=== PATIENT | male | born 1960 | race Caucasian/White ===

== ENCOUNTER 2016-10-29 09:22 | Inpatient (IN) | payer OTHER ==
[~2016-10-29] VITALS: Ht 170.2 cm; Wt 72.0 kg
[~2016-10-29 09:22] MED LIST: CIPR500T4 PO; FLUC150T17 PO; FOLI-49 PO; FURO20TA3 PO; LACT20SO12 PO; PANT40TA4 PO; RIFA550T4 PO; SPIR25TA76 PO
[2016-10-29] MEDS ORDERED: DIPHENHYDRAMINE 50 MG INJ IV ONE ×2 (10:30→12:30)
[2016-10-29 10:45] LABS: BASOPHILS % 0.3 % (0.0-2.0); EOSINOPHILS # 0.3 10^3/ul (0.0-0.5); EOSINOPHILS % 3.8 % (0.0-7.0); HEMATOCRIT 24.9 % (42.0-52.0); HEMOGLOBIN 8.6 g/dl (14.0-18.0); LYMPHOCYTES # 0.7 10^3/ul (0.8-2.9); LYMPHOCYTES % 9.9 % (15.0-51.0); MEAN CORPUSCULAR HEMOGLOBIN 31.2 pg (29.0-33.0); MEAN CORPUSCULAR HGB CONC 34.4 g/dl (32.0-37.0); MEAN CORPUSCULAR VOLUME 90.7 fl (82.0-101.0); MEAN PLATELET VOLUME 8.5 fl (7.4-10.4); MONOCYTE # 1.2 10^3/ul (0.3-0.9); MONOCYTES % 16.1 % (0.0-11.0); NEUTROPHIL # 5.1 10^3/ul (1.6-7.5); NEUTROPHILS % 69.9 % (39.0-77.0); PLATELET COUNT 110 10^3/UL (140-440); RED BLOOD COUNT 2.75 10^6/ul (4.70-6.10); RED CELL DISTRIBUTION WIDTH 16.1 % (11.5-14.5); UNCORRECTED WBC 7.3 10^3/ul (4.8-10.8); WHITE BLOOD COUNT 7.3 10^3/ul (4.8-10.8)
[2016-10-29 10:50] LABS: CONDITION 1; LH ANALYZER COMMENTS 1
[2016-10-29 10:57] LABS: ALBUMIN 2.9 g/dl (3.3-4.9)
[2016-10-29 10:59] LABS: INR 1.4; PARTIAL THROMBOPLASTIN TIME 37.7 Sec (25.0-35.0); PROTIME 17.2 Sec (12.2-14.2); PT RATIO 1.3
[2016-10-29 11:00] LABS: ALBUMIN/GLOBULIN RATIO 0.78; BILIRUBIN,INDIRECT 1.1 mg/dl (0-1.1); BILIRUBIN,TOTAL 1.1 mg/dl (0.2-1.3); CREATININE 1.35 mg/dl (0.61-1.24); TOTAL PROTEIN 6.6 g/dl (6.1-8.1)
[2016-10-29] MEDS ORDERED: CIPROFLOXACIN 0.3% 2.5 ML OPH LEFT EYE ONE (11:00)
[2016-10-29 11:01] LABS: CALCIUM 7.9 mg/dl (8.4-10.2)
--- NOTE | 2016-10-29 11:17 | ERD ---
ER Documentation Chief Complaint Date/Time DATE: 10/29/16 TIME: 11:12 Chief Complaint pt bib self with c/o "fluid in abd needs to be drained" HPI This is a 55-year-old male with known history of liver cirrhosis and ascites. The patient had multiple previous hospitalizations and evaluations in the emergency department for paracentesis disease. The patient's most recent paracentesis was on October 22, 2016, 7 days prior to arrival. The patient indicates he had been admitted to the hospital for roughly 9 days and discharged on the . He returns today for increased abdominal distention mild dyspnea but denies any abdominal pain. He has had no hemoptysis hematemesis or melanotic stools. His main reason for coming to the emergency department today is to receive a paracentesis. He denies any chest pain or pressure that radiates to the neck or back or jaw. He has no shortness of breath at rest or exertion. He states he does not feel confused, lethargic and denies a headache. ROS All systems reviewed and are negative except as per history of present illness. Medications Home Meds Active Scripts Spironolactone* (Aldactone*) 25 Mg Tablet, 25 MG PO DAILY@06 for 30 Days, TAB Prov:SUNDAR OBRIEN 10/22/16 Lactulose* (Cephulac*) 20 Gm/30 Ml Soln, 30 GM PO TID for 30 Days Prov:SUNDAR OBRIEN 10/22/16 Pantoprazole* (Pantoprazole*) 40 Mg Tablet.dr, 40 MG PO DAILY@06 for 30 Days Prov:SUNDAR OBRIEN 10/22/16 Furosemide* (Furosemide*) 20 Mg Tablet, 20 MG PO DAILY, #30 TAB Prov:RIDDHI BLOCK 08/18/16 Rifaximin* (Xifaxan*) 550 Mg Tablet, 550 MG PO BID for 30 Days, TAB Prov:RIDDHI BLOCK 08/18/16 Reported Medications Folic Acid* (Folic Acid*) 1 Mg Tablet, 1 MG PO DAILY, TAB 08/11/16 Discontinued Scripts Ciprofloxacin Hcl* (Ciprofloxacin Hcl*) 500 Mg Tablet, 500 MG PO BID for 3 Days , #6 TAB Prov:SUNDAR OBRIEN 10/22/16 Fluconazole* (Diflucan*) 150 Mg Tablet, 100 MG PO ONCE for 5 Days, #1 TAB Prov:SUNDAR OBRIEN 10/22/16 Lactulose* (Cephulac*) 20 Gm/30 Ml Soln, 20 GM PO TID for 30 Days Prov:RIDDHI BLOCK 08/18/16 Allergies Allergies: Coded Allergies: aspirin (Verified Allergy, Unknown, liver not tolerant, 10/14/16) latanoprost (Verified Allergy, Unknown, 10/14/16) timolol (Verified Allergy, Unknown, 10/14/16) PMhx/Soc History of Surgery: Yes (L eye cataract sx) Anesthesia Reaction: No Hx 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 Disorder: No Hx Respiratory Disorders: No Hx Cardiac Disorders: Yes Hx Psychiatric Problems: No Hx Miscellaneous Medical Probl: Yes (severe sepsis, cystitis, LEONARDO,ascites) Hx Alcohol Use: Yes Hx Substance Use: No Hx Tobacco Use: Yes Smoking Status: Current every day smoker Physical Exam Vitals Vital Signs Date Time Temp Pulse Resp B/P Pulse Ox O2 Delivery O2 Flow Rate FiO2 10/29/16 12:05 76 20 97 21 10/29/16 12:00 97.9 72 18 132/78 100 Room Air 10/29/16 09:38 96.9 90 22 128/75 100 Physical Exam Constitutional:Well-developed. Well-nourished. HEENT:Normocephalic. Atraumatic.Pupils were equal round reactive to light. Moist mucous membranes.No tonsillar exudates. Sclera icterus. Neck: No nuchal rigidity. No lymphadenopathy. No posterior cervical spine tenderness or step-offs. Respiratory: Not using accessory muscles of respiration.Lungs were clear to auscultation bilaterally. No rhonchi. No rales. No wheezing. Cardiovascular: Regular rate regular rhythm.No murmurs. No rubs were appreciated.S1, S2 normal. Distal pulses are palpable 2+ bilaterally. GI: Abdomen was soft. Nontender. Tense abdominal ascites with positive fluid thrill however no reproducible tenderness and umbilical hernia. No pulsatile abdominal masses or bruits. No rebound. No guarding. Bowel sounds were present and normal. Muscle skeletal: Full range of motion of both the upper and lower extremities bilaterally.Normal muscle tone.No assymetrical calf tenderness or swelling. Skin: No petechia, no purpura. No lesions on the palms or the soles of the feet. No maculopapular rash. NEURO: Patient was alert, awake, orientated x3.No facial droop. Gait observed and normal with no ataxia.Speech had regular rate and rhythm. No focal neurological deficits. Result Diagram: 10/29/16 1021 10/29/16 1025 Results 24 hrs Laboratory Tests Test 10/29/16 10:21 10/29/16 10:25 10/29/16 11:35 Basophils # 0.010^3/ul Basophils % 0.3% Blood Morphology Comment Eosinophils # 0.310^3/ul Eosinophils % 3.8% Hematocrit 24.9% Hemoglobin 8.6g/dl Lymphocytes # 0.710^3/ul Lymphocytes % 9.9% Mean Corpuscular Hemoglobin 31.2pg Mean Corpuscular Hemoglobin Concent 34.4g/dl Mean Corpuscular Volume 90.7fl Mean Platelet Volume 8.5fl Monocytes # 1.210^3/ul Monocytes % 16.1% Neutrophils # 5.110^3/ul Neutrophils % 69.9% Nucleated Red Blood Cells # 0.010^3/ul Nucleated Red Blood Cells % 0.0/100WBC Platelet Count 33317^3/UL Red Blood Count 2.7510^6/ul Red Cell Distribution Width 16.1% White Blood Count 7.310^3/ul Activated Partial Thromboplast Time 37.7Sec Alanine Aminotransferase (ALT/SGPT) 35IU/L Albumin 2.9g/dl Albumin/Globulin Ratio 0.78 Alkaline Phosphatase 245IU/L Amylase Level 163U/L Anion Gap 15 Aspartate Amino Transf (AST/SGOT) 49IU/L Blood Urea Nitrogen 53mg/dl Calcium Level 7.9mg/dl Carbon Dioxide Level 19mmol/L Chloride Level 97mmol/L Creatinine 1.35mg/dl Direct Bilirubin 0.00mg/dl Globulin 3.70g/dl Glucose Level 164mg/dl INR International Normalized Ratio 1.40 Indirect Bilirubin 1.1mg/dl Lipase 480U/L Potassium Level 6.0mmol/L Prothrombin Time 17.2Sec Prothrombin Time Ratio 1.3 Sodium Level 125mmol/L Total Bilirubin 1.1mg/dl Total Protein 6.6g/dl Ammonia 47umol/l Current Medications Medications (Trade) Dose Ordered Sig/Lorri Route PRN Reason Start Time Stop Time Status Last Admin Dose Admin Diphenhydramine HCl (Benadryl) 25 mg ONCE ONCE IV 10/29/16 10:30 10/29/16 10:31 DC 10/29/16 10:40 Ciprofloxacin HCl (Ciloxan 0.3% Oph) 1 drop ONCE ONCE LEFT EYE 10/29/16 11:00 10/29/16 11:01 Cancel Sodium Polystyrene Sulfonate (Kayexalate) 30 gm ONCE STAT PO 10/29/16 11:33 10/29/16 11:35 DC 10/29/16 12:14 Albuterol (Proventil 0.5% (Neb)) 15 mg ONCE STAT INH 10/29/16 11:33 10/29/16 11:35 DC 10/29/16 12:01 Calcium Gluconate (Ca Gluc) 1 gm ONCE STAT IV 10/29/16 11:33 10/29/16 11:35 DC 10/29/16 12:14 Lactulose (Enulose) 20 gm ONCE ONCE PO 10/29/16 12:30 10/29/16 12:32 DC Diphenhydramine HCl (Benadryl) 25 mg ONCE ONCE IV 10/29/16 12:30 10/29/16 12:31 DC Ondansetron HCl (Zofran Inj) 4 mg ER BRIDGE PRN IV NAUSEA AND/OR VOMITING 10/29/16 13:00 10/30/16 12:59 Acetaminophen (Tylenol Tab) 650 mg ER BRIDGE PRN PO MILD PAIN/FEVER 10/29/16 13:00 10/30/16 12:59 Procedures/MDM This patient presented to the emergency department with abdominal distension and was seen and evaluated by myself. My differential diagnosis included but was not limited to abdominal aortic aneurysm, appendicitis, pancreatitis, perforated peptic ulcer, perforated viscus, Boerhaaves syndrome or visceral pain such as diverticulitis, DKA, esophagitis, hepatitis or bowel obstruction. The patient was placed on a conveyor monitor, continuous pulse oximetry, and IV access was established by nursing staff. The patient received Benadryl as he was experiencing pruritus. The patient had new onset acute renal failure with an elevated BUN and creatinine compared to his discharge labs on October 22. In addition the patient was hyperkalemic today with a potassium of 6.0 and on discharge October 22, 2016 the patient's potassium was normal at 4.5. The patient was treated for hyperkalemia given continuous nebulizer treatment of albuterol, Kayexalate as well as IV calcium carbonate. Therefore the patient will require admission to the telemetry service due to the hyperkalemia as he will require cardiac monitoring. To treat the patient's elevated ammonia level the patient was given lactulose. The patient will be admitted in the care of Dr. Ch who was taking call for Dr. Lindsey bradley again to the telemetry service in serious condition with an anticipated stay of greater than 2 midnights. The patient had a paracentesis performed in the emergency department by the radiologist with no complications. 12 Lead EKG tracing ordered and reviewed by myself showed: Normal sinus rhythm of 91 bpm and no arrhythmia. [place] interval normal. QRS duration normal. No ST segment elevation No ST segment depression. No changes consistent with acute ischemia. Departure Diagnosis: Primary Impression: Ascites of liver Additional Impressions: Acute renal failure (ARF) Hyperkalemia Hepatic encephalopathy Condition: Serious ALLISON GUADALUPE Oct 29, 2016 11:17
[2016-10-29] MEDS ORDERED: CA GLUCONATE (GM) 10% 10ML INJ IV STA (11:33)
[2016-10-29] MEDS ORDERED: ALBUTEROL 0.5% (NEB) 2.5 MG/0.5 ML AMP INH STA (11:33)
[2016-10-29] MEDS ORDERED: NA POLYST SULFON 15 GM/60 ML BTL PO STA (11:33)
[2016-10-29] MEDS ORDERED: LACTULOSE 30ML CUP PO ONE (12:30)
[2016-10-29] MEDS ORDERED: ONDANSETRON 4 MG INJ IV PRN (13:00)
[2016-10-29] MEDS ORDERED: ACETAMINOPHEN 325 MG TAB PO PRN (13:00)
[2016-10-29] MEDS ORDERED: LIDOCAINE 1% (MPF) 5 ML VIAL ONE (13:50)
--- NOTE | 2016-10-29 14:09 | RADRPT ---
PROCEDURE: Ultrasound guided paracentesis. CLINICAL INDICATION: Ascites and shortness of breath. COMPARISON: 10/22/2016. TECHNIQUE: The risks, benefits, and alternatives were explained to the patient, including but not limited to bl eeding, infection, pain, visceral or vascular damage, shock, and . The patient understood the risks and the alternatives and wished to proceed with the procedure. Informed written consent was o btained. A procedural time out was performed. The patient's name, date of , and procedure to b e performed were verified. Utilizing ultrasound guidance, optimal location for entry to the peritoneal cavity was ascertained. The overlying skin was prepped and draped in the usual sterile fashion. Approximately 10 ml of 1% Xylocaine was injected locally for pain control. Using ultrasound guidance, an 8 Samoan catheter wa s introduced into the peritoneal cavity in the right lower quadrant without difficulty. FINDINGS: Initial images demonstrate ascites. Approximately 8.9 liters of serous fluid was aspirated and disc arded. The patient tolerated the procedure well without complication. IMPRESSION: 1. Successful ultrasound-guided paracentesis. RPTAT: QQ .Emilio Everett MD, MD Date Time Electronically viewed and signed by .Emilio Everett MD, on 10/29/2016 14:09 .R/
[2016-10-29 20:18] VITALS: TEMP 97.9
[2016-10-29 20:36] VITALS: PULSE 90
[2016-10-29 20:41] VITALS: BP 113/57; RESP 20
[2016-10-29 21:35] VITALS: Ht 170.2 cm; Wt 72.0 kg
[2016-10-30] VITALS (12 sets, daily range): BP systolic 93–112; BP diastolic 51–73; PULSE 79–89; RESP 18–20
[2016-10-30] MEDS: FUROSEMIDE 20 MG TAB PO SCH (06:24)
[2016-10-30] MEDS: PANTOPRAZOLE (EC) 40 MG TAB PO SCH (06:24)
[2016-10-30 07:16] LABS: BASOPHILS % 0.7 % (0.0-2.0); EOSINOPHILS # 0.3 10^3/ul (0.0-0.5); EOSINOPHILS % 5.1 % (0.0-7.0); HEMATOCRIT 25.1 % (42.0-52.0); HEMOGLOBIN 8.7 g/dl (14.0-18.0); LYMPHOCYTES # 1.1 10^3/ul (0.8-2.9); MEAN CORPUSCULAR HEMOGLOBIN 31.9 pg (29.0-33.0); MEAN CORPUSCULAR HGB CONC 34.6 g/dl (32.0-37.0); MEAN CORPUSCULAR VOLUME 92.2 fl (82.0-101.0); MEAN PLATELET VOLUME 8.5 fl (7.4-10.4); MONOCYTES % 16.4 % (0.0-11.0); NEUTROPHIL # 3.8 10^3/ul (1.6-7.5); NEUTROPHILS % 59.8 % (39.0-77.0); PLATELET COUNT 91 10^3/UL (140-440); RED BLOOD COUNT 2.72 10^6/ul (4.70-6.10); RED CELL DISTRIBUTION WIDTH 16.2 % (11.5-14.5); UNCORRECTED WBC 6.4 10^3/ul (4.8-10.8); WHITE BLOOD COUNT 6.4 10^3/ul (4.8-10.8)
[2016-10-30 07:17] LABS: CONDITION 1; LH ANALYZER COMMENTS 1
[2016-10-30 07:34] LABS: CREATININE 1.2 mg/dl (0.61-1.24)
[2016-10-30 07:35] LABS: CALCIUM 7.5 mg/dl (8.4-10.2)
--- NOTE | 2016-10-30 09:52 | HP ---
Date/Time of Note Date/Time of Note DATE: 10/30/16 TIME: 09:50 Assessment/Plan VTE Prophylaxis VTE Prophylaxis Intervention: LMWH Assessment/Plan Chief Complaint/Hosp Course 1) ascites - paracentesis 2) cirrhosis - monitor - continue lactuose 3) diabetes - monitor blood sugar Problems: HPI/ROS Admit Date/Time Admit Date/Time Oct 29, 2016 at 12:38 Hx of Present Illness Patient with diabetes, cirrhosis, and renal insufficiency comes in with increased abdominal ascites and shortness of breath. Patient needs to have paracentesis regularly and came in for that purpose. PMH/Family/Social Past Medical History cirrhosis Medical History: diabetes, renal disease Social History Smoking Status: Current every day smoker Drug Use: none Exam/Review of Systems Vital Signs Vitals Vital Signs Date Time Temp Pulse Resp B/P Pulse Ox O2 Delivery O2 Flow Rate FiO2 10/30/16 08:03 79 10/30/16 07:03 98.1 20 106/57 100 10/29/16 20:18 Room Air 10/29/16 12:05 21 Intake and Output 10/29/16 10/29/16 10/30/16 15:00 23:00 07:00 Intake Total 400 ml Output Total 800 ml Balance -400 ml Exam Constitutional: alert, well developed Head: atraumatic, normocephalic Neck: supple Respiratory: clear to auscultation Cardiovascular: regular rate and rhythm Gastrointestinal: ascites, distended, firm Extremities: normal pulses Labs Result Diagram: 10/30/16 0600 10/30/16 0600 Medications Medications Current Medications Lactulose (Enulose) 30 gm BID PO ; Start 10/30/16 at 09:00 Rifaximin (Xifaxan) 550 mg BID PO ; Start 10/30/16 at 09:00 Furosemide (Lasix) 20 mg DAILY@06 PO Last administered on 10/30/16at 06:24; Admin Dose 20 MG; Start 10/30/16 at 06:00 Pantoprazole (Protonix Tab) 40 mg DAILY@06 PO Last administered on 10/30/16at 06:24; Admin Dose 40 MG; Start 10/30/16 at 06:00 Spironolactone (Aldactone) 25 mg DAILY PO ; Start 10/30/16 at 09:00 Folic Acid (Folic Acid) 1 mg DAILY PO ; Start 10/30/16 at 09:00 DERIC BINGHAM Oct 30, 2016 09:52
[2016-10-30] MEDS ORDERED: GLUCOSE GEL 15 GRAM TUBE PO PRN ×2 (10:00)
[2016-10-30] MEDS ORDERED: Discontinue Glyburide, Glipizide, and/or Glimepiride prior to starting Insulin XX ONE (10:00)
[2016-10-30] MEDS ORDERED: DEXTROSE 50% 50 ML SYRINGE IV PRN ×2 (10:00)
[2016-10-30] MEDS ORDERED: GLUCAGON 1 MG INJ IM PRN (10:00)
[2016-10-30] MEDS ORDERED: [UNRECOGNIZED DRUG - OTHER] XX ONE (10:00)
[2016-10-30] MEDS ORDERED: GLUCOSE GEL 15 GRAM TUBE BUCCAL PRN (10:00)
[2016-10-30] MEDS: RIFAXIMIN 550 MG TAB PO SCH ×2 (10:30→20:17)
[2016-10-30] MEDS: SPIRONOLACTONE 25 MG TAB PO SCH (10:30)
[2016-10-30] MEDS: FOLIC ACID 1 MG TAB PO SCH (10:30)
[2016-10-30] MEDS: LACTULOSE 30ML CUP PO SCH ×2 (10:30→20:17)
[2016-10-30] MEDS: INSULIN ASPART [NOVOLOG] 3 ML PEN SC SCH ×3 (11:50→20:16)
--- NOTE | 2016-10-30 15:42 | RADRPT ---
PROCEDURE: Ultrasound four quadrants CLINICAL INDICATION: Abdominal distension. Evaluate for paracentesis. The patient has a history o f paracentesis on the prior day with 8.9 liters of fluid withdrawn. TECHNIQUE: Sonographic evaluation of the four quadrants of the abdomen was performed. Coyle-scale imaging was utilized. Images were reviewed on a high-resolution PACS workstation. COMPARISON: Ultrasound dated 10/29/2016 FINDINGS: Small ascites is seen. The volume of fluid is inadequate for paracentesis, given that the patient had paracentesis on the p rio day. IMPRESSION: 1. Small ascites. 2. Paracentesis was deferred, given that the patient had paracentesis on the prior day. The patien t may be reevaluated for paracentesis on a short term basis, if clinically indicated. RPTAT: II .Ricky Marte MD, Date Time Electronically viewed and signed by .Ricky Marte MD, on 10/30/2016 15:21 .M/
[2016-10-30] MEDS: DIPHENHYDRAMINE 25 MG CAP PO PRN (20:17)
[2016-10-31] VITALS (12 sets, daily range): BP systolic 105–115; BP diastolic 52–62; PULSE 79–96; RESP 15–20
[2016-10-31] MEDS: ACCUCHECK XX SCH (02:00)
[2016-10-31] MEDS: PANTOPRAZOLE (EC) 40 MG TAB PO SCH (05:48)
[2016-10-31] MEDS: FUROSEMIDE 20 MG TAB PO SCH (05:49)
[2016-10-31 06:48] LABS: BASOPHILS % 0.4 % (0.0-2.0); EOSINOPHILS # 0.2 10^3/ul (0.0-0.5); EOSINOPHILS % 3.9 % (0.0-7.0); HEMATOCRIT 25.7 % (42.0-52.0); HEMOGLOBIN 8.9 g/dl (14.0-18.0); LYMPHOCYTES % 17.4 % (15.0-51.0); MEAN CORPUSCULAR HEMOGLOBIN 31.3 pg (29.0-33.0); MEAN CORPUSCULAR HGB CONC 34.5 g/dl (32.0-37.0); MEAN CORPUSCULAR VOLUME 90.6 fl (82.0-101.0); MEAN PLATELET VOLUME 8.1 fl (7.4-10.4); MONOCYTES % 17.8 % (0.0-11.0); NEUTROPHIL # 3.4 10^3/ul (1.6-7.5); NEUTROPHILS % 60.5 % (39.0-77.0); PLATELET COUNT 88 10^3/UL (140-440); RED BLOOD COUNT 2.84 10^6/ul (4.70-6.10); RED CELL DISTRIBUTION WIDTH 16.2 % (11.5-14.5); UNCORRECTED WBC 5.7 10^3/ul (4.8-10.8); WHITE BLOOD COUNT 5.7 10^3/ul (4.8-10.8)
[2016-10-31 06:54] LABS: POTASSIUM 4.7 mmol/L (3.5-5.1)
[2016-10-31 06:57] LABS: CREATININE 1.42 mg/dl (0.61-1.24)
[2016-10-31 06:58] LABS: CALCIUM 7.6 mg/dl (8.4-10.2)
[2016-10-31 07:06] LABS: CONDITION 1; LH ANALYZER COMMENTS 1
[2016-10-31] MEDS: FOLIC ACID 1 MG TAB PO SCH ×2 (09:00→09:06)
[2016-10-31] MEDS: SPIRONOLACTONE 25 MG TAB PO SCH ×2 (09:00→09:06)
[2016-10-31] MEDS: LACTULOSE 30ML CUP PO SCH ×3 (09:00→20:05)
[2016-10-31] MEDS: RIFAXIMIN 550 MG TAB PO SCH ×3 (09:00→20:05)
[2016-10-31] MEDS: INSULIN ASPART [NOVOLOG] 3 ML PEN SC SCH ×4 (09:08→20:02)
--- NOTE | 2016-10-31 12:15 | PN ---
Date/Time of Note Date/Time of Note DATE: 10/31/16 TIME: 12:14 Assessment/Plan VTE Prophylaxis VTE Prophylaxis Intervention: LMWH Assessment/Plan Chief Complaint/Hosp Course 1) ascites - improved 2) cirrhosis - monitor - continue lactuose 3) diabetes - monitor blood sugar Problems: Subjective 24 Hr Interval Summary Free Text/Dictation Patient resting comfortably, difficult to arouse. Exam/Review of Systems Vital Signs Vitals Vital Signs Date Time Temp Pulse Resp B/P Pulse Ox O2 Delivery O2 Flow Rate FiO2 10/31/16 11:29 98.3 86 20 108/52 100 10/29/16 20:18 Room Air 10/29/16 12:05 21 Intake and Output 10/30/16 10/30/16 10/31/16 15:00 23:00 07:00 Intake Total 940 ml 120 ml Output Total 720 ml Balance 220 ml 120 ml Exam Constitutional: well developed Neck: supple Respiratory: clear to auscultation Cardiovascular: regular rate and rhythm Gastrointestinal: non-tender, soft Extremities: normal pulses Results Result Diagram: 10/31/16 0555 10/31/16 0555 Results 24 hrs Laboratory Tests Test 10/30/16 18:09 10/30/16 20:00 10/31/16 05:55 10/31/16 07:31 Bedside Glucose 302 H 109 144 Anion Gap 14 Basophils # 0.0 Basophils % 0.4 Blood Morphology Comment Blood Urea Nitrogen 51 H Calcium Level 7.6 L Carbon Dioxide Level 20 L Chloride Level 96 L Creatinine 1.42 H Eosinophils # 0.2 Eosinophils % 3.9 Glucose Level 146 Hematocrit 25.7 L Hemoglobin 8.9 L Lymphocytes # 1.0 Lymphocytes % 17.4 Mean Corpuscular Hemoglobin 31.3 Mean Corpuscular Hemoglobin Concent 34.5 Mean Corpuscular Volume 90.6 Mean Platelet Volume 8.1 Monocytes # 1.0 H Monocytes % 17.8 H Neutrophils # 3.4 Neutrophils % 60.5 Nucleated Red Blood Cells # 0.0 Nucleated Red Blood Cells % 0.0 Platelet Count 88 L Potassium Level 4.7 Red Blood Count 2.84 L Red Cell Distribution Width 16.2 H Sodium Level 125 L White Blood Count 5.7 Test 10/31/16 11:35 Bedside Glucose 132 Medications Medications Current Medications Lactulose (Enulose) 30 gm BID PO Last administered on 10/31/16t 09:06; Admin Dose 30 GM; Start 10/30/16 at 09:00 Rifaximin (Xifaxan) 550 mg BID PO Last administered on 10/31/16 09:06; Admin Dose 550 MG; Start 10/30/16 at 09:00 Furosemide (Lasix) 20 mg DAILY@06 PO Last administered on 10/31/16 05:49; Admin Dose 20 MG; Start 10/30/16 at 06:00 Pantoprazole (Protonix Tab) 40 mg DAILY@06 PO Last administered on 10/31/16 05: 48; Admin Dose 40 MG; Start 10/30/16 at 06:00 Spironolactone (Aldactone) 25 mg DAILY PO Last administered on 10/31/16 09:06; Admin Dose 25 MG; Start 10/30/16 at 09:00 Folic Acid (Folic Acid) 1 mg DAILY PO Last administered on 10/31/16 09:06; Admin Dose 1 MG; Start 10/30/16 at 09:00 Diagnostic Test (Pha) (Accucheck) 1 ea 02 XX ; Start 10/31/16 at 02:00 Miscellaneous Information 1 ea NOTE XX ; Start 10/30/16 at 10:00 Glucose (Glutose) 15 gm Q15M PRN PO DECREASED GLUCOSE; Start 10/30/16 at 10:00 Glucose (Glutose) 22.5 gm Q15M PRN PO DECREASED GLUCOSE; Start 10/30/16 at 10: 00 Dextrose (D50w Syringe) 25 ml Q15M PRN IV DECREASED GLUCOSE; Start 10/30/16 at 10:00 Dextrose (D50w Syringe) 50 ml Q15M PRN IV DECREASED GLUCOSE; Start 10/30/16 at 10:00 Glucagon (Glucagen) 1 mg Q15M PRN IM DECREASED GLUCOSE; Start 10/30/16 at 10: 00 Glucose (Glutose) 15 gm Q15M PRN BUCCAL DECREASED GLUCOSE; Start 10/30/16 at 10:00 Diphenhydramine HCl (Benadryl) 25 mg Q6H PRN PO ITCHING Last administered on at 20:17; Admin Dose 25 MG; Start 10/30/16 at 20:30 DERIC BINGHAM Oct 31, 2016 12:15
[2016-10-31] MEDS: DIPHENHYDRAMINE 25 MG CAP PO PRN (21:24)
[2016-10-31] MEDS ORDERED: hydrOXYzine HCL 25 MG TAB PO ONE (23:30)
[2016-11-01] VITALS (10 sets, daily range): BP systolic 104–119; BP diastolic 55–64; PULSE 81–90; RESP 15–18
[2016-11-01] MEDS: ACCUCHECK XX SCH (01:32)
[2016-11-01] MEDS: PANTOPRAZOLE (EC) 40 MG TAB PO SCH (05:28)
[2016-11-01] MEDS: FUROSEMIDE 20 MG TAB PO SCH (05:31)
[2016-11-01] MEDS: INSULIN ASPART [NOVOLOG] 3 ML PEN SC SCH ×4 (07:52→21:00)
[2016-11-01] MEDS: RIFAXIMIN 550 MG TAB PO SCH ×2 (08:48→21:09)
[2016-11-01] MEDS: SPIRONOLACTONE 25 MG TAB PO SCH (08:48)
[2016-11-01] MEDS: LACTULOSE 30ML CUP PO SCH ×2 (08:48→17:46)
[2016-11-01] MEDS: FOLIC ACID 1 MG TAB PO SCH (08:48)
[2016-11-01] MEDS: DIPHENHYDRAMINE 25 MG CAP PO PRN ×3 (11:00→21:56)
[2016-11-01 11:13] LABS: BASOPHILS % 0.3 % (0.0-2.0); EOSINOPHILS # 0.1 10^3/ul (0.0-0.5); EOSINOPHILS % 1.6 % (0.0-7.0); HEMATOCRIT 27.3 % (42.0-52.0); HEMOGLOBIN 9.2 g/dl (14.0-18.0); LYMPHOCYTES # 0.9 10^3/ul (0.8-2.9); LYMPHOCYTES % 11.5 % (15.0-51.0); MEAN CORPUSCULAR HEMOGLOBIN 31.3 pg (29.0-33.0); MEAN CORPUSCULAR HGB CONC 33.8 g/dl (32.0-37.0); MEAN CORPUSCULAR VOLUME 92.4 fl (82.0-101.0); MEAN PLATELET VOLUME 8.7 fl (7.4-10.4); MONOCYTES % 12.7 % (0.0-11.0); NEUTROPHIL # 5.9 10^3/ul (1.6-7.5); NEUTROPHILS % 73.9 % (39.0-77.0); PLATELET COUNT 94 10^3/UL (140-440); RED BLOOD COUNT 2.95 10^6/ul (4.70-6.10); RED CELL DISTRIBUTION WIDTH 16.7 % (11.5-14.5)
[2016-11-01 11:17] LABS: CONDITION 1; LH ANALYZER COMMENTS 1
[2016-11-01 11:31] LABS: POTASSIUM 4.8 mmol/L (3.5-5.1)
[2016-11-01 11:34] LABS: CREATININE 1.59 mg/dl (0.61-1.24)
[2016-11-01 11:35] LABS: CALCIUM 8.3 mg/dl (8.4-10.2)
[2016-11-01] MEDS ORDERED: HYDR-845 PO (11:52)
--- NOTE | 2016-11-01 13:19 | PN ---
Date/Time of Note Date/Time of Note DATE: 11/01/16 TIME: 13:18 Assessment/Plan VTE Prophylaxis VTE Prophylaxis Intervention: LMWH Lines/Catheters IV [facility]from [facility] Saline Lock Assessment/Plan Chief Complaint/Hosp Course 1) ascites - improved 2) cirrhosis - monitor - continue lactuose 3) diabetes - monitor blood sugar 4) ALOC - probably secondary to #2 Problems: Subjective 24 Hr Interval Summary Free Text/Dictation Patient is confused, teary, no verbally communicative Exam/Review of Systems Vital Signs Vitals Vital Signs Date Time Temp Pulse Resp B/P Pulse Ox O2 Delivery O2 Flow Rate FiO2 11/01/16 12:10 89 11/01/16 12:06 98.0 18 109/64 98 10/29/16 20:18 Room Air 10/29/16 12:05 21 Intake and Output 10/31/16 10/31/16 11/01/16 15:00 23:00 07:00 Intake Total 340 ml 120 ml Balance 340 ml 120 ml Exam Constitutional: well developed Neck: supple Respiratory: diminished breath sounds Cardiovascular: regular rate and rhythm Gastrointestinal: non-tender, soft Results Result Diagram: 11/01/16 1047 11/01/16 1047 Results 24 hrs Laboratory Tests Test 10/31/16 16:58 10/31/16 19:55 11/01/16 07:51 11/01/16 10:47 Bedside Glucose 139 167 125 Ammonia 43 H Anion Gap 19 H Basophils # 0.0 Basophils % 0.3 Blood Morphology Comment Blood Urea Nitrogen 57 H Calcium Level 8.3 L Carbon Dioxide Level 17 L Chloride Level 100 Creatinine 1.59 H Eosinophils # 0.1 Eosinophils % 1.6 Glucose Level 183 Hematocrit 27.3 L Hemoglobin 9.2 L Lymphocytes # 0.9 Lymphocytes % 11.5 L Mean Corpuscular Hemoglobin 31.3 Mean Corpuscular Hemoglobin Concent 33.8 Mean Corpuscular Volume 92.4 Mean Platelet Volume 8.7 Monocytes # 1.0 H Monocytes % 12.7 H Neutrophils # 5.9 Neutrophils % 73.9 Nucleated Red Blood Cells # 0.0 Nucleated Red Blood Cells % 0.0 Platelet Count 94 L Potassium Level 4.8 Red Blood Count 2.95 L Red Cell Distribution Width 16.7 H Sodium Level 131 L White Blood Count 8.0 # Test 11/01/16 11:47 Bedside Glucose 158 Medications Medications Current Medications Lactulose (Enulose) 30 gm BID PO Last administered on 11/01/16 08:48; Admin Dose 30 GM; Start 10/30/16 at 09:00 Rifaximin (Xifaxan) 550 mg BID PO Last administered on 11/01/16 08:48; Admin Dose 550 MG; Start 10/30/16 at 09:00 Furosemide (Lasix) 20 mg DAILY@06 PO Last administered on 11/01/16 05:31; Admin Dose 20 MG; Start 10/30/16 at 06:00 Pantoprazole (Protonix Tab) 40 mg DAILY@06 PO Last administered on 11/01/16 05: 28; Admin Dose 40 MG; Start 10/30/16 at 06:00 Spironolactone (Aldactone) 25 mg DAILY PO Last administered on 11/01/16 08:48; Admin Dose 25 MG; Start 10/30/16 at 09:00 Folic Acid (Folic Acid) 1 mg DAILY PO Last administered on 11/01/16 08:48; Admin Dose 1 MG; Start 10/30/16 at 09:00 Diagnostic Test (Pha) (Accucheck) 1 ea 02 XX ; Start 10/31/16 at 02:00 Miscellaneous Information 1 ea NOTE XX ; Start 10/30/16 at 10:00 Glucose (Glutose) 15 gm Q15M PRN PO DECREASED GLUCOSE; Start 10/30/16 at 10:00 Glucose (Glutose) 22.5 gm Q15M PRN PO DECREASED GLUCOSE; Start 10/30/16 at 10: 00 Dextrose (D50w Syringe) 25 ml Q15M PRN IV DECREASED GLUCOSE; Start 10/30/16 at 10:00 Dextrose (D50w Syringe) 50 ml Q15M PRN IV DECREASED GLUCOSE; Start 10/30/16 at 10:00 Glucagon (Glucagen) 1 mg Q15M PRN IM DECREASED GLUCOSE; Start 10/30/16 at 10: 00 Glucose (Glutose) 15 gm Q15M PRN BUCCAL DECREASED GLUCOSE; Start 10/30/16 at 10:00 Diphenhydramine HCl (Benadryl) 25 mg Q6H PRN PO ITCHING Last administered on 11:00; Admin Dose 25 MG; Start 10/30/16 at 20:30 DERIC BINGHAM Nov 01, 2016 13:19
[2016-11-01] MEDS: ACETAMINOPHEN 325 MG TAB PO PRN ×3 (13:55→21:53)
[2016-11-02] VITALS (12 sets, daily range): BP systolic 102–140; BP diastolic 55–71; PULSE 94–108; RESP 18–22
[2016-11-02] MEDS: LACTULOSE 30ML CUP PO SCH ×5 (00:14→23:58)
[2016-11-02] MEDS: ACCUCHECK XX SCH (02:00)
[2016-11-02] MEDS: FUROSEMIDE 20 MG TAB PO SCH (05:51)
[2016-11-02] MEDS: PANTOPRAZOLE (EC) 40 MG TAB PO SCH (05:51)
[2016-11-02 05:58] LABS: EOSINOPHILS # 0.1 10^3/ul (0.0-0.5); EOSINOPHILS % 1.4 % (0.0-7.0); HEMATOCRIT 28.2 % (42.0-52.0); HEMOGLOBIN 9.8 g/dl (14.0-18.0); LYMPHOCYTES # 0.8 10^3/ul (0.8-2.9); LYMPHOCYTES % 8.7 % (15.0-51.0); MEAN CORPUSCULAR HEMOGLOBIN 31.8 pg (29.0-33.0); MEAN CORPUSCULAR HGB CONC 34.7 g/dl (32.0-37.0); MEAN CORPUSCULAR VOLUME 91.6 fl (82.0-101.0); MEAN PLATELET VOLUME 8.4 fl (7.4-10.4); MONOCYTE # 1.2 10^3/ul (0.3-0.9); MONOCYTES % 12.6 % (0.0-11.0); NEUTROPHIL # 7.1 10^3/ul (1.6-7.5); NEUTROPHILS % 77.3 % (39.0-77.0); PLATELET COUNT 99 10^3/UL (140-440); RED BLOOD COUNT 3.08 10^6/ul (4.70-6.10); RED CELL DISTRIBUTION WIDTH 16.7 % (11.5-14.5); UNCORRECTED WBC 9.2 10^3/ul (4.8-10.8); WHITE BLOOD COUNT 9.2 10^3/ul (4.8-10.8)
[2016-11-02 06:00] LABS: CONDITION 1; LH ANALYZER COMMENTS 1
[2016-11-02 06:10] LABS: POTASSIUM 4.1 mmol/L (3.5-5.1)
[2016-11-02 06:13] LABS: CREATININE 1.52 mg/dl (0.61-1.24)
[2016-11-02 06:14] LABS: CALCIUM 8.1 mg/dl (8.4-10.2)
[2016-11-02] MEDS: SPIRONOLACTONE 25 MG TAB PO SCH (09:24)
[2016-11-02] MEDS: FOLIC ACID 1 MG TAB PO SCH (09:24)
[2016-11-02] MEDS: RIFAXIMIN 550 MG TAB PO SCH ×2 (09:24→20:43)
[2016-11-02] MEDS: INSULIN ASPART [NOVOLOG] 3 ML PEN SC SCH ×4 (09:30→20:54)
--- NOTE | 2016-11-02 12:24 | PN ---
Date/Time of Note Date/Time of Note DATE: 11/02/16 TIME: 12:23 Assessment/Plan VTE Prophylaxis VTE Prophylaxis Intervention: LMWH Lines/Catheters IV [facility] Type (from [facility]): Saline Lock Assessment/Plan Chief Complaint/Hosp Course 1) ascites - improved 2) cirrhosis - monitor - continue lactuose 3) diabetes - monitor blood sugar 4) ALOC - probably secondary to #2 Problems: Subjective 24 Hr Interval Summary Free Text/Dictation Patient remains confused. Exam/Review of Systems Vital Signs Vitals Vital Signs Date Time Temp Pulse Resp B/P Pulse Ox O2 Delivery O2 Flow Rate FiO2 11/02/16 12:16 103 11/02/16 12:13 98.0 22 107/58 100 10/29/16 20:18 Room Air 10/29/16 12:05 21 Intake and Output 11/01/16 11/01/16 11/02/16 15:00 23:00 07:00 Intake Total 600 ml 300 ml Balance 600 ml 300 ml Exam Constitutional: well developed Head: atraumatic, normocephalic Neck: supple Respiratory: diminished breath sounds Cardiovascular: regular rate and rhythm Gastrointestinal: non-tender, soft Results Result Diagram: 11/02/16 0524 11/02/16 0524 Results 24 hrs Laboratory Tests Test 11/01/16 17:06 11/01/16 21:15 11/02/16 05:24 11/02/16 07:29 Bedside Glucose 123 130 149 Ammonia 53 H Anion Gap 19 H Basophils # 0.0 Basophils % 0.0 Blood Morphology Comment Blood Urea Nitrogen 54 H Calcium Level 8.1 L Carbon Dioxide Level 18 L Chloride Level 100 Creatinine 1.52 H Eosinophils # 0.1 Eosinophils % 1.4 Glucose Level 129 # Hematocrit 28.2 L Hemoglobin 9.8 L Lymphocytes # 0.8 Lymphocytes % 8.7 L Mean Corpuscular Hemoglobin 31.8 Mean Corpuscular Hemoglobin Concent 34.7 Mean Corpuscular Volume 91.6 Mean Platelet Volume 8.4 Monocytes # 1.2 H Monocytes % 12.6 H Neutrophils # 7.1 Neutrophils % 77.3 H Nucleated Red Blood Cells # 0.0 Nucleated Red Blood Cells % 0.0 Platelet Count 99 L Potassium Level 4.1 Red Blood Count 3.08 L Red Cell Distribution Width 16.7 H Sodium Level 133 L White Blood Count 9.2 Test 11/02/16 11:22 Bedside Glucose 193 Medications Medications Current Medications Rifaximin (Xifaxan) 550 mg BID PO Last administered on 11/02/16 09:24; Admin Dose 550 MG; Start 10/30/16 at 09:00 Furosemide (Lasix) 20 mg DAILY@06 PO Last administered on 11/02/16 05:51; Admin Dose 20 MG; Start 10/30/16 at 06:00 Pantoprazole (Protonix Tab) 40 mg DAILY@06 PO Last administered on 11/02/16 05: 51; Admin Dose 40 MG; Start 10/30/16 at 06:00 Spironolactone (Aldactone) 25 mg DAILY PO Last administered on 11/02/16 09:24; Admin Dose 25 MG; Start 10/30/16 at 09:00 Folic Acid (Folic Acid) 1 mg DAILY PO Last administered on 11/02/16 09:24; Admin Dose 1 MG; Start 10/30/16 at 09:00 Diagnostic Test (Pha) (Accucheck) 1 ea 02 XX ; Start 10/31/16 at 02:00 Miscellaneous Information 1 ea NOTE XX ; Start 10/30/16 at 10:00 Glucose (Glutose) 15 gm Q15M PRN PO DECREASED GLUCOSE; Start 10/30/16 at 10:00 Glucose (Glutose) 22.5 gm Q15M PRN PO DECREASED GLUCOSE; Start 10/30/16 at 10: 00 Dextrose (D50w Syringe) 25 ml Q15M PRN IV DECREASED GLUCOSE; Start 10/30/16 at 10:00 Dextrose (D50w Syringe) 50 ml Q15M PRN IV DECREASED GLUCOSE; Start 10/30/16 at 10:00 Glucagon (Glucagen) 1 mg Q15M PRN IM DECREASED GLUCOSE; Start 10/30/16 at 10: 00 Glucose (Glutose) 15 gm Q15M PRN BUCCAL DECREASED GLUCOSE; Start 10/30/16 at 10:00 Diphenhydramine HCl (Benadryl) 25 mg Q6H PRN PO ITCHING Last administered on 21:56; Admin Dose 25 MG; Start 10/30/16 at 20:30 Lactulose (Enulose) 60 gm Q6 PO Last administered on 11/02/16 11:36; Admin Dose 60 GM; Start 11/01/16 at 18:00 Acetaminophen (Tylenol Tab) 325 mg Q6H PRN PO PAIN AND OR ELEVATED TEMP Last administered on 11/01/16 21:53; Admin Dose 325 MG; Start 11/01/16 at 13:30 DERIC BINGHAM Nov 02, 2016 12:24
[2016-11-02] MEDS ORDERED: NA PHOSPHATE/BIPHOS 133 ML ENEMA PR PRN (15:00)
[2016-11-03] VITALS (11 sets, daily range): BP systolic 104–122; BP diastolic 53–81; PULSE 98–107; RESP 16–21
[2016-11-03] MEDS: ACCUCHECK XX SCH (02:00)
[2016-11-03] MEDS: PANTOPRAZOLE (EC) 40 MG TAB PO SCH (05:48)
[2016-11-03] MEDS: FUROSEMIDE 20 MG TAB PO SCH (05:49)
[2016-11-03] MEDS: LACTULOSE 30ML CUP PO SCH ×3 (05:49→19:04)
[2016-11-03] MEDS: SPIRONOLACTONE 25 MG TAB PO SCH (09:02)
[2016-11-03] MEDS: RIFAXIMIN 550 MG TAB PO SCH ×2 (09:02→20:28)
[2016-11-03] MEDS: FOLIC ACID 1 MG TAB PO SCH (09:02)
[2016-11-03] MEDS: INSULIN ASPART [NOVOLOG] 3 ML PEN SC SCH ×4 (09:48→20:30)
--- NOTE | 2016-11-03 12:17 | PN ---
Date/Time of Note Date/Time of Note DATE: 11/03/16 TIME: 12:16 Assessment/Plan VTE Prophylaxis VTE Prophylaxis Intervention: LMWH Lines/Catheters IV [facility] ([facility] Saline Lock Assessment/Plan Chief Complaint/Hosp Course 1) ascites - improved 2) cirrhosis - monitor - continue lactuose 3) diabetes - monitor blood sugar 4) ALOC - probably secondary to #2 Problems: Subjective 24 Hr Interval Summary Free Text/Dictation Patient is more awake today, able to respond to questions Exam/Review of Systems Vital Signs Vitals Vital Signs Date Time Temp Pulse Resp B/P Pulse Ox O2 Delivery O2 Flow Rate FiO2 11/03/16 11:48 97.9 104 18 122/81 99 Intake and Output 11/02/16 11/02/16 11/03/16 15:00 23:00 07:00 Intake Total 400 ml 500 ml Balance 400 ml 500 ml Exam Constitutional: alert, well developed Head: atraumatic, normocephalic Neck: supple Respiratory: clear to auscultation Cardiovascular: regular rate and rhythm Gastrointestinal: non-tender, soft Extremities: normal pulses Results Result Diagram: 11/02/16 0524 11/02/1624 Results 24 hrs Laboratory Tests Test 11/02/16 17:07 11/02/16 20:47 11/03/16 02:59 11/03/16 08:10 Bedside Glucose 183 195 165 180 Medications Medications Current Medications Rifaximin (Xifaxan) 550 mg BID PO Last administered on 11/03/16 09:02; Admin Dose 550 MG; Start 10/30/16 at 09:00 Furosemide (Lasix) 20 mg DAILY@06 PO Last administered on 11/03/16 05:49; Admin Dose 20 MG; Start 10/30/16 at 06:00 Pantoprazole (Protonix Tab) 40 mg DAILY@06 PO Last administered on 11/03/16 05: 48; Admin Dose 40 MG; Start 10/30/16 at 06:00 Spironolactone (Aldactone) 25 mg DAILY PO Last administered on 11/03/16 09:02; Admin Dose 25 MG; Start 10/30/16 at 09:00 Folic Acid (Folic Acid) 1 mg DAILY PO Last administered on 11/03/16 09:02; Admin Dose 1 MG; Start 10/30/16 at 09:00 Diagnostic Test (Pha) (Accucheck) 1 ea 02 XX Last administered on 11/03/16 02: 00; Admin Dose 1 EA; Start 10/31/16 at 02:00 Miscellaneous Information 1 ea NOTE XX ; Start 10/30/16 at 10:00 Glucose (Glutose) 15 gm Q15M PRN PO DECREASED GLUCOSE; Start 10/30/16 at 10:00 Glucose (Glutose) 22.5 gm Q15M PRN PO DECREASED GLUCOSE; Start 10/30/16 at 10: 00 Dextrose (D50w Syringe) 25 ml Q15M PRN IV DECREASED GLUCOSE; Start 10/30/16 at 10:00 Dextrose (D50w Syringe) 50 ml Q15M PRN IV DECREASED GLUCOSE; Start 10/30/16 at 10:00 Glucagon (Glucagen) 1 mg Q15M PRN IM DECREASED GLUCOSE; Start 10/30/16 at 10: 00 Glucose (Glutose) 15 gm Q15M PRN BUCCAL DECREASED GLUCOSE; Start 10/30/16 at 10:00 Diphenhydramine HCl (Benadryl) 25 mg Q6H PRN PO ITCHING Last administered on 21:56; Admin Dose 25 MG; Start 10/30/16 at 20:30 Lactulose (Enulose) 60 gm Q6 PO Last administered on 11/03/16 05:49; Admin Dose 60 GM; Start 11/01/16 at 18:00 Acetaminophen (Tylenol Tab) 325 mg Q6H PRN PO PAIN AND OR ELEVATED TEMP Last administered on 11/01/16 21:53; Admin Dose 325 MG; Start 11/01/16 at 13:30 Sodium Biphosphate/ Sodium Phosphate (Fleet Enema) 133 ml BID PRN [place] CONSTIPATION Last administered on 11/02/16 15:11; Admin Dose 133 ML; Start at 15:00 DERIC BINGHAM Nov 03, 2016 12:17
--- NOTE | 2016-11-03 22:29 | CONS ---
DATE OF ADMISSION: 10/29/2016 DATE OF CONSULTATION: TYPE OF CONSULTATION: Gastroenterology. REFERRING PHYSICIAN: Dr. Bingham. REASON FOR CONSULTATION: Cirrhosis of liver and ascites. HISTORY OF PRESENT ILLNESS: The patient is a 55-year-old male admitted for shortness of breath. Th e patient had abdominal distention. He is known to have cirrhosis of liver and diabetes mellitus. The patient had a paracentesis done. Almost 8 liters of fluid was removed. He feels more comfortab le now. PAST MEDICAL HISTORY: Cirrhosis of liver, ascites undergoing abdominal paracentesis practically satya ry week, diabetes mellitus. Also hepatic encephalopathy. SOCIAL HISTORY: Does not smoke or drink now. PHYSICAL EXAMINATION: GENERAL: Awake. VITAL SIGNS: Stable. HEENT: Unremarkable. NECK: Supple. No thyromegaly, no lymphadenopathy. CARDIOVASCULAR: No murmur, gallop, or click. LUNGS: Clear. ABDOMEN: Minimal ascites. EXTREMITIES: 1+ edema. CENTRAL NERVOUS SYSTEM: Grossly within normal limits. IMPRESSION: 1. Portal hypertension. 2. Ascites, status post total abdominal paracentesis. 3. Encephalopathy. 4. Diabetes mellitus. PLAN: To continue lactulose, rifaximin. Will increase ____ to 200 mg a day. Continue lactulose. Dictated By: JOHANA MOTLEY MD PJ/NTS Conf#: [id number] DID#: [id number] CC: DERIC BINGHAM MD;*EndCC*
[2016-11-04] VITALS (12 sets, daily range): BP systolic 104–122; BP diastolic 55–66; PULSE 85–97; RESP 16–20
[2016-11-04] MEDS: LACTULOSE 30ML CUP PO SCH ×4 (00:19→17:53)
[2016-11-04] MEDS: ACCUCHECK XX SCH (02:00)
[2016-11-04] MEDS: FUROSEMIDE 20 MG TAB PO SCH (05:22)
[2016-11-04] MEDS: PANTOPRAZOLE (EC) 40 MG TAB PO SCH (05:23)
[2016-11-04] MEDS: INSULIN ASPART [NOVOLOG] 3 ML PEN SC SCH ×4 (07:55→20:41)
[2016-11-04] MEDS: FOLIC ACID 1 MG TAB PO SCH (08:12)
[2016-11-04] MEDS: SPIRONOLACTONE 25 MG TAB PO SCH (08:12)
[2016-11-04] MEDS: RIFAXIMIN 550 MG TAB PO SCH ×2 (08:12→20:28)
--- NOTE | 2016-11-04 10:08 | CONS ---
Date/Time of Note Date/Time of Note DATE: 11/04/16 TIME: 10:07 Assessment/Plan Assessment/Plan Additional Assessment/Plan IMPRESSION: 1. Portal hypertension. 2. Ascites, status post total abdominal paracentesis.REFRACTORY 3. Encephalopathy. 4. Diabetes mellitus. Plan PO fluid restriction diuretics monitor renal function Consultation Date/Type/Reason Admit Date/Time Oct 29, 2016 at 12:38 Initial Consult Date 24 HR Interval Summary Constitutional: improved Exam/Review of Systems Vital Signs Vitals Vital Signs Date Time Temp Pulse Resp B/P Pulse Ox O2 Delivery O2 Flow Rate FiO2 11/04/16 08:14 92 11/04/16 07:34 98.2 19 122/55 96 Intake and Output 11/03/16 11/03/16 11/04/16 15:00 23:00 07:00 Intake Total 740 ml 600 ml Balance 740 ml 600 ml Exam Constitutional: alert, oriented, well developed Psych: nl mood/affect, no complaints Head: atraumatic, normocephalic Eyes: EOMI, PERRL, nl conjunctiva, nl lids, nl sclera ENMT: nl external ears & nose, nl lips & teeth, nl nasal mucosa & septum Neck: non-tender, supple Respiratory: clear to auscultation, normal air movement Cardiovascular: nl pulses, regular rate and rhythm Gastrointestinal: nl liver, spleen, non-tender, soft Musculoskeletal: nl extremities to inspection, nl gait and stance Extremities: normal pulses 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, nl mental status, nl speech, nl strength Skin: nl turgor, No rash or lesions Lymph: nl lymph nodes Results Result Diagram: 11/02/1624 11/02/1624 Results 24 hrs Laboratory Tests Test 11/03/16 12:14 11/03/16 19:03 11/03/16 20:30 11/04/16 08:01 Bedside Glucose 167 177 133 133 Medications Medications Current Medications Rifaximin (Xifaxan) 550 mg BID PO Last administered on 11/04/16 08:12; Admin Dose 550 MG; Start 10/30/16 at 09:00 Furosemide (Lasix) 20 mg DAILY@06 PO Last administered on 11/04/16 05:22; Admin Dose 20 MG; Start 10/30/16 at 06:00 Pantoprazole (Protonix Tab) 40 mg DAILY@06 PO Last administered on 11/04/16 05: 23; Admin Dose 40 MG; Start 10/30/16 at 06:00 Folic Acid (Folic Acid) 1 mg DAILY PO Last administered on 11/04/16 08:12; Admin Dose 1 MG; Start 10/30/16 at 09:00 Diagnostic Test (Pha) (Accucheck) 1 ea 02 XX Last administered on 11/03/16 02: 00; Admin Dose 1 EA; Start 10/31/16 at 02:00 Miscellaneous Information 1 ea NOTE XX ; Start 10/30/16 at 10:00 Glucose (Glutose) 15 gm Q15M PRN PO DECREASED GLUCOSE; Start 10/30/16 at 10:00 Glucose (Glutose) 22.5 gm Q15M PRN PO DECREASED GLUCOSE; Start 10/30/16 at 10: 00 Dextrose (D50w Syringe) 25 ml Q15M PRN IV DECREASED GLUCOSE; Start 10/30/16 at 10:00 Dextrose (D50w Syringe) 50 ml Q15M PRN IV DECREASED GLUCOSE; Start 10/30/16 at 10:00 Glucagon (Glucagen) 1 mg Q15M PRN IM DECREASED GLUCOSE; Start 10/30/16 at 10: 00 Glucose (Glutose) 15 gm Q15M PRN BUCCAL DECREASED GLUCOSE; Start 10/30/16 at 10:00 Diphenhydramine HCl (Benadryl) 25 mg Q6H PRN PO ITCHING Last administered on 21:56; Admin Dose 25 MG; Start 10/30/16 at 20:30 Lactulose (Enulose) 60 gm Q6 PO Last administered on 11/04/16 05:23; Admin Dose 60 GM; Start 11/01/16 at 18:00 Acetaminophen (Tylenol Tab) 325 mg Q6H PRN PO PAIN AND OR ELEVATED TEMP Last administered on 11/01/16 21:53; Admin Dose 325 MG; Start 11/01/16 at 13:30 Sodium Biphosphate/ Sodium Phosphate (Fleet Enema) 133 ml BID PRN [place] CONSTIPATION Last administered on 11/02/16 15:11; Admin Dose 133 ML; Start at 15:00 Spironolactone (Aldactone) 100 mg BID PO ; Start 11/04/16 at 21:00; Status UNV JOHANA MOTLEY MD Nov 04, 2016 10:08
--- NOTE | 2016-11-04 12:29 | PN ---
Date/Time of Note Date/Time of Note DATE: 11/04/16 TIME: 12:28 Assessment/Plan VTE Prophylaxis VTE Prophylaxis Intervention: LMWH Lines/Catheters IV C[facility]ter Type (from [facility] Saline Lock Assessment/Plan Chief Complaint/Hosp Course 1) ascites - improved 2) cirrhosis - monitor - continue lactuose 3) diabetes - monitor blood sugar 4) ALOC - probably secondary to #2 anticipate discharge tomorrow Problems: Subjective 24 Hr Interval Summary Free Text/Dictation Patient is doing better, responsive verbally Exam/Review of Systems Vital Signs Vitals Vital Signs Date Time Temp Pulse Resp B/P Pulse Ox O2 Delivery O2 Flow Rate FiO2 11/04/16 12:25 85 11/04/16 07:34 98.2 19 122/55 96 Intake and Output 11/03/16 11/03/16 11/04/16 15:00 23:00 07:00 Intake Total 740 ml 600 ml Balance 740 ml 600 ml Exam Constitutional: well developed Head: atraumatic, normocephalic Neck: supple Respiratory: clear to auscultation Cardiovascular: regular rate and rhythm Gastrointestinal: ascites, non-tender, soft Extremities: normal pulses Results Result Diagram: 11/02/1624 11/02/1624 Results 24 hrs Laboratory Tests Test 11/03/16 19:03 11/03/16 20:30 11/04/16 08:01 Bedside Glucose 177 133 133 Medications Medications Current Medications Rifaximin (Xifaxan) 550 mg BID PO Last administered on 11/04/16 08:12; Admin Dose 550 MG; Start 10/30/16 at 09:00 Furosemide (Lasix) 20 mg DAILY@06 PO Last administered on 11/04/16 05:22; Admin Dose 20 MG; Start 10/30/16 at 06:00 Pantoprazole (Protonix Tab) 40 mg DAILY@06 PO Last administered on 11/04/16 05: 23; Admin Dose 40 MG; Start 10/30/16 at 06:00 Folic Acid (Folic Acid) 1 mg DAILY PO Last administered on 11/04/16 08:12; Admin Dose 1 MG; Start 10/30/16 at 09:00 Diagnostic Test (Pha) (Accucheck) 1 ea 02 XX Last administered on 11/03/16 02: 00; Admin Dose 1 EA; Start 10/31/16 at 02:00 Miscellaneous Information 1 ea NOTE XX ; Start 10/30/16 at 10:00 Glucose (Glutose) 15 gm Q15M PRN PO DECREASED GLUCOSE; Start 10/30/16 at 10:00 Glucose (Glutose) 22.5 gm Q15M PRN PO DECREASED GLUCOSE; Start 10/30/16 at 10: 00 Dextrose (D50w Syringe) 25 ml Q15M PRN IV DECREASED GLUCOSE; Start 10/30/16 at 10:00 Dextrose (D50w Syringe) 50 ml Q15M PRN IV DECREASED GLUCOSE; Start 10/30/16 at 10:00 Glucagon (Glucagen) 1 mg Q15M PRN IM DECREASED GLUCOSE; Start 10/30/16 at 10: 00 Glucose (Glutose) 15 gm Q15M PRN BUCCAL DECREASED GLUCOSE; Start 10/30/16 at 10:00 Diphenhydramine HCl (Benadryl) 25 mg Q6H PRN PO ITCHING Last administered on 21:56; Admin Dose 25 MG; Start 10/30/16 at 20:30 Lactulose (Enulose) 60 gm Q6 PO Last administered on 11/04/16 12:14; Admin Dose 60 GM; Start 11/01/16 at 18:00 Acetaminophen (Tylenol Tab) 325 mg Q6H PRN PO PAIN AND OR ELEVATED TEMP Last administered on 11/01/16 21:53; Admin Dose 325 MG; Start 11/01/16 at 13:30 Sodium Biphosphate/ Sodium Phosphate (Fleet Enema) 133 ml BID PRN [place] CONSTIPATION Last administered on 11/02/16 15:11; Admin Dose 133 ML; Start at 15:00 Spironolactone (Aldactone) 25 mg AM PO ; Start 11/05/16 at 09:00 DERIC BINGHAM Nov 04, 2016 12:29
[2016-11-04] MEDS ORDERED: SPIRONOLACTONE 25 MG TAB PO SCH (21:00)
[2016-11-04] MEDS: ACETAMINOPHEN 325 MG TAB PO PRN (21:49)
[2016-11-05 00:35] VITALS: BP 113/55; PULSE 84; RESP 18
[2016-11-05] MEDS: LACTULOSE 30ML CUP PO SCH ×4 (00:42→18:09)
[2016-11-05] MEDS: ACCUCHECK XX SCH (01:34)
[2016-11-05] MEDS: PANTOPRAZOLE (EC) 40 MG TAB PO SCH (05:34)
[2016-11-05] MEDS: FUROSEMIDE 20 MG TAB PO SCH (05:34)
[2016-11-05] MEDS: ACETAMINOPHEN 325 MG TAB PO PRN (05:37)
[2016-11-05 06:35] LABS: BASOPHILS % 0.5 % (0.0-2.0); EOSINOPHILS # 0.3 10^3/ul (0.0-0.5); EOSINOPHILS % 4.5 % (0.0-7.0); HEMATOCRIT 26.2 % (42.0-52.0); HEMOGLOBIN 9.2 g/dl (14.0-18.0); LYMPHOCYTES # 1.3 10^3/ul (0.8-2.9); LYMPHOCYTES % 19.7 % (15.0-51.0); MEAN CORPUSCULAR HEMOGLOBIN 32.7 pg (29.0-33.0); MEAN CORPUSCULAR HGB CONC 35.2 g/dl (32.0-37.0); MEAN CORPUSCULAR VOLUME 92.8 fl (82.0-101.0); MEAN PLATELET VOLUME 8.4 fl (7.4-10.4); MONOCYTE # 0.9 10^3/ul (0.3-0.9); MONOCYTES % 14.8 % (0.0-11.0); NEUTROPHIL # 3.9 10^3/ul (1.6-7.5); NEUTROPHILS % 60.5 % (39.0-77.0); PLATELET COUNT 100 10^3/UL (140-440); RED BLOOD COUNT 2.83 10^6/ul (4.70-6.10); UNCORRECTED WBC 6.4 10^3/ul (4.8-10.8); WHITE BLOOD COUNT 6.4 10^3/ul (4.8-10.8)
[2016-11-05 06:46] LABS: CONDITION 1; CREATININE 1.71 mg/dl (0.61-1.24); LH ANALYZER COMMENTS 1
[2016-11-05 06:48] LABS: CALCIUM 8.1 mg/dl (8.4-10.2)
[2016-11-05 06:55] LABS: POTASSIUM 2.9 mmol/L (3.5-5.1)
[2016-11-05 07:27] VITALS: BP 102/61; RESP 16
[2016-11-05] MEDS: POTASSIUM CHLORIDE (SR) 20 MEQ TAB PO SCH ×2 (07:59→11:48)
[2016-11-05] MEDS: FOLIC ACID 1 MG TAB PO SCH (08:01)
[2016-11-05] MEDS: INSULIN ASPART [NOVOLOG] 3 ML PEN SC SCH ×4 (08:35→20:51)
[2016-11-05] MEDS: RIFAXIMIN 550 MG TAB PO SCH ×2 (08:36→20:51)
[2016-11-05] MEDS: SPIRONOLACTONE 25 MG TAB PO SCH (08:39)
--- NOTE | 2016-11-05 11:38 | CONS ---
Date/Time of Note Date/Time of Note DATE: 11/05/16 TIME: 11:37 Assessment/Plan Assessment/Plan Additional Assessment/Plan Additional Assessment/Plan IMPRESSION: 1. Portal hypertension. 2. Ascites, status post total abdominal paracentesis.REFRACTORY 3. Encephalopathy. 4. Diabetes mellitus. Plan PO fluid restriction diuretics monitor renal function,if deteriorate than discontinue diuretics Consultation Date/Type/Reason Admit Date/Time Oct 29, 2016 at 12:38 24 HR Interval Summary Constitutional: no complaints Exam/Review of Systems Vital Signs Vitals Vital Signs Date Time Temp Pulse Resp B/P Pulse Ox O2 Delivery O2 Flow Rate FiO2 11/05/16 07:27 97.8 84 16 102/61 100 11/05/16 00:35 Room Air Intake and Output 11/04/16 11/04/16 11/05/16 15:00 23:00 07:00 Intake Total 300 ml 550 ml Balance 300 ml 550 ml Exam Constitutional: alert, oriented, well developed Psych: nl mood/affect, no complaints Head: atraumatic, normocephalic Eyes: EOMI, PERRL, nl conjunctiva, nl lids, nl sclera ENMT: nl external ears & nose, nl lips & teeth, nl nasal mucosa & septum Neck: non-tender, supple Respiratory: clear to auscultation, normal air movement Cardiovascular: nl pulses, regular rate and rhythm Gastrointestinal: nl liver, spleen, non-tender, soft Musculoskeletal: nl extremities to inspection, nl gait and stance Extremities: normal pulses 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, nl mental status, nl speech, nl strength Skin: nl turgor, No rash or lesions Lymph: nl lymph nodes Results Result Diagram: 11/05/16 0537 11/05/16 0537 Results 24 hrs Laboratory Tests Test 11/04/16 12:13 11/04/16 17:46 11/04/16 20:31 11/05/16 01:30 Bedside Glucose 156 141 230 H 124 Test 11/05/16 05:37 11/05/16 07:55 Anion Gap 17 H Basophils # 0.0 Basophils % 0.5 Blood Morphology Comment Blood Urea Nitrogen 51 H Calcium Level 8.1 L Carbon Dioxide Level 20 L Chloride Level 103 Creatinine 1.71 H Eosinophils # 0.3 Eosinophils % 4.5 Glucose Level 119 Hematocrit 26.2 L Hemoglobin 9.2 L Lymphocytes # 1.3 Lymphocytes % 19.7 Mean Corpuscular Hemoglobin 32.7 Mean Corpuscular Hemoglobin Concent 35.2 Mean Corpuscular Volume 92.8 Mean Platelet Volume 8.4 Monocytes # 0.9 Monocytes % 14.8 H Neutrophils # 3.9 Neutrophils % 60.5 Nucleated Red Blood Cells # 0.0 Nucleated Red Blood Cells % 0.0 Platelet Count 100 L Potassium Level 2.9 *L Red Blood Count 2.83 L Red Cell Distribution Width 16.0 H Sodium Level 137 White Blood Count 6.4 # Bedside Glucose 147 Medications Medications Current Medications Rifaximin (Xifaxan) 550 mg BID PO Last administered on 11/05/16 08:36; Admin Dose 550 MG; Start 10/30/16 at 09:00 Furosemide (Lasix) 20 mg DAILY@06 PO Last administered on 11/05/16 05:34; Admin Dose 20 MG; Start 10/30/16 at 06:00 Pantoprazole (Protonix Tab) 40 mg DAILY@06 PO Last administered on 11/05/16 05: 34; Admin Dose 40 MG; Start 10/30/16 at 06:00 Folic Acid (Folic Acid) 1 mg DAILY PO Last administered on 11/05/16 08:01; Admin Dose 1 MG; Start 10/30/16 at 09:00 Diagnostic Test (Pha) (Accucheck) 1 ea 02 XX Last administered on 11/05/16 01: 34; Admin Dose 1 EA; Start 10/31/16 at 02:00 Glucose (Glutose) 15 gm Q15M PRN PO DECREASED GLUCOSE; Start 10/30/16 at 10:00 Glucose (Glutose) 22.5 gm Q15M PRN PO DECREASED GLUCOSE; Start 10/30/16 at 10: 00 Dextrose (D50w Syringe) 25 ml Q15M PRN IV DECREASED GLUCOSE; Start 10/30/16 at 10:00 Dextrose (D50w Syringe) 50 ml Q15M PRN IV DECREASED GLUCOSE; Start 10/30/16 at 10:00 Glucagon (Glucagen) 1 mg Q15M PRN IM DECREASED GLUCOSE; Start 10/30/16 at 10: 00 Glucose (Glutose) 15 gm Q15M PRN BUCCAL DECREASED GLUCOSE; Start 10/30/16 at 10:00 Diphenhydramine HCl (Benadryl) 25 mg Q6H PRN PO ITCHING Last administered on 21:56; Admin Dose 25 MG; Start 10/30/16 at 20:30 Lactulose (Enulose) 60 gm Q6 PO Last administered on 11/05/16 05:34; Admin Dose 60 GM; Start 11/01/16 at 18:00 Acetaminophen (Tylenol Tab) 325 mg Q6H PRN PO PAIN AND OR ELEVATED TEMP Last administered on 11/05/16 05:37; Admin Dose 325 MG; Start 11/01/16 at 13:30 Sodium Biphosphate/ Sodium Phosphate (Fleet Enema) 133 ml BID PRN [place] CONSTIPATION Last administered on 11/02/16 15:11; Admin Dose 133 ML; Start at 15:00 Spironolactone (Aldactone) 25 mg AM PO Last administered on 11/05/16 08:39; Admin Dose 25 MG; Start 11/05/16 at 09:00 Potassium Chloride (Klor-Con 20) 40 meq Q4H PO Last administered on 11/05/16 07 :59; Admin Dose 40 MEQ; Start 11/05/16 at 07:00; Stop 11/05/16 at 12:00 JOHANA MOTLEY MD Nov 05, 2016 11:38
--- NOTE | 2016-11-05 15:49 | PN ---
Date/Time of Note Date/Time of Note DATE: 11/05/16 TIME: 15:48 Assessment/Plan VTE Prophylaxis VTE Prophylaxis Intervention: LMWH Lines/Catheters IV Catheter Type (from [facility]): Saline Lock Assessment/Plan Chief Complaint/Hosp Course 1) ascites - improved 2) cirrhosis - monitor - continue lactuose 3) diabetes - monitor blood sugar 4) ALOC - probably secondary to #2 5) hypokalemia - replace Problems: Subjective 24 Hr Interval Summary Free Text/Dictation Patient more awake but had severe hypokalemia Exam/Review of Systems Vital Signs Vitals Vital Signs Date Time Temp Pulse Resp B/P Pulse Ox O2 Delivery O2 Flow Rate FiO2 11/05/16 07:27 97.8 84 16 102/61 100 11/05/16 00:35 Room Air Intake and Output 11/04/16 11/04/16 11/05/16 15:00 23:00 07:00 Intake Total 300 ml 550 ml Balance 300 ml 550 ml Exam Constitutional: well developed Head: atraumatic, normocephalic Neck: supple Respiratory: clear to auscultation Cardiovascular: regular rate and rhythm Gastrointestinal: non-tender, soft Extremities: normal pulses Results Result Diagram: 11/05/16 0537 11/05/16 0537 Results 24 hrs Laboratory Tests Test 11/04/16 17:46 11/04/16 20:31 11/05/16 01:30 11/05/16 05:37 Bedside Glucose 141 230 H 124 Anion Gap 17 H Basophils # 0.0 Basophils % 0.5 Blood Morphology Comment Blood Urea Nitrogen 51 H Calcium Level 8.1 L Carbon Dioxide Level 20 L Chloride Level 103 Creatinine 1.71 H Eosinophils # 0.3 Eosinophils % 4.5 Glucose Level 119 Hematocrit 26.2 L Hemoglobin 9.2 L Lymphocytes # 1.3 Lymphocytes % 19.7 Mean Corpuscular Hemoglobin 32.7 Mean Corpuscular Hemoglobin Concent 35.2 Mean Corpuscular Volume 92.8 Mean Platelet Volume 8.4 Monocytes # 0.9 Monocytes % 14.8 H Neutrophils # 3.9 Neutrophils % 60.5 Nucleated Red Blood Cells # 0.0 Nucleated Red Blood Cells % 0.0 Platelet Count 100 L Potassium Level 2.9 *L Red Blood Count 2.83 L Red Cell Distribution Width 16.0 H Sodium Level 137 White Blood Count 6.4 # Test 11/05/16 07:55 11/05/16 11:43 Bedside Glucose 147 225 H Medications Medications Current Medications Rifaximin (Xifaxan) 550 mg BID PO Last administered on 11/05/16 08:36; Admin Dose 550 MG; Start 10/30/16 at 09:00 Furosemide (Lasix) 20 mg DAILY@06 PO Last administered on 11/05/16 05:34; Admin Dose 20 MG; Start 10/30/16 at 06:00 Pantoprazole (Protonix Tab) 40 mg DAILY@06 PO Last administered on 11/05/16 05: 34; Admin Dose 40 MG; Start 10/30/16 at 06:00 Folic Acid (Folic Acid) 1 mg DAILY PO Last administered on 11/05/16 08:01; Admin Dose 1 MG; Start 10/30/16 at 09:00 Diagnostic Test (Pha) (Accucheck) 1 ea 02 XX Last administered on 11/05/16 01: 34; Admin Dose 1 EA; Start 10/31/16 at 02:00 Glucose (Glutose) 15 gm Q15M PRN PO DECREASED GLUCOSE; Start 10/30/16 at 10:00 Glucose (Glutose) 22.5 gm Q15M PRN PO DECREASED GLUCOSE; Start 10/30/16 at 10: 00 Dextrose (D50w Syringe) 25 ml Q15M PRN IV DECREASED GLUCOSE; Start 10/30/16 at 10:00 Dextrose (D50w Syringe) 50 ml Q15M PRN IV DECREASED GLUCOSE; Start 10/30/16 at 10:00 Glucagon (Glucagen) 1 mg Q15M PRN IM DECREASED GLUCOSE; Start 10/30/16 at 10: 00 Glucose (Glutose) 15 gm Q15M PRN BUCCAL DECREASED GLUCOSE; Start 10/30/16 at 10:00 Diphenhydramine HCl (Benadryl) 25 mg Q6H PRN PO ITCHING Last administered on 21:56; Admin Dose 25 MG; Start 10/30/16 at 20:30 Lactulose (Enulose) 60 gm Q6 PO Last administered on 11/05/16 11:49; Admin Dose 60 GM; Start 11/01/16 at 18:00 Acetaminophen (Tylenol Tab) 325 mg Q6H PRN PO PAIN AND OR ELEVATED TEMP Last administered on 11/05/16 05:37; Admin Dose 325 MG; Start 11/01/16 at 13:30 Sodium Biphosphate/ Sodium Phosphate (Fleet Enema) 133 ml BID PRN [place] CONSTIPATION Last administered on 11/02/16 15:11; Admin Dose 133 ML; Start at 15:00 Spironolactone (Aldactone) 25 mg AM PO Last administered on 11/05/16 08:39; Admin Dose 25 MG; Start 11/05/16 at 09:00 DERIC BINGHAM Nov 05, 2016 15:49
[2016-11-05 19:23] VITALS: BP 105/63; RESP 19
[2016-11-06] MEDS: LACTULOSE 30ML CUP PO SCH ×3 (00:17→11:55)
[2016-11-06] MEDS: ACCUCHECK XX SCH (02:00)
[2016-11-06] MEDS: PANTOPRAZOLE (EC) 40 MG TAB PO SCH (05:33)
[2016-11-06 06:00] LABS: BASOPHILS % 0.6 % (0.0-2.0); EOSINOPHILS # 0.3 10^3/ul (0.0-0.5); EOSINOPHILS % 4.2 % (0.0-7.0); HEMATOCRIT 27.3 % (42.0-52.0); HEMOGLOBIN 9.6 g/dl (14.0-18.0); LYMPHOCYTES % 15.6 % (15.0-51.0); MEAN CORPUSCULAR HEMOGLOBIN 32.5 pg (29.0-33.0); MEAN CORPUSCULAR HGB CONC 35.1 g/dl (32.0-37.0); MEAN CORPUSCULAR VOLUME 92.7 fl (82.0-101.0); MEAN PLATELET VOLUME 8.5 fl (7.4-10.4); MONOCYTE # 0.8 10^3/ul (0.3-0.9); MONOCYTES % 12.9 % (0.0-11.0); NEUTROPHIL # 4.2 10^3/ul (1.6-7.5); NEUTROPHILS % 66.7 % (39.0-77.0); PLATELET COUNT 111 10^3/UL (140-440); RED BLOOD COUNT 2.95 10^6/ul (4.70-6.10); RED CELL DISTRIBUTION WIDTH 16.3 % (11.5-14.5); UNCORRECTED WBC 6.2 10^3/ul (4.8-10.8); WHITE BLOOD COUNT 6.2 10^3/ul (4.8-10.8)
[2016-11-06 06:01] LABS: CREATININE 1.76 mg/dl (0.61-1.24)
[2016-11-06 06:02] LABS: CALCIUM 8.3 mg/dl (8.4-10.2)
[2016-11-06 06:18] LABS: CONDITION 1; LH ANALYZER COMMENTS 1
[2016-11-06 07:17] VITALS: BP 120/66; RESP 18
[2016-11-06] MEDS: FUROSEMIDE 20 MG TAB PO SCH (07:36)
[2016-11-06] MEDS: INSULIN ASPART [NOVOLOG] 3 ML PEN SC SCH ×2 (08:00→11:53)
[2016-11-06] MEDS: SPIRONOLACTONE 25 MG TAB PO SCH (08:42)
[2016-11-06] MEDS: RIFAXIMIN 550 MG TAB PO SCH (08:42)
[2016-11-06] MEDS: FOLIC ACID 1 MG TAB PO SCH (08:42)
--- NOTE | 2016-11-06 12:51 | DS ---
Date/Time of Note Date/Time of Note DATE: 11/06/16 TIME: 12:46 Discharge Summary Admission/Discharge Info Admit Date/Time Oct 29, 2016 at 12:38 Discharge Date/Time 11/06/16 Final Diagnosis 1) cirrhosis 2) ascites Patient Condition: Fair Consults Gastroenterology Hx of Present Illness Patient with diabetes, cirrhosis, and renal insufficiency comes in with increased abdominal ascites and shortness of breath. Patient needs to have paracentesis regularly and came in for that purpose. Hospital Course Patient comes in with ascites related to cirrhosis. Patient underwent paracentesis. He was better after that but he became altered. Patient was treated with lactulose and then hydrochlorothiazide. Patient's condition improved and now he is at baseline. 1) ascites - improved 2) cirrhosis - monitor - continue lactuose 3) diabetes - monitor blood sugar 4) ALOC - probably secondary to #2 5) hypokalemia - replace Home Meds Active Scripts Spironolactone* (Aldactone*) 25 Mg Tablet, 25 MG PO DAILY@06 for 30 Days, TAB Prov:SUNDAR OBRIEN 10/22/16 Lactulose* (Cephulac*) 20 Gm/30 Ml Soln, 30 GM PO TID for 30 Days Prov:SUNDAR OBRIEN 10/22/16 Pantoprazole* (Pantoprazole*) 40 Mg Tablet.dr, 40 MG PO DAILY@06 for 30 Days Prov:SUNDAR OBRIEN 10/22/16 Furosemide* (Furosemide*) 20 Mg Tablet, 20 MG PO DAILY, #30 TAB Prov:RIDDHI BLOCK 08/18/16 Rifaximin* (Xifaxan*) 550 Mg Tablet, 550 MG PO BID for 30 Days, TAB Prov:RIDDHI BLOCK 08/18/16 Reported Medications Hydroxyzine Hcl* (Atarax*) 50 Mg Tab, 50 MG PO DAILY, TAB 11/01/16 Folic Acid* (Folic Acid*) 1 Mg Tablet, 1 MG PO DAILY, TAB 08/11/16 Pending Labs Laboratory Tests Test 11/05/16 16:33 11/05/16 20:44 11/06/16 04:00 11/06/16 04:25 Bedside Glucose 96mg/dL (70-220) 189mg/dL (70-220) 173mg/dL (70-220) Ammonia 110umol/l (9-30) Anion Gap 16 (8-16) Basophils # 0.010^3/ul (0.0-0.1) Basophils % 0.6% (0.0-2.0) Blood Morphology Comment Blood Urea Nitrogen 54mg/dl (7-20) Calcium Level 8.3mg/dl (8.4-10.2) Carbon Dioxide Level 20mmol/L (21-31) Chloride Level 107mmol/L (97-110) Creatinine 1.76mg/dl (0.61-1.24) Eosinophils # 0.310^3/ul (0.0-0.5) Eosinophils % 4.2% (0.0-7.0) Glucose Level 154mg/dl (70-220) Hematocrit 27.3% (42.0-52.0) Hemoglobin 9.6g/dl (14.0-18.0) Lymphocytes # 1.010^3/ul (0.8-2.9) Lymphocytes % 15.6% (15.0-51.0) Magnesium Level 3.1mg/dl (1.7-2.5) Mean Corpuscular Hemoglobin 32.5pg (29.0-33.0) Mean Corpuscular Hemoglobin Concent 35.1g/dl (32.0-37.0) Mean Corpuscular Volume 92.7fl (82.0-101.0) Mean Platelet Volume 8.5fl (7.4-10.4) Monocytes # 0.810^3/ul (0.3-0.9) Monocytes % 12.9% (0.0-11.0) Neutrophils # 4.210^3/ul (1.6-7.5) Neutrophils % 66.7% (39.0-77.0) Nucleated Red Blood Cells # 0.010^3/ul (0.0-0.0) Nucleated Red Blood Cells % 0.0/100WBC (0.0-0.0) Platelet Count 62582^3/UL (140-440) Potassium Level 4.0mmol/L (3.5-5.1) Red Blood Count 2.9510^6/ul (4.70-6.10) Red Cell Distribution Width 16.3% (11.5-14.5) Sodium Level 139mmol/L (135-144) White Blood Count 6.210^3/ul (4.8-10.8) Test 11/06/16 07:45 11/06/16 11:52 Bedside Glucose 118mg/dL (70-220) 125mg/dL (70-220) DERIC BINGHAM Nov 06, 2016 12:51
--- NOTE | 2016-11-06 14:53 | CONS ---
Date/Time of Note Date/Time of Note DATE: 11/06/16 TIME: 14:50 Assessment/Plan Assessment/Plan Chief Complaint/Hosp Course IMPRESSION: 1. Portal hypertension. 2. Ascites, status post total abdominal paracentesis. 3. Encephalopathy. 4. Diabetes mellitus. Plan PO fluid restriction continue diuretics OK to dc from GI perspective if ok with primary and other consultants. Problems: Consultation Date/Type/Reason Admit Date/Time Oct 29, 2016 at 12:38 Initial Consult Date Type of Consultation: GI 24 HR Interval Summary Free Text/Dictation ambulating, no n/v, mild abdominal pain. Constitutional: improved Exam/Review of Systems Vital Signs Vitals Vital Signs Date Time Temp Pulse Resp B/P Pulse Ox O2 Delivery O2 Flow Rate FiO2 11/06/16 07:17 98.3 93 18 120/66 100 11/05/16 00:35 Room Air Intake and Output 11/05/16 11/05/16 11/06/16 15:00 23:00 07:00 Intake Total 960 ml 960 ml Output Total 100 ml Balance 960 ml 860 ml Exam Constitutional: alert, oriented, well developed Psych: nl mood/affect, no complaints Head: atraumatic, normocephalic Eyes: EOMI, nl conjunctiva, nl lids, nl sclera ENMT: mucosa pink and moist, nl external ears & nose, nl lips & teeth, nl nasal mucosa & septum Neck: non-tender, supple Respiratory: clear to auscultation, normal air movement Cardiovascular: nl pulses, regular rate and rhythm Gastrointestinal: bowel sounds, distended, non-tender, soft Results Result Diagram: 11/06/16 0425 11/06/16 0425 Results 24 hrs Laboratory Tests Test 11/05/16 16:33 11/05/16 20:44 11/06/16 04:00 11/06/16 04:25 Bedside Glucose 96 189 173 Ammonia 110 #H Anion Gap 16 Basophils # 0.0 Basophils % 0.6 Blood Morphology Comment Blood Urea Nitrogen 54 H Calcium Level 8.3 L Carbon Dioxide Level 20 L Chloride Level 107 Creatinine 1.76 H Eosinophils # 0.3 Eosinophils % 4.2 Glucose Level 154 Hematocrit 27.3 L Hemoglobin 9.6 L Lymphocytes # 1.0 Lymphocytes % 15.6 Magnesium Level 3.1 H Mean Corpuscular Hemoglobin 32.5 Mean Corpuscular Hemoglobin Concent 35.1 Mean Corpuscular Volume 92.7 Mean Platelet Volume 8.5 Monocytes # 0.8 Monocytes % 12.9 H Neutrophils # 4.2 Neutrophils % 66.7 Nucleated Red Blood Cells # 0.0 Nucleated Red Blood Cells % 0.0 Platelet Count 111 L Potassium Level 4.0 Red Blood Count 2.95 L Red Cell Distribution Width 16.3 H Sodium Level 139 White Blood Count 6.2 Test 11/06/16 07:45 11/06/16 11:52 Bedside Glucose 118 125 Medications Medications Current Medications Rifaximin (Xifaxan) 550 mg BID PO Last administered on 11/06/16 08:42; Admin Dose 550 MG; Start 10/30/16 at 09:00 Furosemide (Lasix) 20 mg DAILY@06 PO Last administered on 11/06/16 07:36; Admin Dose 20 MG; Start 10/30/16 at 06:00 Pantoprazole (Protonix Tab) 40 mg DAILY@06 PO Last administered on 11/06/16 05: 33; Admin Dose 40 MG; Start 10/30/16 at 06:00 Folic Acid (Folic Acid) 1 mg DAILY PO Last administered on 11/06/16 08:42; Admin Dose 1 MG; Start 10/30/16 at 09:00 Diagnostic Test (Pha) (Accucheck) 1 ea 02 XX Last administered on 11/05/16 01: 34; Admin Dose 1 EA; Start 10/31/16 at 02:00 Glucose (Glutose) 15 gm Q15M PRN PO DECREASED GLUCOSE; Start 10/30/16 at 10:00 Glucose (Glutose) 22.5 gm Q15M PRN PO DECREASED GLUCOSE; Start 10/30/16 at 10: 00 Dextrose (D50w Syringe) 25 ml Q15M PRN IV DECREASED GLUCOSE; Start 10/30/16 at 10:00 Dextrose (D50w Syringe) 50 ml Q15M PRN IV DECREASED GLUCOSE; Start 10/30/16 at 10:00 Glucagon (Glucagen) 1 mg Q15M PRN IM DECREASED GLUCOSE; Start 10/30/16 at 10: 00 Glucose (Glutose) 15 gm Q15M PRN BUCCAL DECREASED GLUCOSE; Start 10/30/16 at 10:00 Diphenhydramine HCl (Benadryl) 25 mg Q6H PRN PO ITCHING Last administered on 21:56; Admin Dose 25 MG; Start 10/30/16 at 20:30 Lactulose (Enulose) 60 gm Q6 PO Last administered on 11/06/16 11:55; Admin Dose 60 GM; Start 11/01/16 at 18:00 Acetaminophen (Tylenol Tab) 325 mg Q6H PRN PO PAIN AND OR ELEVATED TEMP Last administered on 11/05/16 05:37; Admin Dose 325 MG; Start 11/01/16 at 13:30 Sodium Biphosphate/ Sodium Phosphate (Fleet Enema) 133 ml BID PRN GA CONSTIPATION Last administered on 11/02/16 15:11; Admin Dose 133 ML; Start at 15:00 Spironolactone (Aldactone) 25 mg AM PO Last administered on 11/05/16 08:39; Admin Dose 25 MG; Start 11/05/16 at 09:00 CARRIE JOSE MD Nov 06, 2016 14:53
== END 2016-11-06 16:22 | disposition home or self-care (01) | DRG 433 ==
LOC: E/R 09:22 → TEL 12:38 → PP2 11-05 00:21
PROVIDERS: ADMIT Internal Medicine; ATTEND Internal Medicine
PROC: 0W9G3ZZ Drainage of Peritoneal Cavity, Percutaneous Approach (ICD-10-PCS; principal; 2016-10-29)
DX: K74.60 Unspecified cirrhosis of liver (principal); R18.8 Other ascites; K76.6 Portal hypertension; K72.90 Hepatic failure, unspecified without coma; E11.9 Type 2 diabetes mellitus without complications; Z72.0 Tobacco use; E87.6 Hypokalemia
CPT/HCPCS: 76705; 80048; 80053; 82140; 82150; 82962; 83690; 83735; 85025; 85610; 85730; 93005; 94644; 94664; 96374; 96375; 96376; 97162; J0610; J1200; J1815

== ENCOUNTER 2016-11-15 16:43 | Inpatient (IN) | END 2016-11-23 19:10 | disposition home or self-care (01) | DRG 432 | DX: K70.31 Alcoholic cirrhosis of liver with ascites (principal); K76.7 Hepatorenal syndrome; K70.40 Alcoholic hepatic failure without coma; E87.1 Hypo-osmolality and hyponatremia; E11.22 Type 2 diabetes mellitus with diabetic chronic kidney disease; E83.51 Hypocalcemia; K76.6 Portal hypertension; D63.8 Anemia in other chronic diseases classified elsewhere; E87.6 Hypokalemia; F10.20 Alcohol dependence, uncomplicated; N18.9 Chronic kidney disease, unspecified; S50.312A Abrasion of left elbow, initial encounter; X58.XXXA Exposure to other specified factors, initial encounter; Y92.89 Other specified places as the place of occurrence of the external cause ==

== ENCOUNTER 2016-11-28 10:55 | Inpatient (IN) | payer OTHER ==
[~2016-11-28] VITALS: Ht 165.1 cm; Wt 66.0 kg
[~2016-11-28 10:55] MED LIST changes: -CIPR500T4 PO; -FLUC150T17 PO; -FOLI-49 PO; -PANT40TA4 PO; -SPIR25TA76 PO
[2016-11-28 12:08] LABS: ALBUMIN 2.8 g/dl (3.3-4.9); BASOPHILS % 0.4 % (0.0-2.0); CHLORIDE 104 mmol/L (97-110); EOSINOPHILS # 0.1 10^3/ul (0.0-0.5); HEMOGLOBIN 9.9 g/dl (14.0-18.0); LYMPHOCYTES # 1.3 10^3/ul (0.8-2.9); LYMPHOCYTES % 13.4 % (15.0-51.0); MEAN CORPUSCULAR HEMOGLOBIN 31.8 pg (29.0-33.0); MEAN CORPUSCULAR HGB CONC 35.4 g/dl (32.0-37.0); MEAN CORPUSCULAR VOLUME 89.9 fl (82.0-101.0); MEAN PLATELET VOLUME 9.1 fl (7.4-10.4); MONOCYTE # 1.1 10^3/ul (0.3-0.9); MONOCYTES % 11.6 % (0.0-11.0); NEUTROPHILS % 73.6 % (39.0-77.0); PLATELET COUNT 112 10^3/UL (140-440); POTASSIUM 4.6 mmol/L (3.5-5.1); RED BLOOD COUNT 3.12 10^6/ul (4.70-6.10); RED CELL DISTRIBUTION WIDTH 16.7 % (11.5-14.5); SODIUM 133 mmol/L (135-144); UNCORRECTED WBC 9.5 10^3/ul (4.8-10.8); WHITE BLOOD COUNT 9.5 10^3/ul (4.8-10.8)
[2016-11-28 12:10] LABS: BILIRUBIN,INDIRECT 0.7 mg/dl (0-1.1); BILIRUBIN,TOTAL 0.7 mg/dl (0.2-1.3); CREATININE 2.87 mg/dl (0.61-1.24)
[2016-11-28 12:11] LABS: ALANINE AMINOTRANSFERASE 37 IU/L (13-69); ALKALINE PHOSPHATASE 218 IU/L (42-121); ANION GAP 19 (8-16); ASPARTATE AMINO TRANSFERASE 49 IU/L (15-46); BLOOD UREA NITROGEN 61 mg/dl (7-20); CALCIUM 8.2 mg/dl (8.4-10.2); CARBON DIOXIDE 15 mmol/L (21-31); GLUCOSE 136 mg/dl (70-220); TOTAL PROTEIN 7.4 g/dl (6.1-8.1)
[2016-11-28 12:14] LABS: CONDITION 1; ETHANOL < 10.0 mg/dl; LH ANALYZER COMMENTS 1
--- NOTE | 2016-11-28 12:39 | ERA ---
ER Documentation Chief Complaint Date/Time DATE: 11/28/16 TIME: 11:20 Chief Complaint abdominal pain and mild distention,no vomiting. mildy confused per HPI 55-year-old male with a diabetes mellitus type 2, history of end-stage liver cirrhosis, recurrent ascites status post multiple paracenteses most recently on 11/20/2016 with removal of 6 Liters, chronic kidney disease and hepatic encephalopathy brought to the ED by family for evaluation of increasing confusion and altered mental status since last night. They have been giving his usual dose of lactulose and another dose is given just prior to arrival. Increasing abdominal distention but no abdominal pain, nausea, vomiting, diarrhea or constipation. No shortness of breath or cough. No URI symptoms or rhinorrhea. No headache, neck or back pain. No fevers or chills. ROS All systems reviewed and are negative except as per history of present illness. Medications Home Meds Active Scripts Furosemide* (Furosemide*) 20 Mg Tablet, 20 MG PO DAILY for 30 Days, #30 TAB Prov:RIDDHI BLOCK 11/23/16 Lactulose* (Cephulac*) 20 Gm/30 Ml Soln, 30 GM PO TID for 30 Days Prov:SUNDAR OBRIEN 10/22/16 Rifaximin* (Xifaxan*) 550 Mg Tablet, 550 MG PO BID for 30 Days, TAB Prov:RIDDHI BLOCK 08/18/16 Discontinued Reported Medications Thiamine* (Vitamin B-1*) 100 Mg Tablet, 100 MG PO DAILY, TAB 11/15/16 Hydroxyzine Hcl* (Atarax*) 50 Mg Tab, 50 MG PO DAILY, TAB 11/01/16 Folic Acid* (Folic Acid*) 1 Mg Tablet, 1 MG PO DAILY, TAB 08/11/16 Allergies Allergies: Coded Allergies: aspirin (Verified Allergy, Unknown, liver not tolerant, 11/15/16) latanoprost (Verified Allergy, Unknown, 11/15/16) timolol (Verified Allergy, Unknown, 11/15/16) PMhx/Soc Reviewed in chart. As per HPI. History of Surgery: Yes (PARACENTESIS) Anesthesia Reaction: No Hx 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 Disorder: Yes (ACUTE CONFUSION D/T ELEVATED AMMONIA) Hx Respiratory Disorders: No Hx Cardiac Disorders: Yes (HTN) Hx Psychiatric Problems: No Hx Miscellaneous Medical Probl: Yes (CKD) Hx Alcohol Use: Yes (ETOH ABUSE) Hx Substance Use: No Hx Tobacco Use: No Smoking Status: Unknown if ever smoked FmHx No stroke or cancer Physical Exam Vitals Vital Signs Date Time Temp Pulse Resp B/P Pulse Ox O2 Delivery O2 Flow Rate FiO2 11/28/16 10:59 98.6 91 16 95/55 100 Physical Exam Const: Alert confused Head: Atraumatic Eyes: LETICIA, EOMI, Normal Conjunctiva, anicteric ENT: Normal External Ears, Nose and Mouth. Neck: Full range of motion. No JVD. Nontender. No meningismus. Resp: BS equal and clear to auscultation bilaterally Cardio: Regular rate and rhythm, no murmurs Abd: Soft, non tender, distended. Fluid wave. Normal bowel sounds. No rebound or guarding. Skin: Multiple ecchymoses. No rashes Back: No midline or flank tenderness Ext: No cyanosis, or edema Neur: Awake and alert. Confused. Oriented to person. No facial droop. CN II- XII grossly intact. No focal deficit. Result Diagram: 11/28/16 1135 11/28/16 1135 Results 24 hrs Laboratory Tests Test 11/28/16 11:35 Alanine Aminotransferase (ALT/SGPT) 37IU/L Albumin 2.8g/dl Albumin/Globulin Ratio 0.60 Alkaline Phosphatase 218IU/L Ammonia 101umol/l Anion Gap 19 Aspartate Amino Transf (AST/SGOT) 49IU/L Basophils # 0.010^3/ul Basophils % 0.4% Blood Morphology Comment Blood Urea Nitrogen 61mg/dl Calcium Level 8.2mg/dl Carbon Dioxide Level 15mmol/L Chloride Level 104mmol/L Creatinine 2.87mg/dl Direct Bilirubin 0.00mg/dl Eosinophils # 0.110^3/ul Eosinophils % 1.0% Ethyl Alcohol Level < 10.0mg/dl Globulin 4.60g/dl Glucose Level 136mg/dl Hematocrit 28.0% Hemoglobin 9.9g/dl Indirect Bilirubin 0.7mg/dl Lymphocytes # 1.310^3/ul Lymphocytes % 13.4% Mean Corpuscular Hemoglobin 31.8pg Mean Corpuscular Hemoglobin Concent 35.4g/dl Mean Corpuscular Volume 89.9fl Mean Platelet Volume 9.1fl Monocytes # 1.110^3/ul Monocytes % 11.6% Neutrophils # 7.010^3/ul Neutrophils % 73.6% Nucleated Red Blood Cells # 0.010^3/ul Nucleated Red Blood Cells % 0.0/100WBC Platelet Count 69418^3/UL Potassium Level 4.6mmol/L Red Blood Count 3.1210^6/ul Red Cell Distribution Width 16.7% Sodium Level 133mmol/L Thyroid Stimulating Hormone (TSH) 0.823MIU/L Total Bilirubin 0.7mg/dl Total Protein 7.4g/dl White Blood Count 9.510^3/ul EKG: Time: 12:34. Interpretation is limited due to baseline artifact. Sinus rhythm. Ventricular rate 93. No acute ST-T wave changes. No axis deviation or ectopy. EP interpretation: Normal ECG. IMAGING: [ ] Procedures/MDM DOCUMENTS REVIEWED: ED nurse, prior ED, prior records. MEDICAL DECISION MAKIN-year-old male with a diabetes mellitus type 2, history of end-stage liver cirrhosis, recurrent ascites status post multiple paracenteses most recently on 11/20/2016 with removal of 6 Liters, chronic kidney disease and hepatic encephalopathy brought to the ED by family for evaluation of increasing confusion and altered mental status since last night. Significantly elevated ammonia level consistent with hepatic encephalopathy. No focal deficit or indication for neuroimaging. Acute on chronic renal failure with BUN of 61 creatinine 2.8. Multiple episodes of diarrhea post lactulose with transient hypotension, resolved with NS 500cc bolus. Admit to med/surg for further evaluation and management. Counseled patient and family regarding diagnosis, diagnostic results and plan for admission. CALLS/CONSULTS: Time 12:30. Dr. Qureshi, Recommends admission to [facility]. PATIENT CARE TRANSITIONED: Time: 12:45, Dr. Qureshi, Departure Diagnosis: Primary Impression: Acute hepatic encephalopathy Additional Impressions: Liver cirrhosis Qualified Code: K70.31 - Alcoholic cirrhosis of liver with ascites [id number] renal failure Type 2 diabetes mellitus Qualified Code: E11.8 - Type 2 diabetes mellitus with complication, without long-term current use of insulin Condition: Serious ELISA SORIANO MD Nov 28, 2016 12:39
[2016-11-28] MEDS ORDERED: SOD CHLORIDE 0.9% 500 ML IV STA (12:42)
[2016-11-28 13:00] VITALS: TEMP 99.1
[2016-11-28] MEDS ORDERED: ACETAMINOPHEN 325 MG TAB PO PRN (13:00)
[2016-11-28] MEDS ORDERED: ONDANSETRON 4 MG INJ IV PRN (13:00)
[2016-11-28 13:02] LABS: THYROID STIMULATING HORMONE 0.823 MIU/L (0.465-4.680)
--- NOTE | 2016-11-28 13:19 | RADRPT ---
PROCEDURE: XR Chest. CLINICAL INDICATION: Altered mental status/shortness of breath TECHNIQUE: Chest AP portable. COMPARISON: 11/15/2016 FINDINGS: The mediastinal structures are unremarkable. The heart is normal in size and configuration. The pu lmonary vascularity is normal. There are low lung volumes.. No consolidation is identified. The p leural spaces are unremarkable. The axial skeleton is unremarkable. IMPRESSION: No active intrathoracic disease. RPTAT: HGDB .Prasanna Boggs MD, MD Date Time Electronically viewed and signed by .Prasanna Boggs MD, MD on 11/28/2016 13:19 .B/
[2016-11-28 13:58] VITALS: BP 118/68; RESP 16
[2016-11-28 14:10] VITALS: BP 118/48; PULSE 89; RESP 18
[2016-11-28 14:30] VITALS: Ht 165.1 cm; Wt 66.0 kg
[2016-11-28] MEDS ORDERED: DEXTROSE 5%-0.9% NACL 1,000 ML IV SCH (16:00)
[2016-11-28] MEDS: LACTULOSE 30ML CUP PO SCH ×2 (18:02→23:57)
[2016-11-28 19:56] VITALS: BP 119/68; RESP 18
[2016-11-28] MEDS ORDERED: GLUCAGON 1 MG INJ IM PRN (20:00)
[2016-11-28] MEDS ORDERED: GLUCOSE GEL 15 GRAM TUBE PO PRN ×2 (20:00)
[2016-11-28] MEDS ORDERED: DEXTROSE 50% 50 ML SYRINGE IV PRN ×2 (20:00)
[2016-11-28] MEDS ORDERED: GLUCOSE GEL 15 GRAM TUBE BUCCAL PRN (20:00)
[2016-11-28] MEDS: RIFAXIMIN 550 MG TAB PO SCH (20:37)
[2016-11-28] MEDS: SOD CHLORIDE 0.9% 1,000 ML IV SCH (20:39)
[2016-11-28] MEDS: INSULIN ASPART [NOVOLOG] 3 ML PEN SC SCH (20:39)
[2016-11-29] MEDS: ACCUCHECK XX SCH ×2 (02:29)
[2016-11-29] MEDS: LACTULOSE 30ML CUP PO SCH ×4 (05:42→23:12)
[2016-11-29 06:14] LABS: POTASSIUM 3.9 mmol/L (3.5-5.1)
[2016-11-29 06:17] LABS: CALCIUM 7.6 mg/dl (8.4-10.2)
[2016-11-29] MEDS: INSULIN ASPART [NOVOLOG] 3 ML PEN SC SCH ×4 (08:01→20:46)
[2016-11-29 08:04] VITALS: BP 98/55; RESP 18
[2016-11-29] MEDS: RIFAXIMIN 550 MG TAB PO SCH ×2 (08:52→20:47)
[2016-11-29] MEDS: SOD CHLORIDE 0.9% 1,000 ML IV SCH ×2 (09:20→22:40)
--- NOTE | 2016-11-29 13:43 | HP ---
DATE OF ADMISSION: 11/28/2016 CHIEF COMPLAINT: Abdominal pain, distention and confusion per patient's . HISTORY OF PRESENT ILLNESS: The patient is a 55-year-old male known to me from previous ad mission. The patient with alcoholic liver cirrhosis and recurrent ascites. The patient with chroni c kidney disease and hepatic encephalopathy. The patient stated he was taking his lactulose and rif aximin at home. The patient was brought to the ER by patient's due to increased confusion and altered mental status. Last night patient's ammonia level was elevated to 101. Patient underwent p aracentesis on 11/20/2016, with removal of 6 liters. The patient was given lactulose in the emergen cy room, had diarrhea and patient developed transient hypertension and was given IV fluids and patie nt is admitted for further evaluation and management to medical/surgical floor. The patient's sodiu m was 133, potassium was 4.6 on admission. PAST MEDICAL HISTORY: Alcoholic liver cirrhosis, chronic kidney disease, history of diabetes mellit us type 2, recurrent ascites secondary to liver cirrhosis, coagulopathy. PAST SURGICAL HISTORY: Patient is status post cataract surgery on the left. FAMILY HISTORY: Noncontributory. SOCIAL HISTORY: Patient lives at home with his . The patient has a history of alcohol abuse; h owever, currently denies any alcohol use, denies any illicit drug use. The patient smokes cigarette s occasionally. ALLERGIES: THE PATIENT IS ALLERGIC TO: 1. ASPIRIN. 2. LATANOPROST. 3. TIMOLOL. MEDICATIONS: 1. Lasix 20 mg p.o. daily. 2. Lactulose 30 grams p.o. t.i.d. 3. Rifaximin 550 mg p.o. b.i.d. REVIEW OF SYSTEMS: Negative unless what mentioned in the HPI. PHYSICAL EXAMINATION: GENERAL: Well-developed, well-nourished male currently in no acute distress, awake, alert to name a nd CT shown otherwise confused. VITAL SIGNS: Temperature is 98.2, pulse is 84, blood pressure is 98/55, respiratory rate 18, oxygen saturation 100% on room air. HEENT: Head is atraumatic, normocephalic. Pupils equal, round, reactive to light and accommodation . The patient has slightly jaundiced sclerae. NECK: Supple. No cervical lymphadenopathy, no thyromegaly. CHEST: Lungs clear bilaterally. There is no rhonchi, wheezes, rales noted. CARDIOVASCULAR: Normal S1, S2. No murmurs, gallops, clicks, rubs noted. ABDOMEN: Protuberant, soft, slightly distended, nontender. EXTREMITIES: No edema, clubbing, cyanosis. Pulses equal bilaterally 2+. SKIN: The patient has multiple ecchymotic areas and healing scabs. NEUROLOGIC: Patient is awake, alert to name and situation, otherwise confused. No focal deficits n oted. Motor strength 5/5 in all extremities. LABORATORY DATA: On admission, CBC: White blood cells 9.5, hemoglobin 9.9, hematocrit 28.0, platel ets 112. Chemistry: Sodium is 133, potassium 4.6, chloride 104, carbon dioxide 15, anion gap 19, B UN 61, creatinine 2.87, glucose 136, calcium is 8.2. AST is 49, ALT is 37, ____ 218. IMAGING: Chest x-ray with impression of no active intrathoracic disease. ASSESSMENT AND PLAN: 1. Hepatic encephalopathy. Continue lactulose q.i.d. and rifaximin. We will ask Dr. Melendez to see patient in gastroenterology consultation. 2. Alcoholic liver cirrhosis with recurrent ascites. Will order paracentesis to be done by [facility]. 3. Chronic kidney disease. Will ask Dr. Wiseman to see patient in nephrology consultation. 4. Diabetes mellitus. We will continue to monitor blood sugar. Continue NovoLog per mild algorith m sliding scale coverage. 5. Mild thrombocytopenia, most likely secondary to liver cirrhosis. Continue to monitor platelet c ount. 6. We will continue Protonix for peptic ulcer disease prophylaxis and sequential compression device for deep venous thrombosis prophylaxis. Further recommendations based on clinical course. Plan of care discussed with Dr. Lowery. Dictated By: RIDDHI BLOCK SHAPE HAND for EDDIE LOWERY MD SR/NTS Conf#: [id number] DID#: [id number]
--- NOTE | 2016-11-29 16:47 | CONS ---
Date/Time of Note Date/Time of Note DATE: 11/29/16 TIME: 16:42 Assessment/Plan Assessment/Plan Additional Assessment/Plan 55 yo male with 1. LEONARDO on CKD, HRS vs Pre-Renal Azotemia, Unlikely ATN, Improving, Non oliguric 2. Metabolic Acidosis with respiratory compensation 3. Anemia of Chronic disease 4. Hx of DM, Likely with underlying CKD, DM Nephropathy 5. AMS, Hepatic Encephalopathy 6. Chronic Liver Disease, Cirrhosis, Recurrent Ascites 7. Mild Hyponatremia 8. Hypoalbuminemia Renal function has improved since yesterday with IVFs and holding diuretic Rx Will send Urine NA level, Will order ABG level now, due to Bicarb level 13 and start low dose bictra bid, Repeat chemistry in am. Cont to Hold Diuretic Rx and agree with gentle NS. Likely will benefit from albumin infusion. Free H20 Restricted Diet due to Hyponatremia. Further recommendations to follow Thank you for the opportunity to participate in the care of Mr Jean Baptiste. Consultation Date/Type/Reason Admit Date/Time Nov 28, 2016 at 12:41 Date of Consultation: Nov 29, 2016 Type of Consultation: Nephrology Reason for Consultation LEONARDO Referring Provider: EDDIE LOWERY MD Hx of Present Illness 55-year-old male with alcoholic liver cirrhosis and recurrent ascites. The patient has history of LEONARDO and chronic kidney disease which improved last admission , he also carries hx of hepatic encephalopathy. The patient was brought to the ER by patient's due to increased confusion and altered mental status, found to have elevated ammonia levels and admitted to hospital for continued treatment and evaluation. Nephrology consulted for LEONARDO, CKD. Constitutional: No requiring O2 Past Medical History Medical History: renal disease Past Surgical History Past Surgical Hx: other Family History Significant Family History: no pertinent family hx Social History Smoking Status: Never smoker Drug Use: none Exam/Review of Systems Vital Signs Vitals Vital Signs Date Time Temp Pulse Resp B/P Pulse Ox O2 Delivery O2 Flow Rate FiO2 11/29/16 08:04 98.2 84 18 98/55 100 11/28/16 14:10 Room Air Intake and Output 11/28/16 11/28/16 11/29/16 15:00 23:00 07:00 Intake Total 345 ml 1195 ml Balance 345 ml 1195 ml Exam Constitutional: No distress ENMT: mucosa pink and moist Neck: No jvd Respiratory: clear to auscultation Cardiovascular: regular rate and rhythm, No edema Gastrointestinal: ascites, distended, soft, No rebound or guarding Extremities: No pitting pedal edema 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, No confused, No lethargic Results Result Diagram: 11/28/16 1135 11/29/16 0525 Results 24 hrs Laboratory Tests Test 11/28/16 20:36 11/29/16 01:27 11/29/16 05:24 11/29/16 05:25 Bedside Glucose 142 165 Hemoglobin A1c 5.6 Anion Gap 16 Blood Urea Nitrogen 60 H Calcium Level 7.6 L Carbon Dioxide Level 13 L Chloride Level 106 Creatinine 2.00 H Glucose Level 111 Potassium Level 3.9 Sodium Level 131 L Test 11/29/16 07:34 11/29/16 11:56 Bedside Glucose 210 105 Medications Medications Current Medications Lactulose (Enulose) 20 gm Q6 PO Last administered on 11/29/16 12:15; Admin Dose 20 GM; Start 11/28/16 at 18:00 Rifaximin (Xifaxan) 550 mg BID PO Last administered on 11/29/16 08:52; Admin Dose 550 MG; Start 11/28/16 at 21:00 Diagnostic Test (Pha) (Accucheck) 1 ea 02 XX Last administered on 11/29/16 02: 29; Admin Dose 1 EA; Start 11/29/16 at 02:00 Diagnostic Test (Pha) 1 ea 1 ea 02 XX Last administered on 11/29/16 02:29; Admin Dose 1 EA; Start 11/29/16 at 02:00 Sodium Chloride (NS) 1,000 ml @ 75 mls/hr [id number] IV Last administered on 11/28 20:39; Admin Dose 75 MLS/HR; Start 11/28/16 at 20:00 Miscellaneous Information 1 ea NOTE XX ; Start 11/28/16 at 20:00 Glucose (Glutose) 15 gm Q15M PRN PO DECREASED GLUCOSE; Start 11/28/16 at 20:00 Glucose (Glutose) 22.5 gm Q15M PRN PO DECREASED GLUCOSE; Start 11/28/16 at 20: 00 Dextrose (D50w Syringe) 25 ml Q15M PRN IV DECREASED GLUCOSE; Start 11/28/16 at 20:00 Dextrose (D50w Syringe) 50 ml Q15M PRN IV DECREASED GLUCOSE; Start 11/28/16 at 20:00 Glucagon (Glucagen) 1 mg Q15M PRN IM DECREASED GLUCOSE; Start 11/28/16 at 20:00 Glucose (Glutose) 15 gm Q15M PRN BUCCAL DECREASED GLUCOSE; Start 11/28/16 at 20 :00 Procedures Procedures PROCEDURE: XR Chest. CLINICAL INDICATION: Altered mental status/shortness of breath TECHNIQUE: Chest AP portable. COMPARISON: 11/15/2016 FINDINGS: The mediastinal structures are unremarkable. The heart is normal in size and configuration. The pulmonary vascularity is normal. There are low lung volumes.. No consolidation is identified. The pleural spaces are unremarkable. The axial skeleton is unremarkable. IMPRESSION: No active intrathoracic disease. RPTAT: HGDB .Prasanna Boggs MD, MD Date Time Electronically viewed and signed by .Prasanna Boggs MD, MD on 11/28/2016 13:19 SONA CONROY MD Nov 29, 2016 16:47
--- NOTE | 2016-11-29 17:17 | CONS ---
DATE OF ADMISSION: 11/28/2016 DATE OF CONSULTATION: HISTORY OF PRESENT ILLNESS: A 55-year-old male with a history of cirrhosis of liver, refra ctory ascites, gets frequently admitted for a confusional state. The patient was brought in by the to the emergency room for a confusional state. 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 In the ER, his ammonia level was 101 and, as per the , the patient has been taking lactulose and rifaximin at home. PAST MEDICAL HISTORY: Hepatorenal syndrome, type 1; diabetes mellitus, cirrhosis of liver secondary to alcohol, hepatic encephalopathy, and refractory ascites. PAST SURGICAL HISTORY: Cataract surgery. FAMILY HISTORY: Nothing contributory. ALLERGIES: NOTED. REVIEW OF SYSTEMS: Negative. PHYSICAL EXAMINATION: GENERAL: The patient is confused. VITAL SIGNS: Stable. HEENT: Unremarkable. NECK: Supple. No thyromegaly, no lymphadenopathy. CARDIOVASCULAR: No murmur, gallop, or click. LUNGS: Clear. ABDOMEN: Benign except for ascites. EXTREMITIES: No edema. CENTRAL NERVOUS SYSTEM: The patient is confused. IMPRESSION: 1. Hepatic encephalopathy. 2. Cirrhosis of liver. 3. Refractory ascites. 4. Hepatorenal syndrome, type 1. 5. Diabetes mellitus. PLAN: To continue with lactulose and rifaximin. Hold off on diuretics because that will worsen the patient's renal function. Fluid restriction. Reduced protein diet. Dictated By: JOHANA RAVI/NTS Conf#: [id number] DID#: [id number] CC: JOHANA MOTLEY MD; EDDIE LOWERY MD;*EndCC*
[2016-11-29 18:13] LABS: Allen Test ACCEPTAB; Arterial Base Excess -8.6 mmol/L (-3.0-3); Arterial COHb 0.2 % (0.0-3.0); Arterial Fraction of Oxyhgb 97.3 % (93.0-99.0); Arterial HCO3 13.5 mmol/L (22.0-26.0); Arterial MetHb 0.2 % (0.0-1.5); Arterial Total Hemglobin 9.6 g/dl (12.0-18.0); MODE ROOM AIR
[2016-11-29 19:47] VITALS: BP 109/72; RESP 16
[2016-11-29] MEDS: CITRIC ACID/NA CITRATE 30 ML CUP PO SCH (20:47)
[2016-11-30 00:36] LABS: ADD UMIC YES; URINE BILIRUBIN (Dip) NEGATIVE (NEGATIVE); URINE BLOOD (Dip) 2+ (NEGATIVE); URINE COLOR LT. YELLOW (YELLOW); URINE GLUCOSE (Dip) NEGATIVE (NEGATIVE); URINE KETONES (Dip) NEGATIVE (NEGATIVE); URINE LEUKOCYTE ESTERASE (Dip) 1+ (NEGATIVE); URINE NITRITE (Dip) NEGATIVE (NEGATIVE); URINE TOTAL PROTEIN (Dip) NEGATIVE (NEGATIVE); URINE UROBILINOGEN (Dip) 0.2 E.U./dL (0.1-1.0)
[2016-11-30 01:11] LABS: BACTERIA,URINE MODERATE; BARBITURATES NEGATIVE (NEGATIVE); BENZODIAZEPINES NEGATIVE (NEGATIVE); COCAINE NEGATIVE (NEGATIVE); OPIATES NEGATIVE (NEGATIVE); SQUAMOUS EPITHELIAL CELL,UR FEW
[2016-11-30 01:41] LABS: CANNABINOIDS NEGATIVE (NEGATIVE)
[2016-11-30] MEDS: ACCUCHECK XX SCH ×2 (02:00)
[2016-11-30] MEDS: LACTULOSE 30ML CUP PO SCH ×4 (05:31→23:54)
[2016-11-30 05:50] LABS: INR 1.7; PROTIME 20.1 Sec (12.2-14.2); PT RATIO 1.6
[2016-11-30 05:55] LABS: ALBUMIN 2.1 g/dl (3.3-4.9)
[2016-11-30 05:56] LABS: POTASSIUM 4.3 mmol/L (3.5-5.1)
[2016-11-30 05:58] LABS: ALBUMIN/GLOBULIN RATIO 0.53; BILIRUBIN,INDIRECT 1.4 mg/dl (0-1.1); BILIRUBIN,TOTAL 1.4 mg/dl (0.2-1.3); CALCIUM 7.5 mg/dl (8.4-10.2); CREATININE 1.69 mg/dl (0.61-1.24)
[2016-11-30 06:26] LABS: BASOPHILS % 0.4 % (0.0-2.0); EOSINOPHILS # 0.1 10^3/ul (0.0-0.5); EOSINOPHILS % 1.5 % (0.0-7.0); HEMATOCRIT 24.1 % (42.0-52.0); HEMOGLOBIN 8.3 g/dl (14.0-18.0); LYMPHOCYTES # 1.5 10^3/ul (0.8-2.9); MEAN CORPUSCULAR HEMOGLOBIN 32.5 pg (29.0-33.0); MEAN CORPUSCULAR HGB CONC 34.6 g/dl (32.0-37.0); MEAN CORPUSCULAR VOLUME 93.9 fl (82.0-101.0); MONOCYTE # 1.1 10^3/ul (0.3-0.9); MONOCYTES % 13.9 % (0.0-11.0); NEUTROPHIL # 5.2 10^3/ul (1.6-7.5); NEUTROPHILS % 65.2 % (39.0-77.0); RED BLOOD COUNT 2.57 10^6/ul (4.70-6.10); RED CELL DISTRIBUTION WIDTH 16.5 % (11.5-14.5); UNCORRECTED WBC 7.9 10^3/ul (4.8-10.8); WHITE BLOOD COUNT 7.9 10^3/ul (4.8-10.8)
[2016-11-30 07:05] LABS: CONDITION 1; LH ANALYZER COMMENTS 1; PLATELET COUNT 85 10^3/UL (140-440)
[2016-11-30] MEDS: INSULIN ASPART [NOVOLOG] 3 ML PEN SC SCH ×4 (08:00→21:00)
[2016-11-30 08:10] VITALS: BP 95/52; RESP 18
[2016-11-30] MEDS: CITRIC ACID/NA CITRATE 30 ML CUP PO SCH ×2 (09:06→21:39)
[2016-11-30] MEDS: RIFAXIMIN 550 MG TAB PO SCH ×2 (09:06→21:39)
[2016-11-30 09:28] VITALS: BP 98/56; PULSE 83
--- NOTE | 2016-11-30 11:46 | CONS ---
Date/Time of Note Date/Time of Note DATE: 11/30/16 TIME: 11:46 Assessment/Plan Assessment/Plan Additional Assessment/Plan 55 yo male with 1. LEONARDO on CKD, HRS vs Pre-Renal Azotemia, Unlikely ATN, Improving, Non oliguric 2. Metabolic Acidosis with respiratory compensation 3. Anemia of Chronic disease 4. Hx of DM, Likely with underlying CKD, DM Nephropathy 5. AMS, Hepatic Encephalopathy 6. Chronic Liver Disease, Cirrhosis, Recurrent Ascites 7. Mild Hyponatremia 8. Hypoalbuminemia Na level improving Renal function improving, Non Oliguric Cont Gentle IVFs for another 24 hours and cont to hold diuretic Rx Bicitra BID x 24-48 hours, serum Bicarb improved, now 17 Will cont to monitor UO, Electrolytes and renal function daily. Consultation Date/Type/Reason Admit Date/Time Nov 28, 2016 at 12:41 Initial Consult Date 11/29/16 Type of Consultation: Nephrology Referring Provider: EDDIE LOWERY MD 24 HR Interval Summary Free Text/Dictation No new complaints, Good UO Exam/Review of Systems Vital Signs Vitals Vital Signs Date Time Temp Pulse Resp B/P Pulse Ox O2 Delivery O2 Flow Rate FiO2 11/30/16 09:28 83 98/56 11/30/16 08:10 98.1 18 100 11/28/16 14:10 Room Air Intake and Output 11/29/16 11/29/16 11/30/16 15:00 23:00 07:00 Intake Total 2300 ml 500 ml Output Total 250 ml Balance 2300 ml 250 ml Exam Constitutional: No distress ENMT: mucosa pink and moist Respiratory: clear to auscultation Cardiovascular: regular rate and rhythm, No edema Gastrointestinal: ascites, soft, No rebound or guarding Extremities: No edema 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: No lethargic Skin: No diaphoresis Results Result Diagram: 11/30/16 0435 11/30/16 0435 Results 24 hrs Laboratory Tests Test 11/29/16 11:56 11/29/16 17:13 11/29/16 17:55 11/29/16 20:12 Bedside Glucose 105 104 173 Arterial Blood HCO3 13.5 L Arterial Blood Base Excess -8.6 L Arterial Blood Oxygen Saturation 97.7 Guillermo Test ACCEPTAB Arterial Blood Gas Puncture Site Right Radial Arterial Blood Carboxyhemoglobin 0.2 Arterial Blood Date Drawn 11/29/2016 6:06:32 PM Arterial Blood Methemoglobin 0.2 Arterial Blood pCO2 (Temp correct) 19.3 L Arterial Blood pH (Temp corrected) 7.462 H Arterial Blood pO2 (Temp corrected) 113.6 H Blood Gas A-a O2 Differential 13.0 Blood Gas Modality ROOM AIR Blood Gas Notified Time 11/29/2016 6:12:52 PM Blood Gas Notified Whom [place] Blood Gas Specimen Source Blood arterial Blood Gas Temperature 37.0 FiO2 21.0 Oxyhemoglobin Percent 97.3 Total Hemoglobin 9.6 L Test 11/29/16 23:38 11/30/16 04:35 11/30/16 07:50 Urine Amphetamines Screen NEGATIVE Urine Bacteria MODERATE Urine Barbiturates NEGATIVE Urine Benzodiazepines Screen NEGATIVE Urine Bilirubin NEGATIVE Urine Cannabinoids NEGATIVE Urine Clarity HAZY Urine Cocaine Screen NEGATIVE Urine Color LT. YELLOW Urine Glucose NEGATIVE Urine Hemoglobin 2+ H Urine Ketones NEGATIVE Urine Leukocyte Esterase 1+ H Urine Microscopic RBC 10-25 Urine Microscopic WBC 25-50 Urine Nitrite NEGATIVE Urine Opiates Screen NEGATIVE Urine Random Sodium < 13 L Urine Specific [place] 1.015 Urine Squamous Epithelial Cells FEW Urine Total Protein NEGATIVE Urine Urobilinogen 0.2 E.U./dL Urine pH 6.0 Alanine Aminotransferase (ALT/SGPT) 37 Albumin 2.1 L Albumin/Globulin Ratio 0.53 Alkaline Phosphatase 106 # Ammonia 85 H Anion Gap 13 Aspartate Amino Transf (AST/SGOT) 37 Basophils # 0.0 Basophils % 0.4 Blood Morphology Comment Blood Urea Nitrogen 51 H Calcium Level 7.5 L Carbon Dioxide Level 17 L Chloride Level 108 Creatinine 1.69 H Direct Bilirubin 0.00 Eosinophils # 0.1 Eosinophils % 1.5 Globulin 3.90 H Glucose Level 113 Hematocrit 24.1 L Hemoglobin 8.3 L INR International Normalized Ratio 1.70 Indirect Bilirubin 1.4 H Lymphocytes # 1.5 Lymphocytes % 19.0 Mean Corpuscular Hemoglobin 32.5 Mean Corpuscular Hemoglobin Concent 34.6 Mean Corpuscular Volume 93.9 Mean Platelet Volume 9.0 Monocytes # 1.1 H Monocytes % 13.9 H Neutrophils # 5.2 Neutrophils % 65.2 Nucleated Red Blood Cells # 0.0 Nucleated Red Blood Cells % 0.0 Platelet Count 85 #L Potassium Level 4.3 Prothrombin Time 20.1 H Prothrombin Time Ratio 1.6 Red Blood Count 2.57 L Red Cell Distribution Width 16.5 H Sodium Level 134 L Total Bilirubin 1.4 H Total Protein 6.0 #L White Blood Count 7.9 Bedside Glucose 107 Medications Medications Current Medications Lactulose (Enulose) 20 gm Q6 PO Last administered on 11/30/16 05:31; Admin Dose 20 GM; Start 11/28/16 at 18:00 Rifaximin (Xifaxan) 550 mg BID PO Last administered on 11/30/16 09:06; Admin Dose 550 MG; Start 11/28/16 at 21:00 Diagnostic Test (Pha) (Accucheck) 1 ea 02 XX Last administered on 11/29/16 02: 29; Admin Dose 1 EA; Start 11/29/16 at 02:00 Diagnostic Test (Pha) 1 ea 1 ea 02 XX Last administered on 11/29/16 02:29; Admin Dose 1 EA; Start 11/29/16 at 02:00 Sodium Chloride (NS) 1,000 ml @ 75 mls/hr [id number] IV Last administered on 11/28 20:39; Admin Dose 75 MLS/HR; Start 11/28/16 at 20:00 Miscellaneous Information 1 ea NOTE XX ; Start 11/28/16 at 20:00 Glucose (Glutose) 15 gm Q15M PRN PO DECREASED GLUCOSE; Start 11/28/16 at 20:00 Glucose (Glutose) 22.5 gm Q15M PRN PO DECREASED GLUCOSE; Start 11/28/16 at 20: 00 Dextrose (D50w Syringe) 25 ml Q15M PRN IV DECREASED GLUCOSE; Start 11/28/16 at 20:00 Dextrose (D50w Syringe) 50 ml Q15M PRN IV DECREASED GLUCOSE; Start 11/28/16 at 20:00 Glucagon (Glucagen) 1 mg Q15M PRN IM DECREASED GLUCOSE; Start 11/28/16 at 20:00 Glucose (Glutose) 15 gm Q15M PRN BUCCAL DECREASED GLUCOSE; Start 11/28/16 at 20 :00 Citric Acid/ Sodium Citrate (Bicitra) 15 ml BID PO Last administered on 09:06; Admin Dose 15 ML; Start 11/29/16 at 21:00 SONA CONROY MD Nov 30, 2016 11:46
[2016-11-30] MEDS: SOD CHLORIDE 0.9% 1,000 ML IV SCH (11:47)
--- NOTE | 2016-11-30 14:09 | PN ---
Date/Time of Note Date/Time of Note DATE: 11/30/16 TIME: 13:57 Assessment/Plan VTE Prophylaxis VTE Prophylaxis Intervention: SCD's Lines/Catheters IV [facility] ([facility] Peripheral IV Urinary Cath still in place: No Assessment/Plan Chief Complaint/Hosp Course ASSESSMENT AND PLAN: 1. Hepatic encephalopathy. Continue lactulose q.i.d. and rifaximin. Dr. Melendez is following in gastroenterology consultation. 2. Alcoholic liver cirrhosis with recurrent ascites. 3. Chronic kidney disease. Dr. Morrison is following in nephrology consultation. 4. Diabetes mellitus. Continue NovoLog per mild algorithm sliding scale coverage. 5. Mild thrombocytopenia, most likely secondary to liver cirrhosis. Continue to monitor platelet count. Continue Protonix for peptic ulcer disease prophylaxis and sequential compression device for deep venous thrombosis prophylaxis. Further recommendations based on clinical course. Plan of care discussed with Dr. Qureshi. Problems: Subjective 24 Hr Interval Summary Free Text/Dictation Patient is awake alert with periods of confusion per RN, patient is currently resting, no fever nausea vomiting. Exam/Review of Systems Vital Signs Vitals Vital Signs Date Time Temp Pulse Resp B/P Pulse Ox O2 Delivery O2 Flow Rate FiO2 11/30/16 09:28 83 98/56 11/30/16 08:10 98.1 18 100 11/28/16 14:10 Room Air Intake and Output 11/29/16 11/29/16 11/30/16 14:59 22:59 06:59 Intake Total 2300 ml 500 ml Output Total 250 ml Balance 2300 ml 250 ml Exam GENERAL: Well-developed, well-nourished male currently in no acute distress HEENT: Head is atraumatic, normocephalic. Pupils equal, round, reactive to light and accommodation. The patient has slightly jaundiced sclerae. NECK: Supple. No cervical lymphadenopathy, no thyromegaly. CHEST: Lungs clear bilaterally. There is no rhonchi, wheezes, rales noted. CARDIOVASCULAR: Normal S1, S2. No murmurs, gallops, clicks, rubs noted. ABDOMEN: Protuberant, soft, slightly distended, nontender. EXTREMITIES: No edema, clubbing, cyanosis. Pulses equal bilaterally 2+. SKIN: The patient has multiple ecchymotic areas and healing scabs. NEUROLOGIC: Patient is awake, alert to name and situation, otherwise confused. Results Result Diagram: 11/30/16 0435 11/30/16 0435 Results 24 hrs Laboratory Tests Test 11/29/16 17:13 11/29/16 17:55 11/29/16 20:12 11/29/16 23:38 Bedside Glucose 104 173 Arterial Blood HCO3 13.5 L Arterial Blood Base Excess -8.6 L Arterial Blood Oxygen Saturation 97.7 Guillermo Test ACCEPTAB Arterial Blood Gas Puncture Site Right Radial Arterial Blood Carboxyhemoglobin 0.2 Arterial Blood Date Drawn 11/29/2016 6:06:32 PM Arterial Blood Methemoglobin 0.2 Arterial Blood pCO2 (Temp correct) 19.3 L Arterial Blood pH (Temp corrected) 7.462 H Arterial Blood pO2 (Temp corrected) 113.6 H Blood Gas A-a O2 Differential 13.0 Blood Gas Modality ROOM AIR Blood Gas Notified Time 11/29/2016 6:12:52 PM Blood Gas Notified Whom NH Blood Gas Specimen Source Blood arterial Blood Gas Temperature 37.0 FiO2 21.0 Oxyhemoglobin Percent 97.3 Total Hemoglobin 9.6 L Urine Amphetamines Screen NEGATIVE Urine Bacteria MODERATE Urine Barbiturates NEGATIVE Urine Benzodiazepines Screen NEGATIVE Urine Bilirubin NEGATIVE Urine Cannabinoids NEGATIVE Urine Clarity HAZY Urine Cocaine Screen NEGATIVE Urine Color LT. YELLOW Urine Glucose NEGATIVE Urine Hemoglobin 2+ H Urine Ketones NEGATIVE Urine Leukocyte Esterase 1+ H Urine Microscopic RBC 10-25 Urine Microscopic WBC 25-50 Urine Nitrite NEGATIVE Urine Opiates Screen NEGATIVE Urine Random Sodium < 13 L Urine Specific [place] 1.015 Urine Squamous Epithelial Cells FEW Urine Total Protein NEGATIVE Urine Urobilinogen 0.2 E.U./dL Urine pH 6.0 Test 11/30/16 04:35 11/30/16 07:50 11/30/16 11:41 Alanine Aminotransferase (ALT/SGPT) 37 Albumin 2.1 L Albumin/Globulin Ratio 0.53 Alkaline Phosphatase 106 # Ammonia 85 H Anion Gap 13 Aspartate Amino Transf (AST/SGOT) 37 Basophils # 0.0 Basophils % 0.4 Blood Morphology Comment Blood Urea Nitrogen 51 H Calcium Level 7.5 L Carbon Dioxide Level 17 L Chloride Level 108 Creatinine 1.69 H Direct Bilirubin 0.00 Eosinophils # 0.1 Eosinophils % 1.5 Globulin 3.90 H Glucose Level 113 Hematocrit 24.1 L Hemoglobin 8.3 L INR International Normalized Ratio 1.70 Indirect Bilirubin 1.4 H Lymphocytes # 1.5 Lymphocytes % 19.0 Mean Corpuscular Hemoglobin 32.5 Mean Corpuscular Hemoglobin Concent 34.6 Mean Corpuscular Volume 93.9 Mean Platelet Volume 9.0 Monocytes # 1.1 H Monocytes % 13.9 H Neutrophils # 5.2 Neutrophils % 65.2 Nucleated Red Blood Cells # 0.0 Nucleated Red Blood Cells % 0.0 Platelet Count 85 #L Potassium Level 4.3 Prothrombin Time 20.1 H Prothrombin Time Ratio 1.6 Red Blood Count 2.57 L Red Cell Distribution Width 16.5 H Sodium Level 134 L Total Bilirubin 1.4 H Total Protein 6.0 #L White Blood Count 7.9 Bedside Glucose 107 108 Medications Medications Current Medications Lactulose (Enulose) 20 gm Q6 PO Last administered on 11/30/16 11:46; Admin Dose 20 GM; Start 11/28/16 at 18:00 Rifaximin (Xifaxan) 550 mg BID PO Last administered on 11/30/16 09:06; Admin Dose 550 MG; Start 11/28/16 at 21:00 Diagnostic Test (Pha) (Accucheck) 1 ea 02 XX Last administered on 11/29/16 02: 29; Admin Dose 1 EA; Start 11/29/16 at 02:00 Diagnostic Test (Pha) 1 ea 1 ea 02 XX Last administered on 11/29/16 02:29; Admin Dose 1 EA; Start 11/29/16 at 02:00 Sodium Chloride (NS) 1,000 ml @ 75 mls/hr [id number] IV Last administered on 11/30 11:47; Admin Dose 75 MLS/HR; Start 11/28/16 at 20:00 Miscellaneous Information 1 ea NOTE XX ; Start 11/28/16 at 20:00 Glucose (Glutose) 15 gm Q15M PRN PO DECREASED GLUCOSE; Start 11/28/16 at 20:00 Glucose (Glutose) 22.5 gm Q15M PRN PO DECREASED GLUCOSE; Start 11/28/16 at 20: 00 Dextrose (D50w Syringe) 25 ml Q15M PRN IV DECREASED GLUCOSE; Start 11/28/16 at 20:00 Dextrose (D50w Syringe) 50 ml Q15M PRN IV DECREASED GLUCOSE; Start 11/28/16 at 20:00 Glucagon (Glucagen) 1 mg Q15M PRN IM DECREASED GLUCOSE; Start 11/28/16 at 20:00 Glucose (Glutose) 15 gm Q15M PRN BUCCAL DECREASED GLUCOSE; Start 11/28/16 at 20 :00 Citric Acid/ Sodium Citrate (Bicitra) 15 ml BID PO Last administered on t 09:06; Admin Dose 15 ML; Start 11/29/16 at 21:00 RIDDHI BLOCK Nov 30, 2016 14:07
[2016-11-30] MEDS: PANTOPRAZOLE 40 MG INJ IV SCH (18:07)
[2016-11-30 19:43] VITALS: BP 113/63; RESP 18
[2016-12-01] VITALS (24 sets, daily range): BP systolic 61–133; BP diastolic 31–120; PULSE 72–100; RESP 15–23
[2016-12-01] MEDS: SOD CHLORIDE 0.9% 1,000 ML IV SCH ×2 (01:52→14:40)
[2016-12-01] MEDS: ACCUCHECK XX SCH ×2 (02:00)
[2016-12-01] MEDS: LACTULOSE 30ML CUP PO SCH ×4 (06:00→23:25)
[2016-12-01] MEDS: PANTOPRAZOLE 40 MG INJ IV SCH (06:00)
[2016-12-01] MEDS: INSULIN ASPART [NOVOLOG] 3 ML PEN SC SCH ×4 (08:00→21:00)
[2016-12-01] MEDS ORDERED: SOD CHLORIDE 0.9% 500 ML IV ONE ×3 (08:30→13:00)
[2016-12-01] MEDS: CITRIC ACID/NA CITRATE 30 ML CUP PO SCH ×2 (09:00→12:39)
[2016-12-01] MEDS: RIFAXIMIN 550 MG TAB PO SCH ×2 (09:00→23:26)
[2016-12-01] MEDS ORDERED: ALBUMIN HUMAN 25% 50 ML IV ONE (10:00)
[2016-12-01 10:15] LABS: ALBUMIN 2.2 g/dl (3.3-4.9); POTASSIUM 3.2 mmol/L (3.5-5.1)
[2016-12-01 10:17] LABS: CREATININE 1.82 mg/dl (0.61-1.24)
[2016-12-01 10:18] LABS: ALBUMIN/GLOBULIN RATIO 0.56; BILIRUBIN,INDIRECT 1.3 mg/dl (0-1.1); BILIRUBIN,TOTAL 1.3 mg/dl (0.2-1.3); CALCIUM 7.1 mg/dl (8.4-10.2); TOTAL PROTEIN 6.1 g/dl (6.1-8.1)
[2016-12-01 10:19] LABS: INR 1.73; PROTIME 20.4 Sec (12.2-14.2); PT RATIO 1.6
[2016-12-01 11:05] LABS: BASOPHILS % 0.1 % (0.0-2.0); EOSINOPHILS % 1.1 % (0.0-7.0); HEMATOCRIT 26.9 % (42.0-52.0); HEMOGLOBIN 9.1 g/dl (14.0-18.0); LYMPHOCYTES # 0.7 10^3/ul (0.8-2.9); LYMPHOCYTES % 18.1 % (15.0-51.0); MEAN CORPUSCULAR HEMOGLOBIN 31.9 pg (29.0-33.0); MEAN CORPUSCULAR HGB CONC 33.8 g/dl (32.0-37.0); MEAN CORPUSCULAR VOLUME 94.3 fl (82.0-101.0); MEAN PLATELET VOLUME 8.7 fl (7.4-10.4); MONOCYTE # 0.2 10^3/ul (0.3-0.9); MONOCYTES % 4.2 % (0.0-11.0); NEUTROPHILS % 76.5 % (39.0-77.0); PLATELET COUNT 99 10^3/UL (140-440); RED BLOOD COUNT 2.86 10^6/ul (4.70-6.10); RED CELL DISTRIBUTION WIDTH 16.6 % (11.5-14.5); UNCORRECTED WBC 3.9 10^3/ul (4.8-10.8); WHITE BLOOD COUNT 3.9 10^3/ul (4.8-10.8)
[2016-12-01 11:09] LABS: CONDITION 1; LH ANALYZER COMMENTS 1
--- NOTE | 2016-12-01 14:03 | CONS ---
Date/Time of Note Date/Time of Note DATE: 12/01/16 TIME: 14:01 Assessment/Plan Assessment/Plan Additional Assessment/Plan IMPRESSION: 1. Hepatic encephalopathy. 2. Cirrhosis of liver. 3. Refractory ascites. 4. Hepatorenal syndrome, type 1. 5. Diabetes mellitus. PLAN: To continue with lactulose and rifaximin. Hold off on diuretics because that will worsen the patient's renal function. Fluid restriction. Reduced protein diet. stool for occult blood addendum this note is from yesterday Consultation Date/Type/Reason Admit Date/Time Nov 28, 2016 at 12:41 Initial Consult Date 11/29/16 Type of Consultation: Nephrology Referring Provider: EDDIE LOWERY MD 24 HR Interval Summary Free Text/Dictation pt.was seen yesterday,felt better. as per staff there wad ? blood in the stool as per . Exam/Review of Systems Vital Signs Vitals Vital Signs Date Time Temp Pulse Resp B/P Pulse Ox O2 Delivery O2 Flow Rate FiO2 12/01/16 08:58 84 84/51 12/01/16 08:16 97.9 22 100 11/28/16 14:10 Room Air Intake and Output 11/30/16 11/30/16 12/01/16 15:00 23:00 07:00 Intake Total 2250 ml 1300 ml Output Total 3 ml Balance 2247 ml 1300 ml Exam Constitutional: alert, oriented, well developed Psych: nl mood/affect, no complaints Head: atraumatic, normocephalic Eyes: EOMI, PERRL, nl conjunctiva, nl lids, nl sclera ENMT: nl external ears & nose, nl lips & teeth, nl nasal mucosa & septum Neck: non-tender, supple Respiratory: clear to auscultation, normal air movement Cardiovascular: nl pulses, regular rate and rhythm Gastrointestinal: nl liver, spleen, non-tender, soft Musculoskeletal: nl extremities to inspection, nl gait and stance Extremities: normal pulses 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: [employer] II-XII intact, nl mental status, nl speech, nl strength Skin: nl turgor, No rash or lesions Lymph: nl lymph nodes Results Result Diagram: 12/01/16 0940 12/01/16 0940 Results 24 hrs Laboratory Tests Test 11/30/16 16:59 11/30/16 18:30 11/30/16 21:42 12/01/16 07:46 Bedside Glucose 112 129 175 Stool Occult Blood NEGATIVE Test 12/01/16 09:40 12/01/16 11:55 Alanine Aminotransferase (ALT/SGPT) 42 Albumin 2.2 L Albumin/Globulin Ratio 0.56 Alkaline Phosphatase 110 Anion Gap 15 Aspartate Amino Transf (AST/SGOT) 36 Basophils # 0.0 Basophils % 0.1 Blood Morphology Comment Blood Urea Nitrogen 42 H Calcium Level 7.1 L Carbon Dioxide Level 15 L Chloride Level 111 H Creatinine 1.82 H Direct Bilirubin 0.00 Eosinophils # 0.0 Eosinophils % 1.1 Globulin 3.90 H Glucose Level 113 Hematocrit 26.9 L Hemoglobin 9.1 L INR International Normalized Ratio 1.73 Indirect Bilirubin 1.3 H Lymphocytes # 0.7 L Lymphocytes % 18.1 Mean Corpuscular Hemoglobin 31.9 Mean Corpuscular Hemoglobin Concent 33.8 Mean Corpuscular Volume 94.3 Mean Platelet Volume 8.7 Monocytes # 0.2 L Monocytes % 4.2 Neutrophils # 3.0 Neutrophils % 76.5 Nucleated Red Blood Cells # 0.0 Nucleated Red Blood Cells % 0.0 Platelet Count 99 L Potassium Level 3.2 L Prothrombin Time 20.4 H Prothrombin Time Ratio 1.6 Red Blood Count 2.86 L Red Cell Distribution Width 16.6 H Sodium Level 138 Total Bilirubin 1.3 Total Protein 6.1 White Blood Count 3.9 #L Bedside Glucose 149 Medications Medications Current Medications Lactulose (Enulose) 20 gm Q6 PO Last administered on 12/01/16 12:39; Admin Dose 20 GM; Start 11/28/16 at 18:00 Rifaximin (Xifaxan) 550 mg BID PO Last administered on 11/30/16 21:39; Admin Dose 550 MG; Start 11/28/16 at 21:00 Diagnostic Test (Pha) (Accucheck) ea XX Last administered on 11/29/16 02: 29; Admin Dose 1 EA; Start 11/29/16 at 02:00 Diagnostic Test (Pha) 1 ea ea XX Last administered on 11/29/16 02:29; Admin Dose 1 EA; Start 11/29/16 at 02:00 Sodium Chloride (NS) 1,000 ml @ 75 mls/hr [id number] IV Last administered on 01:52; Admin Dose 75 MLS/HR; Start 11/28/16 at 20:00 Miscellaneous Information 1 ea NOTE XX ; Start 11/28/16 at 20:00 Glucose (Glutose) 15 gm Q15M PRN PO DECREASED GLUCOSE; Start 11/28/16 at 20:00 Glucose (Glutose) 22.5 gm Q15M PRN PO DECREASED GLUCOSE; Start 11/28/16 at 20: 00 Dextrose (D50w Syringe) 25 ml Q15M PRN IV DECREASED GLUCOSE; Start 11/28/16 at 20:00 Dextrose (D50w Syringe) 50 ml Q15M PRN IV DECREASED GLUCOSE; Start 11/28/16 at 20:00 Glucagon (Glucagen) 1 mg Q15M PRN IM DECREASED GLUCOSE; Start 11/28/16 at 20:00 Glucose (Glutose) 15 gm Q15M PRN BUCCAL DECREASED GLUCOSE; Start 11/28/16 at 20 :00 Citric Acid/ Sodium Citrate (Bicitra) 15 ml BID PO Last administered on 12:39; Admin Dose 15 ML; Start 11/29/16 at 21:00 Pantoprazole (Protonix Iv) 40 mg DAILY@06 IV Last administered on 12/01/16 06: 00; Admin Dose 40 MG; Start 11/30/16 at 17:00 JOHANA MOTLEY MD Dec 01, 2016 14:03
--- NOTE | 2016-12-01 15:28 | PN ---
Date/Time of Note Date/Time of Note DATE: 12/01/16 TIME: 15:25 Assessment/Plan VTE Prophylaxis VTE Prophylaxis Intervention: contraindicated VTE Contraindication Reason: thrombocytopenia Lines/Catheters [facility] Peripheral IV Urinary Cath still in place: No Assessment/Plan Chief Complaint/Hosp Course ASSESSMENT AND PLAN: 1. Hepatic encephalopathy. Continue lactulose q.i.d. and rifaximin. Dr. Melendez is following in gastroenterology consultation. 2. Alcoholic liver cirrhosis with recurrent ascites. Paracentesis today. 3. Chronic kidney disease. Dr. Morrison is following in nephrology consultation. 4. Diabetes mellitus. Continue NovoLog per mild algorithm sliding scale coverage. 5. Mild thrombocytopenia, most likely secondary to liver cirrhosis. Continue to monitor platelet count. 6. Hypotension, post IV fluid bolus and albumin, transferred to telemetry. Patient's condition and treatment is discussed with patient and patient's at bedside. Continue Protonix for peptic ulcer disease prophylaxis and sequential compression device for deep venous thrombosis prophylaxis. Further recommendations based on clinical course. Plan of care discussed with Dr. Qureshi. Problems: Subjective 24 Hr Interval Summary Free Text/Dictation Patient with labile blood pressure, status post IV bolus and albumin infusion. Patient with distended abdomen due to ascites. Patient is awake alert to name and situation, otherwise confused, cooperative. Patient denies nausea vomiting. Exam/Review of Systems Vital Signs Vitals Vital Signs Date Time Temp Pulse Resp B/P Pulse Ox O2 Delivery O2 Flow Rate FiO2 12/01/16 14:25 89 76/51 12/01/16 08:16 97.9 22 100 11/28/16 14:10 Room Air Intake and Output 11/30/16 11/30/16 12/01/16 15:00 23:00 07:00 Intake Total 2250 ml 1300 ml Output Total 3 ml Balance 2247 ml 1300 ml Exam GENERAL: Well-developed, well-nourished male currently in no acute distress HEENT: Head is atraumatic, normocephalic. Pupils equal, round, reactive to light and accommodation. The patient has slightly jaundiced sclerae. NECK: Supple. No cervical lymphadenopathy, no thyromegaly. CHEST: Lungs clear bilaterally. There is no rhonchi, wheezes, rales noted. CARDIOVASCULAR: Normal S1, S2. No murmurs, gallops, clicks, rubs noted. ABDOMEN: Protuberant, soft, slightly distended, nontender. EXTREMITIES: No edema, clubbing, cyanosis. Pulses equal bilaterally 2+. SKIN: The patient has multiple ecchymotic areas and healing scabs. NEUROLOGIC: Patient is awake, alert to name and situation, otherwise confused. Results Result Diagram: 12/01/16 0940 12/01/16 0940 Results 24 hrs Laboratory Tests Test 11/30/16 16:59 11/30/16 18:30 11/30/16 21:42 12/01/16 07:46 Bedside Glucose 112 129 175 Stool Occult Blood NEGATIVE Test 12/01/16 09:40 12/01/16 11:55 Alanine Aminotransferase (ALT/SGPT) 42 Albumin 2.2 L Albumin/Globulin Ratio 0.56 Alkaline Phosphatase 110 Anion Gap 15 Aspartate Amino Transf (AST/SGOT) 36 Basophils # 0.0 Basophils % 0.1 Blood Morphology Comment Blood Urea Nitrogen 42 H Calcium Level 7.1 L Carbon Dioxide Level 15 L Chloride Level 111 H Creatinine 1.82 H Direct Bilirubin 0.00 Eosinophils # 0.0 Eosinophils % 1.1 Globulin 3.90 H Glucose Level 113 Hematocrit 26.9 L Hemoglobin 9.1 L INR International Normalized Ratio 1.73 Indirect Bilirubin 1.3 H Lymphocytes # 0.7 L Lymphocytes % 18.1 Mean Corpuscular Hemoglobin 31.9 Mean Corpuscular Hemoglobin Concent 33.8 Mean Corpuscular Volume 94.3 Mean Platelet Volume 8.7 Monocytes # 0.2 L Monocytes % 4.2 Neutrophils # 3.0 Neutrophils % 76.5 Nucleated Red Blood Cells # 0.0 Nucleated Red Blood Cells % 0.0 Platelet Count 99 L Potassium Level 3.2 L Prothrombin Time 20.4 H Prothrombin Time Ratio 1.6 Red Blood Count 2.86 L Red Cell Distribution Width 16.6 H Sodium Level 138 Total Bilirubin 1.3 Total Protein 6.1 White Blood Count 3.9 #L Bedside Glucose 149 Medications Medications Current Medications Lactulose (Enulose) 20 gm Q6 PO Last administered on 12/01/16 12:39; Admin Dose 20 GM; Start 11/28/16 at 18:00 Rifaximin (Xifaxan) 550 mg BID PO Last administered on 11/30/16 21:39; Admin Dose 550 MG; Start 11/28/16 at 21:00 Diagnostic Test (Pha) (Accucheck) 1 ea 02 XX Last administered on 11/29/16 02: 29; Admin Dose 1 EA; Start 11/29/16 at 02:00 Diagnostic Test (Pha) 1 ea 1 ea 02 XX Last administered on 11/29/16 02:29; Admin Dose 1 EA; Start 11/29/16 at 02:00 Sodium Chloride (NS) 1,000 ml @ 75 mls/hr [id number] IV Last administered on 01:52; Admin Dose 75 MLS/HR; Start 11/28/16 at 20:00 Miscellaneous Information 1 ea NOTE XX ; Start 11/28/16 at 20:00 Glucose (Glutose) 15 gm Q15M PRN PO DECREASED GLUCOSE; Start 11/28/16 at 20:00 Glucose (Glutose) 22.5 gm Q15M PRN PO DECREASED GLUCOSE; Start 11/28/16 at 20: 00 Dextrose (D50w Syringe) 25 ml Q15M PRN IV DECREASED GLUCOSE; Start 11/28/16 at 20:00 Dextrose (D50w Syringe) 50 ml Q15M PRN IV DECREASED GLUCOSE; Start 11/28/16 at 20:00 Glucagon (Glucagen) 1 mg Q15M PRN IM DECREASED GLUCOSE; Start 11/28/16 at 20:00 Glucose (Glutose) 15 gm Q15M PRN BUCCAL DECREASED GLUCOSE; Start 11/28/16 at 20 :00 Citric Acid/ Sodium Citrate (Bicitra) 15 ml BID PO Last administered on 12:39; Admin Dose 15 ML; Start 11/29/16 at 21:00 Pantoprazole (Protonix Iv) 40 mg DAILY@06 IV Last administered on 12/01/16 06: 00; Admin Dose 40 MG; Start 11/30/16 at 17:00 RIDDHI BLOCK Dec 01, 2016 15:28 RIDDHI BLOCK Dec 01, 2016 15:28
[2016-12-01] MEDS ORDERED: ALBUMIN HUMAN 25% 100 ML IV ONE (15:30)
--- NOTE | 2016-12-01 16:03 | CONS ---
Date/Time of Note Date/Time of Note DATE: 12/01/16 TIME: 16:02 Assessment/Plan Assessment/Plan Additional Assessment/Plan Additional Assessment/Plan IMPRESSION: 1. Hepatic encephalopathy. 2. Cirrhosis of liver. 3. Refractory ascites. 4. Hepatorenal syndrome, type 1. 5. Diabetes mellitus. 6.hypotension PLAN: To continue with lactulose and rifaximin. Hold off on diuretics because that will worsen the patient's renal function. Fluid restriction. Reduced protein diet. stool for occult blood,negative albumin to sustain BP Consultation Date/Type/Reason Admit Date/Time Nov 28, 2016 at 12:41 Initial Consult Date 11/29/16 Type of Consultation: Nephrology Referring Provider: EDDIE LOWERY MD 24 HR Interval Summary Constitutional: no complaints Exam/Review of Systems Vital Signs Vitals Vital Signs Date Time Temp Pulse Resp B/P Pulse Ox O2 Delivery O2 Flow Rate FiO2 12/01/16 14:25 89 76/51 12/01/16 08:16 97.9 22 100 11/28/16 14:10 Room Air Intake and Output 11/30/16 11/30/16 12/01/16 15:00 23:00 07:00 Intake Total 2250 ml 1300 ml Output Total 3 ml Balance 2247 ml 1300 ml Exam Constitutional: alert, oriented, well developed Psych: nl mood/affect, no complaints Head: atraumatic, normocephalic Eyes: EOMI, PERRL, nl conjunctiva, nl lids, nl sclera ENMT: nl external ears & nose, nl lips & teeth, nl nasal mucosa & septum Neck: non-tender, supple Respiratory: clear to auscultation, normal air movement Cardiovascular: nl pulses, regular rate and rhythm Gastrointestinal: nl liver, spleen, non-tender, soft Musculoskeletal: nl extremities to inspection, nl gait and stance Extremities: normal pulses 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: CLINICAL TECHNOLOGIST II-XII intact, nl mental status, nl speech, nl strength Skin: nl turgor, No rash or lesions Lymph: nl lymph nodes Results Result Diagram: 12/01/16 0940 12/01/16 0940 Results 24 hrs Laboratory Tests Test 11/30/16 16:59 11/30/16 18:30 11/30/16 21:42 12/01/16 07:46 Bedside Glucose 112 129 175 Stool Occult Blood NEGATIVE Test 12/01/16 09:40 12/01/16 11:55 Alanine Aminotransferase (ALT/SGPT) 42 Albumin 2.2 L Albumin/Globulin Ratio 0.56 Alkaline Phosphatase 110 Anion Gap 15 Aspartate Amino Transf (AST/SGOT) 36 Basophils # 0.0 Basophils % 0.1 Blood Morphology Comment Blood Urea Nitrogen 42 H Calcium Level 7.1 L Carbon Dioxide Level 15 L Chloride Level 111 H Creatinine 1.82 H Direct Bilirubin 0.00 Eosinophils # 0.0 Eosinophils % 1.1 Globulin 3.90 H Glucose Level 113 Hematocrit 26.9 L Hemoglobin 9.1 L INR International Normalized Ratio 1.73 Indirect Bilirubin 1.3 H Lymphocytes # 0.7 L Lymphocytes % 18.1 Mean Corpuscular Hemoglobin 31.9 Mean Corpuscular Hemoglobin Concent 33.8 Mean Corpuscular Volume 94.3 Mean Platelet Volume 8.7 Monocytes # 0.2 L Monocytes % 4.2 Neutrophils # 3.0 Neutrophils % 76.5 Nucleated Red Blood Cells # 0.0 Nucleated Red Blood Cells % 0.0 Platelet Count 99 L Potassium Level 3.2 L Prothrombin Time 20.4 H Prothrombin Time Ratio 1.6 Red Blood Count 2.86 L Red Cell Distribution Width 16.6 H Sodium Level 138 Total Bilirubin 1.3 Total Protein 6.1 White Blood Count 3.9 #L Bedside Glucose 149 Medications Medications Current Medications Lactulose (Enulose) 20 gm Q6 PO Last administered on 12/01/16 12:39; Admin Dose 20 GM; Start 11/28/16 at 18:00 Rifaximin (Xifaxan) 550 mg BID PO Last administered on 11/30/16 21:39; Admin Dose 550 MG; Start 11/28/16 at 21:00 Diagnostic Test (Pha) (Accucheck) 1 ea XX Last administered on 11/29/16 02: 29; Admin Dose 1 EA; Start 11/29/16 at 02:00 Diagnostic Test (Pha) 1 ea 1 ea XX Last administered on 11/29/16 02:29; Admin Dose 1 EA; Start 11/29/16 at 02:00 Sodium Chloride (NS) 1,000 ml @ 75 mls/hr [id number] IV Last administered on 01:52; Admin Dose 75 MLS/HR; Start 11/28/16 at 20:00 Miscellaneous Information 1 ea NOTE XX ; Start 11/28/16 at 20:00 Glucose (Glutose) 15 gm Q15M PRN PO DECREASED GLUCOSE; Start 11/28/16 at 20:00 Glucose (Glutose) 22.5 gm Q15M PRN PO DECREASED GLUCOSE; Start 11/28/16 at 20: 00 Dextrose (D50w Syringe) 25 ml Q15M PRN IV DECREASED GLUCOSE; Start 11/28/16 at 20:00 Dextrose (D50w Syringe) 50 ml Q15M PRN IV DECREASED GLUCOSE; Start 11/28/16 at 20:00 Glucagon (Glucagen) 1 mg Q15M PRN IM DECREASED GLUCOSE; Start 11/28/16 at 20:00 Glucose (Glutose) 15 gm Q15M PRN BUCCAL DECREASED GLUCOSE; Start 11/28/16 at 20 :00 Citric Acid/ Sodium Citrate (Bicitra) 15 ml BID PO Last administered on 12:39; Admin Dose 15 ML; Start 11/29/16 at 21:00 Pantoprazole 40 mg 40 mg DAILY@06 IV Last administered on 12/01/16 06:00; Admin Dose 40 MG; Start 11/30/16 at 17:00 Albumin Human (Albumin Human 25%) 100 ml @ 100 mls/hr ONCE ONCE IV ; Start 12/01/16 at 15:30; Stop 12/01/16 at 16:29 JOHANA MOTLEY MD Dec 01, 2016 16:03
--- NOTE | 2016-12-01 17:16 | RADRPT ---
Echocardiogram Report Patient Name: FOREIGN GARG Gender: Male Date: 1960 Study Date: 01-Dec-2016 Report Clerk: Britany Duran [facility] Location: 2244 Ref. Physician: RIDDHI BLOCK Quality: Good Procedures: Transthoracic echocardiogram with complete 2D, M-Mode, and doppler examination. Indications: low BP. 2D/M Mode Doppler Measurement Value Normal Ranges Measurement Value Normal Ranges LVIDd 2D 5.3 3.5 - 5.6 cm AV Peak Giovanni 1.6 m/sec LVIDs 2D 1.8 2.1 - 4.1 cm AV Peak PG 10.0 mmHg FS 2D 65.1 % LVOT Peak Giovanni 1.5 m/sec LVPWd 2D 1.0 0.6 - 1.1 cm LVOT Peak PG 9.0 mmHg IVSd 2D 0.9 0.6 - 1.1 cm MV E Peak Giovanni 0.7 m/sec IVS/LVPW 2D 0.9 MV A Peak Giovanni 0.8 m/sec AoR Diam 2D 2.7 2.0 - 3.7 cm MV E/A 0.8 LA/Ao 2D 1 0 - 1 MV Decel Time 225 msec EDV 2D 146.0 cm3 MV E/A 0.8 ESV 2D 6.2 cm3 TR Peak Giovanni 2.3 m/sec LA Dimen 2D 3.7 2.3 - 4.0 cm TR Peak PG 22.0 mmHg RVSP 25.0 mmHg Findings Left Ventricle: Normal left ventricular systolic function. Normal left ventricular cavity size. Normal left ventricular wall thickness. Ejection fraction is visually estimated at 65 %. Tissue Doppler/Mitral Doppler indices are consistent with impaired relaxation (Stage I diastolic dysfunction). Right Ventricle: Normal right ventricular size. Normal right ventricular systolic function. Left Atrium: The left atrium is normal in size. Right Atrium: The right atrium is normal in size. Mitral Valve: Mitral valve leaflets appear mildly thickened. Mild mitral annular calcification. Mild mitral valve regurgitation. Aortic Valve: Normal appearance of the aortic valve. No significant aortic stenosis or insufficiency. Tricuspid Valve: Normal appearance of the tricuspid valve. Estimated peak PA systolic pressure 25 mmHg. There is trace tricuspid regurgitation. Pericardium: Normal pericardium with no significant pericardial effusion. Aorta: Normal aortic root. IVC: Normal size and normal respiratory collapse consistent with normal right atrial pressure. Conclusions Normal left ventricular systolic function. Normal left ventricular cavity size. Normal left ventricular wall thickness. Ejection fraction is visually estimated at 65 %. Tissue Doppler/Mitral Doppler indices are consistent with impaired relaxation (Stage I diastolic dysfunction). Normal right ventricular size. Normal right ventricular systolic function. The left atrium is normal in size. The right atrium is normal in size. Mild mitral valve regurgitation. No significant aortic stenosis or insufficiency. Estimated peak PA systolic pressure 25 mmHg. There is trace tricuspid regurgitation. Normal pericardium with no significant pericardial effusion. Electronically Signed By: Vel Hendricks 01-Dec-2016 17:14:54 -0800 Patient Name: FOREIGN GARG Study Date: 01-Dec-[id number]
--- NOTE | 2016-12-01 17:23 | CONS ---
Date/Time of Note Date/Time of Note DATE: 12/01/16 TIME: 17:22 Assessment/Plan Assessment/Plan Additional Assessment/Plan 55 yo male with 1. LEONARDO on CKD, HRS vs Pre-Renal Azotemia, Unlikely ATN, Improving, Non oliguric 2. Metabolic Acidosis with respiratory compensation 3. Anemia of Chronic disease 4. Hx of DM, Likely with underlying CKD, DM Nephropathy 5. AMS, Hepatic Encephalopathy 6. Chronic Liver Disease, Cirrhosis, Recurrent Ascites 7. Hypokalemia 8. Hypoalbuminemia 9. Abdominal Pain 10. Hypotension 11. Leukopenia ? Sepsis, Possible Peritonitis, Pt with Ascites and hx of Paracentesis Agree with IVFs, Discussed case with Dr Qureshi, Will Start IV Abx, Zosyn ordered Renally dosed Cont to monitor UO, Electrolytes , renal functions and BP closely If no improvement may need to start IV pressors. Consultation Date/Type/Reason Admit Date/Time Nov 28, 2016 at 12:41 Initial Consult Date 11/29/16 Type of Consultation: Nephrology Referring Provider: EDDIE QURESHI MD 24 HR Interval Summary Free Text/Dictation Low BP, S/p IVFs and albumin, Pt with abdominal pain Exam/Review of Systems Vital Signs Vitals Vital Signs Date Time Temp Pulse Resp B/P Pulse Ox O2 Delivery O2 Flow Rate FiO2 12/01/16 14:25 89 76/51 12/01/16 08:16 97.9 22 100 11/28/16 14:10 Room Air Intake and Output 11/30/16 11/30/16 12/01/16 15:00 23:00 07:00 Intake Total 2250 ml 1300 ml Output Total 3 ml Balance 2247 ml 1300 ml Exam Constitutional: distress ENMT: mucosa pink and moist Respiratory: clear to auscultation Cardiovascular: regular rate and rhythm, No edema Gastrointestinal: ascites, soft, tender 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: lethargic Skin: No diaphoresis Results Result Diagram: 12/01/16 0940 12/01/16 0940 Results 24 hrs Laboratory Tests Test 11/30/16 18:30 11/30/16 21:42 12/01/16 07:46 12/01/16 09:40 Stool Occult Blood NEGATIVE Bedside Glucose 129 175 Alanine Aminotransferase (ALT/SGPT) 42 Albumin 2.2 L Albumin/Globulin Ratio 0.56 Alkaline Phosphatase 110 Anion Gap 15 Aspartate Amino Transf (AST/SGOT) 36 Basophils # 0.0 Basophils % 0.1 Blood Morphology Comment Blood Urea Nitrogen 42 H Calcium Level 7.1 L Carbon Dioxide Level 15 L Chloride Level 111 H Creatinine 1.82 H Direct Bilirubin 0.00 Eosinophils # 0.0 Eosinophils % 1.1 Globulin 3.90 H Glucose Level 113 Hematocrit 26.9 L Hemoglobin 9.1 L INR International Normalized Ratio 1.73 Indirect Bilirubin 1.3 H Lymphocytes # 0.7 L Lymphocytes % 18.1 Mean Corpuscular Hemoglobin 31.9 Mean Corpuscular Hemoglobin Concent 33.8 Mean Corpuscular Volume 94.3 Mean Platelet Volume 8.7 Monocytes # 0.2 L Monocytes % 4.2 Neutrophils # 3.0 Neutrophils % 76.5 Nucleated Red Blood Cells # 0.0 Nucleated Red Blood Cells % 0.0 Platelet Count 99 L Potassium Level 3.2 L Prothrombin Time 20.4 H Prothrombin Time Ratio 1.6 Red Blood Count 2.86 L Red Cell Distribution Width 16.6 H Sodium Level 138 Total Bilirubin 1.3 Total Protein 6.1 White Blood Count 3.9 #L Test 12/01/16 11:55 12/01/16 17:03 Bedside Glucose 149 111 Medications Medications Current Medications Lactulose (Enulose) 20 gm Q6 PO Last administered on 12/01/16 12:39; Admin Dose 20 GM; Start 11/28/16 at 18:00 Rifaximin (Xifaxan) 550 mg BID PO Last administered on 11/30/16 21:39; Admin Dose 550 MG; Start 11/28/16 at 21:00 Diagnostic Test (Pha) (Accucheck) 1 ea 02 XX Last administered on 11/29/16 02: 29; Admin Dose 1 EA; Start 11/29/16 at 02:00 Diagnostic Test (Pha) 1 ea 1 ea 02 XX Last administered on 11/29/16 02:29; Admin Dose 1 EA; Start 11/29/16 at 02:00 Sodium Chloride (NS) 1,000 ml @ 75 mls/hr [id number] IV Last administered on 01:52; Admin Dose 75 MLS/HR; Start 11/28/16 at 20:00 Miscellaneous Information 1 ea NOTE XX ; Start 11/28/16 at 20:00 Glucose (Glutose) 15 gm Q15M PRN PO DECREASED GLUCOSE; Start 11/28/16 at 20:00 Glucose (Glutose) 22.5 gm Q15M PRN PO DECREASED GLUCOSE; Start 11/28/16 at 20: 00 Dextrose (D50w Syringe) 25 ml Q15M PRN IV DECREASED GLUCOSE; Start 11/28/16 at 20:00 Dextrose (D50w Syringe) 50 ml Q15M PRN IV DECREASED GLUCOSE; Start 11/28/16 at 20:00 Glucagon (Glucagen) 1 mg Q15M PRN IM DECREASED GLUCOSE; Start 11/28/16 at 20:00 Glucose (Glutose) 15 gm Q15M PRN BUCCAL DECREASED GLUCOSE; Start 11/28/16 at 20 :00 Citric Acid/ Sodium Citrate (Bicitra) 15 ml BID PO Last administered on 12:39; Admin Dose 15 ML; Start 11/29/16 at 21:00 Pantoprazole (Protonix Iv) 40 mg DAILY@06 IV Last administered on 12/01/16 06: 00; Admin Dose 40 MG; Start 11/30/16 at 17:00 SONA CONROY MD Dec 01, 2016 17:23
[2016-12-01] MEDS ORDERED: NORepinephrine 8MG/250 ML (PMX 250 ML IV SCH (18:00)
[2016-12-01] MEDS: PIPER-TAZO 2.25 GM (PMX) 50 ML IVPB SCH ×2 (21:00→23:26)
[2016-12-02] VITALS (78 sets, daily range): BP systolic 82–113; BP diastolic 52–74; PULSE 81–102; RESP 11–23
[2016-12-02] MEDS: ACCUCHECK XX SCH ×2 (02:00)
[2016-12-02] MEDS: SOD CHLORIDE 0.9% 1,000 ML IV SCH ×2 (04:00→12:25)
[2016-12-02] MEDS: PIPER-TAZO 2.25 GM (PMX) 50 ML IVPB SCH ×3 (05:20→19:13)
[2016-12-02] MEDS: PANTOPRAZOLE 40 MG INJ IV SCH (05:20)
[2016-12-02] MEDS: LACTULOSE 30ML CUP PO SCH ×3 (05:20→18:30)
[2016-12-02 06:06] LABS: HEMATOCRIT 24.4 % (42.0-52.0); HEMOGLOBIN 8.2 g/dl (14.0-18.0); MEAN CORPUSCULAR HEMOGLOBIN 31.5 pg (29.0-33.0); MEAN CORPUSCULAR HGB CONC 33.7 g/dl (32.0-37.0); MEAN CORPUSCULAR VOLUME 93.5 fl (82.0-101.0); MEAN PLATELET VOLUME 9.2 fl (7.4-10.4); PLATELET COUNT 62 10^3/UL (140-440); RED BLOOD COUNT 2.61 10^6/ul (4.70-6.10); RED CELL DISTRIBUTION WIDTH 17.3 % (11.5-14.5); UNCORRECTED WBC 20.8 10^3/ul (4.8-10.8); WHITE BLOOD COUNT 20.8 10^3/ul (4.8-10.8)
[2016-12-02 06:09] LABS: INR 2.07; PROTIME 23.5 Sec (12.2-14.2); PT RATIO 1.8
[2016-12-02] MEDS: morphine 2 MG INJ IV PRN ×3 (06:25→20:48)
[2016-12-02] MEDS: PANTOPRAZOLE (EC) 40 MG TAB PO SCH (06:25)
[2016-12-02 06:36] LABS: ALBUMIN 2.4 g/dl (3.3-4.9); POTASSIUM 3.7 mmol/L (3.5-5.1)
[2016-12-02 06:38] LABS: BILIRUBIN,INDIRECT 1.3 mg/dl (0-1.1); BILIRUBIN,TOTAL 1.3 mg/dl (0.2-1.3); CREATININE 2.26 mg/dl (0.61-1.24)
[2016-12-02 06:39] LABS: ALBUMIN/GLOBULIN RATIO 0.75; TOTAL PROTEIN 5.6 g/dl (6.1-8.1)
[2016-12-02 06:40] LABS: CALCIUM 7.4 mg/dl (8.4-10.2)
[2016-12-02 07:03] LABS: CONDITION 1; LH ANALYZER COMMENTS 1; SUSPECT 1
[2016-12-02] MEDS ORDERED: LIDOCAINE 1% (MDV) 20 ML INJ SC ONE (08:00)
[2016-12-02] MEDS: CITRIC ACID/NA CITRATE 30 ML CUP PO SCH ×2 (08:24→21:16)
[2016-12-02] MEDS: RIFAXIMIN 550 MG TAB PO SCH ×2 (08:24→21:17)
[2016-12-02] MEDS: INSULIN ASPART [NOVOLOG] 3 ML PEN SC SCH ×4 (10:13→21:00)
[2016-12-02 10:43] LABS: LYMPHOCYTES # 0.4 10^3/ul (0.8-2.9); MONOCYTE # 0.4 10^3/ul (0.3-0.9); NEUTROPHIL # 15.8 10^3/ul (1.6-7.5); PLATELET ESTIMATE PLT APPEAR DECREASED
[2016-12-02 12:30] LABS: AADO2 Arterial 20.3 mmHg (7.0-24.0); Arterial Base Excess -12.2 mmol/L (-3.0-3); Arterial COHb 0.3 % (0.0-3.0); Arterial Fraction of Oxyhgb 96.1 % (93.0-99.0); Arterial MetHb 0.5 % (0.0-1.5); Arterial Total Hemglobin 8.7 g/dl (12.0-18.0); MODE ROOM AIR
[2016-12-02] MEDS ORDERED: NORepinephrine 8MG/250 ML (PMX 250 ML IV SCH (13:30)
[2016-12-02] MEDS ORDERED: PHYTONADIONE 10 MG/ML INJ SC ONE (13:30)
[2016-12-02] MEDS ORDERED: NORepinephrine 8MG/250 ML (PMX 250 ML IV ONE (13:30)
--- NOTE | 2016-12-02 14:06 | PN ---
Date/Time of Note Date/Time of Note DATE: 12/02/16 TIME: 14:04 Assessment/Plan VTE Prophylaxis VTE Prophylaxis Intervention: SCD's Lines/Catheters [facility] Peripheral IV Urinary Cath still in place: No Assessment/Plan Assessment/Plan 1. Hepatic encephalopathy. Continue lactulose q.i.d. and rifaximin. Dr. Melendez is following in gastroenterology consultation. 2. Alcoholic liver cirrhosis with recurrent ascites. Paracentesis today. 3. Chronic kidney disease. Dr. Morrison is following in nephrology consultation. 4. Diabetes mellitus. Continue NovoLog per mild algorithm sliding scale coverage. 5. Mild thrombocytopenia, most likely secondary to liver cirrhosis. Continue to monitor platelet count. 6. Hypotension, post IV fluid bolus and albumin, transferred to telemetry. Patient's condition and treatment is discussed with patient and patient's at bedside. Continue Protonix for peptic ulcer disease prophylaxis and sequential compression device for deep venous thrombosis prophylaxis. Further recommendations based on clinical course. Total critical care time spent 40 minutes .Plan of care discussed with Dr. Qureshi. Subjective 24 Hr Interval Summary Free Text/Dictation Patient is alert and awake complaints of abdominal discomfort. PT INR is high patient will be getting vitamin K per staff. Patient was scheduled for paracentesis but not until further orders. at the bedside SINCE answer. Discussed with the staff. Constitutional: requiring IVF, requiring O2 Eyes: no complaints ENT: no complaints Respiratory: no complaints Cardiovascular: no complaints Gastrointestinal: pain Genitourinary: no complaints Exam/Review of Systems Vital Signs Vitals Vital Signs Date Time Temp Pulse Resp B/P Pulse Ox O2 Delivery O2 Flow Rate FiO2 12/02/16 13:30 88 15 86/67 12/02/16 12:45 100 12/02/16 12:15 98.5 Room Air Intake and Output 12/01/16 12/01/16 12/02/16 15:00 23:00 07:00 Intake Total 3299.95 ml 872.0 ml Output Total 25 ml Balance 3274.95 ml 872.0 ml Exam Constitutional: alert, well developed Head: atraumatic Eyes: PERRL, nl sclera ENMT: nl external ears & nose Neck: non-tender Respiratory: clear to auscultation Cardiovascular: nl pulses Gastrointestinal: ascites, distended Musculoskeletal: nl extremities to inspection 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: confused, nl speech Skin: other Lymph: nontender Results Result Diagram: 12/02/16 0518 12/02/16 0518 Results 24 hrs Laboratory Tests Test 12/01/16 17:03 12/01/16 21:25 12/02/16 05:18 12/02/16 08:24 Bedside Glucose 111 135 160 Alanine Aminotransferase (ALT/SGPT) 30 Albumin 2.4 L Albumin/Globulin Ratio 0.75 Alkaline Phosphatase 69 Ammonia 36 #H Anion Gap 23 #H Aspartate Amino Transf (AST/SGOT) 40 Band Neutrophils % 20.0 H Basophils # Basophils % Blood Morphology Comment Blood Urea Nitrogen 48 H Calcium Level 7.4 L Carbon Dioxide Level 10 #L Chloride Level 111 H Creatinine 2.26 H Differential Comment MANUAL DIFF Direct Bilirubin 0.00 Eosinophils # Eosinophils % Globulin 3.20 Glucose Level 139 Hematocrit 24.4 L Hemoglobin 8.2 L INR International Normalized Ratio 2.07 Indirect Bilirubin 1.3 H Lymphocytes # 0.4 L Lymphocytes % 2.0 L Mean Corpuscular Hemoglobin 31.5 Mean Corpuscular Hemoglobin Concent 33.7 Mean Corpuscular Volume 93.5 Mean Platelet Volume 9.2 Monocytes # 0.4 Monocytes % 2.0 Neutrophils # 15.8 H Neutrophils % 76.0 Nucleated Red Blood Cells # Nucleated Red Blood Cells % Platelet Count 62 #L Platelet Estimate PLT APPEAR DECREASED Potassium Level 3.7 Prothrombin Time 23.5 H Prothrombin Time Ratio 1.8 Red Blood Count 2.61 L Red Cell Distribution Width 17.3 H Sodium Level 140 Total Bilirubin 1.3 Total Protein 5.6 L White Blood Count 20.8 #H Test 12/02/16 11:32 12/02/16 12:28 Arterial Blood HCO3 12.0 L Arterial Blood Base Excess -12.2 L Arterial Blood Oxygen Saturation 96.9 Guillermo Test N/A Arterial Blood Gas Puncture Site Right Brachial Arterial Blood Carboxyhemoglobin 0.3 Arterial Blood Date Drawn 12/02/2016 12:10:20 PM Arterial Blood Methemoglobin 0.5 Arterial Blood pCO2 (Temp correct) 22.5 L Arterial Blood pH (Temp corrected) 7.346 L Arterial Blood pO2 (Temp corrected) 102.5 H Blood Gas A-a O2 Differential 20.3 Blood Gas Modality ROOM AIR Blood Gas Notified Time 12/02/2016 12:30:12 PM Blood Gas Notified Whom JLD Blood Gas Specimen Source Blood arterial Blood Gas Temperature 37.0 FiO2 21.0 Oxyhemoglobin Percent 96.1 Total Hemoglobin 8.7 L Bedside Glucose 128 Medications Medications Current Medications Lactulose (Enulose) 20 gm Q6 PO Last administered on 12/02/16 12:22; Admin Dose 20 GM; Start 11/28/16 at 18:00 Rifaximin (Xifaxan) 550 mg BID PO Last administered on 12/02/16 08:24; Admin Dose 550 MG; Start 11/28/16 at 21:00 Diagnostic Test (Pha) (Accucheck) 1 ea 02 XX Last administered on 11/29/16 02: 29; Admin Dose 1 EA; Start 11/29/16 at 02:00 Diagnostic Test (Pha) 1 ea 1 ea 02 XX Last administered on 11/29/16 02:29; Admin Dose 1 EA; Start 11/29/16 at 02:00 Sodium Chloride (NS) 1,000 ml @ 75 mls/hr [id number] IV Last administered on 12:25; Admin Dose 75 MLS/HR; Start 11/28/16 at 20:00 Miscellaneous Information 1 ea NOTE XX ; Start 11/28/16 at 20:00 Glucose (Glutose) 15 gm Q15M PRN PO DECREASED GLUCOSE; Start 11/28/16 at 20:00 Glucose (Glutose) 22.5 gm Q15M PRN PO DECREASED GLUCOSE; Start 11/28/16 at 20: 00 Dextrose (D50w Syringe) 25 ml Q15M PRN IV DECREASED GLUCOSE; Start 11/28/16 at 20:00 Dextrose (D50w Syringe) 50 ml Q15M PRN IV DECREASED GLUCOSE; Start 11/28/16 at 20:00 Glucagon (Glucagen) 1 mg Q15M PRN IM DECREASED GLUCOSE; Start 11/28/16 at 20:00 Glucose (Glutose) 15 gm Q15M PRN BUCCAL DECREASED GLUCOSE; Start 11/28/16 at 20 :00 Citric Acid/ Sodium Citrate 15 ml 15 ml BID PO Last administered on 12/02/16 08 :24; Admin Dose 15 ML; Start 11/29/16 at 21:00 Piperacillin Sod/ Tazobactam Sod (Zosyn 2.25gm/ 50ml (Pmx)) 50 ml @ 100 mls/hr Q6 IVPB Last administered on 12/02/16 05:20; Admin Dose 100 MLS/HR; Start at 19:00 Pantoprazole (Protonix Tab) 40 mg DAILY@06 PO Last administered on 12/02/16 06: 25; Admin Dose 40 MG; Start 12/02/16 at 06:00 Morphine Sulfate 2 mg 2 mg Q4H PRN IV PAIN LEVEL 6-10 Last administered on 06:25; Admin Dose 2 MG; Start 12/02/16 at 06:00 Norepinephrine/ Dextrose (Levophed/D5W) 500 ml @ 0 mls/hr TITRATE IV ; Start 12/02/16 at 13:30 SUNDAR OBRIEN Dec 02, 2016 14:06
--- NOTE | 2016-12-02 14:43 | CONS ---
Date/Time of Note Date/Time of Note DATE: 12/02/16 TIME: 14:37 Assessment/Plan Assessment/Plan Additional Assessment/Plan assessment/impression - sepsis - recurrent hepatic encephalopathy - recurrent ascites r/o SBP - RLQ pain r/o appendicitis - h/o alcoholic liver cirrhosis with recurrent ascites s/p paracentesis in the past. - DM - CRI - thrombocytopenia recommendations - blood cultures x2, urinalysis and urine culture - ordered fluid tests (cell count, culture, cytology) - HIV screen ordered (hepatitis screen was negative in 2015) - ordered CT abd/pel to eval etiology of RLQ pain and leukocytosis other than ascites e.g. diverticulitis, appendicitis - continue empiric pip/tazo - continue rifaxamin management d/w Pt's RN and the critical care time I took to care for this Pt today was from 1400 to 1430 Consultation Date/Type/Reason Admit Date/Time Nov 28, 2016 at 12:41 Date of Consultation: Dec 02, 2016 Reason for Consultation hepatic encephalopathy Referring Provider: SUNDAR OBRIEN Hx of Present Illness This is a 55 yo male patient with alcoholic liver cirrhosis and recurrent ascites. EMR showed that he has had multiple paracentesis. The ascetic fluid counts in 03/2016 and 09/2016 did not meet diagnostic criteria for SBP. Pt reportedly takes lactulose and rifaxamin at home. Pt was readmitted 4 days ago due to fever, RLQ pain and mental status change. Pt has been in ICU due to borderline hypotension. Paracentesis is planned once his coagulopathy is corrected. INO Obrien requested ID consultation on this Pt. limited because Pt was encephalopathic Subjective hx not possible: pt non-verbal Respiratory: No cough, No shortness of breath, No sputum Gastrointestinal: pain (RLQ) Genitourinary: No dysuria Psychological: nl mood/affect, no complaints Past Medical History Medical History: hepatitis (alcoholic), renal disease, other (cirrhosis requiring multiple paracentesis) Social History Smoking Status: Never smoker Drug Use: none Exam/Review of Systems Vital Signs Vitals Vital Signs Date Time Temp Pulse Resp B/P Pulse Ox O2 Delivery O2 Flow Rate FiO2 12/02/16 13:30 88 15 86/67 12/02/16 12:45 100 12/02/16 12:15 98.5 Room Air Intake and Output 2/112/01/16 12/02/16 15:00 23:00 07:00 Intake Total 3299.95 ml 872.0 ml Output Total 25 ml Balance 3274.95 ml 872.0 ml Exam Constitutional: frail Psych: confusion Head: atraumatic, normocephalic Eyes: icteric, nl conjunctiva ENMT: nl external ears & nose, nl nasal mucosa & septum Neck: supple Respiratory: diminished breath sounds Cardiovascular: nl pulses, regular rate and rhythm Gastrointestinal: distended, tender (RLQ without radiation), No firm, No mass, No rebound or guarding Musculoskeletal: nl extremities to inspection Extremities: normal pulses Skin: nl turgor Results Result Diagram: 12/02/16 0518 12/02/16 0518 Results 24 hrs Laboratory Tests Test 12/01/16 17:03 12/01/16 21:25 12/02/16 05:18 12/02/16 08:24 Bedside Glucose 111 135 160 Alanine Aminotransferase (ALT/SGPT) 30 Albumin 2.4 L Albumin/Globulin Ratio 0.75 Alkaline Phosphatase 69 Ammonia 36 #H Anion Gap 23 #H Aspartate Amino Transf (AST/SGOT) 40 Band Neutrophils % 20.0 H Basophils # Basophils % Blood Morphology Comment Blood Urea Nitrogen 48 H Calcium Level 7.4 L Carbon Dioxide Level 10 #L Chloride Level 111 H Creatinine 2.26 H Differential Comment MANUAL DIFF Direct Bilirubin 0.00 Eosinophils # Eosinophils % Globulin 3.20 Glucose Level 139 Hematocrit 24.4 L Hemoglobin 8.2 L INR International Normalized Ratio 2.07 Indirect Bilirubin 1.3 H Lymphocytes # 0.4 L Lymphocytes % 2.0 L Mean Corpuscular Hemoglobin 31.5 Mean Corpuscular Hemoglobin Concent 33.7 Mean Corpuscular Volume 93.5 Mean Platelet Volume 9.2 Monocytes # 0.4 Monocytes % 2.0 Neutrophils # 15.8 H Neutrophils % 76.0 Nucleated Red Blood Cells # Nucleated Red Blood Cells % Platelet Count 62 #L Platelet Estimate PLT APPEAR DECREASED Potassium Level 3.7 Prothrombin Time 23.5 H Prothrombin Time Ratio 1.8 Red Blood Count 2.61 L Red Cell Distribution Width 17.3 H Sodium Level 140 Total Bilirubin 1.3 Total Protein 5.6 L White Blood Count 20.8 #H Test 12/02/16 11:32 12/02/16 12:28 Arterial Blood HCO3 12.0 L Arterial Blood Base Excess -12.2 L Arterial Blood Oxygen Saturation 96.9 Guillermo Test N/A Arterial Blood Gas Puncture Site Right Brachial Arterial Blood Carboxyhemoglobin 0.3 Arterial Blood Date Drawn 12/02/2016 12:10:20 PM Arterial Blood Methemoglobin 0.5 Arterial Blood pCO2 (Temp correct) 22.5 L Arterial Blood pH (Temp corrected) 7.346 L Arterial Blood pO2 (Temp corrected) 102.5 H Blood Gas A-a O2 Differential 20.3 Blood Gas Modality ROOM AIR Blood Gas Notified Time 12/02/2016 12:30:12 PM Blood Gas Notified Whom JLD Blood Gas Specimen Source Blood arterial Blood Gas Temperature 37.0 FiO2 21.0 Oxyhemoglobin Percent 96.1 Total Hemoglobin 8.7 L Bedside Glucose 128 Medications Medications Current Medications Lactulose (Enulose) 20 gm Q6 PO Last administered on 12/02/16 12:22; Admin Dose 20 GM; Start 11/28/16 at 18:00 Rifaximin (Xifaxan) 550 mg BID PO Last administered on 12/02/16 08:24; Admin Dose 550 MG; Start 11/28/16 at 21:00 Diagnostic Test (Pha) (Accucheck) 1 ea 02 XX Last administered on 11/29/16 02: 29; Admin Dose 1 EA; Start 11/29/16 at 02:00 Diagnostic Test (Pha) 1 ea 1 ea 02 XX Last administered on 11/29/16 02:29; Admin Dose 1 EA; Start 11/29/16 at 02:00 Sodium Chloride (NS) 1,000 ml @ 75 mls/hr [id number] IV Last administered on 12:25; Admin Dose 75 MLS/HR; Start 11/28/16 at 20:00 Miscellaneous Information 1 ea NOTE XX ; Start 11/28/16 at 20:00 Glucose (Glutose) 15 gm Q15M PRN PO DECREASED GLUCOSE; Start 11/28/16 at 20:00 Glucose (Glutose) 22.5 gm Q15M PRN PO DECREASED GLUCOSE; Start 11/28/16 at 20: 00 Dextrose (D50w Syringe) 25 ml Q15M PRN IV DECREASED GLUCOSE; Start 11/28/16 at 20:00 Dextrose (D50w Syringe) 50 ml Q15M PRN IV DECREASED GLUCOSE; Start 11/28/16 at 20:00 Glucagon (Glucagen) 1 mg Q15M PRN IM DECREASED GLUCOSE; Start 11/28/16 at 20:00 Glucose (Glutose) 15 gm Q15M PRN BUCCAL DECREASED GLUCOSE; Start 11/28/16 at 20 :00 Citric Acid/ Sodium Citrate 15 ml 15 ml BID PO Last administered on 12/02/16 08 :24; Admin Dose 15 ML; Start 11/29/16 at 21:00 Piperacillin Sod/ Tazobactam Sod (Zosyn 2.25gm/ 50ml (Pmx)) 50 ml @ 100 mls/hr Q6 IVPB Last administered on 12/02/16 14:09; Admin Dose 100 MLS/HR; Start at 19:00 Pantoprazole (Protonix Tab) 40 mg DAILY@06 PO Last administered on 12/02/16 06: 25; Admin Dose 40 MG; Start 12/02/16 at 06:00 Morphine Sulfate 2 mg 2 mg Q4H PRN IV PAIN LEVEL 6-10 Last administered on 14:07; Admin Dose 2 MG; Start 12/02/16 at 06:00 Norepinephrine/ Dextrose (Levophed/D5W) 500 ml @ 0 mls/hr TITRATE IV ; Start 12/02/16 at 13:30 MANFRED MARTINEZ M.D. Dec 02, 2016 14:43
--- NOTE | 2016-12-02 17:32 | RADRPT ---
PROCEDURE: XR Chest. CLINICAL INDICATION: Check PICC line position. TECHNIQUE: Single frontal view. COMPARISON: 11/28/2016. FINDINGS: There is a left arm PICC line with the tip in the azygos vein. This should be repositioned. There is mild pulmonary edema, new when compared with the prior study. There are low lung volumes. The heart size is normal. There is no pleural effusion. There is no pneumothorax. IMPRESSION: 1. The left arm PICC line should be repositioned as the tip is in the azygos vein. 2. Mild pulmonary edema. 3. Low lung volumes. RPTAT: QQ .Emilio Everett MD, MD Date Time Electronically viewed and signed by .Emilio Everett MD, MD on 12/02/2016 17:32 .R/
--- NOTE | 2016-12-02 17:33 | RADRPT ---
PROCEDURE: XR Chest. CLINICAL INDICATION: Check PICC line position. TECHNIQUE: Single frontal view. COMPARISON: Prior study done earlier the same day. FINDINGS: There is a left arm PICC line with the tip in the mid superior vena cava. Pulmonary edema and low l anselmo volumes are unchanged. The heart size is normal. There is no pleural effusion. There is no pneumothorax. IMPRESSION: 1. Satisfactory position of left arm PICC line. 2. Pulmonary edema and low lung volumes unchanged. RPTAT: QQ .Emilio Everett MD, MD Date Time Electronically viewed and signed by .Emilio Everett MD, MD on 12/02/2016 17:32 .R/
[2016-12-02 17:34] LABS: HEMATOCRIT 23.4 % (42.0-52.0); HEMOGLOBIN 7.9 g/dl (14.0-18.0); MEAN CORPUSCULAR HEMOGLOBIN 31.1 pg (29.0-33.0); MEAN CORPUSCULAR HGB CONC 33.6 g/dl (32.0-37.0); MEAN CORPUSCULAR VOLUME 92.5 fl (82.0-101.0); MEAN PLATELET VOLUME 9.5 fl (7.4-10.4); PLATELET COUNT 65 10^3/UL (140-440); RED BLOOD COUNT 2.53 10^6/ul (4.70-6.10); RED CELL DISTRIBUTION WIDTH 16.6 % (11.5-14.5); UNCORRECTED WBC 17.9 10^3/ul (4.8-10.8); WHITE BLOOD COUNT 17.9 10^3/ul (4.8-10.8)
--- NOTE | 2016-12-02 17:52 | RADRPT ---
PROCEDURE: Ultrasound guidance for placement of needle in left upper extremity vein. CLINICAL INDICATION: Venous access. TECHNIQUE: Limited sonography of the left upper extremity was performed. Ultrasound images were recorded and s tored in the patient's medical record. COMPARISON: None. FINDINGS: The ultrasound images demonstrate a patent left upper extremity vein. The PICC line was inserted by the PICC line nurse. IMPRESSION: 1. Ultrasound guidance for a needle placement in a left upper extremity vein. 2. The left upper extremity vein is patent. RPTAT: QQ .Emilio Everett MD, MD Date Time Electronically viewed and signed by .Emilio Everett MD, MD on 12/02/2016 17:52 .R/
[2016-12-02 17:55] LABS: ALBUMIN 2.6 g/dl (3.3-4.9)
[2016-12-02 17:56] LABS: POTASSIUM 3.9 mmol/L (3.5-5.1)
[2016-12-02 17:58] LABS: CREATININE 2.33 mg/dl (0.61-1.24)
[2016-12-02 17:59] LABS: ALBUMIN/GLOBULIN RATIO 0.76
[2016-12-02 18:00] LABS: CALCIUM 7.7 mg/dl (8.4-10.2)
[2016-12-02 18:06] LABS: SUSPECT 1
[2016-12-02 18:07] LABS: CONDITION 1; LH ANALYZER COMMENTS 1
[2016-12-02] MEDS ORDERED: LIDOCAINE 1% (MPF) 5 ML VIAL ONE (18:27)
[2016-12-02 18:45] LABS: ADD UMIC YES; URINE BILIRUBIN (Dip) NEGATIVE (NEGATIVE); URINE BLOOD (Dip) 2+ (NEGATIVE); URINE COLOR LT. YELLOW (YELLOW); URINE GLUCOSE (Dip) NEGATIVE (NEGATIVE); URINE KETONES (Dip) NEGATIVE (NEGATIVE); URINE LEUKOCYTE ESTERASE (Dip) 1+ (NEGATIVE); URINE NITRITE (Dip) NEGATIVE (NEGATIVE); URINE TOTAL PROTEIN (Dip) NEGATIVE (NEGATIVE); URINE UROBILINOGEN (Dip) 0.2 E.U./dL (0.1-1.0)
[2016-12-02 19:12] LABS: SQUAMOUS EPITHELIAL CELL,UR FEW
[2016-12-02 19:13] LABS: BACTERIA,URINE MODERATE
--- NOTE | 2016-12-02 20:26 | CONS ---
Date/Time of Note Date/Time of Note DATE: 12/02/16 TIME: 20:24 Assessment/Plan Assessment/Plan Additional Assessment/Plan IMPRESSION: 1. Hepatic encephalopathy. 2. Cirrhosis of liver. 3. Refractory ascites. 4. Hepatorenal syndrome, type 1. 5. Diabetes mellitus. 6.hypotension,transferred to ICU 7.leucocytosis,w/u in progress PLAN: To continue with lactulose and rifaximin. Hold off on diuretics because that will worsen the patient's renal function. Fluid restriction. Reduced protein diet. stool for occult blood,negative empiric Zosyn albumin to sustain BP Consultation Date/Type/Reason Admit Date/Time Nov 28, 2016 at 12:41 Initial Consult Date 11/29/16 Type of Consultation: Nephrology Referring Provider: SUNDAR OBRIEN 24 HR Interval Summary Subjective hx not possible: pt critical Exam/Review of Systems Vital Signs Vitals Vital Signs Date Time Temp Pulse Resp B/P Pulse Ox O2 Delivery O2 Flow Rate FiO2 12/02/16 19:30 87 15 99/61 100 12/02/16 18:00 Room Air 12/02/16 16:15 98.8 Intake and Output 12/01/16 12/01/16 12/02/16 15:00 23:00 07:00 Intake Total 3299.95 ml 872.0 ml Output Total 25 ml Balance 3274.95 ml 872.0 ml Exam Constitutional: alert, oriented, well developed Psych: nl mood/affect, no complaints Head: atraumatic, normocephalic Eyes: EOMI, PERRL, nl conjunctiva, nl lids, nl sclera ENMT: nl external ears & nose, nl lips & teeth, nl nasal mucosa & septum Neck: non-tender, supple Respiratory: clear to auscultation, normal air movement Cardiovascular: nl pulses, regular rate and rhythm Gastrointestinal: nl liver, spleen, non-tender, soft Musculoskeletal: nl extremities to inspection, nl gait and stance Extremities: normal pulses 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, nl mental status, nl speech, nl strength Skin: nl turgor, No rash or lesions Lymph: nl lymph nodes Results Result Diagram: 12/02/16 1725 12/02/16 1725 Results 24 hrs Laboratory Tests Test 12/01/16 21:25 12/02/16 05:18 12/02/16 08:24 12/02/16 11:32 Bedside Glucose 135 160 Alanine Aminotransferase (ALT/SGPT) 30 Albumin 2.4 L Albumin/Globulin Ratio 0.75 Alkaline Phosphatase 69 Ammonia 36 #H Anion Gap 23 #H Aspartate Amino Transf (AST/SGOT) 40 Band Neutrophils % 20.0 H Basophils # Basophils % Blood Morphology Comment Blood Urea Nitrogen 48 H Calcium Level 7.4 L Carbon Dioxide Level 10 #L Chloride Level 111 H Creatinine 2.26 H Differential Comment MANUAL DIFF Direct Bilirubin 0.00 Eosinophils # Eosinophils % Globulin 3.20 Glucose Level 139 Hematocrit 24.4 L Hemoglobin 8.2 L INR International Normalized Ratio 2.07 Indirect Bilirubin 1.3 H Lymphocytes # 0.4 L Lymphocytes % 2.0 L Mean Corpuscular Hemoglobin 31.5 Mean Corpuscular Hemoglobin Concent 33.7 Mean Corpuscular Volume 93.5 Mean Platelet Volume 9.2 Monocytes # 0.4 Monocytes % 2.0 Neutrophils # 15.8 H Neutrophils % 76.0 Nucleated Red Blood Cells # Nucleated Red Blood Cells % Platelet Count 62 #L Platelet Estimate PLT APPEAR DECREASED Potassium Level 3.7 Prothrombin Time 23.5 H Prothrombin Time Ratio 1.8 Red Blood Count 2.61 L Red Cell Distribution Width 17.3 H Sodium Level 140 Total Bilirubin 1.3 Total Protein 5.6 L White Blood Count 20.8 #H Arterial Blood HCO3 12.0 L Arterial Blood Base Excess -12.2 L Arterial Blood Oxygen Saturation 96.9 Guillermo Test N/A Arterial Blood Gas Puncture Site Right Brachial Arterial Blood Carboxyhemoglobin 0.3 Arterial Blood Date Drawn 12/02/2016 12:10:20 PM Arterial Blood Methemoglobin 0.5 Arterial Blood pCO2 (Temp correct) 22.5 L Arterial Blood pH (Temp corrected) 7.346 L Arterial Blood pO2 (Temp corrected) 102.5 H Blood Gas A-a O2 Differential 20.3 Blood Gas Modality ROOM AIR Blood Gas Notified Time 12/02/2016 12:30:12 PM Blood Gas Notified Whom JLD Blood Gas Specimen Source Blood arterial Blood Gas Temperature 37.0 FiO2 21.0 Oxyhemoglobin Percent 96.1 Total Hemoglobin 8.7 L Test 12/02/16 12:28 12/02/16 17:25 12/02/16 18:10 12/02/16 19:02 Bedside Glucose 128 119 Alanine Aminotransferase (ALT/SGPT) 32 Albumin 2.6 L Albumin/Globulin Ratio 0.76 Alkaline Phosphatase 64 Anion Gap 20 H Aspartate Amino Transf (AST/SGOT) 38 Blood Morphology Comment Blood Urea Nitrogen 54 H Calcium Level 7.7 L Carbon Dioxide Level 12 L Chloride Level 111 H Creatinine 2.33 H Direct Bilirubin 0.00 Globulin 3.40 H Glucose Level 125 Hematocrit 23.4 L Hemoglobin 7.9 L Indirect Bilirubin 1.0 Mean Corpuscular Hemoglobin 31.1 Mean Corpuscular Hemoglobin Concent 33.6 Mean Corpuscular Volume 92.5 Mean Platelet Volume 9.5 Platelet Count 65 L Potassium Level 3.9 Red Blood Count 2.53 L Red Cell Distribution Width 16.6 H Sodium Level 139 Total Bilirubin 1.0 Total Protein 6.0 L White Blood Count 17.9 H Urine Bacteria MODERATE Urine Bilirubin NEGATIVE Urine Clarity SLIGHTLY CLOUDY Urine Color LT. YELLOW Urine Glucose NEGATIVE Urine Hemoglobin 2+ H Urine Ketones NEGATIVE Urine Leukocyte Esterase 1+ H Urine Microscopic RBC 5-10 Urine Microscopic WBC >200 Urine Nitrite NEGATIVE Urine Specific [place] 1.025 Urine Squamous Epithelial Cells FEW Urine Total Protein NEGATIVE Urine Urobilinogen 0.2 E.U./dL Urine pH 5.0 Medications Medications Current Medications Lactulose (Enulose) 20 gm Q6 PO Last administered on 12/02/16 18:30; Admin Dose 20 GM; Start 11/28/16 at 18:00 Rifaximin (Xifaxan) 550 mg BID PO Last administered on 12/02/16 08:24; Admin Dose 550 MG; Start 11/28/16 at 21:00 Diagnostic Test (Pha) (Accucheck) 1 ea 02 XX Last administered on 11/29/16 02: 29; Admin Dose 1 EA; Start 11/29/16 at 02:00 Diagnostic Test (Pha) 1 ea 1 ea 02 XX Last administered on 11/29/16 02:29; Admin Dose 1 EA; Start 11/29/16 at 02:00 Sodium Chloride (NS) 1,000 ml @ 75 mls/hr [id number] IV Last administered on 12:25; Admin Dose 75 MLS/HR; Start 11/28/16 at 20:00 Miscellaneous Information 1 ea NOTE XX ; Start 11/28/16 at 20:00 Glucose (Glutose) 15 gm Q15M PRN PO DECREASED GLUCOSE; Start 11/28/16 at 20:00 Glucose (Glutose) 22.5 gm Q15M PRN PO DECREASED GLUCOSE; Start 11/28/16 at 20: 00 Dextrose (D50w Syringe) 25 ml Q15M PRN IV DECREASED GLUCOSE; Start 11/28/16 at 20:00 Dextrose (D50w Syringe) 50 ml Q15M PRN IV DECREASED GLUCOSE; Start 11/28/16 at 20:00 Glucagon (Glucagen) 1 mg Q15M PRN IM DECREASED GLUCOSE; Start 11/28/16 at 20:00 Glucose (Glutose) 15 gm Q15M PRN BUCCAL DECREASED GLUCOSE; Start 11/28/16 at 20 :00 Citric Acid/ Sodium Citrate 15 ml 15 ml BID PO Last administered on 12/02/16 08 :24; Admin Dose 15 ML; Start 11/29/16 at 21:00 Piperacillin Sod/ Tazobactam Sod (Zosyn 2.25gm/ 50ml (Pmx)) 50 ml @ 100 mls/hr Q6 IVPB Last administered on 12/02/16 19:13; Admin Dose 100 MLS/HR; Start at 19:00 Pantoprazole (Protonix Tab) 40 mg DAILY@06 PO Last administered on 12/02/16 06: 25; Admin Dose 40 MG; Start 12/02/16 at 06:00 Morphine Sulfate 2 mg 2 mg Q4H PRN IV PAIN LEVEL 6-10 Last administered on 14:07; Admin Dose 2 MG; Start 12/02/16 at 06:00 Norepinephrine/ Dextrose (Levophed/D5W) 500 ml @ 0 mls/hr TITRATE IV ; Start 12/02/16 at 13:30 IV Flush 10 ml 10 ml PRN PRN IV IV PROTOCOL; Start 12/02/16 at 18:30 Calcium Gluconate/ Sodium Chloride (Ca Gluc/NS) 110 ml @ 110 mls/hr ONCE ONCE IVPB ; Start 12/02/16 at 22:00; Stop 12/02/16 at 22:59 Sodium Bicarbonate (Na Bicarb 8.4% Syg) 50 ml ONCE ONCE IV ; Start 12/02/16 at 20:30; Stop 12/02/16 at 20:31 JOHANA MOTLEY MD Dec 02, 2016 20:26
[2016-12-02] MEDS ORDERED: NA BICARBONATE 8.4% 50 ML SYG IV ONE (20:30)
[2016-12-02 20:41] LABS: FLUID LD 870 U/L; FLUID TOTAL PROTEIN < 2.0 g/dl; FLUID TYPE PARACENTESIS FLUID
[2016-12-02 20:53] LABS: MONOCYTE # 0.5 10^3/ul (0.3-0.9); NEUTROPHIL # 8.2 10^3/ul (1.6-7.5)
[2016-12-02 20:54] LABS: PLATELET ESTIMATE PLT APPEAR ADEQUATE
--- NOTE | 2016-12-02 21:09 | RADRPT ---
PROCEDURE: CT abdomen and pelvis without IV contrast. CLINICAL INDICATION: Abdominal pain TECHNIQUE: CT scan of the abdomen and pelvis without contrast was performed on the [employer] volumetric [address] scanner. The patient was scanned without intravenous contrast. Coronal and sagittal refo rmatted images were obtained from the axial source images. The CTDI vol is 10.5 mGy and the DLP is 6 95.91 mGy-cm. COMPARISON: None. FINDINGS: CT abdomen: Small bilateral pleural effusions are seen with compressive atelectasis. The remaining lung bases a re clear. The heart size is mildly enlarged and is without pericardial thickening or effusion. Cirrhotic liver morphology is seen. A recanalized paraumbilical vein is seen. The liver is without f ocal mass or intrahepatic biliary dilatation. The spleen is normal in size and homogeneous in densi ty. The gastric lumen is distended and fluid-filled. The pancreas as visualized is normal. Multipl e gallstones are seen. No biliary dilatation is seen. The adrenal glands are symmetric and normal. The kidneys are symmetrically unremarkable as well. No renal calculus or obstructive uropathy or m ass lesion is seen. The aorta is of normal in caliber with atherosclerotic calcifications. There is no retroperitoneal lymphadenopathy. The jaret hepatis region is clear. The small bowel is diffusely distended and flu id-filled. Sigmoid diverticulosis is seen without evidence of diverticulitis. The remainder of the large bowel and mesentery, as visualized, are otherwise unremarkable. A mild volume of ascites is s een. Ascites fluid is seen in umbilical hernia. Mild diffuse anasarca is seen. CT pelvis: The pelvic organs are normal. The pelvic sidewalls and inguinal regions are clear. No pelvic mass, lymphadenopathy, or free fluid is seen. No acute inflammation is seen. The urinary bladder is wit hin normal limits. Diffuse osteopenia is seen with degenerative spondylosis of the lumbar spine. No osteolytic or oste oblastic lesion is detected. IMPRESSION: 1. Cirrhosis with evidence of portal hypertension as characterized by a mild volume of ascites and a recanalized paraumbilical vein. 2. Small bilateral pleural effusions. 3. Ascites fluid in an umbilical hernia. 4. Diffusely distended and fluid-filled small bowel which may represent an ileus. Continued follow -up is recommended. 5. Sigmoid diverticulosis without evidence of diverticulitis. 6. Cholelithiasis. RPTAT: HPNM Leonidas Mcfarlane, Physician Date Time Electronically viewed and signed by Leonidas Mcfarlane, Physician on 12/02/2016 21:09 /
[2016-12-02 21:46] LABS: FLUID APPEARANCE CLOUDY; FLUID RBC EST 1+; FLUID TYPE PERITONEAL; FLUID WBC'S 12551 /cmm
[2016-12-02 21:47] LABS: FLUID LYMPHOCYTES 1 %; FLUID MONOCYTES 24 %; FLUID NEUTROPHILS 75 %
[2016-12-02] MEDS ORDERED: CALCIUM GLUCONATE 10% 1 GM in SOD CHLORIDE 0.9% 100 ML IVPB ONE (22:00)
[2016-12-03] VITALS (57 sets, daily range): BP systolic 81–132; BP diastolic 45–87; PULSE 90–110; RESP 9–21
[2016-12-03] MEDS: PIPER-TAZO 2.25 GM (PMX) 50 ML IVPB SCH ×3 (00:55→20:35)
[2016-12-03] MEDS: LACTULOSE 30ML CUP PO SCH ×3 (00:55→18:28)
[2016-12-03] MEDS: ACCUCHECK XX SCH ×2 (02:00)
[2016-12-03] MEDS: ONDANSETRON 4 MG INJ IV PRN (02:23)
[2016-12-03] MEDS: morphine 2 MG INJ IV PRN ×3 (02:23→20:58)
[2016-12-03] MEDS: PANTOPRAZOLE (EC) 40 MG TAB PO SCH (05:28)
[2016-12-03] MEDS: SOD CHLORIDE 0.9% 1,000 ML IV SCH ×2 (05:28→20:40)
[2016-12-03 06:34] LABS: INR 2.28; PROTIME 25.4 Sec (12.2-14.2)
[2016-12-03 06:35] LABS: HEMATOCRIT 23.1 % (42.0-52.0); LYMPHOCYTES # 0.3 10^3/ul (0.8-2.9); LYMPHOCYTES % 1.5 % (15.0-51.0); MEAN CORPUSCULAR HEMOGLOBIN 32.3 pg (29.0-33.0); MEAN CORPUSCULAR HGB CONC 34.9 g/dl (32.0-37.0); MEAN CORPUSCULAR VOLUME 92.7 fl (82.0-101.0); MEAN PLATELET VOLUME 9.6 fl (7.4-10.4); MONOCYTE # 0.9 10^3/ul (0.3-0.9); NEUTROPHIL # 16.3 10^3/ul (1.6-7.5); NEUTROPHILS % 93.5 % (39.0-77.0); PLATELET COUNT 55 10^3/UL (140-440); RED BLOOD COUNT 2.49 10^6/ul (4.70-6.10); RED CELL DISTRIBUTION WIDTH 16.7 % (11.5-14.5); UNCORRECTED WBC 17.4 10^3/ul (4.8-10.8); WHITE BLOOD COUNT 17.4 10^3/ul (4.8-10.8)
[2016-12-03 06:39] LABS: ALBUMIN 2.3 g/dl (3.3-4.9)
[2016-12-03 06:40] LABS: POTASSIUM 3.4 mmol/L (3.5-5.1)
[2016-12-03 06:42] LABS: BILIRUBIN,INDIRECT 0.9 mg/dl (0-1.1); BILIRUBIN,TOTAL 0.9 mg/dl (0.2-1.3); CREATININE 2.46 mg/dl (0.61-1.24)
[2016-12-03 06:43] LABS: ALBUMIN/GLOBULIN RATIO 0.74; CALCIUM 7.8 mg/dl (8.4-10.2); TOTAL PROTEIN 5.4 g/dl (6.1-8.1)
[2016-12-03] MEDS: INSULIN ASPART [NOVOLOG] 3 ML PEN SC SCH ×4 (07:35→21:00)
[2016-12-03 07:43] LABS: CONDITION 1; LH ANALYZER COMMENTS 1
[2016-12-03] MEDS: CITRIC ACID/NA CITRATE 30 ML CUP PO SCH ×2 (08:39→20:35)
[2016-12-03] MEDS: RIFAXIMIN 550 MG TAB PO SCH ×2 (08:40→20:35)
--- NOTE | 2016-12-03 09:03 | CONS ---
Date/Time of Note Date/Time of Note DATE: 12/03/16 TIME: 08:58 Assessment/Plan Assessment/Plan Chief Complaint/Hosp Course assessment/impression - sepsis - SBP, s/p paracentesis 12/02/2016. Ascetic CKOt=0197 - probable UTI - thrush - LEONARDO - recurrent hepatic encephalopathy - cholelithiasis - RLQ pain: CT did not demonstrate other acute GI processes - h/o alcoholic liver cirrhosis and portal hypertension - h/o recurrent ascites s/p paracentesis in the past. - DM - CRI - thrombocytopenia recommendations - pending results: blood cultures x2, urine culture, ascetic fluid culture and cytology, HIV screen (hepatitis screen was negative in 2015) - continue empiric pip/tazo (12/01/2016-), dose reduced in light of declining GFR - continue rifaxamin - start caspofungin (12/03/2016-), to treat thrush but also empirically for SBP and invasive candidiasis in light of persistent hypotension management d/w Pt and his RN the critical care time I took to care for this Pt today was from 09 to 0935 Problems: Consultation Date/Type/Reason Admit Date/Time Nov 28, 2016 at 12:41 Initial Consult Date 12/02/16 Type of Consultation: ID Referring Provider: SUNDAR OBRIEN 24 HR Interval Summary Free Text/Dictation had CT abd/pel, PICC and paracentesis Subjective hx not possible: pt critical Detailed Summary Eyes: no complaints ENT: no complaints Respiratory: shortness of breath (due to distended abdomen) Cardiovascular: no complaints Gastrointestinal: diarrhea (on lactulose), pain (R sided) 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) Musculoskeletal: no complaints Skin: bruising Exam/Review of Systems Vital Signs Vitals Vital Signs Date Time Temp Pulse Resp B/P Pulse Ox O2 Delivery O2 Flow Rate FiO2 12/03/16 04:00 100 12/03/16 03:45 12 105/71 100 12/03/16 03:00 Room Air 12/03/16 00:00 98.0 Intake and Output 12/02/16 12/02/16 12/03/16 15:00 23:00 07:00 Intake Total 1340.8 ml 638.8 ml 1040.50 ml Output Total 210 ml 300 ml 650 ml Balance 1130.8 ml 338.8 ml 390.50 ml Exam Constitutional: distress, frail Psych: confusion Head: atraumatic, normocephalic Eyes: icteric, nl lids ENMT: nl external ears & nose, nl nasal mucosa & septum, other (thrush) Neck: supple Respiratory: diminished breath sounds Cardiovascular: nl pulses, regular rate and rhythm Gastrointestinal: distended, tender (RLQ), No hepatomegaly, No mass Musculoskeletal: nl extremities to inspection Extremities: No edema 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: lethargic Skin: ecchymosis Results Result Diagram: 12/03/16 0515 12/03/16 0515 Results 24 hrs Laboratory Tests Test 12/02/16 11:32 12/02/16 12:28 12/02/16 17:25 12/02/16 17:45 Arterial Blood HCO3 12.0 L Arterial Blood Base Excess -12.2 L Arterial Blood Oxygen Saturation 96.9 Guillermo Test N/A Arterial Blood Gas Puncture Site Right Brachial Arterial Blood Carboxyhemoglobin 0.3 Arterial Blood Date Drawn 12/02/2016 12:10:20 PM Arterial Blood Methemoglobin 0.5 Arterial Blood pCO2 (Temp correct) 22.5 L Arterial Blood pH (Temp corrected) 7.346 L Arterial Blood pO2 (Temp corrected) 102.5 H Blood Gas A-a O2 Differential 20.3 Blood Gas Modality ROOM AIR Blood Gas Notified Time 12/02/2016 12:30:12 PM Blood Gas Notified Whom JLD Blood Gas Specimen Source Blood arterial Blood Gas Temperature 37.0 FiO2 21.0 Oxyhemoglobin Percent 96.1 Total Hemoglobin 8.7 L Bedside Glucose 128 Alanine Aminotransferase (ALT/SGPT) 32 Albumin 2.6 L Albumin/Globulin Ratio 0.76 Alkaline Phosphatase 64 Anion Gap 20 H Aspartate Amino Transf (AST/SGOT) 38 Band Neutrophils % 51.0 H Blood Morphology Comment Blood Urea Nitrogen 54 H Calcium Level 7.7 L Carbon Dioxide Level 12 L Chloride Level 111 H Creatinine 2.33 H Direct Bilirubin 0.00 Globulin 3.40 H Glucose Level 125 Hematocrit 23.4 L Hemoglobin 7.9 L Indirect Bilirubin 1.0 Mean Corpuscular Hemoglobin 31.1 Mean Corpuscular Hemoglobin Concent 33.6 Mean Corpuscular Volume 92.5 Mean Platelet Volume 9.5 Monocytes # 0.5 Monocytes % 3.0 Neutrophils # 8.2 H Neutrophils % 46.0 Platelet Count 65 L Platelet Estimate PLT APPEAR ADEQUATE Potassium Level 3.9 Red Blood Count 2.53 L Red Cell Distribution Width 16.6 H Sodium Level 139 Total Bilirubin 1.0 Total Protein 6.0 L White Blood Count 17.9 H Body Fluid Appearance CLOUDY Body Fluid Color YELLOW Body Fluid Lactate Dehydrogenase 870 Body Fluid Lymphocytes (%) 1 Body Fluid Monocytes % 24 Body Fluid Neutrophils % 75 Body Fluid RBC 1+ Body Fluid Total Protein < 2.0 Body Fluid Type PARACENTESIS FLUID Body Fluid Volume 66.0 Body Fluid WBC 61370 Test 12/02/16 18:10 12/02/16 19:02 12/02/16 21:16 12/03/16 05:15 Urine Bacteria MODERATE Urine Bilirubin NEGATIVE Urine Clarity SLIGHTLY CLOUDY Urine Color LT. YELLOW Urine Glucose NEGATIVE Urine Hemoglobin 2+ H Urine Ketones NEGATIVE Urine Leukocyte Esterase 1+ H Urine Microscopic RBC 5-10 Urine Microscopic WBC >200 Urine Nitrite NEGATIVE Urine Specific [place] 1.025 Urine Squamous Epithelial Cells FEW Urine Total Protein NEGATIVE Urine Urobilinogen 0.2 E.U./dL Urine pH 5.0 Bedside Glucose 119 133 Alanine Aminotransferase (ALT/SGPT) 30 Albumin 2.3 L Albumin/Globulin Ratio 0.74 Alkaline Phosphatase 76 Ammonia 38 H Anion Gap 18 H Aspartate Amino Transf (AST/SGOT) 33 Basophils # 0.0 Basophils % 0.0 Blood Morphology Comment Blood Urea Nitrogen 58 H Calcium Level 7.8 L Carbon Dioxide Level 16 L Chloride Level 112 H Creatinine 2.46 H Direct Bilirubin 0.00 Eosinophils # 0.0 Eosinophils % 0.0 Globulin 3.10 Glucose Level 117 Hematocrit 23.1 L Hemoglobin 8.0 L INR International Normalized Ratio 2.28 Indirect Bilirubin 0.9 Lymphocytes # 0.3 L Lymphocytes % 1.5 L Mean Corpuscular Hemoglobin 32.3 Mean Corpuscular Hemoglobin Concent 34.9 Mean Corpuscular Volume 92.7 Mean Platelet Volume 9.6 Monocytes # 0.9 Monocytes % 5.0 Neutrophils # 16.3 H Neutrophils % 93.5 H Nucleated Red Blood Cells # 0.0 Nucleated Red Blood Cells % 0.0 Phosphorus Level 6.8 H Platelet Count 55 L Potassium Level 3.4 L Prothrombin Time 25.4 H Prothrombin Time Ratio 2.0 Red Blood Count 2.49 L Red Cell Distribution Width 16.7 H Sodium Level 143 Total Bilirubin 0.9 Total Protein 5.4 L White Blood Count 17.4 H Test 12/03/16 08:38 Bedside Glucose 134 Medications Medications Current Medications Lactulose (Enulose) 20 gm Q6 PO Last administered on 12/03/16 05:28; Admin Dose 20 GM; Start 11/28/16 at 18:00 Rifaximin (Xifaxan) 550 mg BID PO Last administered on 12/03/16 08:40; Admin Dose 550 MG; Start 11/28/16 at 21:00 Diagnostic Test (Pha) (Accucheck) 1 ea 02 XX Last administered on 11/29/16 02: 29; Admin Dose 1 EA; Start 11/29/16 at 02:00 Diagnostic Test (Pha) 1 ea 1 ea 02 XX Last administered on 11/29/16 02:29; Admin Dose 1 EA; Start 11/29/16 at 02:00 Sodium Chloride (NS) 1,000 ml @ 75 mls/hr [id number] IV Last administered on 05:28; Admin Dose 75 MLS/HR; Start 11/28/16 at 20:00 Miscellaneous Information 1 ea NOTE XX ; Start 11/28/16 at 20:00 Glucose (Glutose) 15 gm Q15M PRN PO DECREASED GLUCOSE; Start 11/28/16 at 20:00 Glucose (Glutose) 22.5 gm Q15M PRN PO DECREASED GLUCOSE; Start 11/28/16 at 20: 00 Dextrose (D50w Syringe) 25 ml Q15M PRN IV DECREASED GLUCOSE; Start 11/28/16 at 20:00 Dextrose (D50w Syringe) 50 ml Q15M PRN IV DECREASED GLUCOSE; Start 11/28/16 at 20:00 Glucagon (Glucagen) 1 mg Q15M PRN IM DECREASED GLUCOSE; Start 11/28/16 at 20:00 Glucose (Glutose) 15 gm Q15M PRN BUCCAL DECREASED GLUCOSE; Start 11/28/16 at 20 :00 Citric Acid/ Sodium Citrate 15 ml 15 ml BID PO Last administered on 12/03/16 08 :39; Admin Dose 15 ML; Start 11/29/16 at 21:00 Piperacillin Sod/ Tazobactam Sod (Zosyn 2.25gm/ 50ml (Pmx)) 50 ml @ 100 mls/hr Q6 IVPB Last administered on 12/03/16 05:28; Admin Dose 100 MLS/HR; Start at 19:00 Pantoprazole (Protonix Tab) 40 mg DAILY@06 PO Last administered on 12/03/16 05: 28; Admin Dose 40 MG; Start 12/02/16 at 06:00 Morphine Sulfate 2 mg 2 mg Q4H PRN IV PAIN LEVEL 6-10 Last administered on 06:23; Admin Dose 2 MG; Start 12/02/16 at 06:00 Norepinephrine/ Dextrose (Levophed/D5W) 500 ml @ 0 mls/hr TITRATE IV Last administered on 12/02/16 22:48; Admin Dose 15 MLS/HR; Start 12/02/16 at 13:30 IV Flush (NS 10 ml) 10 ml PRN PRN IV IV PROTOCOL; Start 12/02/16 at 18:30 Ondansetron HCl (Zofran Inj) 4 mg Q6H PRN IV NAUSEA AND/OR VOMITING Last administered on 12/03/16 02:23; Admin Dose 4 MG; Start 12/03/16 at 02:30 MANFRED MARTINEZ M.D. Dec 03, 2016 09:03
[2016-12-03] MEDS ORDERED: SOD CHLORIDE 0.9% 100 ML ONE (09:04)
--- NOTE | 2016-12-03 09:38 | RADRPT ---
PROCEDURE: Ultrasound guided paracentesis. CLINICAL INDICATION: Ascites and shortness of breath. COMPARISON: 12/22/2016 TECHNIQUE: The risks, benefits, and alternatives were explained to the patient and/or the patient's family, inc luding but not limited to bleeding, infection, pain, visceral or vascular damage, shock, and . The patient and/or the patient's family understood the risks and the alternatives and wished to pro ceed with the procedure. Informed written consent was obtained. A procedural time out was performed . The patient's name, date of , and procedure to be performed were verified. Utilizing ultrasound guidance, optimal location for entry to the peritoneal cavity was ascertained. The overlying skin was prepped and draped in the usual sterile fashion. Approximately 10 ml of 1% Xylocaine was injected locally for pain control. Using ultrasound guidance, an 8 Telugu catheter wa s introduced into the peritoneal cavity in the right lower quadrant without difficulty. FINDINGS: Initial images demonstrate ascites. Approximately 8.55 liters of serous fluid was aspirated and sen t for laboratory analysis. The patient tolerated the procedure well without complication. IMPRESSION: 1. Successful ultrasound-guided paracentesis. RPTAT: QQ .Emilio Everett MD, Date Time Electronically viewed and signed by .Emilio Everett MD, on 12/03/2016 09:38 .R/
[2016-12-03] MEDS ORDERED: CASPOFUNGIN 70 MG in SOD CHLORIDE 0.9% 250 ML IVPB ONE (12:00)
--- NOTE | 2016-12-03 12:40 | PN ---
Date/Time of Note Date/Time of Note DATE: 12/03/16 TIME: 12:36 Assessment/Plan VTE Prophylaxis VTE Prophylaxis Intervention: SCD's Lines/Catheters IV C[facility]ter Type (from [facility]): PICC Line Central line still needed: Yes Urinary Cath still in place: No Assessment/Plan Chief Complaint/Hosp Course ASSESSMENT AND PLAN: - Sepsis. Continue IV fluids, pressors ICU, care and antibiotics. Dr. Sandhu is following an infection disease consultation. - r/o SBP, follow-up on culture. - Hepatic encephalopathy. Continue lactulose q.i.d. and rifaximin. Dr. Melendez is following in gastroenterology consultation. - Alcoholic liver cirrhosis with recurrent ascites. s/p paracentesis on 12/02 - LEONARDO on Chronic kidney disease. Dr. Morrison is following in nephrology consultation. - Diabetes mellitus. Continue NovoLog per mild algorithm sliding scale coverage. - Thrombocytopenia, most likely secondary to liver cirrhosis. Continue to monitor platelet count. Continue Protonix for peptic ulcer disease prophylaxis and sequential compression device for deep venous thrombosis prophylaxis. Further recommendations based on clinical course. Plan of care discussed with Dr. Qureshi. Problems: Subjective 24 Hr Interval Summary Free Text/Dictation Patient on Levophed gtt for hemodynamic support, no fever. Exam/Review of Systems Vital Signs Vitals Vital Signs Date Time Temp Pulse Resp B/P Pulse Ox O2 Delivery O2 Flow Rate FiO2 12/03/16 08:00 99 12/03/16 03:45 12 105/71 100 12/03/16 03:00 Room Air 12/03/16 00:00 98.0 Intake and Output 12/02/16 12/02/16 12/03/16 15:00 23:00 07:00 Intake Total 1340.8 ml 638.8 ml 1040.50 ml Output Total 210 ml 300 ml 650 ml Balance 1130.8 ml 338.8 ml 390.50 ml Exam GENERAL: Well-developed, well-nourished male currently in no acute distress HEENT: Head is atraumatic, normocephalic. Pupils equal, round, reactive to light and accommodation. The patient has slightly jaundiced sclerae. NECK: Supple. No cervical lymphadenopathy, no thyromegaly. CHEST: Lungs clear bilaterally. There is no rhonchi, wheezes, rales noted. CARDIOVASCULAR: Normal S1, S2. No murmurs, gallops, clicks, rubs noted. ABDOMEN: Protuberant, soft, distended, nontender. EXTREMITIES: No edema, clubbing, cyanosis. Pulses equal bilaterally 2+. SKIN: The patient has multiple ecchymotic areas and healing scabs. NEUROLOGIC: Patient is awake, alert to name and situation, otherwise confused. Results Result Diagram: 12/03/16 0515 12/03/16 0515 Results 24 hrs Laboratory Tests Test 12/02/16 17:25 12/02/16 17:45 12/02/16 18:10 12/02/16 19:02 Alanine Aminotransferase (ALT/SGPT) 32 Albumin 2.6 L Albumin/Globulin Ratio 0.76 Alkaline Phosphatase 64 Anion Gap 20 H Aspartate Amino Transf (AST/SGOT) 38 Band Neutrophils % 51.0 H Blood Morphology Comment Blood Urea Nitrogen 54 H Calcium Level 7.7 L Carbon Dioxide Level 12 L Chloride Level 111 H Creatinine 2.33 H Direct Bilirubin 0.00 Globulin 3.40 H Glucose Level 125 Hematocrit 23.4 L Hemoglobin 7.9 L Indirect Bilirubin 1.0 Mean Corpuscular Hemoglobin 31.1 Mean Corpuscular Hemoglobin Concent 33.6 Mean Corpuscular Volume 92.5 Mean Platelet Volume 9.5 Monocytes # 0.5 Monocytes % 3.0 Neutrophils # 8.2 H Neutrophils % 46.0 Platelet Count 65 L Platelet Estimate PLT APPEAR ADEQUATE Potassium Level 3.9 Red Blood Count 2.53 L Red Cell Distribution Width 16.6 H Sodium Level 139 Total Bilirubin 1.0 Total Protein 6.0 L White Blood Count 17.9 H Body Fluid Appearance CLOUDY Body Fluid Color YELLOW Body Fluid Lactate Dehydrogenase 870 Body Fluid Lymphocytes (%) 1 Body Fluid Monocytes % 24 Body Fluid Neutrophils % 75 Body Fluid RBC 1+ Body Fluid Total Protein < 2.0 Body Fluid Type PARACENTESIS FLUID Body Fluid Volume 66.0 Body Fluid WBC 57449 Urine Bacteria MODERATE Urine Bilirubin NEGATIVE Urine Clarity SLIGHTLY CLOUDY Urine Color LT. YELLOW Urine Glucose NEGATIVE Urine Hemoglobin 2+ H Urine Ketones NEGATIVE Urine Leukocyte Esterase 1+ H Urine Microscopic RBC 5-10 Urine Microscopic WBC >200 Urine Nitrite NEGATIVE Urine Specific [place] 1.025 Urine Squamous Epithelial Cells FEW Urine Total Protein NEGATIVE Urine Urobilinogen 0.2 E.U./dL Urine pH 5.0 Bedside Glucose 119 Test 12/02/16 21:16 12/03/16 05:15 12/03/16 08:38 Bedside Glucose 133 134 Alanine Aminotransferase (ALT/SGPT) 30 Albumin 2.3 L Albumin/Globulin Ratio 0.74 Alkaline Phosphatase 76 Ammonia 38 H Anion Gap 18 H Aspartate Amino Transf (AST/SGOT) 33 Basophils # 0.0 Basophils % 0.0 Blood Morphology Comment Blood Urea Nitrogen 58 H Calcium Level 7.8 L Carbon Dioxide Level 16 L Chloride Level 112 H Creatinine 2.46 H Direct Bilirubin 0.00 Eosinophils # 0.0 Eosinophils % 0.0 Globulin 3.10 Glucose Level 117 Hematocrit 23.1 L Hemoglobin 8.0 L INR International Normalized Ratio 2.28 Indirect Bilirubin 0.9 Lymphocytes # 0.3 L Lymphocytes % 1.5 L Mean Corpuscular Hemoglobin 32.3 Mean Corpuscular Hemoglobin Concent 34.9 Mean Corpuscular Volume 92.7 Mean Platelet Volume 9.6 Monocytes # 0.9 Monocytes % 5.0 Neutrophils # 16.3 H Neutrophils % 93.5 H Nucleated Red Blood Cells # 0.0 Nucleated Red Blood Cells % 0.0 Phosphorus Level 6.8 H Platelet Count 55 L Potassium Level 3.4 L Prothrombin Time 25.4 H Prothrombin Time Ratio 2.0 Red Blood Count 2.49 L Red Cell Distribution Width 16.7 H Sodium Level 143 Total Bilirubin 0.9 Total Protein 5.4 L White Blood Count 17.4 H Medications Medications Current Medications Lactulose (Enulose) 20 gm Q6 PO Last administered on 12/03/16 05:28; Admin Dose 20 GM; Start 11/28/16 at 18:00 Rifaximin (Xifaxan) 550 mg BID PO Last administered on 12/03/16 08:40; Admin Dose 550 MG; Start 11/28/16 at 21:00 Diagnostic Test (Pha) (Accucheck) ea XX Last administered on 11/29/16 02: 29; Admin Dose 1 EA; Start 11/29/16 at 02:00 Diagnostic Test (Pha) 1 ea ea XX Last administered on 11/29/16 02:29; Admin Dose 1 EA; Start 11/29/16 at 02:00 Sodium Chloride (NS) 1,000 ml @ 75 mls/hr [id number] IV Last administered on 05:28; Admin Dose 75 MLS/HR; Start 11/28/16 at 20:00 Miscellaneous Information 1 ea NOTE XX ; Start 11/28/16 at 20:00 Glucose (Glutose) 15 gm Q15M PRN PO DECREASED GLUCOSE; Start 11/28/16 at 20:00 Glucose (Glutose) 22.5 gm Q15M PRN PO DECREASED GLUCOSE; Start 11/28/16 at 20: 00 Dextrose (D50w Syringe) 25 ml Q15M PRN IV DECREASED GLUCOSE; Start 11/28/16 at 20:00 Dextrose (D50w Syringe) 50 ml Q15M PRN IV DECREASED GLUCOSE; Start 11/28/16 at 20:00 Glucagon (Glucagen) 1 mg Q15M PRN IM DECREASED GLUCOSE; Start 11/28/16 at 20:00 Glucose (Glutose) 15 gm Q15M PRN BUCCAL DECREASED GLUCOSE; Start 11/28/16 at 20 :00 Citric Acid/ Sodium Citrate (Bicitra) 15 ml BID PO Last administered on 08:39; Admin Dose 15 ML; Start 11/29/16 at 21:00 Pantoprazole (Protonix Tab) 40 mg DAILY@06 PO Last administered on 12/03/16 05: 28; Admin Dose 40 MG; Start 12/02/16 at 06:00 Morphine Sulfate 2 mg 2 mg Q4H PRN IV PAIN LEVEL 6-10 Last administered on 06:23; Admin Dose 2 MG; Start 12/02/16 at 06:00 Norepinephrine/ Dextrose (Levophed/D5W) 500 ml @ 0 mls/hr TITRATE IV Last administered on 12/02/16 22:48; Admin Dose 15 MLS/HR; Start 12/02/16 at 13:30 IV Flush (NS 10 ml) 10 ml PRN PRN IV IV PROTOCOL; Start 12/02/16 at 18:30 Ondansetron HCl 4 mg 4 mg Q6H PRN IV NAUSEA AND/OR VOMITING Last administered on 12/03/16 02:23; Admin Dose 4 MG; Start 12/03/16 at 02:30 Piperacillin Sod/ Tazobactam Sod 50 ml @ 100 mls/hr Q12 IVPB ; Start 12/03/16 at 21:00; Stop 12/10/16 at 20:59 Caspofungin 50 mg/ Sodium Chloride 250 ml @ 250 mls/hr Q24H IVPB ; Start at 12:00 Caspofungin/ Sodium Chloride (Cancidas/NS) 250 ml @ 250 mls/hr ONCE ONCE IVPB ; Start 12/03/16 at 12:00; Stop 12/03/16 at 12:59 RIDDHI BLOCK Dec 03, 2016 12:40
[2016-12-03 14:45] LABS: INR 2.68; PROTIME 28.9 Sec (12.2-14.2); PT RATIO 2.3
--- NOTE | 2016-12-03 20:24 | CONS ---
Date/Time of Note Date/Time of Note DATE: 12/03/16 TIME: 20:23 Assessment/Plan Assessment/Plan Additional Assessment/Plan Assessment/Plan Additional Assessment/Plan IMPRESSION: 1. Hepatic encephalopathy. 2. Cirrhosis of liver. 3. Refractory ascites. 4. Hepatorenal syndrome, type 1. 5. Diabetes mellitus. 6.hypotension,transferred to ICU 7.leucocytosis,w/u in progress 8.spontaneous bacterial peritonitis ,wbc.12,000 PLAN: To continue with lactulose and rifaximin. Hold off on diuretics because that will worsen the patient's renal function. Fluid restriction. Reduced protein diet. stool for occult blood,negative empiric Zosyn albumin to sustain BP Consultation Date/Type/Reason Admit Date/Time Nov 28, 2016 at 12:41 Initial Consult Date 11/29/16 Type of Consultation: ID Referring Provider: SUNDAR OBRIEN 24 HR Interval Summary Subjective hx not possible: pt critical Constitutional: improved Exam/Review of Systems Vital Signs Vitals Vital Signs Date Time Temp Pulse Resp B/P Pulse Ox O2 Delivery O2 Flow Rate FiO2 12/03/16 20:15 106 13 98/68 100 Room Air 12/03/16 19:00 98.9 Intake and Output 12/02/16 12/02/16 12/03/16 15:00 23:00 07:00 Intake Total 1340.8 ml 1313.8 ml 1050.50 ml Output Total 210 ml 300 ml 650 ml Balance 1130.8 ml 1013.8 ml 400.50 ml Exam Constitutional: alert, oriented, well developed Psych: nl mood/affect, no complaints Head: atraumatic, normocephalic Eyes: EOMI, PERRL, nl conjunctiva, nl lids, nl sclera ENMT: nl external ears & nose, nl lips & teeth, nl nasal mucosa & septum Neck: non-tender, supple Respiratory: clear to auscultation, normal air movement Cardiovascular: nl pulses, regular rate and rhythm Gastrointestinal: nl liver, spleen, non-tender, soft Musculoskeletal: nl extremities to inspection, nl gait and stance Extremities: normal pulses 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, nl mental status, nl speech, nl strength Skin: nl turgor, No rash or lesions Lymph: nl lymph nodes Results Result Diagram: 12/03/16 0515 12/03/1615 Results 24 hrs Laboratory Tests Test 12/02/16 21:16 12/03/16 05:15 12/03/16 08:38 12/03/16 13:36 Bedside Glucose 133 134 131 Alanine Aminotransferase (ALT/SGPT) 30 Albumin 2.3 L Albumin/Globulin Ratio 0.74 Alkaline Phosphatase 76 Ammonia 38 H Anion Gap 18 H Aspartate Amino Transf (AST/SGOT) 33 Basophils # 0.0 Basophils % 0.0 Blood Morphology Comment Blood Urea Nitrogen 58 H Calcium Level 7.8 L Carbon Dioxide Level 16 L Chloride Level 112 H Creatinine 2.46 H Direct Bilirubin 0.00 Eosinophils # 0.0 Eosinophils % 0.0 Globulin 3.10 Glucose Level 117 Hematocrit 23.1 L Hemoglobin 8.0 L INR International Normalized Ratio 2.28 Indirect Bilirubin 0.9 Lymphocytes # 0.3 L Lymphocytes % 1.5 L Mean Corpuscular Hemoglobin 32.3 Mean Corpuscular Hemoglobin Concent 34.9 Mean Corpuscular Volume 92.7 Mean Platelet Volume 9.6 Monocytes # 0.9 Monocytes % 5.0 Neutrophils # 16.3 H Neutrophils % 93.5 H Nucleated Red Blood Cells # 0.0 Nucleated Red Blood Cells % 0.0 Phosphorus Level 6.8 H Platelet Count 55 L Potassium Level 3.4 L Prothrombin Time 25.4 H Prothrombin Time Ratio 2.0 Red Blood Count 2.49 L Red Cell Distribution Width 16.7 H Sodium Level 143 Total Bilirubin 0.9 Total Protein 5.4 L White Blood Count 17.4 H Test 12/03/16 14:10 12/03/16 18:30 INR International Normalized Ratio 2.68 Prothrombin Time 28.9 H Prothrombin Time Ratio 2.3 Bedside Glucose 145 Medications Medications Current Medications Rifaximin (Xifaxan) 550 mg BID PO Last administered on 12/03/16 08:40; Admin Dose 550 MG; Start 11/28/16 at 21:00 Diagnostic Test (Pha) (Accucheck) XX Last administered on 11/29/16 02: 29; Admin Dose 1 EA; Start 11/29/16 at 02:00 Diagnostic Test (Pha) 1 ea ea XX Last administered on 11/29/16 02:29; Admin Dose 1 EA; Start 11/29/16 at 02:00 Sodium Chloride (NS) 1,000 ml @ 75 mls/hr [id number] IV Last administered on 05:28; Admin Dose 75 MLS/HR; Start 11/28/16 at 20:00 Miscellaneous Information 1 ea NOTE XX ; Start 11/28/16 at 20:00 Glucose (Glutose) 15 gm Q15M PRN PO DECREASED GLUCOSE; Start 11/28/16 at 20:00 Glucose (Glutose) 22.5 gm Q15M PRN PO DECREASED GLUCOSE; Start 11/28/16 at 20: 00 Dextrose (D50w Syringe) 25 ml Q15M PRN IV DECREASED GLUCOSE; Start 11/28/16 at 20:00 Dextrose (D50w Syringe) 50 ml Q15M PRN IV DECREASED GLUCOSE; Start 11/28/16 at 20:00 Glucagon (Glucagen) 1 mg Q15M PRN IM DECREASED GLUCOSE; Start 11/28/16 at 20:00 Glucose (Glutose) 15 gm Q15M PRN BUCCAL DECREASED GLUCOSE; Start 11/28/16 at 20 :00 Citric Acid/ Sodium Citrate (Bicitra) 15 ml BID PO Last administered on 08:39; Admin Dose 15 ML; Start 11/29/16 at 21:00 Pantoprazole (Protonix Tab) 40 mg DAILY@06 PO Last administered on 12/03/16 05: 28; Admin Dose 40 MG; Start 12/02/16 at 06:00 Morphine Sulfate 2 mg 2 mg Q4H PRN IV PAIN LEVEL 6-10 Last administered on 06:23; Admin Dose 2 MG; Start 12/02/16 at 06:00 Norepinephrine/ Dextrose (Levophed/D5W) 500 ml @ 0 mls/hr TITRATE IV Last administered on 12/02/16 22:48; Admin Dose 15 MLS/HR; Start 12/02/16 at 13:30 IV Flush (NS 10 ml) 10 ml PRN PRN IV IV PROTOCOL; Start 12/02/16 at 18:30 Ondansetron HCl 4 mg 4 mg Q6H PRN IV NAUSEA AND/OR VOMITING Last administered on 12/03/16 02:23; Admin Dose 4 MG; Start 12/03/16 at 02:30 Piperacillin Sod/ Tazobactam Sod 50 ml @ 100 mls/hr Q12 IVPB ; Start 12/03/16 at 21:00; Stop 12/10/16 at 20:59 Caspofungin/ Sodium Chloride (Cancidas/NS) 250 ml @ 250 mls/hr Q24H IVPB ; Start 12/04/16 at 12:00 Lactulose (Enulose) 40 gm Q6 PO Last administered on 12/03/16t 18:28; Admin Dose 40 GM; Start 12/03/16 at 18:00 Epoetin Brandan (Epogen (Non Esrd/Non Oncology)) 10,000 units MoWeFr@17 SC ; Start 12/06/16 at 17:00; Status UNV JOHANA MOTLEY MD Dec 03, 2016 20:24
--- NOTE | 2016-12-03 20:27 | CONS ---
Date/Time of Note Date/Time of Note DATE: 12/03/16 TIME: 20:11 Assessment/Plan Assessment/Plan Chief Complaint/Hosp Course Must increase Lactulose Add Epo for Anemia continue to monitor renal fn closely Add phosphate binder Problems: Additional Assessment/Plan Will monitor i/o, chemistry closely & rpt cxr Consultation Date/Type/Reason Admit Date/Time Nov 28, 2016 at 12:41 Initial Consult Date 12/02/16 Type of Consultation: renal Referring Provider: SUNDAR OBRIEN 24 HR Interval Summary Free Text/Dictation Pt is moribund Constitutional: disoriented Exam/Review of Systems Vital Signs Vitals Vital Signs Date Time Temp Pulse Resp B/P Pulse Ox O2 Delivery O2 Flow Rate FiO2 12/03/16 16:00 105 12/03/16 15:00 13 93/68 98 Room Air 12/03/16 12:15 98.6 Intake and Output 12/02/16 12/02/16 12/03/16 15:00 23:00 07:00 Intake Total 1340.8 ml 1313.8 ml 1050.50 ml Output Total 210 ml 300 ml 650 ml Balance 1130.8 ml 1013.8 ml 400.50 ml Exam Constitutional: non-verbal Psych: confusion Head: atraumatic, normocephalic Eyes: EOMI, PERRL, nl conjunctiva, nl lids, nl sclera ENMT: nl external ears & nose, nl lips & teeth, nl nasal mucosa & septum, other (NG in place) Neck: non-tender, supple Respiratory: clear to auscultation, normal air movement Cardiovascular: nl pulses, regular rate and rhythm Gastrointestinal: ascites, distended, hepatomegaly, soft Genitourinary - Male: other (Urine vol remains low, pt accumulating increasing body fluid) Musculoskeletal: nl extremities to inspection, nl gait and stance Extremities: normal pulses 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: other (Mental status is worse=hepatic encephalopathy) Additional Comments Increased wbc & Low hbg noted Results BUN/Creat rising further PO4 is over 6 Result Diagram: 12/03/16 0515 12/03/16 0515 Results 24 hrs Laboratory Tests Test 12/02/16 21:16 12/03/16 05:15 12/03/16 08:38 12/03/16 13:36 Bedside Glucose 133 134 131 Alanine Aminotransferase (ALT/SGPT) 30 Albumin 2.3 L Albumin/Globulin Ratio 0.74 Alkaline Phosphatase 76 Ammonia 38 H Anion Gap 18 H Aspartate Amino Transf (AST/SGOT) 33 Basophils # 0.0 Basophils % 0.0 Blood Morphology Comment Blood Urea Nitrogen 58 H Calcium Level 7.8 L Carbon Dioxide Level 16 L Chloride Level 112 H Creatinine 2.46 H Direct Bilirubin 0.00 Eosinophils # 0.0 Eosinophils % 0.0 Globulin 3.10 Glucose Level 117 Hematocrit 23.1 L Hemoglobin 8.0 L INR International Normalized Ratio 2.28 Indirect Bilirubin 0.9 Lymphocytes # 0.3 L Lymphocytes % 1.5 L Mean Corpuscular Hemoglobin 32.3 Mean Corpuscular Hemoglobin Concent 34.9 Mean Corpuscular Volume 92.7 Mean Platelet Volume 9.6 Monocytes # 0.9 Monocytes % 5.0 Neutrophils # 16.3 H Neutrophils % 93.5 H Nucleated Red Blood Cells # 0.0 Nucleated Red Blood Cells % 0.0 Phosphorus Level 6.8 H Platelet Count 55 L Potassium Level 3.4 L Prothrombin Time 25.4 H Prothrombin Time Ratio 2.0 Red Blood Count 2.49 L Red Cell Distribution Width 16.7 H Sodium Level 143 Total Bilirubin 0.9 Total Protein 5.4 L White Blood Count 17.4 H Test 12/03/16 14:10 12/03/16 18:30 INR International Normalized Ratio 2.68 Prothrombin Time 28.9 H Prothrombin Time Ratio 2.3 Bedside Glucose 145 Medications Medications Current Medications Rifaximin (Xifaxan) 550 mg BID PO Last administered on 12/03/16 08:40; Admin Dose 550 MG; Start 11/28/16 at 21:00 Diagnostic Test (Pha) (Accucheck) 1 ea 02 XX Last administered on 11/29/16 02: 29; Admin Dose 1 EA; Start 11/29/16 at 02:00 Diagnostic Test (Pha) 1 ea 1 ea 02 XX Last administered on 11/29/16 02:29; Admin Dose 1 EA; Start 11/29/16 at 02:00 Sodium Chloride (NS) 1,000 ml @ 75 mls/hr [id number] IV Last administered on 05:28; Admin Dose 75 MLS/HR; Start 11/28/16 at 20:00 Miscellaneous Information 1 ea NOTE XX ; Start 11/28/16 at 20:00 Glucose (Glutose) 15 gm Q15M PRN PO DECREASED GLUCOSE; Start 11/28/16 at 20:00 Glucose (Glutose) 22.5 gm Q15M PRN PO DECREASED GLUCOSE; Start 11/28/16 at 20: 00 Dextrose (D50w Syringe) 25 ml Q15M PRN IV DECREASED GLUCOSE; Start 11/28/16 at 20:00 Dextrose (D50w Syringe) 50 ml Q15M PRN IV DECREASED GLUCOSE; Start 11/28/16 at 20:00 Glucagon (Glucagen) 1 mg Q15M PRN IM DECREASED GLUCOSE; Start 11/28/16 at 20:00 Glucose (Glutose) 15 gm Q15M PRN BUCCAL DECREASED GLUCOSE; Start 11/28/16 at 20 :00 Citric Acid/ Sodium Citrate (Bicitra) 15 ml BID PO Last administered on 08:39; Admin Dose 15 ML; Start 11/29/16 at 21:00 Pantoprazole (Protonix Tab) 40 mg DAILY@06 PO Last administered on 12/03/16 05: 28; Admin Dose 40 MG; Start 12/02/16 at 06:00 Morphine Sulfate 2 mg 2 mg Q4H PRN IV PAIN LEVEL 6-10 Last administered on 06:23; Admin Dose 2 MG; Start 12/02/16 at 06:00 Norepinephrine/ Dextrose (Levophed/D5W) 500 ml @ 0 mls/hr TITRATE IV Last administered on 12/02/16 22:48; Admin Dose 15 MLS/HR; Start 12/02/16 at 13:30 IV Flush (NS 10 ml) 10 ml PRN PRN IV IV PROTOCOL; Start 12/02/16 at 18:30 Ondansetron HCl 4 mg 4 mg Q6H PRN IV NAUSEA AND/OR VOMITING Last administered on 12/03/16 02:23; Admin Dose 4 MG; Start 12/03/16 at 02:30 Piperacillin Sod/ Tazobactam Sod 50 ml @ 100 mls/hr Q12 IVPB ; Start 12/03/16 at 21:00; Stop 12/10/16 at 20:59 Caspofungin/ Sodium Chloride (Cancidas/NS) 250 ml @ 250 mls/hr Q24H IVPB ; Start 12/04/16 at 12:00 Lactulose (Enulose) 40 gm Q6 PO Last administered on 12/03/16t 18:28; Admin Dose 40 GM; Start 12/03/16 at 18:00 NELSON BRIGGS MD Dec 03, 2016 20:22
[2016-12-03] MEDS: EPOETIN 10000 UNITS/ML (NON ESRD/NON ONCOLOGY) SC SCH (21:22)
--- NOTE | 2016-12-03 21:34 | RADRPT ---
PROCEDURE: XR Chest. CLINICAL INDICATION: Shortness of breath TECHNIQUE: A single portable view of the chest was obtained. COMPARISON: 12/02/2016 FINDINGS: The left PICC line has been repositioned with the tip in the atriocaval junction. A nasogastric tube is seen in the gastric lumen. The tip is not visualized. The cardiomediastinal silhouette is with in normal limits. The lung volumes are low with bibasilar compressive atelectasis with improved aera tion. No dense consolidation or discrete pleural effusion is seen. The soft tissues and osseous str uctures are unremarkable. IMPRESSION: 1. Interval repositioning of the left PICC line with the tip in the atriocaval junction. 2. Bibasilar atelectasis with improved aeration in the lung bases. RPTAT: HPNM Physician Stephanie Date Time Electronically viewed and signed by Physician Stephanie on 12/03/2016 21:34 /
[2016-12-04] VITALS (87 sets, daily range): BP systolic 56–134; BP diastolic 41–94; PULSE 79–119; RESP 3–23
[2016-12-04] MEDS: LACTULOSE 30ML CUP PO SCH ×5 (00:22→23:42)
[2016-12-04] MEDS: CA CARBONATE (250 MG/ML) 5ML CUP NGT SCH ×3 (00:23→21:01)
[2016-12-04] MEDS: ACCUCHECK XX SCH ×2 (02:00)
[2016-12-04 04:45] LABS: INR 2.26; PROTIME 25.2 Sec (12.2-14.2)
[2016-12-04 05:09] LABS: ALBUMIN 2.2 g/dl (3.3-4.9); POTASSIUM 3.7 mmol/L (3.5-5.1)
[2016-12-04] MEDS: PANTOPRAZOLE (EC) 40 MG TAB PO SCH (05:11)
[2016-12-04 05:12] LABS: ALBUMIN/GLOBULIN RATIO 0.68; BILIRUBIN,INDIRECT 0.8 mg/dl (0-1.1); BILIRUBIN,TOTAL 0.8 mg/dl (0.2-1.3); TOTAL PROTEIN 5.4 g/dl (6.1-8.1)
[2016-12-04 05:13] LABS: CALCIUM 7.8 mg/dl (8.4-10.2)
[2016-12-04 05:20] LABS: HEMATOCRIT 21.6 % (42.0-52.0); HEMOGLOBIN 7.4 g/dl (14.0-18.0); RED BLOOD COUNT 2.37 10^6/ul (4.70-6.10); WHITE BLOOD COUNT 16.4 10^3/ul (4.8-10.8)
[2016-12-04 05:21] LABS: MEAN CORPUSCULAR HEMOGLOBIN 31.2 pg (29.0-33.0); MEAN CORPUSCULAR HGB CONC 34.3 g/dl (32.0-37.0); MEAN CORPUSCULAR VOLUME 91.1 fl (82.0-101.0); MEAN PLATELET VOLUME 12.3 fl (7.4-10.4); PLATELET COUNT 44 10^3/UL (140-440); RED CELL DISTRIBUTION WIDTH 16.7 % (11.5-14.5)
[2016-12-04 05:47] LABS: CREATININE 2.99 mg/dl (0.61-1.24)
[2016-12-04] MEDS: INSULIN ASPART [NOVOLOG] 3 ML PEN SC SCH ×4 (07:35→21:00)
--- NOTE | 2016-12-04 07:41 | CONS ---
Date/Time of Note Date/Time of Note DATE: 12/04/16 TIME: 07:38 Assessment/Plan Assessment/Plan Additional Assessment/Plan 55 yo male with 1. LEONARDO on CKD, ATN in the setting of Sepsis 2. Metabolic Acidosis with respiratory compensation 3. Anemia of Chronic disease 4. Hx of DM, Likely with underlying CKD, DM Nephropathy 5. AMS, Hepatic Encephalopathy 6. Chronic Liver Disease, Cirrhosis, Recurrent Ascites 7. Hypokalemia- Resolved 8. Hypoalbuminemia 9. Abdominal Pain- Peritonitis 10. Hypotension in the setting of sepsis Cont supportive care Strict Is and Os Pt is Non oliguric Cont to monitor UO, Electrolyts, Renal function No acute indication for HD at this time. Consultation Date/Type/Reason Admit Date/Time Nov 28, 2016 at 12:41 Initial Consult Date 11/29/16 Type of Consultation: renal Referring Provider: SUNDAR OBRIEN 24 HR Interval Summary Subjective hx not possible: pt critical status Exam/Review of Systems Vital Signs Vitals Vital Signs Date Time Temp Pulse Resp B/P Pulse Ox O2 Delivery O2 Flow Rate FiO2 12/04/16 06:45 104 23 116/71 100 12/04/16 06:30 Room Air 12/04/16 04:00 98.0 Intake and Output 12/03/16 12/03/16 12/04/16 15:00 23:00 07:00 Intake Total 885.00 ml 628.75 ml 603.75 ml Output Total 200 ml 350 ml 450 ml Balance 685.00 ml 278.75 ml 153.75 ml Exam Constitutional: No distress ENMT: mucosa pink and moist Respiratory: crackles/rales, No labored breathing Cardiovascular: regular rate and rhythm, No edema Gastrointestinal: ascites, soft, No rebound or guarding 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: lethargic Skin: No diaphoresis Results Result Diagram: 12/04/16 0400 12/04/16 0400 Results 24 hrs Laboratory Tests Test 12/03/16 08:38 12/03/16 13:36 12/03/16 14:10 12/03/16 18:30 Bedside Glucose 134 131 145 INR International Normalized Ratio 2.68 Prothrombin Time 28.9 H Prothrombin Time Ratio 2.3 Test 12/03/16 20:52 12/04/16 04:00 Bedside Glucose 144 Alanine Aminotransferase (ALT/SGPT) 30 Albumin 2.2 L Albumin/Globulin Ratio 0.68 Alkaline Phosphatase 56 Ammonia 19 Anion Gap 20 H Aspartate Amino Transf (AST/SGOT) 32 Blood Urea Nitrogen 73 H Calcium Level 7.8 L Carbon Dioxide Level 15 L Chloride Level 113 H Creatinine 2.99 H Direct Bilirubin 0.00 Globulin 3.20 Glucose Level 127 HIV (1&2) Antibody NEGATIVE Hematocrit 21.6 L Hemoglobin 7.4 L INR International Normalized Ratio 2.26 Indirect Bilirubin 0.8 Mean Corpuscular Hemoglobin 31.2 Mean Corpuscular Hemoglobin Concent 34.3 Mean Corpuscular Volume 91.1 Mean Platelet Volume 12.3 #H Platelet Count 44 L Potassium Level 3.7 Prothrombin Time 25.2 H Prothrombin Time Ratio 2.0 Red Blood Count 2.37 L Red Cell Distribution Width 16.7 H Sodium Level 144 Total Bilirubin 0.8 Total Protein 5.4 L White Blood Count 16.4 H Medications Medications Current Medications Rifaximin (Xifaxan) 550 mg BID PO Last administered on 12/03/16 20:35; Admin Dose 550 MG; Start 11/28/16 at 21:00 Diagnostic Test (Pha) (Accucheck) 1 ea 02 XX Last administered on 11/29/16 02: 29; Admin Dose 1 EA; Start 11/29/16 at 02:00 Diagnostic Test (Pha) 1 ea 1 ea 02 XX Last administered on 11/29/16 02:29; Admin Dose 1 EA; Start 11/29/16 at 02:00 Sodium Chloride (NS) 1,000 ml @ 75 mls/hr [id number] IV Last administered on 20:40; Admin Dose 75 MLS/HR; Start 11/28/16 at 20:00 Miscellaneous Information 1 ea NOTE XX ; Start 11/28/16 at 20:00 Glucose (Glutose) 15 gm Q15M PRN PO DECREASED GLUCOSE; Start 11/28/16 at 20:00 Glucose (Glutose) 22.5 gm Q15M PRN PO DECREASED GLUCOSE; Start 11/28/16 at 20: 00 Dextrose (D50w Syringe) 25 ml Q15M PRN IV DECREASED GLUCOSE; Start 11/28/16 at 20:00 Dextrose (D50w Syringe) 50 ml Q15M PRN IV DECREASED GLUCOSE; Start 11/28/16 at 20:00 Glucagon (Glucagen) 1 mg Q15M PRN IM DECREASED GLUCOSE; Start 11/28/16 at 20:00 Glucose (Glutose) 15 gm Q15M PRN BUCCAL DECREASED GLUCOSE; Start 11/28/16 at 20 :00 Citric Acid/ Sodium Citrate (Bicitra) 15 ml BID PO Last administered on 20:35; Admin Dose 15 ML; Start 11/29/16 at 21:00 Pantoprazole (Protonix Tab) 40 mg DAILY@06 PO Last administered on 12/04/16 05: 11; Admin Dose 40 MG; Start 12/02/16 at 06:00 Morphine Sulfate 2 mg 2 mg Q4H PRN IV PAIN LEVEL 6-10 Last administered on 20:58; Admin Dose 2 MG; Start 12/02/16 at 06:00 Norepinephrine/ Dextrose (Levophed/D5W) 500 ml @ 0 mls/hr TITRATE IV Last administered on 12/02/16 22:48; Admin Dose 15 MLS/HR; Start 12/02/16 at 13:30 IV Flush (NS 10 ml) 10 ml PRN PRN IV IV PROTOCOL; Start 12/02/16 at 18:30 Ondansetron HCl 4 mg 4 mg Q6H PRN IV NAUSEA AND/OR VOMITING Last administered on 12/03/16 02:23; Admin Dose 4 MG; Start 12/03/16 at 02:30 Piperacillin Sod/ Tazobactam Sod 50 ml @ 100 mls/hr Q12 IVPB Last administered on 12/03/16 20:35; Admin Dose 100 MLS/HR; Start 12/03/16 at 21:00; Stop 12/10/16 at 20:59 Caspofungin/ Sodium Chloride (Cancidas/NS) 250 ml @ 250 mls/hr Q24H IVPB ; Start 12/04/16 at 12:00 Lactulose (Enulose) 40 gm Q6 PO Last administered on 12/04/16 05:11; Admin Dose 40 GM; Start 12/03/16 at 18:00 Epoetin Brandan (Epogen (Non Esrd/Non Oncology)) 10,000 units MoWeFr@17 SC Last administered on 12/03/16 21:22; Admin Dose 10,000 UNITS; Start 12/03/16 at 21:30 Calcium Carbonate (Ca Carbonate) 1,250 mg BID NGT Last administered on t 00:23; Admin Dose 1,250 MG; Start 12/03/16 at 21:00 Procedures Procedures PROCEDURE: XR Chest. CLINICAL INDICATION: Shortness of breath TECHNIQUE: A single portable view of the chest was obtained. COMPARISON: 12/02/2016 FINDINGS: The left PICC line has been repositioned with the tip in the atriocaval junction. A nasogastric tube is seen in the gastric lumen. The tip is not visualized. The cardiomediastinal silhouette is within normal limits. The lung volumes are low with bibasilar compressive atelectasis with improved aeration. No dense consolidation or discrete pleural effusion is seen. The soft tissues and osseous structures are unremarkable. IMPRESSION: 1. Interval repositioning of the left PICC line with the tip in the atriocaval junction. 2. Bibasilar atelectasis with improved aeration in the lung bases. RPTAT: HPNM Physician Stephanie Date Time Electronically viewed and signed by Physician Stephanie on 12/03/2016 21 :34 SONA CONROY MD Dec 04, 2016 07:41
[2016-12-04] MEDS: CITRIC ACID/NA CITRATE 30 ML CUP PO SCH ×2 (08:23→21:01)
[2016-12-04] MEDS: RIFAXIMIN 550 MG TAB PO SCH ×2 (08:24→21:01)
[2016-12-04] MEDS: PIPER-TAZO 2.25 GM (PMX) 50 ML IVPB SCH ×2 (08:27→21:01)
--- NOTE | 2016-12-04 09:45 | CONS ---
Date/Time of Note Date/Time of Note DATE: 12/04/16 TIME: 09:42 Assessment/Plan Assessment/Plan Chief Complaint/Hosp Course assessment/impression - h/o sepsis - SBP, s/p paracentesis 12/02/2016. Ascetic NHVb=1585 - probable UTI (pyuria, increased urinary frequency) - thrush - LEONARDO - ileus - recurrent hepatic encephalopathy - cholelithiasis - RLQ pain: CT did not demonstrate other acute GI processes - h/o alcoholic liver cirrhosis and portal hypertension - h/o recurrent ascites s/p paracentesis in the past. - DM - CRI - thrombocytopenia recommendations - pending final results: blood cultures x2, urine culture, ascetic fluid culture and cytology (HIV screen negative in 2016, hepatitis screen was negative in 2015) - continue renally dosed pip/tazo (12/01/2016-) - continue caspofungin (12/03/2016-), to treat thrush but also empirically for krystal peritonitis in light of persistent hypotension and thrush - continue rifaxamin management d/w Pt, his and RN the critical care time I took to care for this Pt today was from 0940 to 1010 Problems: Consultation Date/Type/Reason Admit Date/Time Nov 28, 2016 at 12:41 Initial Consult Date 12/02/16 Type of Consultation: ID Referring Provider: SUNDAR OBRIEN 24 HR Interval Summary Free Text/Dictation NGT was inserted due to N&V Subjective hx not possible: pt non-verbal Detailed Summary Gastrointestinal: nausea Exam/Review of Systems Vital Signs Vitals Vital Signs Date Time Temp Pulse Resp B/P Pulse Ox O2 Delivery O2 Flow Rate FiO2 12/04/16 06:45 104 23 116/71 100 12/04/16 06:30 Room Air 12/04/16 04:00 98.0 Intake and Output 12/03/16 12/03/16 12/04/16 15:00 23:00 07:00 Intake Total 885.00 ml 628.75 ml 603.75 ml Output Total 200 ml 350 ml 450 ml Balance 685.00 ml 278.75 ml 153.75 ml Exam Constitutional: frail Psych: nl mood/affect, no complaints Head: atraumatic, normocephalic Eyes: icteric, nl lids ENMT: nl external ears & nose, nl nasal mucosa & septum, other (NGT) Respiratory: clear to auscultation, normal air movement Cardiovascular: nl pulses, regular rate and rhythm Gastrointestinal: distended, soft, No tender 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: lethargic Skin: ecchymosis Results Result Diagram: 12/04/16 0400 12/04/16 0400 Results 24 hrs Laboratory Tests Test 12/03/16 13:36 12/03/16 14:10 12/03/16 18:30 12/03/16 20:52 Bedside Glucose 131 145 144 INR International Normalized Ratio 2.68 Prothrombin Time 28.9 H Prothrombin Time Ratio 2.3 Test 12/04/16 04:00 12/04/16 08:19 Alanine Aminotransferase (ALT/SGPT) 30 Albumin 2.2 L Albumin/Globulin Ratio 0.68 Alkaline Phosphatase 56 Ammonia 19 Anion Gap 20 H Aspartate Amino Transf (AST/SGOT) 32 Blood Urea Nitrogen 73 H Calcium Level 7.8 L Carbon Dioxide Level 15 L Chloride Level 113 H Creatinine 2.99 H Direct Bilirubin 0.00 Globulin 3.20 Glucose Level 127 HIV (1&2) Antibody NEGATIVE Hematocrit 21.6 L Hemoglobin 7.4 L INR International Normalized Ratio 2.26 Indirect Bilirubin 0.8 Mean Corpuscular Hemoglobin 31.2 Mean Corpuscular Hemoglobin Concent 34.3 Mean Corpuscular Volume 91.1 Mean Platelet Volume 12.3 #H Platelet Count 44 L Potassium Level 3.7 Prothrombin Time 25.2 H Prothrombin Time Ratio 2.0 Red Blood Count 2.37 L Red Cell Distribution Width 16.7 H Sodium Level 144 Total Bilirubin 0.8 Total Protein 5.4 L White Blood Count 16.4 H Bedside Glucose 134 Medications Medications Current Medications Rifaximin (Xifaxan) 550 mg BID PO Last administered on 12/04/16 08:24; Admin Dose 550 MG; Start 11/28/16 at 21:00 Diagnostic Test (Pha) (Accucheck) ea XX Last administered on 11/29/16 02: 29; Admin Dose 1 EA; Start 11/29/16 at 02:00 Diagnostic Test (Pha) 1 ea ea XX Last administered on 11/29/16 02:29; Admin Dose 1 EA; Start 11/29/16 at 02:00 Sodium Chloride (NS) 1,000 ml @ 75 mls/hr [id number] IV Last administered on 20:40; Admin Dose 75 MLS/HR; Start 11/28/16 at 20:00 Miscellaneous Information 1 ea NOTE XX ; Start 11/28/16 at 20:00 Glucose (Glutose) 15 gm Q15M PRN PO DECREASED GLUCOSE; Start 11/28/16 at 20:00 Glucose (Glutose) 22.5 gm Q15M PRN PO DECREASED GLUCOSE; Start 11/28/16 at 20: 00 Dextrose (D50w Syringe) 25 ml Q15M PRN IV DECREASED GLUCOSE; Start 11/28/16 at 20:00 Dextrose (D50w Syringe) 50 ml Q15M PRN IV DECREASED GLUCOSE; Start 11/28/16 at 20:00 Glucagon (Glucagen) 1 mg Q15M PRN IM DECREASED GLUCOSE; Start 11/28/16 at 20:00 Glucose (Glutose) 15 gm Q15M PRN BUCCAL DECREASED GLUCOSE; Start 11/28/16 at 20 :00 Citric Acid/ Sodium Citrate (Bicitra) 15 ml BID PO Last administered on 08:23; Admin Dose 15 ML; Start 11/29/16 at 21:00 Pantoprazole (Protonix Tab) 40 mg DAILY@06 PO Last administered on 12/04/16 05: 11; Admin Dose 40 MG; Start 12/02/16 at 06:00 Morphine Sulfate 2 mg 2 mg Q4H PRN IV PAIN LEVEL 6-10 Last administered on 20:58; Admin Dose 2 MG; Start 12/02/16 at 06:00 Norepinephrine/ Dextrose (Levophed/D5W) 500 ml @ 0 mls/hr TITRATE IV Last administered on 12/02/16 22:48; Admin Dose 15 MLS/HR; Start 12/02/16 at 13:30 IV Flush (NS 10 ml) 10 ml PRN PRN IV IV PROTOCOL; Start 12/02/16 at 18:30 Ondansetron HCl 4 mg 4 mg Q6H PRN IV NAUSEA AND/OR VOMITING Last administered on 12/03/16 02:23; Admin Dose 4 MG; Start 12/03/16 at 02:30 Piperacillin Sod/ Tazobactam Sod 50 ml @ 100 mls/hr Q12 IVPB Last administered on 12/04/16 08:27; Admin Dose 100 MLS/HR; Start 12/03/16 at 21:00; Stop 12/10/16 at 20:59 Caspofungin/ Sodium Chloride (Cancidas/NS) 250 ml @ 250 mls/hr Q24H IVPB ; Start 12/04/16 at 12:00 Lactulose (Enulose) 40 gm Q6 PO Last administered on 12/04/16 05:11; Admin Dose 40 GM; Start 12/03/16 at 18:00 Epoetin Brandan (Epogen (Non Esrd/Non Oncology)) 10,000 units MoWeFr@17 SC Last administered on 12/03/16 21:22; Admin Dose 10,000 UNITS; Start 12/03/16 at 21:30 Calcium Carbonate (Ca Carbonate) 1,250 mg BID NGT Last administered on 08:23; Admin Dose 1,250 MG; Start 12/03/16 at 21:00 MANFRED MARTINEZ M.D. Dec 04, 2016 09:45
[2016-12-04 10:35] LABS: LYMPHOCYTES % 2.7 % (15.0-51.0); MONOCYTES % 7.3 % (0.0-11.0)
[2016-12-04 10:36] LABS: BASOPHILS % 0.1 % (0.0-2.0); LYMPHOCYTES # 0.5 10^3/ul (0.8-2.9); MONOCYTE # 1.2 10^3/ul (0.3-0.9); NEUTROPHIL # 14.6 10^3/ul (1.6-7.5)
--- NOTE | 2016-12-04 11:29 | PN ---
Date/Time of Note Date/Time of Note DATE: 12/04/16 TIME: 11:28 Assessment/Plan VTE Prophylaxis VTE Prophylaxis Intervention: other Lines/Catheters IV [facility] P[facility] Line Central line still needed: Yes Urinary Cath still in place: No Reason Cath still needed: skin wounds contaminated by urine Assessment/Plan Chief Complaint/Hosp Course 1) Sepsis. Continue IV fluids, pressors ICU, care and antibiotics. Dr. Sandhu is following an infection disease consultation. - r/o SBP, follow-up on culture. 2) Hepatic encephalopathy. Continue lactulose q.i.d. and rifaximin. Dr. Melendez is following in gastroenterology consultation. 3) Alcoholic liver cirrhosis with recurrent ascites. s/p paracentesis on 12/02 4) LEONARDO on Chronic kidney disease. Dr. Morrison is following in nephrology consultation. 5) Diabetes mellitus. Continue NovoLog per mild algorithm sliding scale coverage. 6) Thrombocytopenia, most likely secondary to liver cirrhosis. Continue to monitor platelet count. Problems: Subjective 24 Hr Interval Summary Free Text/Dictation Patient has no complaints, is mildly confused Exam/Review of Systems Vital Signs Vitals Vital Signs Date Time Temp Pulse Resp B/P Pulse Ox O2 Delivery O2 Flow Rate FiO2 12/04/16 08:00 97 12/04/16 06:45 23 116/71 100 12/04/16 06:30 Room Air 12/04/16 04:00 98.0 Intake and Output 12/03/16 12/03/16 12/04/16 15:00 23:00 07:00 Intake Total 885.00 ml 628.75 ml 603.75 ml Output Total 200 ml 350 ml 450 ml Balance 685.00 ml 278.75 ml 153.75 ml Exam Constitutional: well developed Head: atraumatic, normocephalic Neck: supple Respiratory: diminished breath sounds Cardiovascular: regular rate and rhythm Gastrointestinal: distended, soft Extremities: normal pulses Results Result Diagram: 12/04/16 0400 12/04/16 0400 Results 24 hrs Laboratory Tests Test 12/03/16 13:36 12/03/16 14:10 12/03/16 18:30 12/03/16 20:52 Bedside Glucose 131 145 144 INR International Normalized Ratio 2.68 Prothrombin Time 28.9 H Prothrombin Time Ratio 2.3 Test 12/04/16 04:00 12/04/16 08:19 Alanine Aminotransferase (ALT/SGPT) 30 Albumin 2.2 L Albumin/Globulin Ratio 0.68 Alkaline Phosphatase 56 Ammonia 19 Anion Gap 20 H Aspartate Amino Transf (AST/SGOT) 32 Basophils # Pending Basophils % Pending Blood Urea Nitrogen 73 H Calcium Level 7.8 L Carbon Dioxide Level 15 L Chloride Level 113 H Creatinine 2.99 H Direct Bilirubin 0.00 Eosinophils # Pending Eosinophils % Pending Globulin 3.20 Glucose Level 127 HIV (1&2) Antibody NEGATIVE Hematocrit 21.6 L Hemoglobin 7.4 L INR International Normalized Ratio 2.26 Indirect Bilirubin 0.8 Lymphocytes # Pending Lymphocytes % Pending Mean Corpuscular Hemoglobin 31.2 Mean Corpuscular Hemoglobin Concent 34.3 Mean Corpuscular Volume 91.1 Mean Platelet Volume 12.3 #H Monocytes # Pending Monocytes % Pending Neutrophils # Pending Neutrophils % Pending Nucleated Red Blood Cells # Pending Nucleated Red Blood Cells % Pending Platelet Count 44 L Potassium Level 3.7 Prothrombin Time 25.2 H Prothrombin Time Ratio 2.0 Red Blood Count 2.37 L Red Cell Distribution Width 16.7 H Sodium Level 144 Total Bilirubin 0.8 Total Protein 5.4 L White Blood Count 16.4 H Bedside Glucose 134 Medications Medications Current Medications Rifaximin (Xifaxan) 550 mg BID PO Last administered on 12/04/16 08:24; Admin Dose 550 MG; Start 11/28/16 at 21:00 Diagnostic Test (Pha) (Accucheck) 1 ea 02 XX Last administered on 11/29/16 02: 29; Admin Dose 1 EA; Start 11/29/16 at 02:00 Diagnostic Test (Pha) 1 ea 1 ea 02 XX Last administered on 11/29/16 02:29; Admin Dose 1 EA; Start 11/29/16 at 02:00 Sodium Chloride (NS) 1,000 ml @ 75 mls/hr [id number] IV Last administered on 20:40; Admin Dose 75 MLS/HR; Start 11/28/16 at 20:00 Miscellaneous Information 1 ea NOTE XX ; Start 11/28/16 at 20:00 Glucose (Glutose) 15 gm Q15M PRN PO DECREASED GLUCOSE; Start 11/28/16 at 20:00 Glucose (Glutose) 22.5 gm Q15M PRN PO DECREASED GLUCOSE; Start 11/28/16 at 20: 00 Dextrose (D50w Syringe) 25 ml Q15M PRN IV DECREASED GLUCOSE; Start 11/28/16 at 20:00 Dextrose (D50w Syringe) 50 ml Q15M PRN IV DECREASED GLUCOSE; Start 11/28/16 at 20:00 Glucagon (Glucagen) 1 mg Q15M PRN IM DECREASED GLUCOSE; Start 11/28/16 at 20:00 Glucose (Glutose) 15 gm Q15M PRN BUCCAL DECREASED GLUCOSE; Start 11/28/16 at 20 :00 Citric Acid/ Sodium Citrate (Bicitra) 15 ml BID PO Last administered on 08:23; Admin Dose 15 ML; Start 11/29/16 at 21:00 Pantoprazole (Protonix Tab) 40 mg DAILY@06 PO Last administered on 12/04/16 05: 11; Admin Dose 40 MG; Start 12/02/16 at 06:00 Morphine Sulfate 2 mg 2 mg Q4H PRN IV PAIN LEVEL 6-10 Last administered on 20:58; Admin Dose 2 MG; Start 12/02/16 at 06:00 Norepinephrine/ Dextrose (Levophed/D5W) 500 ml @ 0 mls/hr TITRATE IV Last administered on 12/02/16 22:48; Admin Dose 15 MLS/HR; Start 12/02/16 at 13:30 IV Flush (NS 10 ml) 10 ml PRN PRN IV IV PROTOCOL; Start 12/02/16 at 18:30 Ondansetron HCl 4 mg 4 mg Q6H PRN IV NAUSEA AND/OR VOMITING Last administered on 12/03/16 02:23; Admin Dose 4 MG; Start 12/03/16 at 02:30 Piperacillin Sod/ Tazobactam Sod 50 ml @ 100 mls/hr Q12 IVPB Last administered on 12/04/16 08:27; Admin Dose 100 MLS/HR; Start 12/03/16 at 21:00; Stop 12/10/16 at 20:59 Caspofungin/ Sodium Chloride (Cancidas/NS) 250 ml @ 250 mls/hr Q24H IVPB ; Start 12/04/16 at 12:00 Lactulose (Enulose) 40 gm Q6 PO Last administered on 12/04/16 05:11; Admin Dose 40 GM; Start 12/03/16 at 18:00 Epoetin Brandan (Epogen (Non Esrd/Non Oncology)) 10,000 units MoWeFr@17 SC Last administered on 12/03/16 21:22; Admin Dose 10,000 UNITS; Start 12/03/16 at 21:30 Calcium Carbonate (Ca Carbonate) 1,250 mg BID NGT Last administered on 08:23; Admin Dose 1,250 MG; Start 12/03/16 at 21:00 DERIC BINGHAM Dec 04, 2016 11:29
[2016-12-04] MEDS: SOD CHLORIDE 0.9% 1,000 ML IV SCH ×2 (11:37→21:01)
[2016-12-04] MEDS: CASPOFUNGIN 50 MG in SOD CHLORIDE 0.9% 250 ML IVPB SCH (11:38)
[2016-12-04 11:55] LABS: UNCORRECTED WBC 16.4 10^3/ul (4.8-10.8)
--- NOTE | 2016-12-04 11:57 | CONS ---
Date/Time of Note Date/Time of Note DATE: 12/04/16 TIME: 11:56 Assessment/Plan Assessment/Plan Additional Assessment/Plan IMPRESSION: 1. Hepatic encephalopathy. 2. Cirrhosis of liver. 3. Refractory ascites. 4. Hepatorenal syndrome, type 1. 5. Diabetes mellitus. 6.hypotension,transferred to ICU 7.leucocytosis,w/u in progress 8.spontaneous bacterial peritonitis ,wbc.12,000 PLAN: To continue with lactulose and rifaximin. Hold off on diuretics because that will worsen the patient's renal function. Fluid restriction. Reduced protein diet. stool for occult blood,negative empiric Zosyn albumin to sustain BP Consultation Date/Type/Reason Admit Date/Time Nov 28, 2016 at 12:41 Initial Consult Date 11/29/16 Type of Consultation: ID Referring Provider: SUNDAR OBRIEN 24 HR Interval Summary Free Text/Dictation emesis,aspirated large quantity of stomach content Exam/Review of Systems Vital Signs Vitals Vital Signs Date Time Temp Pulse Resp B/P Pulse Ox O2 Delivery O2 Flow Rate FiO2 12/04/16 08:00 97 12/04/16 06:45 23 116/71 100 12/04/16 06:30 Room Air 12/04/16 04:00 98.0 Intake and Output 12/03/16 12/03/16 12/04/16 15:00 23:00 07:00 Intake Total 885.00 ml 628.75 ml 603.75 ml Output Total 200 ml 350 ml 450 ml Balance 685.00 ml 278.75 ml 153.75 ml Exam Constitutional: alert, oriented, well developed Psych: nl mood/affect, no complaints Head: atraumatic, normocephalic Eyes: EOMI, PERRL, nl conjunctiva, nl lids, nl sclera ENMT: nl external ears & nose, nl lips & teeth, nl nasal mucosa & septum Neck: non-tender, supple Respiratory: clear to auscultation, normal air movement Cardiovascular: nl pulses, regular rate and rhythm Gastrointestinal: nl liver, spleen, non-tender, soft Musculoskeletal: nl extremities to inspection, nl gait and stance Extremities: normal pulses 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: [employer] II-XII intact, nl mental status, nl speech, nl strength Skin: nl turgor, No rash or lesions Lymph: nl lymph nodes Results Result Diagram: 12/04/16 0400 12/04/16 0400 Results 24 hrs Laboratory Tests Test 12/03/16 13:36 12/03/16 14:10 12/03/16 18:30 12/03/16 20:52 Bedside Glucose 131 145 144 INR International Normalized Ratio 2.68 Prothrombin Time 28.9 H Prothrombin Time Ratio 2.3 Test 12/04/16 04:00 12/04/16 08:19 Alanine Aminotransferase (ALT/SGPT) 30 Albumin 2.2 L Albumin/Globulin Ratio 0.68 Alkaline Phosphatase 56 Ammonia 19 Anion Gap 20 H Aspartate Amino Transf (AST/SGOT) 32 Basophils # 0.0 Basophils % 0.1 Blood Urea Nitrogen 73 H Calcium Level 7.8 L Carbon Dioxide Level 15 L Chloride Level 113 H Creatinine 2.99 H Direct Bilirubin 0.00 Eosinophils # 0.0 Eosinophils % 0.0 Globulin 3.20 Glucose Level 127 HIV (1&2) Antibody NEGATIVE Hematocrit 21.6 L Hemoglobin 7.4 L INR International Normalized Ratio 2.26 Indirect Bilirubin 0.8 Lymphocytes # 0.5 L Lymphocytes % 2.7 L Mean Corpuscular Hemoglobin 31.2 Mean Corpuscular Hemoglobin Concent 34.3 Mean Corpuscular Volume 91.1 Mean Platelet Volume 12.3 #H Monocytes # 1.2 H Monocytes % 7.3 Neutrophils # 14.6 H Neutrophils % 89.0 H Nucleated Red Blood Cells # 0.0 Nucleated Red Blood Cells % 0.0 Platelet Count 44 L Potassium Level 3.7 Prothrombin Time 25.2 H Prothrombin Time Ratio 2.0 Red Blood Count 2.37 L Red Cell Distribution Width 16.7 H Sodium Level 144 Total Bilirubin 0.8 Total Protein 5.4 L White Blood Count 16.4 H Bedside Glucose 134 Medications Medications Current Medications Rifaximin (Xifaxan) 550 mg BID PO Last administered on 12/04/16 08:24; Admin Dose 550 MG; Start 11/28/16 at 21:00 Diagnostic Test (Pha) (Accucheck) ea XX Last administered on 11/29/16 02: 29; Admin Dose 1 EA; Start 11/29/16 at 02:00 Diagnostic Test (Pha) 1 ea ea XX Last administered on 11/29/16 02:29; Admin Dose 1 EA; Start 11/29/16 at 02:00 Sodium Chloride (NS) 1,000 ml @ 75 mls/hr [id number] IV Last administered on 20:40; Admin Dose 75 MLS/HR; Start 11/28/16 at 20:00 Miscellaneous Information 1 ea NOTE XX ; Start 11/28/16 at 20:00 Glucose (Glutose) 15 gm Q15M PRN PO DECREASED GLUCOSE; Start 11/28/16 at 20:00 Glucose (Glutose) 22.5 gm Q15M PRN PO DECREASED GLUCOSE; Start 11/28/16 at 20: 00 Dextrose (D50w Syringe) 25 ml Q15M PRN IV DECREASED GLUCOSE; Start 11/28/16 at 20:00 Dextrose (D50w Syringe) 50 ml Q15M PRN IV DECREASED GLUCOSE; Start 11/28/16 at 20:00 Glucagon (Glucagen) 1 mg Q15M PRN IM DECREASED GLUCOSE; Start 11/28/16 at 20:00 Glucose (Glutose) 15 gm Q15M PRN BUCCAL DECREASED GLUCOSE; Start 11/28/16 at 20 :00 Citric Acid/ Sodium Citrate (Bicitra) 15 ml BID PO Last administered on 08:23; Admin Dose 15 ML; Start 11/29/16 at 21:00 Pantoprazole (Protonix Tab) 40 mg DAILY@06 PO Last administered on 12/04/16 05: 11; Admin Dose 40 MG; Start 12/02/16 at 06:00 Morphine Sulfate 2 mg 2 mg Q4H PRN IV PAIN LEVEL 6-10 Last administered on 20:58; Admin Dose 2 MG; Start 12/02/16 at 06:00 Norepinephrine/ Dextrose (Levophed/D5W) 500 ml @ 0 mls/hr TITRATE IV Last administered on 12/02/16 22:48; Admin Dose 15 MLS/HR; Start 12/02/16 at 13:30 IV Flush (NS 10 ml) 10 ml PRN PRN IV IV PROTOCOL; Start 12/02/16 at 18:30 Ondansetron HCl 4 mg 4 mg Q6H PRN IV NAUSEA AND/OR VOMITING Last administered on 12/03/16 02:23; Admin Dose 4 MG; Start 12/03/16 at 02:30 Piperacillin Sod/ Tazobactam Sod 50 ml @ 100 mls/hr Q12 IVPB Last administered on 12/04/16 08:27; Admin Dose 100 MLS/HR; Start 12/03/16 at 21:00; Stop 12/10/16 at 20:59 Caspofungin/ Sodium Chloride (Cancidas/NS) 250 ml @ 250 mls/hr Q24H IVPB ; Start 12/04/16 at 12:00 Lactulose (Enulose) 40 gm Q6 PO Last administered on 12/04/16 05:11; Admin Dose 40 GM; Start 12/03/16 at 18:00 Epoetin Brandan (Epogen (Non Esrd/Non Oncology)) 10,000 units MoWeFr@17 SC Last administered on 12/03/16 21:22; Admin Dose 10,000 UNITS; Start 12/03/16 at 21:30 Calcium Carbonate (Ca Carbonate) 1,250 mg BID NGT Last administered on 08:23; Admin Dose 1,250 MG; Start 12/03/16 at 21:00 JOHANA MOTLEY MD Dec 04, 2016 11:57
[2016-12-04] MEDS: morphine 2 MG INJ IV PRN (21:02)
[2016-12-05] VITALS (42 sets, daily range): BP systolic 85–144; BP diastolic 50–113; PULSE 72–107; RESP 7–26
[2016-12-05] MEDS: ACCUCHECK XX SCH ×2 (02:00)
[2016-12-05] MEDS: LACTULOSE 30ML CUP PO SCH ×3 (05:37→18:00)
[2016-12-05] MEDS: PANTOPRAZOLE (EC) 40 MG TAB PO SCH (06:00)
[2016-12-05] MEDS: INSULIN ASPART [NOVOLOG] 3 ML PEN SC SCH ×3 (07:35→17:35)
[2016-12-05] MEDS: CITRIC ACID/NA CITRATE 30 ML CUP PO SCH ×2 (09:00→20:30)
[2016-12-05] MEDS: CA CARBONATE (250 MG/ML) 5ML CUP NGT SCH ×2 (09:16→20:29)
[2016-12-05] MEDS: PIPER-TAZO 2.25 GM (PMX) 50 ML IVPB SCH (09:16)
[2016-12-05] MEDS: RIFAXIMIN 550 MG TAB PO SCH ×2 (09:16→20:30)
--- NOTE | 2016-12-05 09:20 | CONS ---
Date/Time of Note Date/Time of Note DATE: 12/05/16 TIME: 09:19 Assessment/Plan Assessment/Plan Additional Assessment/Plan 55 yo male with 1. LEONARDO on CKD, ATN in the setting of Sepsis 2. Metabolic Acidosis with respiratory compensation 3. Anemia of Chronic disease 4. Hx of DM, Likely with underlying CKD, DM Nephropathy 5. AMS, Hepatic Encephalopathy 6. Chronic Liver Disease, Cirrhosis, Recurrent Ascites 7. Hypokalemia- Resolved 8. Hypoalbuminemia 9. Abdominal Pain- Peritonitis 10. Hypotension in the setting of sepsis Cont supportive care Strict Is and Os Pt is Non oliguric Cont to monitor UO, Electrolyts, Renal function No acute indication for HD at this time. Consultation Date/Type/Reason Admit Date/Time Nov 28, 2016 at 12:41 Initial Consult Date 11/29/16 Type of Consultation: Nephrology Referring Provider: SUNDAR OBRIEN 24 HR Interval Summary Free Text/Dictation No new complaints Exam/Review of Systems Vital Signs Vitals Vital Signs Date Time Temp Pulse Resp B/P Pulse Ox O2 Delivery O2 Flow Rate FiO2 12/05/16 06:15 89 18 106/63 100 12/05/16 06:00 Room Air 12/05/16 04:00 97.8 Intake and Output 12/04/16 12/04/16 12/05/16 15:00 23:00 07:00 Intake Total 1300 ml 1605.478 ml 555.00 ml Output Total 265 ml 800 ml 300 ml Balance 1035 ml 805.478 ml 255.00 ml Exam Constitutional: No distress ENMT: mucosa pink and moist Respiratory: clear to auscultation Cardiovascular: regular rate and rhythm, No edema Gastrointestinal: ascites, soft Extremities: No edema 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: No lethargic Skin: No diaphoresis Results Result Diagram: 12/04/16 0400 12/04/16 0400 Results 24 hrs Laboratory Tests Test 12/04/16 12:40 12/04/16 18:03 12/04/16 21:07 12/05/16 08:20 Bedside Glucose 133 123 120 95 Medications Medications Current Medications Rifaximin (Xifaxan) 550 mg BID PO Last administered on 12/05/16t 09:16; Admin Dose 550 MG; Start 11/28/16 at 21:00 Diagnostic Test (Pha) (Accucheck) 1 ea 02 XX Last administered on 11/29/16 02: 29; Admin Dose 1 EA; Start 11/29/16 at 02:00 Diagnostic Test (Pha) 1 ea 1 ea 02 XX Last administered on 11/29/16 02:29; Admin Dose 1 EA; Start 11/29/16 at 02:00 Sodium Chloride (NS) 1,000 ml @ 75 mls/hr [id number] IV Last administered on 21:01; Admin Dose 75 MLS/HR; Start 11/28/16 at 20:00 Miscellaneous Information 1 ea NOTE XX ; Start 11/28/16 at 20:00 Glucose (Glutose) 15 gm Q15M PRN PO DECREASED GLUCOSE; Start 11/28/16 at 20:00 Glucose (Glutose) 22.5 gm Q15M PRN PO DECREASED GLUCOSE; Start 11/28/16 at 20: 00 Dextrose (D50w Syringe) 25 ml Q15M PRN IV DECREASED GLUCOSE; Start 11/28/16 at 20:00 Dextrose (D50w Syringe) 50 ml Q15M PRN IV DECREASED GLUCOSE; Start 11/28/16 at 20:00 Glucagon (Glucagen) 1 mg Q15M PRN IM DECREASED GLUCOSE; Start 11/28/16 at 20:00 Glucose (Glutose) 15 gm Q15M PRN BUCCAL DECREASED GLUCOSE; Start 11/28/16 at 20 :00 Citric Acid/ Sodium Citrate (Bicitra) 15 ml BID PO Last administered on 21:01; Admin Dose 15 ML; Start 11/29/16 at 21:00 Pantoprazole (Protonix Tab) 40 mg DAILY@06 PO Last administered on 12/04/16 05: 11; Admin Dose 40 MG; Start 12/02/16 at 06:00 Morphine Sulfate 2 mg 2 mg Q4H PRN IV PAIN LEVEL 6-10 Last administered on 21:02; Admin Dose 2 MG; Start 12/02/16 at 06:00 Norepinephrine/ Dextrose (Levophed/D5W) 500 ml @ 0 mls/hr TITRATE IV Last administered on 12/04/16 16:26; Admin Dose 5.62 MLS/HR; Start 12/02/16 at 13:30 IV Flush (NS 10 ml) 10 ml PRN PRN IV IV PROTOCOL; Start 12/02/16 at 18:30 Ondansetron HCl 4 mg 4 mg Q6H PRN IV NAUSEA AND/OR VOMITING Last administered on 12/03/16 02:23; Admin Dose 4 MG; Start 12/03/16 at 02:30 Piperacillin Sod/ Tazobactam Sod 50 ml @ 100 mls/hr Q12 IVPB Last administered on 12/05/16 09:16; Admin Dose 100 MLS/HR; Start 12/03/16 at 21:00; Stop 12/10/16 at 20:59 Caspofungin/ Sodium Chloride (Cancidas/NS) 250 ml @ 250 mls/hr Q24H IVPB Last administered on 12/04/16 11:38; Admin Dose 250 MLS/HR; Start 12/04/16 at 12:00 Lactulose (Enulose) 40 gm Q6 PO Last administered on 12/04/16 12:36; Admin Dose 40 GM; Start 12/03/16 at 18:00 Epoetin Brandan (Epogen (Non Esrd/Non Oncology)) 10,000 units MoWeFr@17 SC Last administered on 12/03/16 21:22; Admin Dose 10,000 UNITS; Start 12/03/16 at 21:30 Calcium Carbonate (Ca Carbonate) 1,250 mg BID NGT Last administered on 09:16; Admin Dose 1,250 MG; Start 12/03/16 at 21:00 SONA CONROY MD Dec 05, 2016 09:20
--- NOTE | 2016-12-05 09:36 | CONS ---
Date/Time of Note Date/Time of Note DATE: 12/05/16 TIME: 09:35 Assessment/Plan Assessment/Plan Chief Complaint/Hosp Course assessment/impression - h/o sepsis - SBP, s/p paracentesis 12/02/2016. Ascetic LNWp=1840 - probable UTI (pyuria, increased urinary frequency) - thrush - LEONARDO - ileus - recurrent hepatic encephalopathy - cholelithiasis - RLQ pain: CT did not demonstrate other acute GI processes - h/o alcoholic liver cirrhosis and portal hypertension - h/o recurrent ascites s/p paracentesis in the past. - DM - CRI - thrombocytopenia (HIV screen negative in 2016, hepatitis screen was negative in 2015) recommendations - due to progressive thrombocytopenia, will change renally dosed pip/tazo (2016-) to renally dosed meropenem - continue caspofungin (12/03/2016-), to treat thrush but also empirically for krystal peritonitis in light of persistent hypotension and thrush - continue rifaxamin management d/w Pt's the critical care time I took to care for this Pt today was from 0900 to 0930 Problems: Consultation Date/Type/Reason Admit Date/Time Nov 28, 2016 at 12:41 Initial Consult Date 12/02/16 Type of Consultation: ID Referring Provider: SUNDAR OBRIEN 24 HR Interval Summary Subjective hx not possible: pt critical, pt critical status Constitutional: disoriented Exam/Review of Systems Vital Signs Vitals Vital Signs Date Time Temp Pulse Resp B/P Pulse Ox O2 Delivery O2 Flow Rate FiO2 12/05/16 06:15 89 18 106/63 100 12/05/16 06:00 Room Air 12/05/16 04:00 97.8 Intake and Output 12/04/16 12/04/16 12/05/16 15:00 23:00 07:00 Intake Total 1300 ml 1605.478 ml 555.00 ml Output Total 265 ml 800 ml 300 ml Balance 1035 ml 805.478 ml 255.00 ml Exam Constitutional: frail Psych: confusion Head: normocephalic Eyes: icteric, nl lids ENMT: nl external ears & nose, nl nasal mucosa & septum, other (NGT) Respiratory: clear to auscultation, normal air movement Cardiovascular: nl pulses, regular rate and rhythm Gastrointestinal: ascites, distended, soft, No tender Musculoskeletal: nl extremities to inspection Extremities: No edema 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: confused Skin: ecchymosis Results Result Diagram: 12/04/16 0400 12/04/16 0400 Results 24 hrs Laboratory Tests Test 12/04/16 12:40 12/04/16 18:03 12/04/16 21:07 12/05/16 08:20 Bedside Glucose 133 123 120 95 Medications Medications Current Medications Rifaximin (Xifaxan) 550 mg BID PO Last administered on 12/05/16 09:16; Admin Dose 550 MG; Start 11/28/16 at 21:00 Diagnostic Test (Pha) (Accucheck) 1 ea 02 XX Last administered on 11/29/16 02: 29; Admin Dose 1 EA; Start 11/29/16 at 02:00 Diagnostic Test (Pha) 1 ea 1 ea 02 XX Last administered on 11/29/16 02:29; Admin Dose 1 EA; Start 11/29/16 at 02:00 Sodium Chloride (NS) 1,000 ml @ 75 mls/hr [id number] IV Last administered on 21:01; Admin Dose 75 MLS/HR; Start 11/28/16 at 20:00 Miscellaneous Information 1 ea NOTE XX ; Start 11/28/16 at 20:00 Glucose (Glutose) 15 gm Q15M PRN PO DECREASED GLUCOSE; Start 11/28/16 at 20:00 Glucose (Glutose) 22.5 gm Q15M PRN PO DECREASED GLUCOSE; Start 11/28/16 at 20: 00 Dextrose (D50w Syringe) 25 ml Q15M PRN IV DECREASED GLUCOSE; Start 11/28/16 at 20:00 Dextrose (D50w Syringe) 50 ml Q15M PRN IV DECREASED GLUCOSE; Start 11/28/16 at 20:00 Glucagon (Glucagen) 1 mg Q15M PRN IM DECREASED GLUCOSE; Start 11/28/16 at 20:00 Glucose (Glutose) 15 gm Q15M PRN BUCCAL DECREASED GLUCOSE; Start 11/28/16 at 20 :00 Citric Acid/ Sodium Citrate (Bicitra) 15 ml BID PO Last administered on 21:01; Admin Dose 15 ML; Start 11/29/16 at 21:00 Pantoprazole (Protonix Tab) 40 mg DAILY@06 PO Last administered on 12/04/16 05: 11; Admin Dose 40 MG; Start 12/02/16 at 06:00 Morphine Sulfate 2 mg 2 mg Q4H PRN IV PAIN LEVEL 6-10 Last administered on 21:02; Admin Dose 2 MG; Start 12/02/16 at 06:00 Norepinephrine/ Dextrose (Levophed/D5W) 500 ml @ 0 mls/hr TITRATE IV Last administered on 12/04/16 16:26; Admin Dose 5.62 MLS/HR; Start 12/02/16 at 13:30 IV Flush (NS 10 ml) 10 ml PRN PRN IV IV PROTOCOL; Start 12/02/16 at 18:30 Ondansetron HCl 4 mg 4 mg Q6H PRN IV NAUSEA AND/OR VOMITING Last administered on 12/03/16 02:23; Admin Dose 4 MG; Start 12/03/16 at 02:30 Piperacillin Sod/ Tazobactam Sod 50 ml @ 100 mls/hr Q12 IVPB Last administered on 12/05/16 09:16; Admin Dose 100 MLS/HR; Start 12/03/16 at 21:00; Stop 12/10/16 at 20:59 Caspofungin/ Sodium Chloride (Cancidas/NS) 250 ml @ 250 mls/hr Q24H IVPB Last administered on 12/04/16 11:38; Admin Dose 250 MLS/HR; Start 12/04/16 at 12:00 Lactulose (Enulose) 40 gm Q6 PO Last administered on 12/04/16 12:36; Admin Dose 40 GM; Start 12/03/16 at 18:00 Epoetin Brandan (Epogen (Non Esrd/Non Oncology)) 10,000 units MoWeFr@17 SC Last administered on 12/03/16 21:22; Admin Dose 10,000 UNITS; Start 12/03/16 at 21:30 Calcium Carbonate (Ca Carbonate) 1,250 mg BID NGT Last administered on 09:16; Admin Dose 1,250 MG; Start 12/03/16 at 21:00 MANFRED MARTINEZ M.D. Dec 05, 2016 09:36
--- NOTE | 2016-12-05 10:52 | PN ---
Date/Time of Note Date/Time of Note DATE: 12/05/16 TIME: 10:51 Assessment/Plan VTE Prophylaxis VTE Prophylaxis Intervention: other Lines/Catheters IV Catheter Type (from [facility]): PICC Line Central line still needed: Yes Urinary Cath still in place: No Assessment/Plan Chief Complaint/Hosp Course 1) Sepsis. Continue IV fluids, pressors ICU, care and antibiotics. Dr. Sandhu is following an infection disease consultation. - r/o SBP, follow-up on culture. 2) Hepatic encephalopathy. Continue lactulose q.i.d. and rifaximin. Dr. Melendez is following in gastroenterology consultation. 3) Alcoholic liver cirrhosis with recurrent ascites. s/p paracentesis on 12/02 4) LEONARDO on Chronic kidney disease. Dr. Morrison is following in nephrology consultation. 5) Diabetes mellitus. Continue NovoLog per mild algorithm sliding scale coverage. 6) Thrombocytopenia, most likely secondary to liver cirrhosis. Continue to monitor platelet count. Problems: Subjective 24 Hr Interval Summary Free Text/Dictation Patient has no complaints, is on vasopressors Exam/Review of Systems Vital Signs Vitals Vital Signs Date Time Temp Pulse Resp B/P Pulse Ox O2 Delivery O2 Flow Rate FiO2 12/05/16 06:15 89 18 106/63 100 12/05/16 06:00 Room Air 12/05/16 04:00 97.8 Intake and Output 12/04/16 12/04/16 12/05/16 15:00 23:00 07:00 Intake Total 1300 ml 1605.478 ml 555.00 ml Output Total 265 ml 800 ml 300 ml Balance 1035 ml 805.478 ml 255.00 ml Exam Constitutional: well developed Head: atraumatic, normocephalic Neck: supple Respiratory: diminished breath sounds Cardiovascular: regular rate and rhythm Gastrointestinal: non-tender, soft Results Result Diagram: 12/04/16 0400 12/04/16 0400 Results 24 hrs Laboratory Tests Test 12/04/16 12:40 12/04/16 18:03 12/04/16 21:07 12/05/16 08:20 Bedside Glucose 133 123 120 95 Medications Medications Current Medications Rifaximin (Xifaxan) 550 mg BID PO Last administered on 12/05/16t 09:16; Admin Dose 550 MG; Start 11/28/16 at 21:00 Diagnostic Test (Pha) (Accucheck) 1 ea 02 XX Last administered on 11/29/16 02: 29; Admin Dose 1 EA; Start 11/29/16 at 02:00 Diagnostic Test (Pha) 1 ea 1 ea 02 XX Last administered on 11/29/16 02:29; Admin Dose 1 EA; Start 11/29/16 at 02:00 Sodium Chloride (NS) 1,000 ml @ 75 mls/hr [id number] IV Last administered on 21:01; Admin Dose 75 MLS/HR; Start 11/28/16 at 20:00 Miscellaneous Information 1 ea NOTE XX ; Start 11/28/16 at 20:00 Glucose (Glutose) 15 gm Q15M PRN PO DECREASED GLUCOSE; Start 11/28/16 at 20:00 Glucose (Glutose) 22.5 gm Q15M PRN PO DECREASED GLUCOSE; Start 11/28/16 at 20: 00 Dextrose (D50w Syringe) 25 ml Q15M PRN IV DECREASED GLUCOSE; Start 11/28/16 at 20:00 Dextrose (D50w Syringe) 50 ml Q15M PRN IV DECREASED GLUCOSE; Start 11/28/16 at 20:00 Glucagon (Glucagen) 1 mg Q15M PRN IM DECREASED GLUCOSE; Start 11/28/16 at 20:00 Glucose (Glutose) 15 gm Q15M PRN BUCCAL DECREASED GLUCOSE; Start 11/28/16 at 20 :00 Citric Acid/ Sodium Citrate (Bicitra) 15 ml BID PO Last administered on 21:01; Admin Dose 15 ML; Start 11/29/16 at 21:00 Pantoprazole (Protonix Tab) 40 mg DAILY@06 PO Last administered on 12/04/16 05: 11; Admin Dose 40 MG; Start 12/02/16 at 06:00 Morphine Sulfate 2 mg 2 mg Q4H PRN IV PAIN LEVEL 6-10 Last administered on 21:02; Admin Dose 2 MG; Start 12/02/16 at 06:00 Norepinephrine/ Dextrose (Levophed/D5W) 500 ml @ 0 mls/hr TITRATE IV Last administered on 12/04/16 16:26; Admin Dose 5.62 MLS/HR; Start 12/02/16 at 13:30 IV Flush (NS 10 ml) 10 ml PRN PRN IV IV PROTOCOL; Start 12/02/16 at 18:30 Ondansetron HCl 4 mg 4 mg Q6H PRN IV NAUSEA AND/OR VOMITING Last administered on 12/03/16 02:23; Admin Dose 4 MG; Start 12/03/16 at 02:30 Caspofungin/ Sodium Chloride (Cancidas/NS) 250 ml @ 250 mls/hr Q24H IVPB Last administered on 12/04/16 11:38; Admin Dose 250 MLS/HR; Start 12/04/16 at 12:00 Lactulose (Enulose) 40 gm Q6 PO Last administered on 12/04/16 12:36; Admin Dose 40 GM; Start 12/03/16 at 18:00 Epoetin Brandan (Epogen (Non Esrd/Non Oncology)) 10,000 units MoWeFr@17 SC Last administered on 12/03/16 21:22; Admin Dose 10,000 UNITS; Start 12/03/16 at 21:30 Calcium Carbonate 1250 mg 1,250 mg BID NGT Last administered on 12/05/16 09:16 ; Admin Dose 1,250 MG; Start 12/03/16 at 21:00 Meropenem (Merrem 500 Mg/ 100 ml (Pmx)) 100 ml @ 200 mls/hr Q12 IVPB ; Start at 11:00; Stop 12/12/16 at 10:59 DERIC BINGHAM Dec 05, 2016 10:51
[2016-12-05] MEDS: SOD CHLORIDE 0.9% 1,000 ML IV SCH (14:17)
[2016-12-05] MEDS: MEROPENEM 500 MG/100 ML (PMX) 100 ML IVPB SCH ×2 (14:18→20:29)
[2016-12-05] MEDS: CASPOFUNGIN 50 MG in SOD CHLORIDE 0.9% 250 ML IVPB SCH (15:31)
--- NOTE | 2016-12-05 17:08 | CONS ---
Date/Time of Note Date/Time of Note DATE: 12/05/16 TIME: 17:07 Assessment/Plan Assessment/Plan Additional Assessment/Plan IMPRESSION: 1. Hepatic encephalopathy. 2. Cirrhosis of liver. 3. Refractory ascites. 4. Hepatorenal syndrome, type 1. 5. Diabetes mellitus. 6.hypotension,transferred to ICU 7.leucocytosis,w/u in progress 8.spontaneous bacterial peritonitis ,wbc.12,000 PLAN: To continue with lactulose and rifaximin. Hold off on diuretics because that will worsen the patient's renal function. Fluid restriction. Reduced protein diet. stool for occult blood,negative empiric Zosyn albumin to sustain BP resume feeding through g tube Consultation Date/Type/Reason Admit Date/Time Nov 28, 2016 at 12:41 Initial Consult Date 11/29/16 Type of Consultation: ID Referring Provider: SUNDAR OBRIEN 24 HR Interval Summary Subjective hx not possible: pt critical Constitutional: improved Exam/Review of Systems Vital Signs Vitals Vital Signs Date Time Temp Pulse Resp B/P Pulse Ox O2 Delivery O2 Flow Rate FiO2 12/05/16 12:00 99 12/05/16 06:15 18 106/63 100 12/05/16 06:00 Room Air 12/05/16 04:00 97.8 Intake and Output 12/04/16 12/04/16 12/05/16 15:00 23:00 07:00 Intake Total 1300 ml 1605.478 ml 555.00 ml Output Total 265 ml 800 ml 300 ml Balance 1035 ml 805.478 ml 255.00 ml Exam Constitutional: alert, oriented, well developed Psych: nl mood/affect, no complaints Head: atraumatic, normocephalic Eyes: EOMI, PERRL, nl conjunctiva, nl lids, nl sclera ENMT: nl external ears & nose, nl lips & teeth, nl nasal mucosa & septum Neck: non-tender, supple Respiratory: clear to auscultation, normal air movement Cardiovascular: nl pulses, regular rate and rhythm Gastrointestinal: nl liver, spleen, non-tender, soft Musculoskeletal: nl extremities to inspection, nl gait and stance Extremities: normal pulses 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: BILLING MANAGER II-XII intact, nl mental status, nl speech, nl strength Skin: nl turgor, No rash or lesions Lymph: nl lymph nodes Results Result Diagram: 12/04/16 0400 12/04/16 0400 Results 24 hrs Laboratory Tests Test 12/04/16 18:03 12/04/16 21:07 12/05/16 08:20 Bedside Glucose 123 120 95 Medications Medications Current Medications Rifaximin (Xifaxan) 550 mg BID PO Last administered on 12/05/16 09:16; Admin Dose 550 MG; Start 11/28/16 at 21:00 Diagnostic Test (Pha) (Accucheck) 1 ea 02 XX Last administered on 11/29/16 02: 29; Admin Dose 1 EA; Start 11/29/16 at 02:00 Diagnostic Test (Pha) 1 ea 1 ea 02 XX Last administered on 11/29/16 02:29; Admin Dose 1 EA; Start 11/29/16 at 02:00 Sodium Chloride (NS) 1,000 ml @ 75 mls/hr [id number] IV Last administered on 14:17; Admin Dose 75 MLS/HR; Start 11/28/16 at 20:00 Miscellaneous Information 1 ea NOTE XX ; Start 11/28/16 at 20:00 Glucose (Glutose) 15 gm Q15M PRN PO DECREASED GLUCOSE; Start 11/28/16 at 20:00 Glucose (Glutose) 22.5 gm Q15M PRN PO DECREASED GLUCOSE; Start 11/28/16 at 20: 00 Dextrose (D50w Syringe) 25 ml Q15M PRN IV DECREASED GLUCOSE; Start 11/28/16 at 20:00 Dextrose (D50w Syringe) 50 ml Q15M PRN IV DECREASED GLUCOSE; Start 11/28/16 at 20:00 Glucagon (Glucagen) 1 mg Q15M PRN IM DECREASED GLUCOSE; Start 11/28/16 at 20:00 Glucose (Glutose) 15 gm Q15M PRN BUCCAL DECREASED GLUCOSE; Start 11/28/16 at 20 :00 Citric Acid/ Sodium Citrate (Bicitra) 15 ml BID PO Last administered on 21:01; Admin Dose 15 ML; Start 11/29/16 at 21:00 Pantoprazole (Protonix Tab) 40 mg DAILY@06 PO Last administered on 12/04/16 05: 11; Admin Dose 40 MG; Start 12/02/16 at 06:00 Morphine Sulfate 2 mg 2 mg Q4H PRN IV PAIN LEVEL 6-10 Last administered on 21:02; Admin Dose 2 MG; Start 12/02/16 at 06:00 Norepinephrine/ Dextrose (Levophed/D5W) 500 ml @ 0 mls/hr TITRATE IV Last administered on 12/04/16 16:26; Admin Dose 5.62 MLS/HR; Start 12/02/16 at 13:30 IV Flush (NS 10 ml) 10 ml PRN PRN IV IV PROTOCOL; Start 12/02/16 at 18:30 Ondansetron HCl 4 mg 4 mg Q6H PRN IV NAUSEA AND/OR VOMITING Last administered on 12/03/16 02:23; Admin Dose 4 MG; Start 12/03/16 at 02:30 Caspofungin/ Sodium Chloride (Cancidas/NS) 250 ml @ 250 mls/hr Q24H IVPB Last administered on 12/05/16 15:31; Admin Dose 250 MLS/HR; Start 12/04/16 at 12:00 Lactulose (Enulose) 40 gm Q6 PO Last administered on 12/04/16 12:36; Admin Dose 40 GM; Start 12/03/16 at 18:00 Epoetin Brandan (Epogen (Non Esrd/Non Oncology)) 10,000 units MoWeFr@17 SC Last administered on 12/03/16 21:22; Admin Dose 10,000 UNITS; Start 12/03/16 at 21:30 Calcium Carbonate 1250 mg 1,250 mg BID NGT Last administered on 12/05/16 09:16 ; Admin Dose 1,250 MG; Start 12/03/16 at 21:00 Meropenem (Merrem 500 Mg/ 100 ml (Pmx)) 100 ml @ 200 mls/hr Q12 IVPB Last administered on 12/05/16 14:18; Admin Dose 200 MLS/HR; Start 12/05/16 at 11:00; Stop 12/12/16 at 10:59 JOHANA MOTLEY MD Dec 05, 2016 17:08
[2016-12-06] VITALS (25 sets, daily range): BP systolic 93–114; BP diastolic 44–86; PULSE 88–112; RESP 12–27
[2016-12-06] MEDS ORDERED: INSULIN ASPART [NOVOLOG] 3 ML PEN SC SCH
[2016-12-06 05:38] LABS: BASOPHILS % 0.3 % (0.0-2.0); EOSINOPHILS % 0.2 % (0.0-7.0); LYMPHOCYTES # 0.6 10^3/ul (0.8-2.9); LYMPHOCYTES % 7.6 % (15.0-51.0); MEAN CORPUSCULAR HEMOGLOBIN 32.4 pg (29.0-33.0); MEAN CORPUSCULAR HGB CONC 34.7 g/dl (32.0-37.0); MEAN CORPUSCULAR VOLUME 93.3 fl (82.0-101.0); MEAN PLATELET VOLUME 9.1 fl (7.4-10.4); MONOCYTE # 0.7 10^3/ul (0.3-0.9); MONOCYTES % 9.6 % (0.0-11.0); NEUTROPHIL # 6.4 10^3/ul (1.6-7.5); NEUTROPHILS % 82.3 % (39.0-77.0); PLATELET COUNT 32 10^3/UL (140-440); RED BLOOD COUNT 2.46 10^6/ul (4.70-6.10); UNCORRECTED WBC 7.8 10^3/ul (4.8-10.8); WHITE BLOOD COUNT 7.8 10^3/ul (4.8-10.8)
[2016-12-06 05:42] LABS: ALBUMIN 2.2 g/dl (3.3-4.9)
[2016-12-06 05:44] LABS: CREATININE 2.27 mg/dl (0.61-1.24)
[2016-12-06] MEDS: PANTOPRAZOLE (EC) 40 MG TAB PO SCH (05:44)
[2016-12-06] MEDS: SOD CHLORIDE 0.9% 1,000 ML IV SCH ×3 (05:44→18:57)
[2016-12-06 05:45] LABS: ALBUMIN/GLOBULIN RATIO 0.7; BILIRUBIN,INDIRECT 1.1 mg/dl (0-1.1); BILIRUBIN,TOTAL 1.1 mg/dl (0.2-1.3); TOTAL PROTEIN 5.3 g/dl (6.1-8.1)
[2016-12-06] MEDS: LACTULOSE 30ML CUP PO SCH ×4 (06:00→18:21)
[2016-12-06 06:18] LABS: CONDITION 1; LH ANALYZER COMMENTS 1
[2016-12-06] MEDS: INSULIN ASPART [NOVOLOG] 3 ML PEN SC SCH ×4 (07:35→21:00)
[2016-12-06] MEDS: CA CARBONATE (250 MG/ML) 5ML CUP NGT SCH ×2 (09:00→21:18)
[2016-12-06] MEDS: MEROPENEM 500 MG/100 ML (PMX) 100 ML IVPB SCH ×2 (09:44→21:19)
--- NOTE | 2016-12-06 10:46 | CONS ---
Date/Time of Note Date/Time of Note DATE: 12/06/16 TIME: 10:42 Assessment/Plan Assessment/Plan Chief Complaint/Hosp Course assessment/impression - h/o sepsis - SBP, s/p paracentesis 12/02/2016. Ascetic NXRn=[id number] - probable UTI (pyuria, increased urinary frequency) - thrush - LEONARDO - ileus - recurrent hepatic encephalopathy - cholelithiasis - RLQ pain: CT did not demonstrate other acute GI processes - h/o alcoholic liver cirrhosis and portal hypertension - h/o recurrent ascites s/p paracentesis in the past. - DM - CRI - thrombocytopenia (HIV screen negative in 2016, hepatitis screen was negative in 2015) recommendations - ordered C diff (Pt refused lactulose but had loose stool) - continue renally dosed meropenem (12/05/2016-). Note: Pt took pip/tazo (12/01/2016 -12/04/2016), planned through 12/08/2016 - Pt will benefit from long-term antibiotic for SBP prophylaxis after completing IV antibiotic - continue caspofungin (12/03/2016-), to treat thrush but also empirically for krystal peritonitis in light of persistent hypotension and thrush - continue rifaxamin management d/w Pt and her RN the critical care time I took to care for this Pt today was from 1030 to 1100 Problems: Consultation Date/Type/Reason Admit Date/Time Nov 28, 2016 at 12:41 Initial Consult Date 12/02/16 Type of Consultation: ID Referring Provider: SUNDAR OBRIEN 24 HR Interval Summary Subjective hx not possible: pt non-verbal Constitutional: disoriented Detailed Summary Eyes: no complaints ENT: no complaints Respiratory: no complaints Cardiovascular: no complaints Gastrointestinal: pain (did not localize), passing stool Genitourinary: dysuria Musculoskeletal: no complaints Skin: no complaints Neurologic: other (weak) Exam/Review of Systems Vital Signs Vitals Vital Signs Date Time Temp Pulse Resp B/P Pulse Ox O2 Delivery O2 Flow Rate FiO2 12/06/16 10:00 99 14 110/64 100 Room Air 12/06/16 08:00 98.3 Intake and Output 12/05/16 12/05/16 12/06/16 15:00 23:00 07:00 Intake Total 0 ml 825 ml 715 ml Output Total 1 ml 151 ml 180 ml Balance -1 ml 674 ml 535 ml Exam Constitutional: frail, non-verbal Psych: confusion Head: atraumatic, normocephalic Eyes: icteric, nl conjunctiva, nl lids ENMT: mucosa pink and moist, nl external ears & nose, nl nasal mucosa & septum Respiratory: diminished breath sounds Cardiovascular: nl pulses, regular rate and rhythm Gastrointestinal: ascites, distended, soft, No mass, No non-tender, No tender 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: confused, lethargic Results Result Diagram: 12/06/16 0425 12/06/16 0425 Results 24 hrs Laboratory Tests Test 12/05/16 18:30 12/06/16 00:21 12/06/16 04:25 12/06/16 08:06 Bedside Glucose 84 82 115 Alanine Aminotransferase (ALT/SGPT) 36 Albumin 2.2 L Albumin/Globulin Ratio 0.70 Alkaline Phosphatase 64 Anion Gap 18 H Aspartate Amino Transf (AST/SGOT) 35 Basophils # 0.0 Basophils % 0.3 Blood Morphology Comment Blood Urea Nitrogen 71 H Calcium Level 8.0 L Carbon Dioxide Level 18 L Chloride Level 123 H Creatinine 2.27 H Direct Bilirubin 0.00 Eosinophils # 0.0 Eosinophils % 0.2 Globulin 3.10 Glucose Level 77 Hematocrit 23.0 L Hemoglobin 8.0 L Indirect Bilirubin 1.1 Lymphocytes # 0.6 L Lymphocytes % 7.6 L Mean Corpuscular Hemoglobin 32.4 Mean Corpuscular Hemoglobin Concent 34.7 Mean Corpuscular Volume 93.3 Mean Platelet Volume 9.1 # Monocytes # 0.7 Monocytes % 9.6 Neutrophils # 6.4 Neutrophils % 82.3 H Nucleated Red Blood Cells # 0.0 Nucleated Red Blood Cells % 0.0 Platelet Count 32 #L Potassium Level 3.0 L Red Blood Count 2.46 L Red Cell Distribution Width 17.0 H Sodium Level 156 H Total Bilirubin 1.1 Total Protein 5.3 L White Blood Count 7.8 # Medications Medications Current Medications Rifaximin 550 mg 550 mg BID PO Last administered on 12/05/16 20:30; Admin Dose 550 MG; Start 11/28/16 at 21:00 Sodium Chloride (NS) 1,000 ml @ 75 mls/hr [id number] IV Last administered on 05:44; Admin Dose 75 MLS/HR; Start 11/28/16 at 20:00 Miscellaneous Information 1 ea NOTE XX ; Start 11/28/16 at 20:00 Glucose (Glutose) 15 gm Q15M PRN PO DECREASED GLUCOSE; Start 11/28/16 at 20:00 Glucose (Glutose) 22.5 gm Q15M PRN PO DECREASED GLUCOSE; Start 11/28/16 at 20: 00 Dextrose (D50w Syringe) 25 ml Q15M PRN IV DECREASED GLUCOSE; Start 11/28/16 at 20:00 Dextrose (D50w Syringe) 50 ml Q15M PRN IV DECREASED GLUCOSE; Start 11/28/16 at 20:00 Glucagon (Glucagen) 1 mg Q15M PRN IM DECREASED GLUCOSE; Start 11/28/16 at 20:00 Glucose (Glutose) 15 gm Q15M PRN BUCCAL DECREASED GLUCOSE; Start 11/28/16 at 20 :00 Citric Acid/ Sodium Citrate (Bicitra) 15 ml BID PO Last administered on 20:30; Admin Dose 15 ML; Start 11/29/16 at 21:00 Pantoprazole (Protonix Tab) 40 mg DAILY@06 PO Last administered on 12/06/16 05: 44; Admin Dose 40 MG; Start 12/02/16 at 06:00 Morphine Sulfate 2 mg 2 mg Q4H PRN IV PAIN LEVEL 6-10 Last administered on 21:02; Admin Dose 2 MG; Start 12/02/16 at 06:00 Norepinephrine/ Dextrose (Levophed/D5W) 500 ml @ 0 mls/hr TITRATE IV Last administered on 12/04/16 16:26; Admin Dose 5.62 MLS/HR; Start 12/02/16 at 13:30 IV Flush (NS 10 ml) 10 ml PRN PRN IV IV PROTOCOL; Start 12/02/16 at 18:30 Ondansetron HCl 4 mg 4 mg Q6H PRN IV NAUSEA AND/OR VOMITING Last administered on 12/03/16 02:23; Admin Dose 4 MG; Start 12/03/16 at 02:30 Caspofungin/ Sodium Chloride (Cancidas/NS) 250 ml @ 250 mls/hr Q24H IVPB Last administered on 12/05/16 15:31; Admin Dose 250 MLS/HR; Start 12/04/16 at 12:00 Lactulose (Enulose) 40 gm Q6 PO Last administered on 12/04/16 12:36; Admin Dose 40 GM; Start 12/03/16 at 18:00 Epoetin Brandan (Epogen (Non Esrd/Non Oncology)) 10,000 units MoWeFr@17 SC Last administered on 12/03/16 21:22; Admin Dose 10,000 UNITS; Start 12/03/16 at 21:30 Calcium Carbonate 1250 mg 1,250 mg BID NGT Last administered on 12/05/16 20:29 ; Admin Dose 1,250 MG; Start 12/03/16 at 21:00 Meropenem (Merrem 500 Mg/ 100 ml (Pmx)) 100 ml @ 200 mls/hr Q12 IVPB Last administered on 12/06/16 09:44; Admin Dose 200 MLS/HR; Start 12/05/16 at 11:00; Stop 12/12/16 at 10:59 Diagnostic Test (Pha) (Accucheck) 1 02 XX ; Start 12/07/16 at 02:00 MANFRED MARTINEZ M.D. Dec 06, 2016 10:46
[2016-12-06] MEDS: RIFAXIMIN 550 MG TAB PO SCH ×2 (10:53→21:18)
[2016-12-06] MEDS: CITRIC ACID/NA CITRATE 30 ML CUP PO SCH ×2 (10:53→21:18)
[2016-12-06] MEDS: CASPOFUNGIN 50 MG in SOD CHLORIDE 0.9% 250 ML IVPB SCH (12:32)
--- NOTE | 2016-12-06 14:08 | PN ---
Date/Time of Note Date/Time of Note DATE: 12/06/16 TIME: 14:04 Assessment/Plan VTE Prophylaxis VTE Prophylaxis Intervention: SCD's Lines/Catheters IV Catheter Type ([facility] PICC Line Central line still needed: Yes Urinary Cath still in place: No Assessment/Plan Chief Complaint/Hosp Course ASSESSMENT AND PLAN: - Sepsis, resolve. Continue abx per ID. Dr. Sandhu is following in infection disease consultation. - Possible SBP, follow-up on final ascetic culture. - Hepatic encephalopathy. Continue lactulose q.i.d. and rifaximin. Dr. Melendez is following in gastroenterology consultation. - Alcoholic liver cirrhosis with recurrent ascites. s/p paracentesis on 12/02 - LEONARDO on Chronic kidney disease. Dr. Morrison is following in nephrology consultation. - Diabetes mellitus. Continue NovoLog per mild algorithm sliding scale coverage. - Thrombocytopenia, most likely secondary to liver cirrhosis. Continue to monitor platelet count. Continue Protonix for peptic ulcer disease prophylaxis and sequential compression device for deep venous thrombosis prophylaxis. Further recommendations based on clinical course. Plan of care discussed with Dr. Qureshi. Problems: Subjective 24 Hr Interval Summary Free Text/Dictation Patient's a weaned off of Levophed drip, patient is awake alert to name and situation, refused lactulose per RN, no fever. Exam/Review of Systems Vital Signs Vitals Vital Signs Date Time Temp Pulse Resp B/P Pulse Ox O2 Delivery O2 Flow Rate FiO2 12/06/16 13:00 102 21 107/86 100 Room Air 12/06/16 12:08 97.6 Intake and Output 12/05/16 12/05/16 12/06/16 15:00 23:00 07:00 Intake Total 0 ml 825 ml 715 ml Output Total 1 ml 151 ml 180 ml Balance -1 ml 674 ml 535 ml Exam GENERAL: Well-developed, well-nourished male currently in no acute distress HEENT: Head is atraumatic, normocephalic. Pupils equal, round, reactive to light and accommodation. The patient has slightly jaundiced sclerae. NECK: Supple. No cervical lymphadenopathy, no thyromegaly. CHEST: Lungs clear bilaterally. There is no rhonchi, wheezes, rales noted. CARDIOVASCULAR: Normal S1, S2. No murmurs, gallops, clicks, rubs noted. ABDOMEN: Protuberant, soft, distended, nontender. EXTREMITIES: No edema, clubbing, cyanosis. Pulses equal bilaterally 2+. SKIN: The patient has multiple ecchymotic areas and healing scabs. NEUROLOGIC: Patient is awake, alert to name and situation, otherwise confused. Results Result Diagram: 12/06/16 0425 12/06/16 0425 Results 24 hrs Laboratory Tests Test 12/05/16 18:30 12/06/16 00:21 12/06/16 04:25 12/06/16 08:06 Bedside Glucose 84 82 115 Alanine Aminotransferase (ALT/SGPT) 36 Albumin 2.2 L Albumin/Globulin Ratio 0.70 Alkaline Phosphatase 64 Anion Gap 18 H Aspartate Amino Transf (AST/SGOT) 35 Basophils # 0.0 Basophils % 0.3 Blood Morphology Comment Blood Urea Nitrogen 71 H Calcium Level 8.0 L Carbon Dioxide Level 18 L Chloride Level 123 H Creatinine 2.27 H Direct Bilirubin 0.00 Eosinophils # 0.0 Eosinophils % 0.2 Globulin 3.10 Glucose Level 77 Hematocrit 23.0 L Hemoglobin 8.0 L Indirect Bilirubin 1.1 Lymphocytes # 0.6 L Lymphocytes % 7.6 L Mean Corpuscular Hemoglobin 32.4 Mean Corpuscular Hemoglobin Concent 34.7 Mean Corpuscular Volume 93.3 Mean Platelet Volume 9.1 # Monocytes # 0.7 Monocytes % 9.6 Neutrophils # 6.4 Neutrophils % 82.3 H Nucleated Red Blood Cells # 0.0 Nucleated Red Blood Cells % 0.0 Platelet Count 32 #L Potassium Level 3.0 L Red Blood Count 2.46 L Red Cell Distribution Width 17.0 H Sodium Level 156 H Total Bilirubin 1.1 Total Protein 5.3 L White Blood Count 7.8 # Test 12/06/16 11:31 Bedside Glucose 82 Medications Medications Current Medications Rifaximin 550 mg 550 mg BID PO Last administered on 12/06/16 10:53; Admin Dose 550 MG; Start 11/28/16 at 21:00 Sodium Chloride (NS) 1,000 ml @ 75 mls/hr [id number] IV Last administered on 05:44; Admin Dose 75 MLS/HR; Start 11/28/16 at 20:00 Miscellaneous Information 1 ea NOTE XX ; Start 11/28/16 at 20:00 Glucose (Glutose) 15 gm Q15M PRN PO DECREASED GLUCOSE; Start 11/28/16 at 20:00 Glucose (Glutose) 22.5 gm Q15M PRN PO DECREASED GLUCOSE; Start 11/28/16 at 20: 00 Dextrose (D50w Syringe) 25 ml Q15M PRN IV DECREASED GLUCOSE; Start 11/28/16 at 20:00 Dextrose (D50w Syringe) 50 ml Q15M PRN IV DECREASED GLUCOSE; Start 11/28/16 at 20:00 Glucagon (Glucagen) 1 mg Q15M PRN IM DECREASED GLUCOSE; Start 11/28/16 at 20:00 Glucose (Glutose) 15 gm Q15M PRN BUCCAL DECREASED GLUCOSE; Start 11/28/16 at 20 :00 Citric Acid/ Sodium Citrate (Bicitra) 15 ml BID PO Last administered on 10:53; Admin Dose 15 ML; Start 11/29/16 at 21:00 Pantoprazole (Protonix Tab) 40 mg DAILY@06 PO Last administered on 12/06/16 05: 44; Admin Dose 40 MG; Start 12/02/16 at 06:00 Morphine Sulfate (morphine) 2 mg Q4H PRN IV PAIN LEVEL 6-10 Last administered on 12/04/16 21:02; Admin Dose 2 MG; Start 12/02/16 at 06:00 IV Flush (NS 10 ml) 10 ml PRN PRN IV IV PROTOCOL; Start 12/02/16 at 18:30 Ondansetron HCl 4 mg 4 mg Q6H PRN IV NAUSEA AND/OR VOMITING Last administered on 12/03/16 02:23; Admin Dose 4 MG; Start 12/03/16 at 02:30 Caspofungin/ Sodium Chloride (Cancidas/NS) 250 ml @ 250 mls/hr Q24H IVPB Last administered on 12/06/16 12:32; Admin Dose 250 MLS/HR; Start 12/04/16 at 12:00 Lactulose (Enulose) 40 gm Q6 PO Last administered on 12/04/16 12:36; Admin Dose 40 GM; Start 12/03/16 at 18:00 Epoetin Brandan (Epogen (Non Esrd/Non Oncology)) 10,000 units MoWeFr@17 SC Last administered on 12/03/16 21:22; Admin Dose 10,000 UNITS; Start 12/03/16 at 21:30 Calcium Carbonate 1250 mg 1,250 mg BID NGT Last administered on 12/05/16 20:29 ; Admin Dose 1,250 MG; Start 12/03/16 at 21:00 Meropenem (Merrem 500 Mg/ 100 ml (Pmx)) 100 ml @ 200 mls/hr Q12 IVPB Last administered on 12/06/16 09:44; Admin Dose 200 MLS/HR; Start 12/05/16 at 11:00; Stop 12/12/16 at 10:59 Diagnostic Test (Pha) (Accucheck) 1 02 XX ; Start 12/07/16 at 02:00 RIDDHI BLOCK Dec 06, 2016 14:08
--- NOTE | 2016-12-06 18:33 | CONS ---
Date/Time of Note Date/Time of Note DATE: 12/06/16 TIME: 18:32 Assessment/Plan Assessment/Plan Additional Assessment/Plan IMPRESSION: 1. Hepatic encephalopathy. 2. Cirrhosis of liver. 3. Refractory ascites. 4. Hepatorenal syndrome, type 1. 5. Diabetes mellitus. 6.hypotension,transferred to ICU 7.leucocytosis,w/u in progress 8.spontaneous bacterial peritonitis ,wbc.12,000 PLAN: To continue with lactulose and rifaximin. Hold off on diuretics because that will worsen the patient's renal function. Fluid restriction. Reduced protein diet. stool for occult blood,negative empiric Zosyn albumin to sustain BP resume feeding po Midodrine 5 mg bid Consultation Date/Type/Reason Admit Date/Time Nov 28, 2016 at 12:41 Initial Consult Date 11/29/16 Type of Consultation: ID Referring Provider: SUNDAR OBRIEN 24 HR Interval Summary Constitutional: improved Exam/Review of Systems Vital Signs Vitals Vital Signs Date Time Temp Pulse Resp B/P Pulse Ox O2 Delivery O2 Flow Rate FiO2 12/06/16 18:00 95 14 111/69 100 Room Air 12/06/16 16:00 97.9 Intake and Output 12/05/16 12/05/16 12/06/16 15:00 23:00 07:00 Intake Total 0 ml 825 ml 715 ml Output Total 1 ml 151 ml 180 ml Balance -1 ml 674 ml 535 ml Exam Constitutional: alert, oriented, well developed Psych: nl mood/affect, no complaints Head: atraumatic, normocephalic Eyes: EOMI, PERRL, nl conjunctiva, nl lids, nl sclera ENMT: nl external ears & nose, nl lips & teeth, nl nasal mucosa & septum Neck: non-tender, supple Respiratory: clear to auscultation, normal air movement Cardiovascular: nl pulses, regular rate and rhythm Gastrointestinal: nl liver, spleen, non-tender, soft Musculoskeletal: nl extremities to inspection, nl gait and stance Extremities: normal pulses 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: PRINTING MANAGER II-XII intact, nl mental status, nl speech, nl strength Skin: nl turgor, No rash or lesions Lymph: nl lymph nodes Results Result Diagram: 12/06/165 12/06/165 Results 24 hrs Laboratory Tests Test 12/06/16 00:21 12/06/16 04:25 2/6/17 08:06 12/06/16 11:31 Bedside Glucose 82 115 82 Alanine Aminotransferase (ALT/SGPT) 36 Albumin 2.2 L Albumin/Globulin Ratio 0.70 Alkaline Phosphatase 64 Anion Gap 18 H Aspartate Amino Transf (AST/SGOT) 35 Basophils # 0.0 Basophils % 0.3 Blood Morphology Comment Blood Urea Nitrogen 71 H Calcium Level 8.0 L Carbon Dioxide Level 18 L Chloride Level 123 H Creatinine 2.27 H Direct Bilirubin 0.00 Eosinophils # 0.0 Eosinophils % 0.2 Globulin 3.10 Glucose Level 77 Hematocrit 23.0 L Hemoglobin 8.0 L Indirect Bilirubin 1.1 Lymphocytes # 0.6 L Lymphocytes % 7.6 L Mean Corpuscular Hemoglobin 32.4 Mean Corpuscular Hemoglobin Concent 34.7 Mean Corpuscular Volume 93.3 Mean Platelet Volume 9.1 # Monocytes # 0.7 Monocytes % 9.6 Neutrophils # 6.4 Neutrophils % 82.3 H Nucleated Red Blood Cells # 0.0 Nucleated Red Blood Cells % 0.0 Platelet Count 32 #L Potassium Level 3.0 L Red Blood Count 2.46 L Red Cell Distribution Width 17.0 H Sodium Level 156 H Total Bilirubin 1.1 Total Protein 5.3 L White Blood Count 7.8 # Test 12/06/16 16:57 Bedside Glucose 126 Medications Medications Current Medications Rifaximin 550 mg 550 mg BID PO Last administered on 12/06/16 10:53; Admin Dose 550 MG; Start 11/28/16 at 21:00 Sodium Chloride (NS) 1,000 ml @ 75 mls/hr [id number] IV Last administered on 05:44; Admin Dose 75 MLS/HR; Start 11/28/16 at 20:00 Miscellaneous Information 1 ea NOTE XX ; Start 11/28/16 at 20:00 Glucose (Glutose) 15 gm Q15M PRN PO DECREASED GLUCOSE; Start 11/28/16 at 20:00 Glucose (Glutose) 22.5 gm Q15M PRN PO DECREASED GLUCOSE; Start 11/28/16 at 20: 00 Dextrose (D50w Syringe) 25 ml Q15M PRN IV DECREASED GLUCOSE; Start 11/28/16 at 20:00 Dextrose (D50w Syringe) 50 ml Q15M PRN IV DECREASED GLUCOSE; Start 11/28/16 at 20:00 Glucagon (Glucagen) 1 mg Q15M PRN IM DECREASED GLUCOSE; Start 11/28/16 at 20:00 Glucose (Glutose) 15 gm Q15M PRN BUCCAL DECREASED GLUCOSE; Start 11/28/16 at 20 :00 Citric Acid/ Sodium Citrate (Bicitra) 15 ml BID PO Last administered on 10:53; Admin Dose 15 ML; Start 11/29/16 at 21:00 Pantoprazole (Protonix Tab) 40 mg DAILY@06 PO Last administered on 12/06/16 05: 44; Admin Dose 40 MG; Start 12/02/16 at 06:00 Morphine Sulfate (morphine) 2 mg Q4H PRN IV PAIN LEVEL 6-10 Last administered on 12/04/16 21:02; Admin Dose 2 MG; Start 12/02/16 at 06:00 IV Flush (NS 10 ml) 10 ml PRN PRN IV IV PROTOCOL; Start 12/02/16 at 18:30 Ondansetron HCl 4 mg 4 mg Q6H PRN IV NAUSEA AND/OR VOMITING Last administered on 12/03/16 02:23; Admin Dose 4 MG; Start 12/03/16 at 02:30 Caspofungin/ Sodium Chloride (Cancidas/NS) 250 ml @ 250 mls/hr Q24H IVPB Last administered on 12/06/16 12:32; Admin Dose 250 MLS/HR; Start 12/04/16 at 12:00 Lactulose (Enulose) 40 gm Q6 PO Last administered on 12/06/16 18:21; Admin Dose 40 GM; Start 12/03/16 at 18:00 Epoetin Brandan (Epogen (Non Esrd/Non Oncology)) 10,000 units MoWeFr@17 SC Last administered on 12/03/16 21:22; Admin Dose 10,000 UNITS; Start 12/03/16 at 21:30 Calcium Carbonate 1250 mg 1,250 mg BID NGT Last administered on 12/05/16 20:29 ; Admin Dose 1,250 MG; Start 12/03/16 at 21:00 Meropenem (Merrem 500 Mg/ 100 ml (Pmx)) 100 ml @ 200 mls/hr Q12 IVPB Last administered on 2/6/17at 09:44; Admin Dose 200 MLS/HR; Start 12/05/16 at 11:00; Stop 12/12/16 at 10:59 Diagnostic Test (Pha) (Accucheck) 1 XX ; Start 12/07/16 at 02:00 JOHANA MOTLEY MD Dec 06, 2016 18:33
[2016-12-06] MEDS: EPOETIN 10000 UNITS/ML (NON ESRD/NON ONCOLOGY) SC SCH (18:36)
--- NOTE | 2016-12-06 23:02 | CONS ---
Date/Time of Note Date/Time of Note DATE: 12/06/16 TIME: 23:01 Assessment/Plan Assessment/Plan Chief Complaint/Hosp Course Must increase Lactulose Add Epo for Anemia continue to monitor renal fn closely Add phosphate binder Problems: Consultation Date/Type/Reason Admit Date/Time Nov 28, 2016 at 12:41 Initial Consult Date 12/02/16 Type of Consultation: ID Referring Provider: SUNDAR OBRIEN Exam/Review of Systems Vital Signs Vitals Vital Signs Date Time Temp Pulse Resp B/P Pulse Ox O2 Delivery O2 Flow Rate FiO2 12/06/16 21:00 92 19 108/68 95 Room Air 12/06/16 20:00 98.7 Intake and Output 12/05/16 12/05/16 12/06/16 15:00 23:00 07:00 Intake Total 0 ml 825 ml 715 ml Output Total 1 ml 151 ml 180 ml Balance -1 ml 674 ml 535 ml Results Result Diagram: 12/06/16 0425 12/06/16 0425 Results 24 hrs Laboratory Tests Test 12/06/16 00:21 12/06/16 04:25 12/06/16 08:06 12/06/16 11:31 Bedside Glucose 82 115 82 Alanine Aminotransferase (ALT/SGPT) 36 Albumin 2.2 L Albumin/Globulin Ratio 0.70 Alkaline Phosphatase 64 Anion Gap 18 H Aspartate Amino Transf (AST/SGOT) 35 Basophils # 0.0 Basophils % 0.3 Blood Morphology Comment Blood Urea Nitrogen 71 H Calcium Level 8.0 L Carbon Dioxide Level 18 L Chloride Level 123 H Creatinine 2.27 H Direct Bilirubin 0.00 Eosinophils # 0.0 Eosinophils % 0.2 Globulin 3.10 Glucose Level 77 Hematocrit 23.0 L Hemoglobin 8.0 L Indirect Bilirubin 1.1 Lymphocytes # 0.6 L Lymphocytes % 7.6 L Mean Corpuscular Hemoglobin 32.4 Mean Corpuscular Hemoglobin Concent 34.7 Mean Corpuscular Volume 93.3 Mean Platelet Volume 9.1 # Monocytes # 0.7 Monocytes % 9.6 Neutrophils # 6.4 Neutrophils % 82.3 H Nucleated Red Blood Cells # 0.0 Nucleated Red Blood Cells % 0.0 Platelet Count 32 #L Potassium Level 3.0 L Red Blood Count 2.46 L Red Cell Distribution Width 17.0 H Sodium Level 156 H Total Bilirubin 1.1 Total Protein 5.3 L White Blood Count 7.8 # Test 12/06/16 16:57 12/06/16 21:30 Bedside Glucose 126 146 Medications Medications Current Medications Rifaximin 550 mg 550 mg BID PO Last administered on 12/06/16 21:18; Admin Dose 550 MG; Start 11/28/16 at 21:00 Sodium Chloride (NS) 1,000 ml @ 75 mls/hr [id number] IV Last administered on 18:57; Admin Dose 75 MLS/HR; Start 11/28/16 at 20:00 Miscellaneous Information 1 ea NOTE XX ; Start 11/28/16 at 20:00 Glucose (Glutose) 15 gm Q15M PRN PO DECREASED GLUCOSE; Start 11/28/16 at 20:00 Glucose (Glutose) 22.5 gm Q15M PRN PO DECREASED GLUCOSE; Start 11/28/16 at 20: 00 Dextrose (D50w Syringe) 25 ml Q15M PRN IV DECREASED GLUCOSE; Start 11/28/16 at 20:00 Dextrose (D50w Syringe) 50 ml Q15M PRN IV DECREASED GLUCOSE; Start 11/28/16 at 20:00 Glucagon (Glucagen) 1 mg Q15M PRN IM DECREASED GLUCOSE; Start 11/28/16 at 20:00 Glucose (Glutose) 15 gm Q15M PRN BUCCAL DECREASED GLUCOSE; Start 11/28/16 at 20 :00 Citric Acid/ Sodium Citrate (Bicitra) 15 ml BID PO Last administered on 21:18; Admin Dose 15 ML; Start 11/29/16 at 21:00 Pantoprazole (Protonix Tab) 40 mg DAILY@06 PO Last administered on 12/06/16 05: 44; Admin Dose 40 MG; Start 12/02/16 at 06:00 Morphine Sulfate (morphine) 2 mg Q4H PRN IV PAIN LEVEL 6-10 Last administered on 12/04/16 21:02; Admin Dose 2 MG; Start 12/02/16 at 06:00 IV Flush (NS 10 ml) 10 ml PRN PRN IV IV PROTOCOL; Start 12/02/16 at 18:30 Ondansetron HCl 4 mg 4 mg Q6H PRN IV NAUSEA AND/OR VOMITING Last administered on 12/03/16 02:23; Admin Dose 4 MG; Start 12/03/16 at 02:30 Caspofungin/ Sodium Chloride (Cancidas/NS) 250 ml @ 250 mls/hr Q24H IVPB Last administered on 12/06/16 12:32; Admin Dose 250 MLS/HR; Start 12/04/16 at 12:00 Lactulose (Enulose) 40 gm Q6 PO Last administered on 12/06/16 18:21; Admin Dose 40 GM; Start 12/03/16 at 18:00 Epoetin Brandan (Epogen (Non Esrd/Non Oncology)) 10,000 units MoWeFr@17 SC Last administered on 12/06/16 18:36; Admin Dose 10,000 UNITS; Start 12/03/16 at 21:30 Calcium Carbonate 1250 mg 1,250 mg BID NGT Last administered on 12/06/16 21:18 ; Admin Dose 1,250 MG; Start 12/03/16 at 21:00 Meropenem (Merrem 500 Mg/ 100 ml (Pmx)) 100 ml @ 200 mls/hr Q12 IVPB Last administered on 12/06/16 21:19; Admin Dose 200 MLS/HR; Start 12/05/16 at 11:00; Stop 12/12/16 at 10:59 Diagnostic Test (Pha) (Accucheck) 1 XX ; Start 12/07/16 at 02:00 NELSON BRIGGS MD Dec 06, 2016 23:02
[2016-12-07] VITALS (17 sets, daily range): BP systolic 83–131; BP diastolic 38–79; PULSE 89–101; RESP 13–20
[2016-12-07] MEDS: LACTULOSE 30ML CUP PO SCH ×5 (00:43→23:22)
[2016-12-07] MEDS: ACCUCHECK XX SCH (02:00)
[2016-12-07] MEDS: SOD CHLORIDE 0.9% 1,000 ML IV SCH ×2 (04:00→16:21)
[2016-12-07 04:57] LABS: EOSINOPHILS # 0.1 10^3/ul (0.0-0.5); HEMATOCRIT 23.4 % (42.0-52.0); HEMOGLOBIN 7.9 g/dl (14.0-18.0); LYMPHOCYTES # 0.6 10^3/ul (0.8-2.9); LYMPHOCYTES % 9.1 % (15.0-51.0); MEAN CORPUSCULAR HEMOGLOBIN 32.1 pg (29.0-33.0); MEAN CORPUSCULAR VOLUME 94.4 fl (82.0-101.0); MEAN PLATELET VOLUME 8.8 fl (7.4-10.4); MONOCYTE # 0.7 10^3/ul (0.3-0.9); MONOCYTES % 10.4 % (0.0-11.0); NEUTROPHILS % 79.5 % (39.0-77.0); PLATELET COUNT 38 10^3/UL (140-440); RED BLOOD COUNT 2.47 10^6/ul (4.70-6.10); UNCORRECTED WBC 6.4 10^3/ul (4.8-10.8); WHITE BLOOD COUNT 6.4 10^3/ul (4.8-10.8)
[2016-12-07 05:18] LABS: CALCIUM 7.7 mg/dl (8.4-10.2); CREATININE 2.28 mg/dl (0.61-1.24)
[2016-12-07 05:28] LABS: POTASSIUM 2.9 mmol/L (3.5-5.1)
[2016-12-07 05:30] LABS: CONDITION 1; LH ANALYZER COMMENTS 1
[2016-12-07] MEDS ORDERED: POTASSIUM CHLORIDE 250 ML IVPB ONE (06:00)
[2016-12-07] MEDS: PANTOPRAZOLE (EC) 40 MG TAB PO SCH (06:02)
[2016-12-07] MEDS: MEROPENEM 500 MG/100 ML (PMX) 100 ML IVPB SCH ×2 (09:04→20:23)
[2016-12-07] MEDS: INSULIN ASPART [NOVOLOG] 3 ML PEN SC SCH ×4 (09:07→20:37)
--- NOTE | 2016-12-07 10:34 | CONS ---
Date/Time of Note Date/Time of Note DATE: 12/07/16 TIME: 10:33 Assessment/Plan Assessment/Plan Chief Complaint/Hosp Course assessment/impression - h/o sepsis - SBP, s/p paracentesis 12/02/2016. Ascetic [id number] - probable UTI (pyuria, increased urinary frequency) - thrush - LEONARDO - ileus - recurrent hepatic encephalopathy - cholelithiasis - RLQ pain: CT did not demonstrate other acute GI processes - h/o alcoholic liver cirrhosis and portal hypertension - h/o recurrent ascites s/p paracentesis in the past. - DM - CRI - thrombocytopenia (HIV screen negative in 2016, hepatitis screen was negative in 2015) recommendations - continue renally dosed meropenem (12/05/2016-). Note: Pt took pip/tazo (12/01/2016 -12/04/2016), planned through 12/08/2016 - Pt will benefit from long-term antibiotic for SBP prophylaxis after completing IV antibiotic - continue caspofungin (12/03/2016-), to treat thrush but also empirically for krystal peritonitis in light of persistent hypotension and thrush - continue rifaxamin management d/w his family member Problems: Consultation Date/Type/Reason Admit Date/Time Nov 28, 2016 at 12:41 Initial Consult Date 12/02/16 Type of Consultation: ID Referring Provider: SUNDAR OBRIEN 24 HR Interval Summary Subjective hx not possible: pt non-verbal Exam/Review of Systems Vital Signs Vitals Vital Signs Date Time Temp Pulse Resp B/P Pulse Ox O2 Delivery O2 Flow Rate FiO2 12/07/16 08:30 92 12/07/16 08:01 97.8 18 131/62 95 12/07/16 06:40 Room Air Intake and Output 12/06/16 12/06/16 12/07/16 14:59 22:59 06:59 Intake Total 1380 ml 575 ml 895 ml Output Total 140 ml 290 ml 130 ml Balance 1240 ml 285 ml 765 ml Exam Constitutional: frail Psych: no complaints Head: atraumatic, normocephalic Eyes: icteric, nl lids ENMT: nl external ears & nose, nl nasal mucosa & septum Results Result Diagram: 12/07/16 0340 12/07/16 0340 Results 24 hrs Laboratory Tests Test 12/06/16 11:31 12/06/16 16:57 12/06/16 21:30 12/07/16 03:40 Bedside Glucose 82 126 146 Ammonia < 9 L Anion Gap 18 H Basophils # 0.0 Basophils % 0.0 Blood Morphology Comment Blood Urea Nitrogen 71 H Calcium Level 7.7 L Carbon Dioxide Level 16 L Chloride Level 123 H Creatinine 2.28 H Eosinophils # 0.1 Eosinophils % 1.0 Glucose Level 144 # Hematocrit 23.4 L Hemoglobin 7.9 L Lymphocytes # 0.6 L Lymphocytes % 9.1 L Mean Corpuscular Hemoglobin 32.1 Mean Corpuscular Hemoglobin Concent 34.0 Mean Corpuscular Volume 94.4 Mean Platelet Volume 8.8 Monocytes # 0.7 Monocytes % 10.4 Neutrophils # 5.0 Neutrophils % 79.5 H Nucleated Red Blood Cells # 0.0 Nucleated Red Blood Cells % 0.0 Platelet Count 38 L Potassium Level 2.9 *L Red Blood Count 2.47 L Red Cell Distribution Width 17.0 H Sodium Level 154 H White Blood Count 6.4 Test 12/07/16 08:57 Bedside Glucose 134 Medications Medications Current Medications Rifaximin 550 mg 550 mg BID PO Last administered on 12/06/16 21:18; Admin Dose 550 MG; Start 11/28/16 at 21:00 Sodium Chloride (NS) 1,000 ml @ 75 mls/hr [id number] IV Last administered on 18:57; Admin Dose 75 MLS/HR; Start 11/28/16 at 20:00 Miscellaneous Information 1 ea NOTE XX ; Start 11/28/16 at 20:00 Glucose (Glutose) 15 gm Q15M PRN PO DECREASED GLUCOSE; Start 11/28/16 at 20:00 Glucose (Glutose) 22.5 gm Q15M PRN PO DECREASED GLUCOSE; Start 11/28/16 at 20: 00 Dextrose (D50w Syringe) 25 ml Q15M PRN IV DECREASED GLUCOSE; Start 11/28/16 at 20:00 Dextrose (D50w Syringe) 50 ml Q15M PRN IV DECREASED GLUCOSE; Start 11/28/16 at 20:00 Glucagon (Glucagen) 1 mg Q15M PRN IM DECREASED GLUCOSE; Start 11/28/16 at 20:00 Glucose (Glutose) 15 gm Q15M PRN BUCCAL DECREASED GLUCOSE; Start 11/28/16 at 20 :00 Citric Acid/ Sodium Citrate (Bicitra) 15 ml BID PO Last administered on 21:18; Admin Dose 15 ML; Start 11/29/16 at 21:00 Pantoprazole (Protonix Tab) 40 mg DAILY@06 PO Last administered on 12/07/16 06: 02; Admin Dose 40 MG; Start 12/02/16 at 06:00 Morphine Sulfate (morphine) 2 mg Q4H PRN IV PAIN LEVEL 6-10 Last administered on 12/04/16 21:02; Admin Dose 2 MG; Start 12/02/16 at 06:00 IV Flush (NS 10 ml) 10 ml PRN PRN IV IV PROTOCOL; Start 12/02/16 at 18:30 Ondansetron HCl 4 mg 4 mg Q6H PRN IV NAUSEA AND/OR VOMITING Last administered on 12/03/16 02:23; Admin Dose 4 MG; Start 12/03/16 at 02:30 Caspofungin/ Sodium Chloride (Cancidas/NS) 250 ml @ 250 mls/hr Q24H IVPB Last administered on 12/06/16 12:32; Admin Dose 250 MLS/HR; Start 12/04/16 at 12:00 Lactulose (Enulose) 40 gm Q6 PO Last administered on 12/07/16 00:43; Admin Dose 40 GM; Start 12/03/16 at 18:00 Epoetin Brandan (Epogen (Non Esrd/Non Oncology)) 10,000 units MoWeFr@17 SC Last administered on 12/06/16 18:36; Admin Dose 10,000 UNITS; Start 12/03/16 at 21:30 Calcium Carbonate 1250 mg 1,250 mg BID NGT Last administered on 12/06/16 21:18 ; Admin Dose 1,250 MG; Start 12/03/16 at 21:00 Meropenem (Merrem 500 Mg/ 100 ml (Pmx)) 100 ml @ 200 mls/hr Q12 IVPB Last administered on 12/07/16 09:04; Admin Dose 200 MLS/HR; Start 12/05/16 at 11:00; Stop 12/12/16 at 10:59 Diagnostic Test (Pha) (Accucheck) XX ; Start 12/07/16 at 02:00 MANFRED MARTINEZ M.D. Dec 07, 2016 10:34
--- NOTE | 2016-12-07 11:26 | CONS ---
Date/Time of Note Date/Time of Note DATE: 12/07/16 TIME: 11:24 Assessment/Plan Assessment/Plan Additional Assessment/Plan 55 yo male with 1. LEONARDO on CKD, ATN in the setting of Sepsis 2. Metabolic Acidosis with respiratory compensation 3. Anemia of Chronic disease 4. Hx of DM, Likely with underlying CKD, DM Nephropathy 5. AMS, Hepatic Encephalopathy 6. Chronic Liver Disease, Cirrhosis, Recurrent Ascites 7. Hypokalemia 8. Hypoalbuminemia 9. Abdominal Pain- Peritonitis 10. Hypotension in the setting of sepsis- Resolved 11. Hypernatremia Pt is Non oliguric S/P K supplement,Will order Oral supplement. Repeat K level tonight Increase Free H20. Cont to monitor UO, Electrolyts, Renal function No acute indication for HD at this time. Consultation Date/Type/Reason Admit Date/Time Nov 28, 2016 at 12:41 Initial Consult Date 11/29/16 Type of Consultation: Nephrology Reason for Consultation LEONARDO Referring Provider: SUNDAR OBRIEN Exam/Review of Systems Vital Signs Vitals Vital Signs Date Time Temp Pulse Resp B/P Pulse Ox O2 Delivery O2 Flow Rate FiO2 12/07/16 08:30 92 12/07/16 08:01 97.8 18 131/62 95 12/07/16 06:40 Room Air Intake and Output 12/06/16 12/06/16 12/07/16 15:00 23:00 07:00 Intake Total 1305 ml 650 ml 820 ml Output Total 140 ml 290 ml 130 ml Balance 1165 ml 360 ml 690 ml Results Result Diagram: 12/07/16 0340 12/07/16 0340 Results 24 hrs Laboratory Tests Test 12/06/16 11:31 12/06/16 16:57 12/06/16 21:30 12/07/16 03:40 Bedside Glucose 82 126 146 Ammonia < 9 L Anion Gap 18 H Basophils # 0.0 Basophils % 0.0 Blood Morphology Comment Blood Urea Nitrogen 71 H Calcium Level 7.7 L Carbon Dioxide Level 16 L Chloride Level 123 H Creatinine 2.28 H Eosinophils # 0.1 Eosinophils % 1.0 Glucose Level 144 # Hematocrit 23.4 L Hemoglobin 7.9 L Lymphocytes # 0.6 L Lymphocytes % 9.1 L Mean Corpuscular Hemoglobin 32.1 Mean Corpuscular Hemoglobin Concent 34.0 Mean Corpuscular Volume 94.4 Mean Platelet Volume 8.8 Monocytes # 0.7 Monocytes % 10.4 Neutrophils # 5.0 Neutrophils % 79.5 H Nucleated Red Blood Cells # 0.0 Nucleated Red Blood Cells % 0.0 Platelet Count 38 L Potassium Level 2.9 *L Red Blood Count 2.47 L Red Cell Distribution Width 17.0 H Sodium Level 154 H White Blood Count 6.4 Test 12/07/16 08:57 Bedside Glucose 134 Medications Medications Current Medications Rifaximin 550 mg 550 mg BID PO Last administered on 12/06/16 21:18; Admin Dose 550 MG; Start 11/28/16 at 21:00 Sodium Chloride (NS) 1,000 ml @ 75 mls/hr [id number] IV Last administered on 18:57; Admin Dose 75 MLS/HR; Start 11/28/16 at 20:00 Miscellaneous Information 1 ea NOTE XX ; Start 11/28/16 at 20:00 Glucose (Glutose) 15 gm Q15M PRN PO DECREASED GLUCOSE; Start 11/28/16 at 20:00 Glucose (Glutose) 22.5 gm Q15M PRN PO DECREASED GLUCOSE; Start 11/28/16 at 20: 00 Dextrose (D50w Syringe) 25 ml Q15M PRN IV DECREASED GLUCOSE; Start 11/28/16 at 20:00 Dextrose (D50w Syringe) 50 ml Q15M PRN IV DECREASED GLUCOSE; Start 11/28/16 at 20:00 Glucagon (Glucagen) 1 mg Q15M PRN IM DECREASED GLUCOSE; Start 11/28/16 at 20:00 Glucose (Glutose) 15 gm Q15M PRN BUCCAL DECREASED GLUCOSE; Start 11/28/16 at 20 :00 Citric Acid/ Sodium Citrate (Bicitra) 15 ml BID PO Last administered on 21:18; Admin Dose 15 ML; Start 11/29/16 at 21:00 Pantoprazole (Protonix Tab) 40 mg DAILY@06 PO Last administered on 12/07/16 06: 02; Admin Dose 40 MG; Start 12/02/16 at 06:00 Morphine Sulfate (morphine) 2 mg Q4H PRN IV PAIN LEVEL 6-10 Last administered on 12/04/16 21:02; Admin Dose 2 MG; Start 12/02/16 at 06:00 IV Flush (NS 10 ml) 10 ml PRN PRN IV IV PROTOCOL; Start 12/02/16 at 18:30 Ondansetron HCl 4 mg 4 mg Q6H PRN IV NAUSEA AND/OR VOMITING Last administered on 12/03/16 02:23; Admin Dose 4 MG; Start 12/03/16 at 02:30 Caspofungin/ Sodium Chloride (Cancidas/NS) 250 ml @ 250 mls/hr Q24H IVPB Last administered on 12/06/16 12:32; Admin Dose 250 MLS/HR; Start 12/04/16 at 12:00 Lactulose (Enulose) 40 gm Q6 PO Last administered on 12/07/16 00:43; Admin Dose 40 GM; Start 12/03/16 at 18:00 Epoetin Brandan (Epogen (Non Esrd/Non Oncology)) 10,000 units MoWeFr@17 SC Last administered on 12/06/16 18:36; Admin Dose 10,000 UNITS; Start 12/03/16 at 21:30 Calcium Carbonate 1250 mg 1,250 mg BID NGT Last administered on 12/06/16 21:18 ; Admin Dose 1,250 MG; Start 12/03/16 at 21:00 Meropenem (Merrem 500 Mg/ 100 ml (Pmx)) 100 ml @ 200 mls/hr Q12 IVPB Last administered on 12/07/16 09:04; Admin Dose 200 MLS/HR; Start 12/05/16 at 11:00; Stop 12/12/16 at 10:59 Diagnostic Test (Pha) (Accucheck) XX ; Start 12/07/16 at 02:00 SONA CONROY MD Dec 07, 2016 11:26
[2016-12-07] MEDS ORDERED: POTASSIUM CHLORIDE 20 MEQ POWDER FOR ORAL SOLN PO ONE (11:30)
[2016-12-07] MEDS: CA CARBONATE (250 MG/ML) 5ML CUP NGT SCH ×2 (11:52→20:25)
[2016-12-07] MEDS: CITRIC ACID/NA CITRATE 30 ML CUP PO SCH ×2 (11:52→20:24)
[2016-12-07] MEDS: RIFAXIMIN 550 MG TAB PO SCH ×2 (11:52→20:25)
--- NOTE | 2016-12-07 13:07 | CONS ---
Date/Time of Note Date/Time of Note DATE: 12/07/16 TIME: 13:05 Assessment/Plan Assessment/Plan Chief Complaint/Hosp Course assessment/impression - h/o sepsis - SBP, s/p paracentesis 12/02/2016. Ascetic [id number] - probable UTI (pyuria, increased urinary frequency) - thrush - LEONARDO - ileus - recurrent hepatic encephalopathy - cholelithiasis - RLQ pain: CT did not demonstrate other acute GI processes - h/o alcoholic liver cirrhosis and portal hypertension - h/o recurrent ascites s/p paracentesis in the past. - DM - CRI - thrombocytopenia (HIV screen negative in 2016, hepatitis screen was negative in 2015) recommendations - consider another paracentesis - continue renally dosed meropenem (12/05/2016-). Note: Pt took pip/tazo (12/01/2016 -12/04/2016), planned through 12/08/2016 - Pt will benefit from long-term antibiotic for SBP prophylaxis after completing IV antibiotic - continue caspofungin (12/03/2016-) too - continue rifaxamin management d/w Pt's family member Problems: Consultation Date/Type/Reason Admit Date/Time Nov 28, 2016 at 12:41 Initial Consult Date 12/02/16 Type of Consultation: ID Referring Provider: SUNDAR OBRIEN 24 HR Interval Summary Subjective hx not possible: pt non-verbal Exam/Review of Systems Vital Signs Vitals Vital Signs Date Time Temp Pulse Resp B/P Pulse Ox O2 Delivery O2 Flow Rate FiO2 12/07/16 12:29 97 12/07/16 11:38 98.0 20 125/67 93 12/07/16 06:40 Room Air Intake and Output 12/06/16 12/06/16 12/07/16 15:00 23:00 07:00 Intake Total 1305 ml 650 ml 820 ml Output Total 140 ml 290 ml 130 ml Balance 1165 ml 360 ml 690 ml Exam Constitutional: non-verbal Psych: confusion Head: normocephalic Eyes: icteric, nl lids ENMT: nl external ears & nose, nl nasal mucosa & septum Respiratory: clear to auscultation, normal air movement Cardiovascular: nl pulses, regular rate and rhythm Gastrointestinal: distended, tender (RLQ) Musculoskeletal: nl extremities to inspection Extremities: No edema 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: confused Results Result Diagram: 12/07/16 0340 12/07/16 0340 Results 24 hrs Laboratory Tests Test 12/06/16 16:57 12/06/16 21:30 12/07/16 03:40 12/07/16 08:57 Bedside Glucose 126 146 134 Ammonia < 9 L Anion Gap 18 H Basophils # 0.0 Basophils % 0.0 Blood Morphology Comment Blood Urea Nitrogen 71 H Calcium Level 7.7 L Carbon Dioxide Level 16 L Chloride Level 123 H Creatinine 2.28 H Eosinophils # 0.1 Eosinophils % 1.0 Glucose Level 144 # Hematocrit 23.4 L Hemoglobin 7.9 L Lymphocytes # 0.6 L Lymphocytes % 9.1 L Mean Corpuscular Hemoglobin 32.1 Mean Corpuscular Hemoglobin Concent 34.0 Mean Corpuscular Volume 94.4 Mean Platelet Volume 8.8 Monocytes # 0.7 Monocytes % 10.4 Neutrophils # 5.0 Neutrophils % 79.5 H Nucleated Red Blood Cells # 0.0 Nucleated Red Blood Cells % 0.0 Platelet Count 38 L Potassium Level 2.9 *L Red Blood Count 2.47 L Red Cell Distribution Width 17.0 H Sodium Level 154 H White Blood Count 6.4 Test 12/07/16 11:59 Bedside Glucose 150 Medications Medications Current Medications Rifaximin 550 mg 550 mg BID PO Last administered on 12/07/16 11:52; Admin Dose 550 MG; Start 11/28/16 at 21:00 Sodium Chloride (NS) 1,000 ml @ 75 mls/hr [id number] IV Last administered on 18:57; Admin Dose 75 MLS/HR; Start 11/28/16 at 20:00 Miscellaneous Information 1 ea NOTE XX ; Start 11/28/16 at 20:00 Glucose (Glutose) 15 gm Q15M PRN PO DECREASED GLUCOSE; Start 11/28/16 at 20:00 Glucose (Glutose) 22.5 gm Q15M PRN PO DECREASED GLUCOSE; Start 11/28/16 at 20: 00 Dextrose (D50w Syringe) 25 ml Q15M PRN IV DECREASED GLUCOSE; Start 11/28/16 at 20:00 Dextrose (D50w Syringe) 50 ml Q15M PRN IV DECREASED GLUCOSE; Start 11/28/16 at 20:00 Glucagon (Glucagen) 1 mg Q15M PRN IM DECREASED GLUCOSE; Start 11/28/16 at 20:00 Glucose (Glutose) 15 gm Q15M PRN BUCCAL DECREASED GLUCOSE; Start 11/28/16 at 20 :00 Citric Acid/ Sodium Citrate (Bicitra) 15 ml BID PO Last administered on 11:52; Admin Dose 15 ML; Start 11/29/16 at 21:00 Pantoprazole (Protonix Tab) 40 mg DAILY@06 PO Last administered on 12/07/16 06: 02; Admin Dose 40 MG; Start 12/02/16 at 06:00 Morphine Sulfate (morphine) 2 mg Q4H PRN IV PAIN LEVEL 6-10 Last administered on 12/04/16 21:02; Admin Dose 2 MG; Start 12/02/16 at 06:00 IV Flush (NS 10 ml) 10 ml PRN PRN IV IV PROTOCOL; Start 12/02/16 at 18:30 Ondansetron HCl 4 mg 4 mg Q6H PRN IV NAUSEA AND/OR VOMITING Last administered on 12/03/16 02:23; Admin Dose 4 MG; Start 12/03/16 at 02:30 Caspofungin/ Sodium Chloride (Cancidas/NS) 250 ml @ 250 mls/hr Q24H IVPB Last administered on 12/06/16 12:32; Admin Dose 250 MLS/HR; Start 12/04/16 at 12:00 Lactulose (Enulose) 40 gm Q6 PO Last administered on 12/07/16 11:52; Admin Dose 40 GM; Start 12/03/16 at 18:00 Epoetin Brandan (Epogen (Non Esrd/Non Oncology)) 10,000 units MoWeFr@17 SC Last administered on 12/06/16 18:36; Admin Dose 10,000 UNITS; Start 12/03/16 at 21:30 Calcium Carbonate 1250 mg 1,250 mg BID NGT Last administered on 12/07/16 11:52 ; Admin Dose 1,250 MG; Start 12/03/16 at 21:00 Meropenem (Merrem 500 Mg/ 100 ml (Pmx)) 100 ml @ 200 mls/hr Q12 IVPB Last administered on 12/07/16 09:04; Admin Dose 200 MLS/HR; Start 12/05/16 at 11:00; Stop 12/12/16 at 10:59 Diagnostic Test (Pha) (Accucheck) 1 ea 02 XX ; Start 12/07/16 at 02:00 MANFRED MARTINEZ M.D. Dec 07, 2016 13:07
[2016-12-07] MEDS: CASPOFUNGIN 50 MG in SOD CHLORIDE 0.9% 250 ML IVPB SCH (13:16)
--- NOTE | 2016-12-07 17:38 | PN ---
Date/Time of Note Date/Time of Note DATE: 12/07/16 TIME: 17:36 Assessment/Plan VTE Prophylaxis VTE Prophylaxis Intervention: SCD's Lines/Catheters IV [facility] Type [facility]from [facility] Urinary Cath still in place: No Assessment/Plan Chief Complaint/Hosp Course ASSESSMENT AND PLAN: - Sepsis, resolve. Continue abx per ID. Dr. Sandhu is following in infection disease consultation. - Possible SBP, follow-up on final ascetic culture. - Hepatic encephalopathy. Continue lactulose q.i.d. and rifaximin. Dr. Melendez is following in gastroenterology consultation. - Alcoholic liver cirrhosis with recurrent ascites. s/p paracentesis on 12/02 - LEONARDO on Chronic kidney disease. Dr. Morrison is following in nephrology consultation. - Diabetes mellitus. Continue NovoLog per mild algorithm sliding scale coverage. - Thrombocytopenia, most likely secondary to liver cirrhosis. Continue to monitor platelet count. - Hypokalemia, potassium replaced, continue to monitor electrolytes. Continue Protonix for peptic ulcer disease prophylaxis and sequential compression device for deep venous thrombosis prophylaxis. Further recommendations based on clinical course. Plan of care discussed with Dr. Qureshi. Problems: Subjective 24 Hr Interval Summary Free Text/Dictation Patient is lethargic but easily arousable, confused, no fever nausea vomiting reported. Exam/Review of Systems Vital Signs Vitals Vital Signs Date Time Temp Pulse Resp B/P Pulse Ox O2 Delivery O2 Flow Rate FiO2 12/07/16 17:06 97 12/07/16 15:42 97.8 18 98/52 94 12/07/16 06:40 Room Air Intake and Output 12/06/16 12/06/16 12/07/16 15:00 23:00 07:00 Intake Total 1305 ml 650 ml 820 ml Output Total 140 ml 290 ml 130 ml Balance 1165 ml 360 ml 690 ml Exam GENERAL: Well-developed, well-nourished male currently in no acute distress HEENT: Head is atraumatic, normocephalic. Pupils equal, round, reactive to light and accommodation. The patient has slightly jaundiced sclerae. NECK: Supple. No cervical lymphadenopathy, no thyromegaly. CHEST: Lungs clear bilaterally. There is no rhonchi, wheezes, rales noted. CARDIOVASCULAR: Normal S1, S2. No murmurs, gallops, clicks, rubs noted. ABDOMEN: Protuberant, soft, distended, nontender. EXTREMITIES: No edema, clubbing, cyanosis. Pulses equal bilaterally 2+. SKIN: The patient has multiple ecchymotic areas and healing scabs. NEUROLOGIC: Patient is awake, alert to name and situation, otherwise confused. Results Result Diagram: 12/07/16 0340 12/07/16 0340 Results 24 hrs Laboratory Tests Test 12/06/16 21:30 12/07/16 03:40 12/07/16 08:57 12/07/16 11:59 Bedside Glucose 146 134 150 Ammonia < 9 L Anion Gap 18 H Basophils # 0.0 Basophils % 0.0 Blood Morphology Comment Blood Urea Nitrogen 71 H Calcium Level 7.7 L Carbon Dioxide Level 16 L Chloride Level 123 H Creatinine 2.28 H Eosinophils # 0.1 Eosinophils % 1.0 Glucose Level 144 # Hematocrit 23.4 L Hemoglobin 7.9 L Lymphocytes # 0.6 L Lymphocytes % 9.1 L Mean Corpuscular Hemoglobin 32.1 Mean Corpuscular Hemoglobin Concent 34.0 Mean Corpuscular Volume 94.4 Mean Platelet Volume 8.8 Monocytes # 0.7 Monocytes % 10.4 Neutrophils # 5.0 Neutrophils % 79.5 H Nucleated Red Blood Cells # 0.0 Nucleated Red Blood Cells % 0.0 Platelet Count 38 L Potassium Level 2.9 *L Red Blood Count 2.47 L Red Cell Distribution Width 17.0 H Sodium Level 154 H White Blood Count 6.4 Test 12/07/16 16:13 Bedside Glucose 154 Medications Medications Current Medications Rifaximin 550 mg 550 mg BID PO Last administered on 12/07/16 11:52; Admin Dose 550 MG; Start 11/28/16 at 21:00 Sodium Chloride (NS) 1,000 ml @ 75 mls/hr [id number] IV Last administered on 18:57; Admin Dose 75 MLS/HR; Start 11/28/16 at 20:00 Miscellaneous Information 1 ea NOTE XX ; Start 11/28/16 at 20:00 Glucose (Glutose) 15 gm Q15M PRN PO DECREASED GLUCOSE; Start 11/28/16 at 20:00 Glucose (Glutose) 22.5 gm Q15M PRN PO DECREASED GLUCOSE; Start 11/28/16 at 20: 00 Dextrose (D50w Syringe) 25 ml Q15M PRN IV DECREASED GLUCOSE; Start 11/28/16 at 20:00 Dextrose (D50w Syringe) 50 ml Q15M PRN IV DECREASED GLUCOSE; Start 11/28/16 at 20:00 Glucagon (Glucagen) 1 mg Q15M PRN IM DECREASED GLUCOSE; Start 11/28/16 at 20:00 Glucose (Glutose) 15 gm Q15M PRN BUCCAL DECREASED GLUCOSE; Start 11/28/16 at 20 :00 Citric Acid/ Sodium Citrate (Bicitra) 15 ml BID PO Last administered on 11:52; Admin Dose 15 ML; Start 11/29/16 at 21:00 Pantoprazole (Protonix Tab) 40 mg DAILY@06 PO Last administered on 12/07/16 06: 02; Admin Dose 40 MG; Start 12/02/16 at 06:00 Morphine Sulfate (morphine) 2 mg Q4H PRN IV PAIN LEVEL 6-10 Last administered on 12/04/16 21:02; Admin Dose 2 MG; Start 12/02/16 at 06:00 IV Flush (NS 10 ml) 10 ml PRN PRN IV IV PROTOCOL; Start 12/02/16 at 18:30 Ondansetron HCl 4 mg 4 mg Q6H PRN IV NAUSEA AND/OR VOMITING Last administered on 12/03/16 02:23; Admin Dose 4 MG; Start 12/03/16 at 02:30 Caspofungin/ Sodium Chloride (Cancidas/NS) 250 ml @ 250 mls/hr Q24H IVPB Last administered on 12/07/16 13:16; Admin Dose 250 MLS/HR; Start 12/04/16 at 12:00 Lactulose (Enulose) 40 gm Q6 PO Last administered on 12/07/16 11:52; Admin Dose 40 GM; Start 12/03/16 at 18:00 Epoetin Brandan (Epogen (Non Esrd/Non Oncology)) 10,000 units MoWeFr@17 SC Last administered on 12/06/16 18:36; Admin Dose 10,000 UNITS; Start 12/03/16 at 21:30 Calcium Carbonate 1250 mg 1,250 mg BID NGT Last administered on 12/07/16 11:52 ; Admin Dose 1,250 MG; Start 12/03/16 at 21:00 Meropenem (Merrem 500 Mg/ 100 ml (Pmx)) 100 ml @ 200 mls/hr Q12 IVPB Last administered on 12/07/16t 09:04; Admin Dose 200 MLS/HR; Start 12/05/16 at 11:00; Stop 12/12/16 at 10:59 Diagnostic Test (Pha) (Accucheck) 1 02 XX ; Start 12/07/16 at 02:00 RIDDHI BLOCK Dec 07, 2016 17:38
--- NOTE | 2016-12-07 19:54 | CONS ---
Date/Time of Note Date/Time of Note DATE: 12/07/16 TIME: 19:54 Assessment/Plan Assessment/Plan Additional Assessment/Plan Additional Assessment/Plan IMPRESSION: 1. Hepatic encephalopathy. 2. Cirrhosis of liver. 3. Refractory ascites. 4. Hepatorenal syndrome, type 1. 5. Diabetes mellitus. 6.hypotension,transferred to ICU 7.leucocytosis,w/u in progress 8.spontaneous bacterial peritonitis ,wbc.12,000 PLAN: To continue with lactulose and rifaximin. Hold off on diuretics because that will worsen the patient's renal function. Fluid restriction. Reduced protein diet. stool for occult blood,negative empiric Zosyn albumin to sustain BP resume feeding po Midodrine 5 mg bid Consultation Date/Type/Reason Admit Date/Time Nov 28, 2016 at 12:41 Initial Consult Date 11/29/16 Type of Consultation: ID Referring Provider: SUNDAR OBRIEN 24 HR Interval Summary Constitutional: improved Exam/Review of Systems Vital Signs Vitals Vital Signs Date Time Temp Pulse Resp B/P Pulse Ox O2 Delivery O2 Flow Rate FiO2 12/07/16 17:06 97 12/07/16 15:42 97.8 18 98/52 94 12/07/16 06:40 Room Air Intake and Output 12/06/16 12/06/16 12/07/16 14:59 22:59 06:59 Intake Total 1380 ml 575 ml 895 ml Output Total 140 ml 290 ml 130 ml Balance 1240 ml 285 ml 765 ml Exam Constitutional: alert, oriented, well developed Psych: nl mood/affect, no complaints Head: atraumatic, normocephalic Eyes: EOMI, PERRL, nl conjunctiva, nl lids, nl sclera ENMT: nl external ears & nose, nl lips & teeth, nl nasal mucosa & septum Neck: non-tender, supple Respiratory: clear to auscultation, normal air movement Cardiovascular: nl pulses, regular rate and rhythm Gastrointestinal: nl liver, spleen, non-tender, soft Musculoskeletal: nl extremities to inspection, nl gait and stance Extremities: normal pulses 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: PEDIATRIC DIETICIAN II-XII intact, nl mental status, nl speech, nl strength Skin: nl turgor, No rash or lesions Lymph: nl lymph nodes Results Result Diagram: 12/07/16 0340 12/07/16 1820 Results 24 hrs Laboratory Tests Test 12/06/16 21:30 12/07/16 03:40 12/07/16 08:57 12/07/16 11:59 Bedside Glucose 146 134 150 Ammonia < 9 L Anion Gap 18 H Basophils # 0.0 Basophils % 0.0 Blood Morphology Comment Blood Urea Nitrogen 71 H Calcium Level 7.7 L Carbon Dioxide Level 16 L Chloride Level 123 H Creatinine 2.28 H Eosinophils # 0.1 Eosinophils % 1.0 Glucose Level 144 # Hematocrit 23.4 L Hemoglobin 7.9 L Lymphocytes # 0.6 L Lymphocytes % 9.1 L Mean Corpuscular Hemoglobin 32.1 Mean Corpuscular Hemoglobin Concent 34.0 Mean Corpuscular Volume 94.4 Mean Platelet Volume 8.8 Monocytes # 0.7 Monocytes % 10.4 Neutrophils # 5.0 Neutrophils % 79.5 H Nucleated Red Blood Cells # 0.0 Nucleated Red Blood Cells % 0.0 Platelet Count 38 L Potassium Level 2.9 *L Red Blood Count 2.47 L Red Cell Distribution Width 17.0 H Sodium Level 154 H White Blood Count 6.4 Test 12/07/16 16:13 12/07/16 18:20 Bedside Glucose 154 Potassium Level 3.7 Sodium Level 154 H Medications Medications Current Medications Rifaximin 550 mg 550 mg BID PO Last administered on 12/07/16 11:52; Admin Dose 550 MG; Start 11/28/16 at 21:00 Sodium Chloride (NS) 1,000 ml @ 75 mls/hr [id number] IV Last administered on 18:57; Admin Dose 75 MLS/HR; Start 11/28/16 at 20:00 Miscellaneous Information 1 ea NOTE XX ; Start 11/28/16 at 20:00 Glucose (Glutose) 15 gm Q15M PRN PO DECREASED GLUCOSE; Start 11/28/16 at 20:00 Glucose (Glutose) 22.5 gm Q15M PRN PO DECREASED GLUCOSE; Start 11/28/16 at 20: 00 Dextrose (D50w Syringe) 25 ml Q15M PRN IV DECREASED GLUCOSE; Start 11/28/16 at 20:00 Dextrose (D50w Syringe) 50 ml Q15M PRN IV DECREASED GLUCOSE; Start 11/28/16 at 20:00 Glucagon (Glucagen) 1 mg Q15M PRN IM DECREASED GLUCOSE; Start 11/28/16 at 20:00 Glucose (Glutose) 15 gm Q15M PRN BUCCAL DECREASED GLUCOSE; Start 11/28/16 at 20 :00 Citric Acid/ Sodium Citrate (Bicitra) 15 ml BID PO Last administered on 11:52; Admin Dose 15 ML; Start 11/29/16 at 21:00 Pantoprazole (Protonix Tab) 40 mg DAILY@06 PO Last administered on 12/07/16 06: 02; Admin Dose 40 MG; Start 12/02/16 at 06:00 Morphine Sulfate (morphine) 2 mg Q4H PRN IV PAIN LEVEL 6-10 Last administered on 12/04/16 21:02; Admin Dose 2 MG; Start 12/02/16 at 06:00 IV Flush (NS 10 ml) 10 ml PRN PRN IV IV PROTOCOL; Start 12/02/16 at 18:30 Ondansetron HCl 4 mg 4 mg Q6H PRN IV NAUSEA AND/OR VOMITING Last administered on 12/03/16 02:23; Admin Dose 4 MG; Start 12/03/16 at 02:30 Caspofungin/ Sodium Chloride (Cancidas/NS) 250 ml @ 250 mls/hr Q24H IVPB Last administered on 12/07/16 13:16; Admin Dose 250 MLS/HR; Start 12/04/16 at 12:00 Lactulose (Enulose) 40 gm Q6 PO Last administered on 12/07/16 18:25; Admin Dose 40 GM; Start 12/03/16 at 18:00 Epoetin Brandan (Epogen (Non Esrd/Non Oncology)) 10,000 units MoWeFr@17 SC Last administered on 12/06/16 18:36; Admin Dose 10,000 UNITS; Start 12/03/16 at 21:30 Calcium Carbonate 1250 mg 1,250 mg BID NGT Last administered on 12/07/16 11:52 ; Admin Dose 1,250 MG; Start 12/03/16 at 21:00 Meropenem (Merrem 500 Mg/ 100 ml (Pmx)) 100 ml @ 200 mls/hr Q12 IVPB Last administered on 12/07/16 09:04; Admin Dose 200 MLS/HR; Start 12/05/16 at 11:00; Stop 12/12/16 at 10:59 Diagnostic Test (Pha) (Accucheck) 1 02 XX ; Start 12/07/16 at 02:00 JOHANA MOTLEY MD Dec 07, 2016 19:54
[2016-12-08] VITALS (12 sets, daily range): BP systolic 81–115; BP diastolic 50–67; PULSE 74–115; RESP 16–20
[2016-12-08] MEDS: ACCUCHECK XX SCH (02:00)
[2016-12-08] MEDS: LACTULOSE 30ML CUP PO SCH ×3 (05:33→18:31)
[2016-12-08] MEDS: PANTOPRAZOLE (EC) 40 MG TAB PO SCH (05:33)
[2016-12-08] MEDS: SOD CHLORIDE 0.9% 1,000 ML IV SCH ×2 (06:40→07:11)
[2016-12-08] MEDS: INSULIN ASPART [NOVOLOG] 3 ML PEN SC SCH ×4 (08:00→21:00)
[2016-12-08 08:22] LABS: BASOPHILS % 0.5 % (0.0-2.0); EOSINOPHILS # 0.1 10^3/ul (0.0-0.5); EOSINOPHILS % 1.5 % (0.0-7.0); HEMATOCRIT 23.1 % (42.0-52.0); HEMOGLOBIN 8.1 g/dl (14.0-18.0); LYMPHOCYTES # 0.6 10^3/ul (0.8-2.9); LYMPHOCYTES % 11.2 % (15.0-51.0); MEAN CORPUSCULAR HEMOGLOBIN 32.7 pg (29.0-33.0); MEAN CORPUSCULAR HGB CONC 35.1 g/dl (32.0-37.0); MEAN CORPUSCULAR VOLUME 93.3 fl (82.0-101.0); MEAN PLATELET VOLUME 9.7 fl (7.4-10.4); MONOCYTE # 0.6 10^3/ul (0.3-0.9); NEUTROPHIL # 4.1 10^3/ul (1.6-7.5); NEUTROPHILS % 75.8 % (39.0-77.0); PLATELET COUNT 35 10^3/UL (140-440); RED BLOOD COUNT 2.47 10^6/ul (4.70-6.10); RED CELL DISTRIBUTION WIDTH 17.1 % (11.5-14.5); UNCORRECTED WBC 5.5 10^3/ul (4.8-10.8); WHITE BLOOD COUNT 5.5 10^3/ul (4.8-10.8)
[2016-12-08] MEDS: CA CARBONATE (250 MG/ML) 5ML CUP NGT SCH ×2 (08:29→21:50)
[2016-12-08] MEDS: RIFAXIMIN 550 MG TAB PO SCH ×2 (08:29→21:50)
[2016-12-08] MEDS: CITRIC ACID/NA CITRATE 30 ML CUP PO SCH ×2 (08:29→21:50)
[2016-12-08 08:30] LABS: CONDITION 1; LH ANALYZER COMMENTS 1
[2016-12-08] MEDS: MEROPENEM 500 MG/100 ML (PMX) 100 ML IVPB SCH ×2 (08:30→21:51)
--- NOTE | 2016-12-08 08:57 | CONS ---
Date/Time of Note Date/Time of Note DATE: 12/08/16 TIME: 08:55 Assessment/Plan Assessment/Plan Additional Assessment/Plan 55 yo male with 1. LEONARDO on CKD, ATN in the setting of Sepsis 2. Metabolic Acidosis with respiratory compensation 3. Anemia of Chronic disease 4. Hx of DM, Likely with underlying CKD, DM Nephropathy 5. AMS, Hepatic Encephalopathy 6. Chronic Liver Disease, Cirrhosis, Recurrent Ascites 7. Hypokalemia- Rsolved 8. Hypoalbuminemia 9. Abdominal Pain- Peritonitis 10. Hypotension in the setting of sepsis- Resolved 11. Hypernatremia- Stable Pt is Non oliguric Hypokalemia resolved Increase Free H20, Repeat Na level Cont to monitor UO, Electrolyts, Renal function No acute indication for HD at this time. Consultation Date/Type/Reason Admit Date/Time Nov 28, 2016 at 12:41 Initial Consult Date 11/29/16 Type of Consultation: Nephrology Referring Provider: SUNDAR OBRIEN 24 HR Interval Summary Free Text/Dictation Confused this am Constitutional: No requiring O2 Exam/Review of Systems Vital Signs Vitals Vital Signs Date Time Temp Pulse Resp B/P Pulse Ox O2 Delivery O2 Flow Rate FiO2 12/08/16 08:03 97.9 79 20 81/53 100 12/07/16 06:40 Room Air Intake and Output 12/07/16 12/07/16 12/08/16 15:00 23:00 07:00 Intake Total 720 ml 700 ml Output Total 4 ml Balance 720 ml 696 ml Exam Constitutional: alert, No distress ENMT: mucosa pink and moist Respiratory: No diminished breath sounds, No labored breathing Cardiovascular: No edema Gastrointestinal: ascites, non-tender, soft, No rebound or guarding Extremities: No pitting pedal edema 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: confused, No lethargic Skin: No diaphoresis Results Result Diagram: 12/08/16 0708 12/07/16 1820 Results 24 hrs Laboratory Tests Test 12/07/16 08:57 12/07/16 11:59 12/07/16 16:13 12/07/16 18:20 Bedside Glucose 134 150 154 Potassium Level 3.7 Sodium Level 154 H Test 12/07/16 20:36 12/08/16 07:08 12/08/16 08:05 Bedside Glucose 150 118 Ammonia < 9 L Basophils # 0.0 Basophils % 0.5 Blood Morphology Comment Eosinophils # 0.1 Eosinophils % 1.5 Hematocrit 23.1 L Hemoglobin 8.1 L Lymphocytes # 0.6 L Lymphocytes % 11.2 L Mean Corpuscular Hemoglobin 32.7 Mean Corpuscular Hemoglobin Concent 35.1 Mean Corpuscular Volume 93.3 Mean Platelet Volume 9.7 Monocytes # 0.6 Monocytes % 11.0 Neutrophils # 4.1 Neutrophils % 75.8 Nucleated Red Blood Cells # 0.0 Nucleated Red Blood Cells % 0.0 Platelet Count 35 L Red Blood Count 2.47 L Red Cell Distribution Width 17.1 H White Blood Count 5.5 Medications Medications Current Medications Rifaximin 550 mg 550 mg BID PO Last administered on 12/08/16 08:29; Admin Dose 550 MG; Start 11/28/16 at 21:00 Sodium Chloride (NS) 1,000 ml @ 75 mls/hr [id number] IV Last administered on 07:11; Admin Dose 75 MLS/HR; Start 11/28/16 at 20:00 Miscellaneous Information 1 ea NOTE XX ; Start 11/28/16 at 20:00 Glucose (Glutose) 15 gm Q15M PRN PO DECREASED GLUCOSE; Start 11/28/16 at 20:00 Glucose (Glutose) 22.5 gm Q15M PRN PO DECREASED GLUCOSE; Start 11/28/16 at 20: 00 Dextrose (D50w Syringe) 25 ml Q15M PRN IV DECREASED GLUCOSE; Start 11/28/16 at 20:00 Dextrose (D50w Syringe) 50 ml Q15M PRN IV DECREASED GLUCOSE; Start 11/28/16 at 20:00 Glucagon (Glucagen) 1 mg Q15M PRN IM DECREASED GLUCOSE; Start 11/28/16 at 20:00 Glucose (Glutose) 15 gm Q15M PRN BUCCAL DECREASED GLUCOSE; Start 11/28/16 at 20 :00 Citric Acid/ Sodium Citrate (Bicitra) 15 ml BID PO Last administered on 08:29; Admin Dose 15 ML; Start 11/29/16 at 21:00 Pantoprazole (Protonix Tab) 40 mg DAILY@06 PO Last administered on 12/08/16 05: 33; Admin Dose 40 MG; Start 12/02/16 at 06:00 Morphine Sulfate (morphine) 2 mg Q4H PRN IV PAIN LEVEL 6-10 Last administered on 12/04/16 21:02; Admin Dose 2 MG; Start 12/02/16 at 06:00 IV Flush (NS 10 ml) 10 ml PRN PRN IV IV PROTOCOL; Start 12/02/16 at 18:30 Ondansetron HCl 4 mg 4 mg Q6H PRN IV NAUSEA AND/OR VOMITING Last administered on 12/03/16 02:23; Admin Dose 4 MG; Start 12/03/16 at 02:30 Caspofungin/ Sodium Chloride (Cancidas/NS) 250 ml @ 250 mls/hr Q24H IVPB Last administered on 12/07/16 13:16; Admin Dose 250 MLS/HR; Start 12/04/16 at 12:00 Lactulose (Enulose) 40 gm Q6 PO Last administered on 12/08/16 05:33; Admin Dose 40 GM; Start 12/03/16 at 18:00 Epoetin Brandan (Epogen (Non Esrd/Non Oncology)) 10,000 units MoWeFr@17 SC Last administered on 12/06/16 18:36; Admin Dose 10,000 UNITS; Start 12/03/16 at 21:30 Calcium Carbonate 1250 mg 1,250 mg BID NGT Last administered on 12/08/16 08:29 ; Admin Dose 1,250 MG; Start 12/03/16 at 21:00 Meropenem (Merrem 500 Mg/ 100 ml (Pmx)) 100 ml @ 200 mls/hr Q12 IVPB Last administered on 12/08/16 08:30; Admin Dose 200 MLS/HR; Start 12/05/16 at 11:00; Stop 12/12/16 at 10:59 Diagnostic Test (Pha) (Accucheck) 1 02 XX ; Start 12/07/16 at 02:00 SONA CONROY MD Dec 08, 2016 08:57
[2016-12-08 09:14] LABS: POTASSIUM 3.6 mmol/L (3.5-5.1)
[2016-12-08 09:16] LABS: CREATININE 2.29 mg/dl (0.61-1.24)
--- NOTE | 2016-12-08 09:47 | CONS ---
Date/Time of Note Date/Time of Note DATE: 12/08/16 TIME: 09:42 Assessment/Plan Assessment/Plan Chief Complaint/Hosp Course assessment/impression - h/o sepsis - SBP, s/p paracentesis 12/02/2016. Ascetic [id number] - probable UTI (pyuria, increased urinary frequency) - thrush - LEONARDO - ileus - recurrent hepatic encephalopathy - cholelithiasis - RLQ pain: CT did not demonstrate other acute GI processes - h/o alcoholic liver cirrhosis and portal hypertension - h/o recurrent ascites s/p paracentesis in the past. - DM - CRI - thrombocytopenia (HIV screen negative in 2016, hepatitis screen was negative in 2015) recommendations - Pt may need another therapeutic paracentesis - complete renally dosed meropenem (12/05/2016-). Note: Pt took pip/tazo (12/01/2016 -12/04/2016) today 12/08/2016 - tomorrow, I will start him on renally dosed ciprofloxacin for secondary prophylaxis of SBP - complete caspofungin (12/03/2016-) today 12/08/2016 - tomorrow, I will start him on renally dosed fluconazole for thrush - continue rifaxamin management d/w Pt Problems: Consultation Date/Type/Reason Admit Date/Time Nov 28, 2016 at 12:41 Initial Consult Date 12/02/16 Type of Consultation: ID Referring Provider: SUNDAR OBRIEN 24 HR Interval Summary Constitutional: disoriented, poor po Detailed Summary Respiratory: shortness of breath (due to incresed abd girth) Cardiovascular: no complaints Gastrointestinal: decreased appetite, other (distention), pain Skin: no complaints Exam/Review of Systems Vital Signs Vitals Vital Signs Date Time Temp Pulse Resp B/P Pulse Ox O2 Delivery O2 Flow Rate FiO2 12/08/16 08:57 81 12/08/16 08:03 97.9 20 81/53 100 12/07/16 06:40 Room Air Intake and Output 12/07/16 12/07/16 12/08/16 15:00 23:00 07:00 Intake Total 720 ml 700 ml Output Total 4 ml Balance 720 ml 696 ml Exam Constitutional: frail Psych: confusion Head: atraumatic, normocephalic Eyes: icteric, nl conjunctiva ENMT: nl external ears & nose, nl nasal mucosa & septum Respiratory: diminished breath sounds Cardiovascular: nl pulses, regular rate and rhythm Gastrointestinal: ascites, distended, tender (R side) Musculoskeletal: nl extremities to inspection 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: lethargic Skin: other (spider angioma, ecchymoses) Results Result Diagram: 12/08/16 0708 12/08/16 0708 Results 24 hrs Laboratory Tests Test 12/07/16 11:59 12/07/16 16:13 12/07/16 18:20 12/07/16 20:36 Bedside Glucose 150 154 150 Potassium Level 3.7 Sodium Level 154 H Test 12/08/16 07:08 12/08/16 08:05 Ammonia < 9 L Anion Gap 16 Basophils # 0.0 Basophils % 0.5 Blood Morphology Comment Blood Urea Nitrogen 75 H Calcium Level 8.0 L Carbon Dioxide Level 17 L Chloride Level 127 H Creatinine 2.29 H Eosinophils # 0.1 Eosinophils % 1.5 Glucose Level 114 Hematocrit 23.1 L Hemoglobin 8.1 L Lymphocytes # 0.6 L Lymphocytes % 11.2 L Mean Corpuscular Hemoglobin 32.7 Mean Corpuscular Hemoglobin Concent 35.1 Mean Corpuscular Volume 93.3 Mean Platelet Volume 9.7 Monocytes # 0.6 Monocytes % 11.0 Neutrophils # 4.1 Neutrophils % 75.8 Nucleated Red Blood Cells # 0.0 Nucleated Red Blood Cells % 0.0 Platelet Count 35 L Potassium Level 3.6 Red Blood Count 2.47 L Red Cell Distribution Width 17.1 H Sodium Level 156 H White Blood Count 5.5 Bedside Glucose 118 Medications Medications Current Medications Rifaximin 550 mg 550 mg BID PO Last administered on 12/08/16 08:29; Admin Dose 550 MG; Start 11/28/16 at 21:00 Sodium Chloride (NS) 1,000 ml @ 75 mls/hr [id number] IV Last administered on 07:11; Admin Dose 75 MLS/HR; Start 11/28/16 at 20:00 Miscellaneous Information 1 ea NOTE XX ; Start 11/28/16 at 20:00 Glucose (Glutose) 15 gm Q15M PRN PO DECREASED GLUCOSE; Start 11/28/16 at 20:00 Glucose (Glutose) 22.5 gm Q15M PRN PO DECREASED GLUCOSE; Start 11/28/16 at 20: 00 Dextrose (D50w Syringe) 25 ml Q15M PRN IV DECREASED GLUCOSE; Start 11/28/16 at 20:00 Dextrose (D50w Syringe) 50 ml Q15M PRN IV DECREASED GLUCOSE; Start 11/28/16 at 20:00 Glucagon (Glucagen) 1 mg Q15M PRN IM DECREASED GLUCOSE; Start 11/28/16 at 20:00 Glucose (Glutose) 15 gm Q15M PRN BUCCAL DECREASED GLUCOSE; Start 11/28/16 at 20 :00 Citric Acid/ Sodium Citrate (Bicitra) 15 ml BID PO Last administered on 08:29; Admin Dose 15 ML; Start 11/29/16 at 21:00 Pantoprazole (Protonix Tab) 40 mg DAILY@06 PO Last administered on 12/08/16 05: 33; Admin Dose 40 MG; Start 12/02/16 at 06:00 Morphine Sulfate (morphine) 2 mg Q4H PRN IV PAIN LEVEL 6-10 Last administered on 12/04/16 21:02; Admin Dose 2 MG; Start 12/02/16 at 06:00 IV Flush (NS 10 ml) 10 ml PRN PRN IV IV PROTOCOL; Start 12/02/16 at 18:30 Ondansetron HCl 4 mg 4 mg Q6H PRN IV NAUSEA AND/OR VOMITING Last administered on 12/03/16 02:23; Admin Dose 4 MG; Start 12/03/16 at 02:30 Caspofungin/ Sodium Chloride (Cancidas/NS) 250 ml @ 250 mls/hr Q24H IVPB Last administered on 12/07/16 13:16; Admin Dose 250 MLS/HR; Start 12/04/16 at 12:00 Lactulose (Enulose) 40 gm Q6 PO Last administered on 12/08/16 05:33; Admin Dose 40 GM; Start 12/03/16 at 18:00 Epoetin Brandan (Epogen (Non Esrd/Non Oncology)) 10,000 units MoWeFr@17 SC Last administered on 12/06/16 18:36; Admin Dose 10,000 UNITS; Start 12/03/16 at 21:30 Calcium Carbonate 1250 mg 1,250 mg BID NGT Last administered on 12/08/16 08:29 ; Admin Dose 1,250 MG; Start 12/03/16 at 21:00 Meropenem (Merrem 500 Mg/ 100 ml (Pmx)) 100 ml @ 200 mls/hr Q12 IVPB Last administered on 12/08/16t 08:30; Admin Dose 200 MLS/HR; Start 12/05/16 at 11:00; Stop 12/12/16 at 10:59 Diagnostic Test (Pha) (Accucheck) 1 XX ; Start 12/07/16 at 02:00 MANFRED MARTINEZ M.D. Dec 08, 2016 09:47
[2016-12-08] MEDS: CASPOFUNGIN 50 MG in SOD CHLORIDE 0.9% 250 ML IVPB SCH (12:54)
[2016-12-08] MEDS ORDERED: ALBUMIN HUMAN 25% 100 ML IV ONE (13:00)
[2016-12-08] MEDS: CIPROFLOXACIN 250 MG TAB PO SCH (13:31)
[2016-12-08] MEDS: FLUCONAZOLE 100 MG TAB PO SCH (13:31)
--- NOTE | 2016-12-08 17:47 | CONS ---
Date/Time of Note Date/Time of Note DATE: 12/08/16 TIME: 17:45 Assessment/Plan Assessment/Plan Additional Assessment/Plan Assessment/Plan Additional Assessment/Plan Additional Assessment/Plan IMPRESSION: 1. Hepatic encephalopathy. 2. Cirrhosis of liver. 3. Refractory ascites. 4. Hepatorenal syndrome, type 1. 5. Diabetes mellitus. 6.hypotension,transferred to ICU 7.leucocytosis,w/u in progress 8.spontaneous bacterial peritonitis ,wbc.12,000 PLAN: To continue with lactulose and rifaximin. Hold off on diuretics because that will worsen the patient's renal function. Fluid restriction. Reduced protein diet. stool for occult blood,negative empiric Zosyn albumin to sustain BP resume feeding po Midodrine 5 mg bid paracentesis,with albumin infusion before and during procedure. Consultation Date/Type/Reason Admit Date/Time Nov 28, 2016 at 12:41 Initial Consult Date 11/29/16 Type of Consultation: ID Referring Provider: SUNDAR OBRIEN 24 HR Interval Summary Constitutional: improved Exam/Review of Systems Vital Signs Vitals Vital Signs Date Time Temp Pulse Resp B/P Pulse Ox O2 Delivery O2 Flow Rate FiO2 12/08/16 16:48 74 12/08/16 15:30 97.5 20 95/50 99 12/07/16 06:40 Room Air Intake and Output 12/07/16 12/07/16 12/08/16 15:00 23:00 07:00 Intake Total 720 ml 700 ml Output Total 4 ml Balance 720 ml 696 ml Exam Constitutional: alert, oriented, well developed Psych: nl mood/affect, no complaints Head: atraumatic, normocephalic Eyes: EOMI, PERRL, nl conjunctiva, nl lids, nl sclera ENMT: nl external ears & nose, nl lips & teeth, nl nasal mucosa & septum Neck: non-tender, supple Respiratory: clear to auscultation, normal air movement Cardiovascular: nl pulses, regular rate and rhythm Gastrointestinal: nl liver, spleen, non-tender, soft Musculoskeletal: nl extremities to inspection, nl gait and stance Extremities: normal pulses 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: EXTRACT OPERATOR II-XII intact, nl mental status, nl speech, nl strength Skin: nl turgor, No rash or lesions Lymph: nl lymph nodes Results Result Diagram: 12/08/16 0708 12/08/16 0708 Results 24 hrs Laboratory Tests Test 12/07/16 18:20 12/07/16 20:36 12/08/16 07:08 12/08/16 08:05 Potassium Level 3.7 3.6 Sodium Level 154 H 156 H Bedside Glucose 150 118 Ammonia < 9 L Anion Gap 16 Basophils # 0.0 Basophils % 0.5 Blood Morphology Comment Blood Urea Nitrogen 75 H Calcium Level 8.0 L Carbon Dioxide Level 17 L Chloride Level 127 H Creatinine 2.29 H Eosinophils # 0.1 Eosinophils % 1.5 Glucose Level 114 Hematocrit 23.1 L Hemoglobin 8.1 L Lymphocytes # 0.6 L Lymphocytes % 11.2 L Mean Corpuscular Hemoglobin 32.7 Mean Corpuscular Hemoglobin Concent 35.1 Mean Corpuscular Volume 93.3 Mean Platelet Volume 9.7 Monocytes # 0.6 Monocytes % 11.0 Neutrophils # 4.1 Neutrophils % 75.8 Nucleated Red Blood Cells # 0.0 Nucleated Red Blood Cells % 0.0 Platelet Count 35 L Red Blood Count 2.47 L Red Cell Distribution Width 17.1 H White Blood Count 5.5 Test 12/08/16 12:14 Bedside Glucose 172 Medications Medications Current Medications Rifaximin (Xifaxan) 550 mg BID PO Last administered on 12/08/16 08:29; Admin Dose 550 MG; Start 11/28/16 at 21:00 Miscellaneous Information 1 ea NOTE XX ; Start 11/28/16 at 20:00 Glucose (Glutose) 15 gm Q15M PRN PO DECREASED GLUCOSE; Start 11/28/16 at 20:00 Glucose (Glutose) 22.5 gm Q15M PRN PO DECREASED GLUCOSE; Start 11/28/16 at 20: 00 Dextrose (D50w Syringe) 25 ml Q15M PRN IV DECREASED GLUCOSE; Start 11/28/16 at 20:00 Dextrose (D50w Syringe) 50 ml Q15M PRN IV DECREASED GLUCOSE; Start 11/28/16 at 20:00 Glucagon (Glucagen) 1 mg Q15M PRN IM DECREASED GLUCOSE; Start 11/28/16 at 20:00 Glucose (Glutose) 15 gm Q15M PRN BUCCAL DECREASED GLUCOSE; Start 11/28/16 at 20 :00 Citric Acid/ Sodium Citrate (Bicitra) 15 ml BID PO Last administered on 08:29; Admin Dose 15 ML; Start 11/29/16 at 21:00 Pantoprazole (Protonix Tab) 40 mg DAILY@06 PO Last administered on 12/08/16 05: 33; Admin Dose 40 MG; Start 12/02/16 at 06:00 Morphine Sulfate (morphine) 2 mg Q4H PRN IV PAIN LEVEL 6-10 Last administered on 12/04/16 21:02; Admin Dose 2 MG; Start 12/02/16 at 06:00 IV Flush (NS 10 ml) 10 ml PRN PRN IV IV PROTOCOL; Start 12/02/16 at 18:30 Ondansetron HCl 4 mg 4 mg Q6H PRN IV NAUSEA AND/OR VOMITING Last administered on 12/03/16 02:23; Admin Dose 4 MG; Start 12/03/16 at 02:30 Caspofungin/ Sodium Chloride (Cancidas/NS) 250 ml @ 250 mls/hr Q24H IVPB Last administered on 12/08/16 12:54; Admin Dose 250 MLS/HR; Start 12/04/16 at 12:00; Stop 12/08/16 at 23:59 Lactulose (Enulose) 40 gm Q6 PO Last administered on 12/08/16 12:54; Admin Dose 40 GM; Start 12/03/16 at 18:00 Epoetin Brandan (Epogen (Non Esrd/Non Oncology)) 10,000 units MoWeFr@17 SC Last administered on 12/06/16 18:36; Admin Dose 10,000 UNITS; Start 12/03/16 at 21:30 Calcium Carbonate 1250 mg 1,250 mg BID NGT Last administered on 12/08/16 08:29 ; Admin Dose 1,250 MG; Start 12/03/16 at 21:00 Meropenem (Merrem 500 Mg/ 100 ml (Pmx)) 100 ml @ 200 mls/hr Q12 IVPB Last administered on 12/08/16 08:30; Admin Dose 200 MLS/HR; Start 12/05/16 at 11:00; Stop 12/08/16 at 23:59 Diagnostic Test (Pha) (Accucheck) 1 ea 02 XX ; Start 12/07/16 at 02:00 Ciprofloxacin (Cipro) 250 mg DAILY@06 PO Last administered on 12/08/16 13:31; Admin Dose 250 MG; Start 12/08/16 at 14:00 Fluconazole (Diflucan) 100 mg DAILY PO Last administered on 12/08/16 13:31; Admin Dose 100 MG; Start 12/08/16 at 14:00 JOHANA MOTLEY MD Dec 08, 2016 17:47
--- NOTE | 2016-12-08 18:08 | PN ---
Date/Time of Note Date/Time of Note DATE: 12/08/16 TIME: 18:05 Assessment/Plan VTE Prophylaxis VTE Prophylaxis Intervention: SCD's Lines/Catheters [facility] ([facility] PICC Line Central line still needed: Yes Urinary Cath still in place: No Assessment/Plan Chief Complaint/Hosp Course ASSESSMENT AND PLAN: - Sepsis, resolve. Continue abx per ID. Dr. Sandhu is following in infection disease consultation. - Possible SBP, follow-up on final ascetic culture. - Hepatic encephalopathy. Continue lactulose q.i.d. and rifaximin. Dr. Melendez is following in gastroenterology consultation. - Alcoholic liver cirrhosis with recurrent ascites. s/p paracentesis on 12/02, pending paracentesis. - LEONARDO on Chronic kidney disease. Dr. Morrison is following in nephrology consultation. - Diabetes mellitus. Continue NovoLog per mild algorithm sliding scale coverage. - Thrombocytopenia, most likely secondary to liver cirrhosis. Continue to monitor platelet count. - Coagulopathy, check PT and INR tomorrow. Continue Protonix for peptic ulcer disease prophylaxis and sequential compression device for deep venous thrombosis prophylaxis. Further recommendations based on clinical course. Plan of care discussed with Dr. Qureshi. Problems: Subjective 24 Hr Interval Summary Free Text/Dictation Patient is awake alert and oriented to name and situation, otherwise confused, no nausea vomiting reported per RN, decreased ascites. Ammonia level is within normal limits. Exam/Review of Systems Vital Signs Vitals Vital Signs Date Time Temp Pulse Resp B/P Pulse Ox O2 Delivery O2 Flow Rate FiO2 12/08/16 16:48 74 12/08/16 15:30 97.5 20 95/50 99 12/07/16 06:40 Room Air Intake and Output 12/07/16 12/07/16 12/08/16 15:00 23:00 07:00 Intake Total 720 ml 700 ml Output Total 4 ml Balance 720 ml 696 ml Exam GENERAL: Well-developed, well-nourished male currently in no acute distress HEENT: Head is atraumatic, normocephalic. Pupils equal, round, reactive to light and accommodation. The patient has slightly jaundiced sclerae. NECK: Supple. No cervical lymphadenopathy, no thyromegaly. CHEST: Lungs clear bilaterally. There is no rhonchi, wheezes, rales noted. CARDIOVASCULAR: Normal S1, S2. No murmurs, gallops, clicks, rubs noted. ABDOMEN: Protuberant, soft, distended, nontender. EXTREMITIES: No edema, clubbing, cyanosis. Pulses equal bilaterally 2+. SKIN: The patient has multiple ecchymotic areas and healing scabs. NEUROLOGIC: Patient is awake, alert to name and situation, otherwise confused. Results Result Diagram: 12/08/16 0708 12/08/16 0708 Results 24 hrs Laboratory Tests Test 12/07/16 18:20 12/07/16 20:36 12/08/16 07:08 12/08/16 08:05 Potassium Level 3.7 3.6 Sodium Level 154 H 156 H Bedside Glucose 150 118 Ammonia < 9 L Anion Gap 16 Basophils # 0.0 Basophils % 0.5 Blood Morphology Comment Blood Urea Nitrogen 75 H Calcium Level 8.0 L Carbon Dioxide Level 17 L Chloride Level 127 H Creatinine 2.29 H Eosinophils # 0.1 Eosinophils % 1.5 Glucose Level 114 Hematocrit 23.1 L Hemoglobin 8.1 L Lymphocytes # 0.6 L Lymphocytes % 11.2 L Mean Corpuscular Hemoglobin 32.7 Mean Corpuscular Hemoglobin Concent 35.1 Mean Corpuscular Volume 93.3 Mean Platelet Volume 9.7 Monocytes # 0.6 Monocytes % 11.0 Neutrophils # 4.1 Neutrophils % 75.8 Nucleated Red Blood Cells # 0.0 Nucleated Red Blood Cells % 0.0 Platelet Count 35 L Red Blood Count 2.47 L Red Cell Distribution Width 17.1 H White Blood Count 5.5 Test 12/08/16 12:14 Bedside Glucose 172 Medications Medications Current Medications Rifaximin (Xifaxan) 550 mg BID PO Last administered on 12/08/16t 08:29; Admin Dose 550 MG; Start 11/28/16 at 21:00 Miscellaneous Information 1 ea NOTE XX ; Start 11/28/16 at 20:00 Glucose (Glutose) 15 gm Q15M PRN PO DECREASED GLUCOSE; Start 11/28/16 at 20:00 Glucose (Glutose) 22.5 gm Q15M PRN PO DECREASED GLUCOSE; Start 11/28/16 at 20: 00 Dextrose (D50w Syringe) 25 ml Q15M PRN IV DECREASED GLUCOSE; Start 11/28/16 at 20:00 Dextrose (D50w Syringe) 50 ml Q15M PRN IV DECREASED GLUCOSE; Start 11/28/16 at 20:00 Glucagon (Glucagen) 1 mg Q15M PRN IM DECREASED GLUCOSE; Start 11/28/16 at 20:00 Glucose (Glutose) 15 gm Q15M PRN BUCCAL DECREASED GLUCOSE; Start 11/28/16 at 20 :00 Citric Acid/ Sodium Citrate (Bicitra) 15 ml BID PO Last administered on 08:29; Admin Dose 15 ML; Start 11/29/16 at 21:00 Pantoprazole (Protonix Tab) 40 mg DAILY@06 PO Last administered on 12/08/16 05: 33; Admin Dose 40 MG; Start 12/02/16 at 06:00 Morphine Sulfate (morphine) 2 mg Q4H PRN IV PAIN LEVEL 6-10 Last administered on 12/04/16 21:02; Admin Dose 2 MG; Start 12/02/16 at 06:00 IV Flush (NS 10 ml) 10 ml PRN PRN IV IV PROTOCOL; Start 12/02/16 at 18:30 Ondansetron HCl 4 mg 4 mg Q6H PRN IV NAUSEA AND/OR VOMITING Last administered on 12/03/16 02:23; Admin Dose 4 MG; Start 12/03/16 at 02:30 Caspofungin/ Sodium Chloride (Cancidas/NS) 250 ml @ 250 mls/hr Q24H IVPB Last administered on 12/08/16 12:54; Admin Dose 250 MLS/HR; Start 12/04/16 at 12:00; Stop 12/08/16 at 23:59 Lactulose (Enulose) 40 gm Q6 PO Last administered on 12/08/16 12:54; Admin Dose 40 GM; Start 12/03/16 at 18:00 Epoetin Brandan (Epogen (Non Esrd/Non Oncology)) 10,000 units MoWeFr@17 SC Last administered on 12/06/16 18:36; Admin Dose 10,000 UNITS; Start 12/03/16 at 21:30 Calcium Carbonate 1250 mg 1,250 mg BID NGT Last administered on 12/08/16 08:29 ; Admin Dose 1,250 MG; Start 12/03/16 at 21:00 Meropenem (Merrem 500 Mg/ 100 ml (Pmx)) 100 ml @ 200 mls/hr Q12 IVPB Last administered on 12/08/16 08:30; Admin Dose 200 MLS/HR; Start 12/05/16 at 11:00; Stop 12/08/16 at 23:59 Diagnostic Test (Pha) (Accucheck) 1 ea 02 XX ; Start 12/07/16 at 02:00 Ciprofloxacin (Cipro) 250 mg DAILY@06 PO Last administered on 12/08/16 13:31; Admin Dose 250 MG; Start 12/08/16 at 14:00 Fluconazole (Diflucan) 100 mg DAILY PO Last administered on 12/08/16 13:31; Admin Dose 100 MG; Start 12/08/16 at 14:00 RIDDHI BLOCK Dec 08, 2016 18:08
[2016-12-08 20:04] LABS: INR 2.11; PROTIME 23.9 Sec (12.2-14.2); PT RATIO 1.9
[2016-12-08] MEDS: EPOETIN 10000 UNITS/ML (NON ESRD/NON ONCOLOGY) SC SCH (21:53)
[2016-12-09] VITALS (12 sets, daily range): BP systolic 98–110; BP diastolic 55–64; PULSE 86–96; RESP 16–20
[2016-12-09] MEDS: LACTULOSE 30ML CUP PO SCH ×4 (00:17→17:17)
[2016-12-09] MEDS: ACCUCHECK XX SCH (02:00)
[2016-12-09] MEDS: PANTOPRAZOLE (EC) 40 MG TAB PO SCH (05:56)
[2016-12-09] MEDS: CIPROFLOXACIN 250 MG TAB PO SCH (05:57)
[2016-12-09 07:04] LABS: INR 2.02; PROTIME 23.1 Sec (12.2-14.2); PT RATIO 1.8
[2016-12-09 07:09] LABS: EOSINOPHILS # 0.1 10^3/ul (0.0-0.5); EOSINOPHILS % 1.8 % (0.0-7.0); HEMATOCRIT 24.5 % (42.0-52.0); HEMOGLOBIN 8.3 g/dl (14.0-18.0); LYMPHOCYTES # 0.9 10^3/ul (0.8-2.9); LYMPHOCYTES % 14.5 % (15.0-51.0); MEAN CORPUSCULAR HEMOGLOBIN 31.9 pg (29.0-33.0); MEAN CORPUSCULAR VOLUME 93.8 fl (82.0-101.0); MEAN PLATELET VOLUME 9.5 fl (7.4-10.4); MONOCYTE # 0.6 10^3/ul (0.3-0.9); MONOCYTES % 9.9 % (0.0-11.0); NEUTROPHIL # 4.6 10^3/ul (1.6-7.5); NEUTROPHILS % 73.8 % (39.0-77.0); RED BLOOD COUNT 2.61 10^6/ul (4.70-6.10); RED CELL DISTRIBUTION WIDTH 17.1 % (11.5-14.5); UNCORRECTED WBC 6.2 10^3/ul (4.8-10.8); WHITE BLOOD COUNT 6.2 10^3/ul (4.8-10.8)
[2016-12-09 07:22] LABS: CONDITION 1; LH ANALYZER COMMENTS 1; PLATELET COUNT 37 10^3/UL (140-440)
[2016-12-09 07:34] LABS: POTASSIUM 3.4 mmol/L (3.5-5.1)
[2016-12-09 07:37] LABS: CREATININE 2.31 mg/dl (0.61-1.24)
[2016-12-09 07:38] LABS: CALCIUM 8.1 mg/dl (8.4-10.2)
[2016-12-09] MEDS: RIFAXIMIN 550 MG TAB PO SCH ×2 (09:18→21:52)
[2016-12-09] MEDS: FLUCONAZOLE 100 MG TAB PO SCH (09:18)
[2016-12-09] MEDS: CITRIC ACID/NA CITRATE 30 ML CUP PO SCH ×2 (09:19→21:53)
[2016-12-09] MEDS: CA CARBONATE (250 MG/ML) 5ML CUP NGT SCH ×2 (09:19→21:53)
[2016-12-09] MEDS: INSULIN ASPART [NOVOLOG] 3 ML PEN SC SCH ×4 (09:25→21:00)
[2016-12-09 10:47] LABS: PLATELET ESTIMATE PLT APPEAR DECREASED
--- NOTE | 2016-12-09 10:50 | CONS ---
Date/Time of Note Date/Time of Note DATE: 12/09/16 TIME: 10:46 Assessment/Plan Assessment/Plan Chief Complaint/Hosp Course assessment/impression - h/o sepsis - SBP, s/p paracentesis 12/02/2016. Ascetic CEQd=2040. Pt completed renally dosed meropenem (12/05/2016-12/08/2016), pip/tazo (12/01/2016-12/04/2016), caspofungin (2016-12/08/2016) - probable UTI (pyuria, increased urinary frequency) - thrush - LEONARDO - ileus - recurrent hepatic encephalopathy - cholelithiasis - RLQ pain: CT did not demonstrate other acute GI processes - h/o alcoholic liver cirrhosis and portal hypertension - h/o recurrent ascites s/p paracentesis in the past. - DM - CRI - thrombocytopenia (HIV screen negative in 2016, hepatitis screen was negative in 2015) recommendations - Pt may need another therapeutic paracentesis - continue renally dosed ciprofloxacin for secondary prophylaxis of SBP (2016-) - continue renally dosed fluconazole for thrush - continue rifaxamin management d/w Pt Problems: Consultation Date/Type/Reason Admit Date/Time Nov 28, 2016 at 12:41 Initial Consult Date 12/02/16 Type of Consultation: ID Referring Provider: SUNDAR OBRIEN 24 HR Interval Summary Constitutional: poor po Detailed Summary Eyes: no complaints ENT: no complaints Respiratory: shortness of breath (due to increased abdominal girth) Gastrointestinal: other (distention), pain Genitourinary: no complaints Musculoskeletal: no complaints Skin: no complaints Exam/Review of Systems Vital Signs Vitals Vital Signs Date Time Temp Pulse Resp B/P Pulse Ox O2 Delivery O2 Flow Rate FiO2 12/09/16 08:14 92 12/09/16 07:59 98.8 20 98/55 96 12/07/16 06:40 Room Air Intake and Output 12/08/16 12/08/16 12/09/16 15:00 23:00 07:00 Intake Total 2090 ml 200 ml Balance 2090 ml 200 ml Exam Constitutional: frail Psych: confusion Head: atraumatic, normocephalic Eyes: nl conjunctiva, nl lids, nl sclera ENMT: nl external ears & nose, nl nasal mucosa & septum Respiratory: diminished breath sounds Cardiovascular: regular rate and rhythm Gastrointestinal: distended, firm, tender (diffuse (due to pressure per Pt)) Musculoskeletal: nl extremities to inspection Extremities: edema Results Result Diagram: 12/09/16 0608 12/09/16 0608 Results 24 hrs Laboratory Tests Test 12/08/16 12:14 12/08/16 18:30 12/08/16 19:30 12/08/16 21:49 Bedside Glucose 172 129 137 INR International Normalized Ratio 2.11 Prothrombin Time 23.9 H Prothrombin Time Ratio 1.9 Test 12/09/16 06:08 12/09/16 08:24 Anion Gap 16 Basophils # 0.0 Basophils % 0.0 Blood Morphology Comment Blood Urea Nitrogen 73 H Calcium Level 8.1 L Carbon Dioxide Level 18 L Chloride Level 119 H Creatinine 2.31 H Eosinophils # 0.1 Eosinophils % 1.8 Glucose Level 125 Hematocrit 24.5 L Hemoglobin 8.3 L INR International Normalized Ratio 2.02 Lymphocytes # 0.9 Lymphocytes % 14.5 L Mean Corpuscular Hemoglobin 31.9 Mean Corpuscular Hemoglobin Concent 34.0 Mean Corpuscular Volume 93.8 Mean Platelet Volume 9.5 Monocytes # 0.6 Monocytes % 9.9 Neutrophils # 4.6 Neutrophils % 73.8 Nucleated Red Blood Cells # 0.0 Nucleated Red Blood Cells % 0.0 Platelet Count 37 L Potassium Level 3.4 L Prothrombin Time 23.1 H Prothrombin Time Ratio 1.8 Red Blood Count 2.61 L Red Cell Distribution Width 17.1 H Sodium Level 150 H White Blood Count 6.2 Bedside Glucose 147 Medications Medications Current Medications Rifaximin (Xifaxan) 550 mg BID PO Last administered on 12/09/16t 09:18; Admin Dose 550 MG; Start 11/28/16 at 21:00 Miscellaneous Information 1 ea NOTE XX ; Start 11/28/16 at 20:00 Glucose (Glutose) 15 gm Q15M PRN PO DECREASED GLUCOSE; Start 11/28/16 at 20:00 Glucose (Glutose) 22.5 gm Q15M PRN PO DECREASED GLUCOSE; Start 11/28/16 at 20: 00 Dextrose (D50w Syringe) 25 ml Q15M PRN IV DECREASED GLUCOSE; Start 11/28/16 at 20:00 Dextrose (D50w Syringe) 50 ml Q15M PRN IV DECREASED GLUCOSE; Start 11/28/16 at 20:00 Glucagon (Glucagen) 1 mg Q15M PRN IM DECREASED GLUCOSE; Start 11/28/16 at 20:00 Glucose (Glutose) 15 gm Q15M PRN BUCCAL DECREASED GLUCOSE; Start 11/28/16 at 20 :00 Citric Acid/ Sodium Citrate (Bicitra) 15 ml BID PO Last administered on 09:19; Admin Dose 15 ML; Start 11/29/16 at 21:00 Pantoprazole (Protonix Tab) 40 mg DAILY@06 PO Last administered on 12/09/16 05: 56; Admin Dose 40 MG; Start 12/02/16 at 06:00 Morphine Sulfate (morphine) 2 mg Q4H PRN IV PAIN LEVEL 6-10 Last administered on 12/04/16 21:02; Admin Dose 2 MG; Start 12/02/16 at 06:00 IV Flush (NS 10 ml) 10 ml PRN PRN IV IV PROTOCOL; Start 12/02/16 at 18:30 Ondansetron HCl (Zofran Inj) 4 mg Q6H PRN IV NAUSEA AND/OR VOMITING Last administered on 12/03/16 02:23; Admin Dose 4 MG; Start 12/03/16 at 02:30 Lactulose (Enulose) 40 gm Q6 PO Last administered on 12/09/16 05:56; Admin Dose 40 GM; Start 12/03/16 at 18:00 Epoetin Brandan (Epogen (Non Esrd/Non Oncology)) 10,000 units MoWeFr@17 SC Last administered on 12/08/16 21:53; Admin Dose 10,000 UNITS; Start 12/03/16 at 21:30 Calcium Carbonate (Ca Carbonate) 1,250 mg BID NGT Last administered on 09:19; Admin Dose 1,250 MG; Start 12/03/16 at 21:00 Diagnostic Test (Pha) (Accucheck) 1 ea 02 XX ; Start 12/07/16 at 02:00 Ciprofloxacin (Cipro) 250 mg DAILY@06 PO Last administered on 12/09/16 05:57; Admin Dose 250 MG; Start 12/08/16 at 14:00 Fluconazole (Diflucan) 100 mg DAILY PO Last administered on 12/09/16 09:18; Admin Dose 100 MG; Start 12/08/16 at 14:00 MANFRED MARTINEZ M.D. Dec 09, 2016 10:50
--- NOTE | 2016-12-09 13:09 | PN ---
Date/Time of Note Date/Time of Note DATE: 12/09/16 TIME: 13:05 Assessment/Plan VTE Prophylaxis VTE Prophylaxis Intervention: SCD's Lines/Catheters IV [facility]ter Type (from [facility]): PICC Line Central line still needed: Yes Urinary Cath still in place: No Assessment/Plan Assessment/Plan - Sepsis, resolving. - per Dr. Sandhu in infection disease consultation. - Possible SBP, follow-up on final ascetic culture. - Hepatic encephalopathy. - Continue lactulose q.i.d. and rifaximin. - per Dr. Melendez is following in gastroenterology consultation. - Ammonia level am - Alcoholic liver cirrhosis with recurrent ascites. - s/p paracentesis on 12/02, pending paracentesis. - LEONARDO on Chronic kidney disease. - Dr. Morrison in nephrology consultation. - Diabetes mellitus. Continue NovoLog per mild algorithm sliding scale coverage. - Thrombocytopenia, most likely secondary to liver cirrhosis. Continue to monitor platelet count. - Coagulopathy, check PT and INR tomorrow. - Hypokalemia- replet K, am BMP Continue Protonix for peptic ulcer disease prophylaxis and sequential compression device for deep venous thrombosis prophylaxis. Further recommendations based on clinical course. Plan of care discussed with Dr. Qureshi. Subjective 24 Hr Interval Summary Free Text/Dictation NAD, at bed side, all Qs ANSWERED. For paracentesis today. dw staff. Eyes: no complaints ENT: no complaints Respiratory: no complaints Gastrointestinal: no complaints Genitourinary: no complaints Musculoskeletal: no complaints Skin: no complaints Neurologic: no complaints Exam/Review of Systems Vital Signs Vitals Vital Signs Date Time Temp Pulse Resp B/P Pulse Ox O2 Delivery O2 Flow Rate FiO2 12/09/16 11:47 98.0 95 20 110/64 99 12/07/16 06:40 Room Air Intake and Output 12/08/16 12/08/16 12/09/16 15:00 23:00 07:00 Intake Total 2090 ml 200 ml Balance 2090 ml 200 ml Exam Constitutional: alert, oriented (time and place), other Psych: nl mood/affect Head: atraumatic Eyes: EOMI, PERRL, nl sclera ENMT: nl external ears & nose Neck: non-tender Respiratory: clear to auscultation Cardiovascular: nl pulses Gastrointestinal: ascites, distended Musculoskeletal: nl extremities to inspection Extremities: normal pulses 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: nl speech Lymph: nontender, other Results Result Diagram: 12/09/16 0608 12/09/16 0608 Results 24 hrs Laboratory Tests Test 12/08/16 18:30 12/08/16 19:30 12/08/16 21:49 12/09/16 06:08 Bedside Glucose 129 137 INR International Normalized Ratio 2.11 2.02 Prothrombin Time 23.9 H 23.1 H Prothrombin Time Ratio 1.9 1.8 Anion Gap 16 Basophils # 0.0 Basophils % 0.0 Blood Morphology Comment Blood Urea Nitrogen 73 H Calcium Level 8.1 L Carbon Dioxide Level 18 L Chloride Level 119 H Creatinine 2.31 H Eosinophils # 0.1 Eosinophils % 1.8 Glucose Level 125 Hematocrit 24.5 L Hemoglobin 8.3 L Lymphocytes # 0.9 Lymphocytes % 14.5 L Mean Corpuscular Hemoglobin 31.9 Mean Corpuscular Hemoglobin Concent 34.0 Mean Corpuscular Volume 93.8 Mean Platelet Volume 9.5 Monocytes # 0.6 Monocytes % 9.9 Neutrophils # 4.6 Neutrophils % 73.8 Nucleated Red Blood Cells # 0.0 Nucleated Red Blood Cells % 0.0 Platelet Count 37 L Platelet Estimate PLT APPEAR DECREASED Potassium Level 3.4 L Red Blood Count 2.61 L Red Cell Distribution Width 17.1 H Sodium Level 150 H White Blood Count 6.2 Test 12/09/16 08:24 12/09/16 12:19 Bedside Glucose 147 220 Medications Medications Current Medications Rifaximin (Xifaxan) 550 mg BID PO Last administered on 12/09/16t 09:18; Admin Dose 550 MG; Start 11/28/16 at 21:00 Miscellaneous Information 1 ea NOTE XX ; Start 11/28/16 at 20:00 Glucose (Glutose) 15 gm Q15M PRN PO DECREASED GLUCOSE; Start 11/28/16 at 20:00 Glucose (Glutose) 22.5 gm Q15M PRN PO DECREASED GLUCOSE; Start 11/28/16 at 20: 00 Dextrose (D50w Syringe) 25 ml Q15M PRN IV DECREASED GLUCOSE; Start 11/28/16 at 20:00 Dextrose (D50w Syringe) 50 ml Q15M PRN IV DECREASED GLUCOSE; Start 11/28/16 at 20:00 Glucagon (Glucagen) 1 mg Q15M PRN IM DECREASED GLUCOSE; Start 11/28/16 at 20:00 Glucose (Glutose) 15 gm Q15M PRN BUCCAL DECREASED GLUCOSE; Start 11/28/16 at 20 :00 Citric Acid/ Sodium Citrate (Bicitra) 15 ml BID PO Last administered on 09:19; Admin Dose 15 ML; Start 11/29/16 at 21:00 Pantoprazole (Protonix Tab) 40 mg DAILY@06 PO Last administered on 12/09/16 05: 56; Admin Dose 40 MG; Start 12/02/16 at 06:00 Morphine Sulfate (morphine) 2 mg Q4H PRN IV PAIN LEVEL 6-10 Last administered on 12/04/16 21:02; Admin Dose 2 MG; Start 12/02/16 at 06:00 IV Flush (NS 10 ml) 10 ml PRN PRN IV IV PROTOCOL; Start 12/02/16 at 18:30 Ondansetron HCl (Zofran Inj) 4 mg Q6H PRN IV NAUSEA AND/OR VOMITING Last administered on 12/03/16 02:23; Admin Dose 4 MG; Start 12/03/16 at 02:30 Lactulose (Enulose) 40 gm Q6 PO Last administered on 12/09/16 12:24; Admin Dose 40 GM; Start 12/03/16 at 18:00 Epoetin Brandan (Epogen (Non Esrd/Non Oncology)) 10,000 units MoWeFr@17 SC Last administered on 12/08/16 21:53; Admin Dose 10,000 UNITS; Start 12/03/16 at 21:30 Calcium Carbonate (Ca Carbonate) 1,250 mg BID NGT Last administered on 09:19; Admin Dose 1,250 MG; Start 12/03/16 at 21:00 Diagnostic Test (Pha) (Accucheck) 1 ea 02 XX ; Start 12/07/16 at 02:00 Ciprofloxacin (Cipro) 250 mg DAILY@06 PO Last administered on 12/09/16 05:57; Admin Dose 250 MG; Start 12/08/16 at 14:00 Fluconazole (Diflucan) 100 mg DAILY PO Last administered on 12/09/16 09:18; Admin Dose 100 MG; Start 12/08/16 at 14:00 SUNDAR OBRIEN Dec 09, 2016 13:09
[2016-12-09] MEDS ORDERED: POTASSIUM CHLORIDE (SR) 20 MEQ TAB PO STA (13:20)
--- NOTE | 2016-12-09 19:25 | CONS ---
Date/Time of Note Date/Time of Note DATE: 12/09/16 TIME: 19:24 Assessment/Plan Assessment/Plan Additional Assessment/Plan Additional Assessment/Plan IMPRESSION: 1. Hepatic encephalopathy. 2. Cirrhosis of liver. 3. Refractory ascites. 4. Hepatorenal syndrome, type 1. 5. Diabetes mellitus. 6.hypotension,transferred to ICU 7.leucocytosis,w/u in progress 8.spontaneous bacterial peritonitis ,wbc.12,000 PLAN: To continue with lactulose and rifaximin. Hold off on diuretics because that will worsen the patient's renal function. Fluid restriction. Reduced protein diet. stool for occult blood,negative empiric Zosyn albumin to sustain BP resume feeding po Midodrine 5 mg bid paracentesis,with albumin infusion before and during procedure.,once INR within optimal range Consultation Date/Type/Reason Admit Date/Time Nov 28, 2016 at 12:41 Initial Consult Date 11/29/16 Type of Consultation: ID Referring Provider: SUNDAR OBRIEN 24 HR Interval Summary Constitutional: improved Exam/Review of Systems Vital Signs Vitals Vital Signs Date Time Temp Pulse Resp B/P Pulse Ox O2 Delivery O2 Flow Rate FiO2 12/09/16 16:42 87 12/09/16 16:27 97.8 20 102/56 99 12/07/16 06:40 Room Air Intake and Output 12/08/16 12/08/16 12/09/16 15:00 23:00 07:00 Intake Total 2090 ml 200 ml Balance 2090 ml 200 ml Exam Constitutional: alert, oriented, well developed Psych: nl mood/affect, no complaints Head: atraumatic, normocephalic Eyes: EOMI, PERRL, nl conjunctiva, nl lids, nl sclera ENMT: nl external ears & nose, nl lips & teeth, nl nasal mucosa & septum Neck: non-tender, supple Respiratory: clear to auscultation, normal air movement Cardiovascular: nl pulses, regular rate and rhythm Gastrointestinal: nl liver, spleen, non-tender, soft Musculoskeletal: nl extremities to inspection, nl gait and stance Extremities: normal pulses 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: INCIDENT HANDLER II-XII intact, nl mental status, nl speech, nl strength Skin: nl turgor, No rash or lesions Lymph: nl lymph nodes Results Result Diagram: 12/09/16 0608 12/09/16 0608 Results 24 hrs Laboratory Tests Test 2/8/17 19:30 12/08/16 21:49 12/09/16 06:08 12/09/16 08:24 INR International Normalized Ratio 2.11 2.02 Prothrombin Time 23.9 H 23.1 H Prothrombin Time Ratio 1.9 1.8 Bedside Glucose 137 147 Anion Gap 16 Basophils # 0.0 Basophils % 0.0 Blood Morphology Comment Blood Urea Nitrogen 73 H Calcium Level 8.1 L Carbon Dioxide Level 18 L Chloride Level 119 H Creatinine 2.31 H Eosinophils # 0.1 Eosinophils % 1.8 Glucose Level 125 Hematocrit 24.5 L Hemoglobin 8.3 L Lymphocytes # 0.9 Lymphocytes % 14.5 L Mean Corpuscular Hemoglobin 31.9 Mean Corpuscular Hemoglobin Concent 34.0 Mean Corpuscular Volume 93.8 Mean Platelet Volume 9.5 Monocytes # 0.6 Monocytes % 9.9 Neutrophils # 4.6 Neutrophils % 73.8 Nucleated Red Blood Cells # 0.0 Nucleated Red Blood Cells % 0.0 Platelet Count 37 L Platelet Estimate PLT APPEAR DECREASED Potassium Level 3.4 L Red Blood Count 2.61 L Red Cell Distribution Width 17.1 H Sodium Level 150 H White Blood Count 6.2 Test 12/09/16 12:19 12/09/16 17:12 Bedside Glucose 220 148 Medications Medications Current Medications Rifaximin (Xifaxan) 550 mg BID PO Last administered on 12/09/16t 09:18; Admin Dose 550 MG; Start 11/28/16 at 21:00 Miscellaneous Information 1 ea NOTE XX ; Start 11/28/16 at 20:00 Glucose (Glutose) 15 gm Q15M PRN PO DECREASED GLUCOSE; Start 11/28/16 at 20:00 Glucose (Glutose) 22.5 gm Q15M PRN PO DECREASED GLUCOSE; Start 11/28/16 at 20: 00 Dextrose (D50w Syringe) 25 ml Q15M PRN IV DECREASED GLUCOSE; Start 11/28/16 at 20:00 Dextrose (D50w Syringe) 50 ml Q15M PRN IV DECREASED GLUCOSE; Start 11/28/16 at 20:00 Glucagon (Glucagen) 1 mg Q15M PRN IM DECREASED GLUCOSE; Start 11/28/16 at 20:00 Glucose (Glutose) 15 gm Q15M PRN BUCCAL DECREASED GLUCOSE; Start 11/28/16 at 20 :00 Citric Acid/ Sodium Citrate (Bicitra) 15 ml BID PO Last administered on 09:19; Admin Dose 15 ML; Start 11/29/16 at 21:00 Pantoprazole (Protonix Tab) 40 mg DAILY@06 PO Last administered on 12/09/16 05: 56; Admin Dose 40 MG; Start 12/02/16 at 06:00 Morphine Sulfate (morphine) 2 mg Q4H PRN IV PAIN LEVEL 6-10 Last administered on 12/04/16 21:02; Admin Dose 2 MG; Start 12/02/16 at 06:00 IV Flush (NS 10 ml) 10 ml PRN PRN IV IV PROTOCOL; Start 12/02/16 at 18:30 Ondansetron HCl (Zofran Inj) 4 mg Q6H PRN IV NAUSEA AND/OR VOMITING Last administered on 12/03/16 02:23; Admin Dose 4 MG; Start 12/03/16 at 02:30 Lactulose (Enulose) 40 gm Q6 PO Last administered on 12/09/16 17:17; Admin Dose 40 GM; Start 12/03/16 at 18:00 Epoetin Brandan (Epogen (Non Esrd/Non Oncology)) 10,000 units MoWeFr@17 SC Last administered on 12/08/16 21:53; Admin Dose 10,000 UNITS; Start 12/03/16 at 21:30 Calcium Carbonate (Ca Carbonate) 1,250 mg BID NGT Last administered on 09:19; Admin Dose 1,250 MG; Start 12/03/16 at 21:00 Diagnostic Test (Pha) (Accucheck) 1 ea 02 XX ; Start 12/07/16 at 02:00 Ciprofloxacin (Cipro) 250 mg DAILY@06 PO Last administered on 12/09/16 05:57; Admin Dose 250 MG; Start 12/08/16 at 14:00 Fluconazole (Diflucan) 100 mg DAILY PO Last administered on 12/09/16 09:18; Admin Dose 100 MG; Start 12/08/16 at 14:00 JOHANA MOTLEY MD Dec 09, 2016 19:25
--- NOTE | 2016-12-09 22:08 | CONS ---
Date/Time of Note Date/Time of Note DATE: 12/09/16 TIME: 22:08 Assessment/Plan Assessment/Plan Chief Complaint/Hosp Course Overall prognosis remains poor Problems: Additional Assessment/Plan Pt on Lactuloose, may be the reason for rising BUN may have to liberlize po fluid intake Cont'd Hospitalization Reason: Pt is noow DNR, will prefer supportive measures only Consultation Date/Type/Reason Admit Date/Time Nov 28, 2016 at 12:41 Initial Consult Date 12/02/16 Type of Consultation: renal Reason for Consultation Pt is moribund, unresponsive Referring Provider: SUNDAR OBRIEN 24 HR Interval Summary Free Text/Dictation Pt remains confined to bed Constitutional: improved Exam/Review of Systems Vital Signs Vitals Vital Signs Date Time Temp Pulse Resp B/P Pulse Ox O2 Delivery O2 Flow Rate FiO2 12/09/16 20:54 98.6 90 17 101/63 98 12/07/16 06:40 Room Air Intake and Output 12/08/16 12/08/16 12/09/16 15:00 23:00 07:00 Intake Total 2090 ml 200 ml Balance 2090 ml 200 ml Exam Looks weak Constitutional: oriented Psych: nl mood/affect, no complaints Head: atraumatic, normocephalic Eyes: EOMI, PERRL, icteric, nl conjunctiva, nl lids, nl sclera ENMT: nl external ears & nose, nl lips & teeth, nl nasal mucosa & septum Neck: non-tender, supple Respiratory: clear to auscultation, normal air movement Cardiovascular: edema, nl pulses, regular rate and rhythm Gastrointestinal: ascites, distended, hepatomegaly, soft Musculoskeletal: nl extremities to inspection, nl gait and stance Extremities: normal pulses Additional Comments Hbg 8.3, BUN/Creat have remained elevated Results BUN/Creat rising Result Diagram: 12/09/16 0608 12/09/16 0608 Results 24 hrs Laboratory Tests Test 12/09/16 06:08 12/09/16 08:24 12/09/16 12:19 12/09/16 17:12 Anion Gap 16 Basophils # 0.0 Basophils % 0.0 Blood Morphology Comment Blood Urea Nitrogen 73 H Calcium Level 8.1 L Carbon Dioxide Level 18 L Chloride Level 119 H Creatinine 2.31 H Eosinophils # 0.1 Eosinophils % 1.8 Glucose Level 125 Hematocrit 24.5 L Hemoglobin 8.3 L INR International Normalized Ratio 2.02 Lymphocytes # 0.9 Lymphocytes % 14.5 L Mean Corpuscular Hemoglobin 31.9 Mean Corpuscular Hemoglobin Concent 34.0 Mean Corpuscular Volume 93.8 Mean Platelet Volume 9.5 Monocytes # 0.6 Monocytes % 9.9 Neutrophils # 4.6 Neutrophils % 73.8 Nucleated Red Blood Cells # 0.0 Nucleated Red Blood Cells % 0.0 Platelet Count 37 L Platelet Estimate PLT APPEAR DECREASED Potassium Level 3.4 L Prothrombin Time 23.1 H Prothrombin Time Ratio 1.8 Red Blood Count 2.61 L Red Cell Distribution Width 17.1 H Sodium Level 150 H White Blood Count 6.2 Bedside Glucose 147 220 148 Medications Medications Current Medications Rifaximin (Xifaxan) 550 mg BID PO Last administered on 12/09/16 21:52; Admin Dose 550 MG; Start 11/28/16 at 21:00 Miscellaneous Information 1 ea NOTE XX ; Start 11/28/16 at 20:00 Glucose (Glutose) 15 gm Q15M PRN PO DECREASED GLUCOSE; Start 11/28/16 at 20:00 Glucose (Glutose) 22.5 gm Q15M PRN PO DECREASED GLUCOSE; Start 11/28/16 at 20: 00 Dextrose (D50w Syringe) 25 ml Q15M PRN IV DECREASED GLUCOSE; Start 11/28/16 at 20:00 Dextrose (D50w Syringe) 50 ml Q15M PRN IV DECREASED GLUCOSE; Start 11/28/16 at 20:00 Glucagon (Glucagen) 1 mg Q15M PRN IM DECREASED GLUCOSE; Start 11/28/16 at 20:00 Glucose (Glutose) 15 gm Q15M PRN BUCCAL DECREASED GLUCOSE; Start 11/28/16 at 20 :00 Citric Acid/ Sodium Citrate (Bicitra) 15 ml BID PO Last administered on 21:53; Admin Dose 15 ML; Start 11/29/16 at 21:00 Pantoprazole (Protonix Tab) 40 mg DAILY@06 PO Last administered on 12/09/16 05: 56; Admin Dose 40 MG; Start 12/02/16 at 06:00 Morphine Sulfate (morphine) 2 mg Q4H PRN IV PAIN LEVEL 6-10 Last administered on 12/04/16 21:02; Admin Dose 2 MG; Start 12/02/16 at 06:00 IV Flush (NS 10 ml) 10 ml PRN PRN IV IV PROTOCOL; Start 12/02/16 at 18:30 Ondansetron HCl (Zofran Inj) 4 mg Q6H PRN IV NAUSEA AND/OR VOMITING Last administered on 12/03/16 02:23; Admin Dose 4 MG; Start 12/03/16 at 02:30 Lactulose (Enulose) 40 gm Q6 PO Last administered on 12/09/16 17:17; Admin Dose 40 GM; Start 12/03/16 at 18:00 Epoetin Brandan (Epogen (Non Esrd/Non Oncology)) 10,000 units MoWeFr@17 SC Last administered on 12/08/16 21:53; Admin Dose 10,000 UNITS; Start 12/03/16 at 21:30 Calcium Carbonate (Ca Carbonate) 1,250 mg BID NGT Last administered on 21:53; Admin Dose 1,250 MG; Start 12/03/16 at 21:00 Diagnostic Test (Pha) (Accucheck) 1 ea 02 XX ; Start 12/07/16 at 02:00 Ciprofloxacin (Cipro) 250 mg DAILY@06 PO Last administered on 12/09/16 05:57; Admin Dose 250 MG; Start 12/08/16 at 14:00 Fluconazole (Diflucan) 100 mg DAILY PO Last administered on 12/09/16 09:18; Admin Dose 100 MG; Start 12/08/16 at 14:00 NELSON BRIGGS MD Dec 09, 2016 22:08
[2016-12-10] VITALS (13 sets, daily range): BP systolic 82–121; BP diastolic 43–73; PULSE 79–94; RESP 18–20
[2016-12-10] MEDS: LACTULOSE 30ML CUP PO SCH ×4 (00:49→17:35)
[2016-12-10] MEDS: ACCUCHECK XX SCH ×4 (02:00→23:30)
[2016-12-10] MEDS: CIPROFLOXACIN 250 MG TAB PO SCH (06:29)
[2016-12-10] MEDS: PANTOPRAZOLE (EC) 40 MG TAB PO SCH (06:29)
[2016-12-10 07:33] LABS: ADD SCAN DIFF NO
[2016-12-10 07:55] LABS: INR 1.71; PROTIME 20.2 Sec (12.2-14.2); PT RATIO 1.6
[2016-12-10 08:00] LABS: POTASSIUM 3.3 mmol/L (3.5-5.1)
[2016-12-10] MEDS: INSULIN ASPART [NOVOLOG] 3 ML PEN SC SCH ×4 (08:00→21:00)
[2016-12-10 08:03] LABS: CREATININE 1.9 mg/dl (0.61-1.24)
[2016-12-10 08:04] LABS: CALCIUM 8.4 mg/dl (8.4-10.2)
[2016-12-10 09:13] LABS: ABNORMAL IP MESSAGE 1; BASOPHILS % 0.2 % (0.0-2.0); EOSINOPHILS # 0.1 10^3/ul (0.0-0.5); EOSINOPHILS % 1.2 % (0.0-7.0); HEMATOCRIT 22.2 % (42.0-52.0); HEMOGLOBIN 7.2 g/dl (14.0-18.0); LYMPHOCYTES # 0.7 10^3/ul (0.8-2.9); LYMPHOCYTES % 11.2 % (15.0-51.0); MEAN CORPUSCULAR HEMOGLOBIN 30.9 pg (29.0-33.0); MEAN CORPUSCULAR HGB CONC 32.4 g/dl (32.0-37.0); MEAN CORPUSCULAR VOLUME 95.3 fl (82.0-101.0); MEAN PLATELET VOLUME 11.4 fl (7.4-10.4); MONOCYTE # 0.7 10^3/ul (0.3-0.9); MONOCYTES % 11.1 % (0.0-11.0); NEUTROPHIL # 4.5 10^3/ul (1.6-7.5); NEUTROPHILS % 75.6 % (39.0-77.0); NUCLEATED RED BLOOD CELLS% 0.5 /100WBC (0.0-0.0); RED BLOOD COUNT 2.33 10^6/ul (4.70-6.10); RED CELL DISTRIBUTION WIDTH 18.5 % (11.5-14.5); WHITE BLOOD COUNT 5.9 10^3/ul (4.8-10.8)
[2016-12-10 09:20] LABS: PLATELET COUNT 51 10^3/UL (140-415)
[2016-12-10] MEDS: CITRIC ACID/NA CITRATE 30 ML CUP PO SCH ×2 (09:56→21:15)
[2016-12-10] MEDS: FLUCONAZOLE 100 MG TAB PO SCH (09:56)
[2016-12-10] MEDS: CA CARBONATE (250 MG/ML) 5ML CUP NGT SCH ×2 (09:56→21:15)
[2016-12-10] MEDS: RIFAXIMIN 550 MG TAB PO SCH ×2 (09:56→21:15)
--- NOTE | 2016-12-10 10:35 | CONS ---
Date/Time of Note Date/Time of Note DATE: 12/10/16 TIME: 10:32 Assessment/Plan Assessment/Plan Chief Complaint/Hosp Course assessment/impression - h/o sepsis - culture-negative neutrocytic peritonitis, s/p paracentesis 12/02/2016. Ascetic PMNs=9,413. Pt completed renally dosed, empiric meropenem (12/05/2016-12/08/2016), pip/tazo (12/01/2016-12/04/2016), caspofungin (12/03/2016-12/08/2016) - probable UTI (pyuria, increased urinary frequency) - thrush - LEONARDO - ileus - recurrent hepatic encephalopathy - cholelithiasis - RLQ pain: CT did not demonstrate other acute GI processes - h/o alcoholic liver cirrhosis and portal hypertension - h/o recurrent ascites s/p paracentesis in the past. - DM - CRI - thrombocytopenia (HIV screen negative in 2016, hepatitis screen was negative in 2015) recommendations - ordered cell count and diff, albumin and culture from therapeutic paracentesis , may occur today - continue renally dosed ciprofloxacin for secondary prophylaxis of SBP (2016-). Note: Pt completed renally dosed, empiric meropenem (12/05/2016-12/08/2016) , pip/tazo (12/01/2016-12/04/2016), caspofungin (12/03/2016-12/08/2016). - continue renally dosed fluconazole for thrush - continue rifaxamin management d/w Pt and his RN Problems: Consultation Date/Type/Reason Admit Date/Time Nov 28, 2016 at 12:41 Initial Consult Date 12/02/16 Type of Consultation: ID Referring Provider: SUNDAR OBRIEN 24 HR Interval Summary Subjective hx not possible: other (confused) Constitutional: poor po Detailed Summary Respiratory: shortness of breath (due to increased abd girth) Gastrointestinal: other (distention), pain Genitourinary: no complaints Musculoskeletal: no complaints Exam/Review of Systems Vital Signs Vitals Vital Signs Date Time Temp Pulse Resp B/P Pulse Ox O2 Delivery O2 Flow Rate FiO2 12/10/16 08:19 98.2 94 19 105/60 100 12/10/16 07:46 Room Air Intake and Output 12/09/16 12/09/1617 15:00 23:00 07:00 Intake Total 1680 ml 803 ml Balance 1680 ml 803 ml Exam Constitutional: frail Psych: confusion Head: atraumatic, normocephalic Eyes: nl conjunctiva ENMT: nl external ears & nose, nl nasal mucosa & septum Respiratory: diminished breath sounds Cardiovascular: nl pulses, regular rate and rhythm Gastrointestinal: ascites, distended, firm, tender, No mass 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: confused, other (asterexis) Skin: ecchymosis Results Result Diagram: 12/10/16 0837 12/10/16 0652 Results 24 hrs Laboratory Tests Test 12/09/16 12:19 12/09/16 17:12 12/09/16 21:51 12/10/16 06:52 Bedside Glucose 220 148 142 Anion Gap 19 H Blood Urea Nitrogen 71 H Calcium Level 8.4 Carbon Dioxide Level 18 L Chloride Level 122 H Creatinine 1.90 H Glucose Level 125 INR International Normalized Ratio 1.71 Potassium Level 3.3 L Prothrombin Time 20.2 H Prothrombin Time Ratio 1.6 Sodium Level 156 H Test 12/10/16 07:34 12/10/16 08:37 Bedside Glucose 134 Basophils # 0.0 Basophils % 0.2 Eosinophils # 0.1 Eosinophils % 1.2 Hematocrit 22.2 L Hemoglobin 7.2 L Lymphocytes # 0.7 L Lymphocytes % 11.2 L Mean Corpuscular Hemoglobin 30.9 Mean Corpuscular Hemoglobin Concent 32.4 Mean Corpuscular Volume 95.3 Mean Platelet Volume 11.4 H Monocytes # 0.7 Monocytes % 11.1 H Neutrophils # 4.5 Neutrophils % 75.6 Nucleated Red Blood Cells # 0.0 Nucleated Red Blood Cells % 0.5 H Platelet Count 51 L Red Blood Count 2.33 L Red Cell Distribution Width 18.5 H White Blood Count 5.9 Medications Medications Current Medications Rifaximin (Xifaxan) 550 mg BID PO Last administered on 12/10/16 09:56; Admin Dose 550 MG; Start 11/28/16 at 21:00 Miscellaneous Information 1 ea NOTE XX ; Start 11/28/16 at 20:00 Glucose (Glutose) 15 gm Q15M PRN PO DECREASED GLUCOSE; Start 11/28/16 at 20:00 Glucose (Glutose) 22.5 gm Q15M PRN PO DECREASED GLUCOSE; Start 11/28/16 at 20: 00 Dextrose (D50w Syringe) 25 ml Q15M PRN IV DECREASED GLUCOSE; Start 11/28/16 at 20:00 Dextrose (D50w Syringe) 50 ml Q15M PRN IV DECREASED GLUCOSE; Start 11/28/16 at 20:00 Glucagon (Glucagen) 1 mg Q15M PRN IM DECREASED GLUCOSE; Start 11/28/16 at 20:00 Glucose (Glutose) 15 gm Q15M PRN BUCCAL DECREASED GLUCOSE; Start 11/28/16 at 20 :00 Citric Acid/ Sodium Citrate (Bicitra) 15 ml BID PO Last administered on 09:56; Admin Dose 15 ML; Start 11/29/16 at 21:00 Pantoprazole (Protonix Tab) 40 mg DAILY@06 PO Last administered on 12/10/16 06 :29; Admin Dose 40 MG; Start 12/02/16 at 06:00 Morphine Sulfate (morphine) 2 mg Q4H PRN IV PAIN LEVEL 6-10 Last administered on 12/04/16 21:02; Admin Dose 2 MG; Start 12/02/16 at 06:00 IV Flush (NS 10 ml) 10 ml PRN PRN IV IV PROTOCOL; Start 12/02/16 at 18:30 Ondansetron HCl (Zofran Inj) 4 mg Q6H PRN IV NAUSEA AND/OR VOMITING Last administered on 12/03/16 02:23; Admin Dose 4 MG; Start 12/03/16 at 02:30 Lactulose (Enulose) 40 gm Q6 PO Last administered on 12/10/16 06:29; Admin Dose 40 GM; Start 12/03/16 at 18:00 Epoetin Brandan (Epogen (Non Esrd/Non Oncology)) 10,000 units MoWeFr@17 SC Last administered on 12/08/16 21:53; Admin Dose 10,000 UNITS; Start 12/03/16 at 21:30 Calcium Carbonate (Ca Carbonate) 1,250 mg BID NGT Last administered on 09:56; Admin Dose 1,250 MG; Start 12/03/16 at 21:00 Diagnostic Test (Pha) (Accucheck) 1 ea 02 XX ; Start 12/07/16 at 02:00 Ciprofloxacin (Cipro) 250 mg DAILY@06 PO Last administered on 12/10/16 06:29; Admin Dose 250 MG; Start 12/08/16 at 14:00 Fluconazole (Diflucan) 100 mg DAILY PO Last administered on 12/10/16 09:56; Admin Dose 100 MG; Start 12/08/16 at 14:00 MANFRED MARTINEZ M.D. Dec 10, 2016 10:35
[2016-12-10] MEDS ORDERED: SOD CHLORIDE 0.9% 250 ML IV* ONE (12:55)
--- NOTE | 2016-12-10 12:57 | PN ---
Date/Time of Note Date/Time of Note DATE: 12/10/16 TIME: 12:57 Assessment/Plan VTE Prophylaxis VTE Prophylaxis Intervention: SCD's Lines/Catheters IV [facility]ter Type (from [facility]): PICC Line Central line still needed: Yes Urinary Cath still in place: No Assessment/Plan Chief Complaint/Hosp Course ASSESSMENT AND PLAN: - Sepsis, resolve. Continue abx per ID. Dr. Sandhu is following in infection disease consultation. - Possible SBP, follow-up on final ascetic culture. - Hepatic encephalopathy. Continue lactulose q.i.d. and rifaximin. Dr. Melendez is following in gastroenterology consultation. - Alcoholic liver cirrhosis with recurrent ascites. s/p paracentesis on 12/02, pending paracentesis. - LEONARDO on Chronic kidney disease. Dr. Morrison is following in nephrology consultation. - Diabetes mellitus. Continue NovoLog per mild algorithm sliding scale coverage. - Thrombocytopenia, most likely secondary to liver cirrhosis. Continue to monitor platelet count. - Coagulopathy, check PT and INR tomorrow. Continue Protonix for peptic ulcer disease prophylaxis and sequential compression device for deep venous thrombosis prophylaxis. Further recommendations based on clinical course. Plan of care discussed with Dr. Qureshi. Problems: Subjective 24 Hr Interval Summary Free Text/Dictation Patient is undergoing paracentesis today, no acute events overnight. Exam/Review of Systems Vital Signs Vitals Vital Signs Date Time Temp Pulse Resp B/P Pulse Ox O2 Delivery O2 Flow Rate FiO2 12/10/16 12:11 88 12/10/16 11:56 98.8 20 101/67 99 12/10/16 07:46 Room Air Intake and Output 12/09/16 12/09/16 12/10/16 15:00 23:00 07:00 Intake Total 1680 ml 803 ml Balance 1680 ml 803 ml Exam GENERAL: Well-developed, well-nourished male currently in no acute distress HEENT: Head is atraumatic, normocephalic. Pupils equal, round, reactive to light and accommodation. The patient has slightly jaundiced sclerae. NECK: Supple. No cervical lymphadenopathy, no thyromegaly. CHEST: Lungs clear bilaterally. There is no rhonchi, wheezes, rales noted. CARDIOVASCULAR: Normal S1, S2. No murmurs, gallops, clicks, rubs noted. ABDOMEN: Protuberant, soft, distended, nontender. EXTREMITIES: No edema, clubbing, cyanosis. Pulses equal bilaterally 2+. SKIN: The patient has multiple ecchymotic areas and healing scabs. NEUROLOGIC: Patient is awake, alert to name and situation, otherwise confused. Results Result Diagram: 12/10/16 0837 12/10/16 0652 Results 24 hrs Laboratory Tests Test 12/09/16 17:12 12/09/16 21:51 12/10/16 06:52 12/10/16 07:34 Bedside Glucose 148 142 134 Anion Gap 19 H Blood Urea Nitrogen 71 H Calcium Level 8.4 Carbon Dioxide Level 18 L Chloride Level 122 H Creatinine 1.90 H Glucose Level 125 INR International Normalized Ratio 1.71 Potassium Level 3.3 L Prothrombin Time 20.2 H Prothrombin Time Ratio 1.6 Sodium Level 156 H Total Bilirubin 1.3 Test 12/10/16 08:37 Basophils # 0.0 Basophils % 0.2 Eosinophils # 0.1 Eosinophils % 1.2 Hematocrit 22.2 L Hemoglobin 7.2 L Lymphocytes # 0.7 L Lymphocytes % 11.2 L Mean Corpuscular Hemoglobin 30.9 Mean Corpuscular Hemoglobin Concent 32.4 Mean Corpuscular Volume 95.3 Mean Platelet Volume 11.4 H Monocytes # 0.7 Monocytes % 11.1 H Neutrophils # 4.5 Neutrophils % 75.6 Nucleated Red Blood Cells # 0.0 Nucleated Red Blood Cells % 0.5 H Platelet Count 51 L Red Blood Count 2.33 L Red Cell Distribution Width 18.5 H White Blood Count 5.9 Medications Medications Current Medications Rifaximin (Xifaxan) 550 mg BID PO Last administered on 12/10/16t 09:56; Admin Dose 550 MG; Start 11/28/16 at 21:00 Miscellaneous Information 1 ea NOTE XX ; Start 11/28/16 at 20:00 Glucose (Glutose) 15 gm Q15M PRN PO DECREASED GLUCOSE; Start 11/28/16 at 20:00 Glucose (Glutose) 22.5 gm Q15M PRN PO DECREASED GLUCOSE; Start 11/28/16 at 20: 00 Dextrose (D50w Syringe) 25 ml Q15M PRN IV DECREASED GLUCOSE; Start 11/28/16 at 20:00 Dextrose (D50w Syringe) 50 ml Q15M PRN IV DECREASED GLUCOSE; Start 11/28/16 at 20:00 Glucagon (Glucagen) 1 mg Q15M PRN IM DECREASED GLUCOSE; Start 11/28/16 at 20:00 Glucose (Glutose) 15 gm Q15M PRN BUCCAL DECREASED GLUCOSE; Start 11/28/16 at 20 :00 Citric Acid/ Sodium Citrate (Bicitra) 15 ml BID PO Last administered on 09:56; Admin Dose 15 ML; Start 11/29/16 at 21:00 Pantoprazole (Protonix Tab) 40 mg DAILY@06 PO Last administered on 12/10/16 06 :29; Admin Dose 40 MG; Start 12/02/16 at 06:00 Morphine Sulfate (morphine) 2 mg Q4H PRN IV PAIN LEVEL 6-10 Last administered on 12/04/16 21:02; Admin Dose 2 MG; Start 12/02/16 at 06:00 IV Flush (NS 10 ml) 10 ml PRN PRN IV IV PROTOCOL; Start 12/02/16 at 18:30 Ondansetron HCl (Zofran Inj) 4 mg Q6H PRN IV NAUSEA AND/OR VOMITING Last administered on 12/03/16 02:23; Admin Dose 4 MG; Start 12/03/16 at 02:30 Lactulose (Enulose) 40 gm Q6 PO Last administered on 12/10/16 06:29; Admin Dose 40 GM; Start 12/03/16 at 18:00 Epoetin Brandan (Epogen (Non Esrd/Non Oncology)) 10,000 units MoWeFr@17 SC Last administered on 12/08/16 21:53; Admin Dose 10,000 UNITS; Start 12/03/16 at 21:30 Calcium Carbonate (Ca Carbonate) 1,250 mg BID NGT Last administered on 09:56; Admin Dose 1,250 MG; Start 12/03/16 at 21:00 Diagnostic Test (Pha) (Accucheck) 1 ea 02 XX ; Start 12/07/16 at 02:00 Ciprofloxacin (Cipro) 250 mg DAILY@06 PO Last administered on 12/10/16 06:29; Admin Dose 250 MG; Start 12/08/16 at 14:00 Fluconazole (Diflucan) 100 mg DAILY PO Last administered on 12/10/16 09:56; Admin Dose 100 MG; Start 12/08/16 at 14:00 RIDDHI BLOCK Dec 10, 2016 12:57
[2016-12-10] MEDS ORDERED: POTASSIUM CHLORIDE 20 MEQ POWDER FOR ORAL SOLN PO ONE (13:00)
[2016-12-10] MEDS ORDERED: LIDOCAINE 1% (MDV) 20 ML INJ ONE (13:39)
[2016-12-10 13:41] LABS: FLUID TYPE PARACENTHESIS
[2016-12-10 13:42] LABS: FLUID APPEARANCE SLIGHTLY HAZY
[2016-12-10 13:45] LABS: FLUID WBC'S 102 /cmm
[2016-12-10 13:46] LABS: FLUID LYMPHOCYTES 60 %; FLUID MONOCYTES 15 %; FLUID NEUTROPHILS 25 %; FLUID RBC EST 2+
[2016-12-10 13:47] LABS: FLUID BASOPHIL 0 %; FLUID EOSINOPHIL 0 %
--- NOTE | 2016-12-10 14:04 | RADRPT ---
PROCEDURE: Ultrasound guided paracentesis CLINICAL INDICATION: Ascites TECHNIQUE: The risks benefits and alternatives of the procedure were explained to the patient. In formed written consent was obtained. A time out was performed. The patient understood the risks be nefits and alternatives and wished to proceed with the procedure. COMPARISON: Abdomen pelvis CT 12/02/2016. FINDINGS: A time out was performed. The overlying skin of the right lower quadrant of the abdomen was prepped and draped in the usual sterile fashion. Approximately 10 cc of Xylocaine was injected locally for pain control. Utilizing ultrasound guidance, a skinny 5-Yoruba Yueh catheter was placed into the p eritoneal cavity without difficulty. The patient tolerated the procedure well without complication. Approximately 7800 cc of clear yellow fluid was obtained. The fluid was sent to the lab for furth er analysis. IMPRESSION: 1. Successful ultrasound-guided paracentesis. RPTAT: QQ .Elizabeth Jensen MD, Date Time Electronically viewed and signed by .Elizabeth Jensen MD, MD on 12/10/2016 14:03 .N/
--- NOTE | 2016-12-10 15:06 | CONS ---
Date/Time of Note Date/Time of Note DATE: 12/10/16 TIME: 15:05 Assessment/Plan Assessment/Plan Additional Assessment/Plan 1. Hepatic encephalopathy. 2. Cirrhosis of liver. 3. Refractory ascites. 4. Hepatorenal syndrome, type 1. 5. Diabetes mellitus. 6.hypotension,transferred to ICU 7.leucocytosis,w/u in progress 8.spontaneous bacterial peritonitis ,wbc.12,000 PLAN: To continue with lactulose and rifaximin. Hold off on diuretics because that will worsen the patient's renal function. Fluid restriction. Reduced protein diet. stool for occult blood,negative empiric Zosyn albumin to sustain BP resume feeding po Midodrine 5 mg bid paracentesis,with albumin infusion before and during procedure., had paracentesis today and 9 liter removed Consultation Date/Type/Reason Admit Date/Time Nov 28, 2016 at 12:41 Initial Consult Date 11/29/16 Type of Consultation: ID Referring Provider: SUNDAR OBRIEN 24 HR Interval Summary Constitutional: improved Exam/Review of Systems Vital Signs Vitals Vital Signs Date Time Temp Pulse Resp B/P Pulse Ox O2 Delivery O2 Flow Rate FiO2 12/10/16 12:11 88 12/10/16 11:56 98.8 20 101/67 99 12/10/16 07:46 Room Air Intake and Output 12/09/16 12/09/16 12/10/16 15:00 23:00 07:00 Intake Total 1680 ml 803 ml Balance 1680 ml 803 ml Exam Constitutional: alert, oriented, well developed Psych: nl mood/affect, no complaints Head: atraumatic, normocephalic Eyes: EOMI, PERRL, nl conjunctiva, nl lids, nl sclera ENMT: nl external ears & nose, nl lips & teeth, nl nasal mucosa & septum Neck: non-tender, supple Respiratory: clear to auscultation, normal air movement Cardiovascular: nl pulses, regular rate and rhythm Gastrointestinal: nl liver, spleen, non-tender, soft Musculoskeletal: nl extremities to inspection, nl gait and stance Extremities: normal pulses 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, nl mental status, nl speech, nl strength Skin: nl turgor, No rash or lesions Lymph: nl lymph nodes Results Result Diagram: 12/10/16 0837 12/10/16 0652 Results 24 hrs Laboratory Tests Test 2/9/17 17:12 12/09/16 21:51 12/10/16 06:52 12/10/16 07:34 Bedside Glucose 148 142 134 Anion Gap 19 H Blood Urea Nitrogen 71 H Calcium Level 8.4 Carbon Dioxide Level 18 L Chloride Level 122 H Creatinine 1.90 H Glucose Level 125 INR International Normalized Ratio 1.71 Potassium Level 3.3 L Prothrombin Time 20.2 H Prothrombin Time Ratio 1.6 Sodium Level 156 H Total Bilirubin 1.3 Test 12/10/16 08:37 12/10/16 12:00 12/10/16 13:39 Basophils # 0.0 Basophils % 0.2 Eosinophils # 0.1 Eosinophils % 1.2 Hematocrit 22.2 L Hemoglobin 7.2 L Lymphocytes # 0.7 L Lymphocytes % 11.2 L Mean Corpuscular Hemoglobin 30.9 Mean Corpuscular Hemoglobin Concent 32.4 Mean Corpuscular Volume 95.3 Mean Platelet Volume 11.4 H Monocytes # 0.7 Monocytes % 11.1 H Neutrophils # 4.5 Neutrophils % 75.6 Nucleated Red Blood Cells # 0.0 Nucleated Red Blood Cells % 0.5 H Platelet Count 51 L Red Blood Count 2.33 L Red Cell Distribution Width 18.5 H White Blood Count 5.9 Body Fluid Appearance SLIGHTLY HAZY Body Fluid Basophils % 0 Body Fluid Color YELLOW Body Fluid Eosinophils % 0 Body Fluid Lymphocytes (%) 60 Body Fluid Monocytes % 15 Body Fluid Neutrophils % 25 Body Fluid Other Cells (%) 0 Body Fluid RBC 2+ Body Fluid Type PARACENTHESIS Body Fluid Volume 750.0 Body Fluid WBC 102 Bedside Glucose 150 Medications Medications Current Medications Rifaximin (Xifaxan) 550 mg BID PO Last administered on 12/10/16t 09:56; Admin Dose 550 MG; Start 11/28/16 at 21:00 Miscellaneous Information 1 ea NOTE XX ; Start 11/28/16 at 20:00 Glucose (Glutose) 15 gm Q15M PRN PO DECREASED GLUCOSE; Start 11/28/16 at 20:00 Glucose (Glutose) 22.5 gm Q15M PRN PO DECREASED GLUCOSE; Start 11/28/16 at 20: 00 Dextrose (D50w Syringe) 25 ml Q15M PRN IV DECREASED GLUCOSE; Start 11/28/16 at 20:00 Dextrose (D50w Syringe) 50 ml Q15M PRN IV DECREASED GLUCOSE; Start 11/28/16 at 20:00 Glucagon (Glucagen) 1 mg Q15M PRN IM DECREASED GLUCOSE; Start 11/28/16 at 20:00 Glucose (Glutose) 15 gm Q15M PRN BUCCAL DECREASED GLUCOSE; Start 11/28/16 at 20 :00 Citric Acid/ Sodium Citrate (Bicitra) 15 ml BID PO Last administered on 09:56; Admin Dose 15 ML; Start 11/29/16 at 21:00 Pantoprazole (Protonix Tab) 40 mg DAILY@06 PO Last administered on 12/10/16 06 :29; Admin Dose 40 MG; Start 12/02/16 at 06:00 Morphine Sulfate (morphine) 2 mg Q4H PRN IV PAIN LEVEL 6-10 Last administered on 12/04/16 21:02; Admin Dose 2 MG; Start 12/02/16 at 06:00 IV Flush (NS 10 ml) 10 ml PRN PRN IV IV PROTOCOL; Start 12/02/16 at 18:30 Ondansetron HCl (Zofran Inj) 4 mg Q6H PRN IV NAUSEA AND/OR VOMITING Last administered on 12/03/16 02:23; Admin Dose 4 MG; Start 12/03/16 at 02:30 Lactulose (Enulose) 40 gm Q6 PO Last administered on 12/10/16 14:26; Admin Dose 40 GM; Start 12/03/16 at 18:00 Epoetin Brandan (Epogen (Non Esrd/Non Oncology)) 10,000 units MoWeFr@17 SC Last administered on 12/08/16 21:53; Admin Dose 10,000 UNITS; Start 12/03/16 at 21:30 Calcium Carbonate (Ca Carbonate) 1,250 mg BID NGT Last administered on 09:56; Admin Dose 1,250 MG; Start 12/03/16 at 21:00 Diagnostic Test (Pha) (Accucheck) 1 ea 02 XX ; Start 12/07/16 at 02:00 Ciprofloxacin (Cipro) 250 mg DAILY@06 PO Last administered on 12/10/16 06:29; Admin Dose 250 MG; Start 12/08/16 at 14:00 Fluconazole (Diflucan) 100 mg DAILY PO Last administered on 12/10/16 09:56; Admin Dose 100 MG; Start 12/08/16 at 14:00 JOHANA MOTLEY MD Dec 10, 2016 15:06
[2016-12-10] MEDS: EPOETIN 10000 UNITS/ML (NON ESRD/NON ONCOLOGY) SC SCH (17:35)
[2016-12-10] MEDS: DEXTROSE 5% 1,000 ML IV SCH (18:24)
--- NOTE | 2016-12-10 20:42 | CONS ---
Date/Time of Note Date/Time of Note DATE: 12/10/16 TIME: 20:39 Assessment/Plan Assessment/Plan Chief Complaint/Hosp Course Must increase Lactulose Add Epo for Anemia continue to monitor renal fn closely Add phosphate binder Problems: Additional Assessment/Plan Note SNa is up, will offer free water replacement while monitoring BS closely Consultation Date/Type/Reason Admit Date/Time Nov 28, 2016 at 12:41 Initial Consult Date 12/02/16 Type of Consultation: renal Referring Provider: SUNDAR OBRIEN 24 HR Interval Summary Free Text/Dictation Pt is groggy Constitutional: improved Exam/Review of Systems Vital Signs Vitals Vital Signs Date Time Temp Pulse Resp B/P Pulse Ox O2 Delivery O2 Flow Rate FiO2 12/10/16 20:23 79 12/10/16 16:58 98.0 18 82/43 96 12/10/16 07:46 Room Air Intake and Output 12/09/16 12/09/16 12/10/16 15:00 23:00 07:00 Intake Total 1680 ml 803 ml Balance 1680 ml 803 ml Exam Constitutional: alert, oriented, well developed Psych: nl mood/affect, no complaints Head: atraumatic, normocephalic Eyes: EOMI, PERRL, nl conjunctiva, nl lids, nl sclera ENMT: nl external ears & nose, nl lips & teeth, nl nasal mucosa & septum, other (lips are dry) Neck: non-tender, supple Respiratory: clear to auscultation, normal air movement Cardiovascular: nl pulses, regular rate and rhythm Gastrointestinal: nl liver, spleen, non-tender, soft Musculoskeletal: nl extremities to inspection, nl gait and stance Extremities: normal pulses 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, nl mental status, nl speech, nl strength Skin: nl turgor, No rash or lesions Results Result Diagram: 12/10/16 0837 12/10/16 0652 Results 24 hrs Laboratory Tests Test 12/09/16 21:51 12/10/16 06:52 12/10/16 07:34 12/10/16 08:37 Bedside Glucose 142 134 Anion Gap 19 H Blood Urea Nitrogen 71 H Calcium Level 8.4 Carbon Dioxide Level 18 L Chloride Level 122 H Creatinine 1.90 H Glucose Level 125 INR International Normalized Ratio 1.71 Potassium Level 3.3 L Prothrombin Time 20.2 H Prothrombin Time Ratio 1.6 Sodium Level 156 H Total Bilirubin 1.3 Basophils # 0.0 Basophils % 0.2 Eosinophils # 0.1 Eosinophils % 1.2 Hematocrit 22.2 L Hemoglobin 7.2 L Lymphocytes # 0.7 L Lymphocytes % 11.2 L Mean Corpuscular Hemoglobin 30.9 Mean Corpuscular Hemoglobin Concent 32.4 Mean Corpuscular Volume 95.3 Mean Platelet Volume 11.4 H Monocytes # 0.7 Monocytes % 11.1 H Neutrophils # 4.5 Neutrophils % 75.6 Nucleated Red Blood Cells # 0.0 Nucleated Red Blood Cells % 0.5 H Platelet Count 51 L Red Blood Count 2.33 L Red Cell Distribution Width 18.5 H White Blood Count 5.9 Test 12/10/16 12:00 12/10/16 13:39 12/10/16 17:33 Body Fluid Appearance SLIGHTLY HAZY Body Fluid Basophils % 0 Body Fluid Color YELLOW Body Fluid Eosinophils % 0 Body Fluid Lymphocytes (%) 60 Body Fluid Monocytes % 15 Body Fluid Neutrophils % 25 Body Fluid Other Cells (%) 0 Body Fluid RBC 2+ Body Fluid Type PARACENTHESIS Body Fluid Volume 750.0 Body Fluid WBC 102 Bedside Glucose 150 156 Medications Medications Current Medications Rifaximin (Xifaxan) 550 mg BID PO Last administered on 12/10/16 09:56; Admin Dose 550 MG; Start 11/28/16 at 21:00 Miscellaneous Information 1 ea NOTE XX ; Start 11/28/16 at 20:00 Glucose (Glutose) 15 gm Q15M PRN PO DECREASED GLUCOSE; Start 11/28/16 at 20:00 Glucose (Glutose) 22.5 gm Q15M PRN PO DECREASED GLUCOSE; Start 11/28/16 at 20: 00 Dextrose (D50w Syringe) 25 ml Q15M PRN IV DECREASED GLUCOSE; Start 11/28/16 at 20:00 Dextrose (D50w Syringe) 50 ml Q15M PRN IV DECREASED GLUCOSE; Start 11/28/16 at 20:00 Glucagon (Glucagen) 1 mg Q15M PRN IM DECREASED GLUCOSE; Start 11/28/16 at 20:00 Glucose (Glutose) 15 gm Q15M PRN BUCCAL DECREASED GLUCOSE; Start 11/28/16 at 20 :00 Citric Acid/ Sodium Citrate (Bicitra) 15 ml BID PO Last administered on 09:56; Admin Dose 15 ML; Start 11/29/16 at 21:00 Pantoprazole (Protonix Tab) 40 mg DAILY@06 PO Last administered on 12/10/16 06 :29; Admin Dose 40 MG; Start 12/02/16 at 06:00 Morphine Sulfate (morphine) 2 mg Q4H PRN IV PAIN LEVEL 6-10 Last administered on 12/04/16 21:02; Admin Dose 2 MG; Start 12/02/16 at 06:00 IV Flush (NS 10 ml) 10 ml PRN PRN IV IV PROTOCOL; Start 12/02/16 at 18:30 Ondansetron HCl (Zofran Inj) 4 mg Q6H PRN IV NAUSEA AND/OR VOMITING Last administered on 12/03/16 02:23; Admin Dose 4 MG; Start 12/03/16 at 02:30 Lactulose (Enulose) 40 gm Q6 PO Last administered on 12/10/16 14:26; Admin Dose 40 GM; Start 12/03/16 at 18:00 Epoetin Brandan (Epogen (Non Esrd/Non Oncology)) 10,000 units MoWeFr@17 SC Last administered on 12/10/16 17:35; Admin Dose 10,000 UNITS; Start 12/03/16 at 21:30 Calcium Carbonate (Ca Carbonate) 1,250 mg BID NGT Last administered on 09:56; Admin Dose 1,250 MG; Start 12/03/16 at 21:00 Diagnostic Test (Pha) (Accucheck) 1 ea 02 XX ; Start 12/07/16 at 02:00 Ciprofloxacin (Cipro) 250 mg DAILY@06 PO Last administered on 12/10/16 06:29; Admin Dose 250 MG; Start 12/08/16 at 14:00 Fluconazole 100 mg 100 mg DAILY PO Last administered on 12/10/16 09:56; Admin Dose 100 MG; Start 12/08/16 at 14:00 Dextrose (D5W) 1,000 ml @ 100 mls/hr Q10H IV Last administered on 12/10/16 18 :24; Admin Dose 100 MLS/HR; Start 12/10/16 at 17:30 Diagnostic Test (Pha) (Accucheck) 1 ea Q3H XX ; Start 12/10/16 at 17:30 NELSON BRIGGS MD Dec 10, 2016 20:42
[2016-12-11] VITALS (8 sets, daily range): BP systolic 96–106; BP diastolic 53–87; PULSE 71–95; RESP 17–18
[2016-12-11] MEDS: LACTULOSE 30ML CUP PO SCH ×5 (00:29→23:38)
[2016-12-11] MEDS: ACCUCHECK XX SCH ×9 (02:00→23:30)
[2016-12-11] MEDS: DEXTROSE 5% 1,000 ML IV SCH ×2 (03:30→12:25)
[2016-12-11] MEDS: PANTOPRAZOLE (EC) 40 MG TAB PO SCH (05:39)
[2016-12-11] MEDS: CIPROFLOXACIN 250 MG TAB PO SCH (05:39)
[2016-12-11 08:26] LABS: ADD SCAN DIFF NO
[2016-12-11 08:34] LABS: BASOPHILS % 0.2 % (0.0-2.0); EOSINOPHILS # 0.1 10^3/ul (0.0-0.5); EOSINOPHILS % 1.2 % (0.0-7.0); HEMATOCRIT 32.1 % (42.0-52.0); HEMOGLOBIN 10.8 g/dl (14.0-18.0); LYMPHOCYTES % 15.1 % (15.0-51.0); MEAN CORPUSCULAR HEMOGLOBIN 31.5 pg (29.0-33.0); MEAN CORPUSCULAR HGB CONC 33.7 g/dl (32.0-37.0); MEAN CORPUSCULAR VOLUME 93.6 fl (82.0-101.0); MEAN PLATELET VOLUME 9.6 fl (7.4-10.4); MONOCYTE # 0.8 10^3/ul (0.3-0.9); MONOCYTES % 11.7 % (0.0-11.0); NEUTROPHIL # 4.7 10^3/ul (1.6-7.5); NEUTROPHILS % 71.8 % (39.0-77.0); PLATELET COUNT 45 10^3/UL (140-440); RED BLOOD COUNT 3.43 10^6/ul (4.70-6.10); RED CELL DISTRIBUTION WIDTH 16.4 % (11.5-14.5); WHITE BLOOD COUNT 6.5 10^3/ul (4.8-10.8)
[2016-12-11 08:37] LABS: INR 1.76; PROTIME 20.7 Sec (12.2-14.2); PT RATIO 1.6
[2016-12-11] MEDS: CITRIC ACID/NA CITRATE 30 ML CUP PO SCH ×2 (08:40→22:06)
[2016-12-11] MEDS: FLUCONAZOLE 100 MG TAB PO SCH (08:40)
[2016-12-11] MEDS: RIFAXIMIN 550 MG TAB PO SCH ×2 (08:40→22:06)
[2016-12-11] MEDS: CA CARBONATE (250 MG/ML) 5ML CUP NGT SCH ×2 (08:40→22:06)
[2016-12-11] MEDS: INSULIN ASPART [NOVOLOG] 3 ML PEN SC SCH ×4 (08:49→21:00)
[2016-12-11 09:27] LABS: POTASSIUM 3.5 mmol/L (3.5-5.1)
[2016-12-11 09:29] LABS: CREATININE 1.46 mg/dl (0.61-1.24)
[2016-12-11 09:30] LABS: CALCIUM 8.3 mg/dl (8.4-10.2)
--- NOTE | 2016-12-11 17:02 | PN ---
Date/Time of Note Date/Time of Note DATE: 12/11/16 TIME: 16:59 Assessment/Plan VTE Prophylaxis VTE Prophylaxis Intervention: other Lines/Catheters IV C[facility]ter Type (from [facility]): PICC Line Urinary Cath still in place: No Assessment/Plan Assessment/Plan - Sepsis, resolve. Continue abx per ID. Dr. Sandhu is following in infection disease consultation. - Possible SBP, follow-up on final ascetic culture. - Hepatic encephalopathy. Continue lactulose q.i.d. and rifaximin. Dr. Melendez is following in gastroenterology consultation. - Alcoholic liver cirrhosis with recurrent ascites. s/p paracentesis on 12/10 - LEONARDO on Chronic kidney disease. Dr. Morrison is following in nephrology consultation. - Diabetes mellitus. Continue NovoLog per mild algorithm sliding scale coverage. - Thrombocytopenia, most likely secondary to liver cirrhosis. Continue to monitor platelet count. - Coagulopathy, check PT and INR tomorrow. Continue Protonix for peptic ulcer disease prophylaxis and sequential compression device for deep venous thrombosis prophylaxis. Further recommendations based on clinical course. Plan of care discussed with Dr. Qureshi. Subjective 24 Hr Interval Summary Eyes: no complaints ENT: no complaints Respiratory: no complaints Exam/Review of Systems Vital Signs Vitals Vital Signs Date Time Temp Pulse Resp B/P Pulse Ox O2 Delivery O2 Flow Rate FiO2 12/11/16 11:46 97.7 80 18 104/87 100 Room Air Intake and Output 12/10/16 12/10/16 12/11/16 14:59 22:59 06:59 Intake Total 1660 ml Balance 1660 ml Exam Constitutional: alert Psych: nl mood/affect Head: atraumatic Eyes: EOMI, PERRL, nl sclera ENMT: nl external ears & nose Neck: non-tender Respiratory: clear to auscultation Cardiovascular: nl pulses Gastrointestinal: non-tender, soft Musculoskeletal: nl extremities to inspection 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: nl speech Results Result Diagram: 12/11/16 0800 12/11/16 0800 Results 24 hrs Laboratory Tests Test 12/10/16 17:33 12/10/16 21:17 12/11/16 00:27 12/11/16 03:21 Bedside Glucose 156 181 144 134 Test 12/11/16 05:41 12/11/16 08:00 12/11/16 08:43 12/11/16 11:58 Bedside Glucose 131 173 166 Anion Gap 17 H Basophils # 0.0 Basophils % 0.2 Blood Morphology Comment Blood Urea Nitrogen 59 H Calcium Level 8.3 L Carbon Dioxide Level 19 L Chloride Level 122 H Creatinine 1.46 H Eosinophils # 0.1 Eosinophils % 1.2 Glucose Level 157 Hematocrit 32.1 #L Hemoglobin 10.8 #L INR International Normalized Ratio 1.76 Lymphocytes # 1.0 Lymphocytes % 15.1 Mean Corpuscular Hemoglobin 31.5 Mean Corpuscular Hemoglobin Concent 33.7 Mean Corpuscular Volume 93.6 Mean Platelet Volume 9.6 Monocytes # 0.8 Monocytes % 11.7 H Neutrophils # 4.7 Neutrophils % 71.8 Nucleated Red Blood Cells # 0.0 Nucleated Red Blood Cells % 0.0 Platelet Count 45 #L Potassium Level 3.5 Prothrombin Time 20.7 H Prothrombin Time Ratio 1.6 Red Blood Count 3.43 #L Red Cell Distribution Width 16.4 H Sodium Level 154 H White Blood Count 6.5 Test 12/11/16 14:06 Bedside Glucose 175 Medications Medications Current Medications Rifaximin (Xifaxan) 550 mg BID PO Last administered on 12/11/16 08:40; Admin Dose 550 MG; Start 11/28/16 at 21:00 Miscellaneous Information 1 ea NOTE XX ; Start 11/28/16 at 20:00 Glucose (Glutose) 15 gm Q15M PRN PO DECREASED GLUCOSE; Start 11/28/16 at 20:00 Glucose (Glutose) 22.5 gm Q15M PRN PO DECREASED GLUCOSE; Start 11/28/16 at 20: 00 Dextrose (D50w Syringe) 25 ml Q15M PRN IV DECREASED GLUCOSE; Start 11/28/16 at 20:00 Dextrose (D50w Syringe) 50 ml Q15M PRN IV DECREASED GLUCOSE; Start 11/28/16 at 20:00 Glucagon (Glucagen) 1 mg Q15M PRN IM DECREASED GLUCOSE; Start 11/28/16 at 20:00 Glucose (Glutose) 15 gm Q15M PRN BUCCAL DECREASED GLUCOSE; Start 11/28/16 at 20 :00 Citric Acid/ Sodium Citrate (Bicitra) 15 ml BID PO Last administered on 08:40; Admin Dose 15 ML; Start 11/29/16 at 21:00 Pantoprazole (Protonix Tab) 40 mg DAILY@06 PO Last administered on 12/11/16 05 :39; Admin Dose 40 MG; Start 12/02/16 at 06:00 Morphine Sulfate (morphine) 2 mg Q4H PRN IV PAIN LEVEL 6-10 Last administered on 12/04/16 21:02; Admin Dose 2 MG; Start 12/02/16 at 06:00 IV Flush (NS 10 ml) 10 ml PRN PRN IV IV PROTOCOL; Start 12/02/16 at 18:30 Ondansetron HCl (Zofran Inj) 4 mg Q6H PRN IV NAUSEA AND/OR VOMITING Last administered on 12/03/16 02:23; Admin Dose 4 MG; Start 12/03/16 at 02:30 Lactulose (Enulose) 40 gm Q6 PO Last administered on 12/11/16 12:25; Admin Dose 40 GM; Start 12/03/16 at 18:00 Epoetin Brandan (Epogen (Non Esrd/Non Oncology)) 10,000 units MoWeFr@17 SC Last administered on 12/10/16 17:35; Admin Dose 10,000 UNITS; Start 12/03/16 at 21:30 Calcium Carbonate (Ca Carbonate) 1,250 mg BID NGT Last administered on 08:40; Admin Dose 1,250 MG; Start 12/03/16 at 21:00 Diagnostic Test (Pha) (Accucheck) 1 ea 02 XX ; Start 12/07/16 at 02:00 Ciprofloxacin (Cipro) 250 mg DAILY@06 PO Last administered on 12/11/16 05:39; Admin Dose 250 MG; Start 12/08/16 at 14:00 Fluconazole 100 mg 100 mg DAILY PO Last administered on 12/11/16 08:40; Admin Dose 100 MG; Start 12/08/16 at 14:00 Dextrose (D5W) 1,000 ml @ 100 mls/hr Q10H IV Last administered on 12/10/16 18 :24; Admin Dose 100 MLS/HR; Start 12/10/16 at 17:30 Diagnostic Test (Pha) (Accucheck) 1 ea Q3H XX Last administered on 12/11/16 14 :07; Admin Dose 1 EA; Start 12/10/16 at 17:30 SUNDAR OBRIEN Dec 11, 2016 17:01
--- NOTE | 2016-12-11 19:20 | CONS ---
Date/Time of Note Date/Time of Note DATE: 12/11/16 TIME: 19:18 Assessment/Plan Assessment/Plan Chief Complaint/Hosp Course assessment/impression - sepsis d/t peritonitis - leukocytosis and tachycardia resolved. - culture-negative neutrocytic peritonitis, s/p paracentesis 12/02/2016. Ascetic PMNs=9,413. Pt completed renally dosed, empiric meropenem (12/05/2016-12/08/2016), pip/tazo (12/01/2016-12/04/2016), caspofungin (12/03/2016-12/08/2016) - probable UTI (pyuria, increased urinary frequency) - urine cx showed no growth - thrush - LEONARDO - ileus - recurrent hepatic encephalopathy - cholelithiasis - RLQ pain: CT did not demonstrate other acute GI processes - h/o alcoholic liver cirrhosis and portal hypertension - h/o recurrent ascites s/p paracentesis in the past. - DM - CRI - thrombocytopenia - normocytic anemia (HIV screen negative in 2016, hepatitis screen was negative in 2015) recommendations - continue renally dosed ciprofloxacin for secondary prophylaxis of SBP (2016-). Note: Pt completed renally dosed, empiric meropenem (12/05/2016-12/08/2016) , pip/tazo (12/01/2016-12/04/2016), caspofungin (12/03/2016-12/08/2016). - continue renally dosed fluconazole (12/08/16-) for thrush - continue rifaxamin (11/28/16-) - Above d/w Dr. Ponce Problems: Consultation Date/Type/Reason Admit Date/Time Nov 28, 2016 at 12:41 Initial Consult Date 12/02/16 Type of Consultation: Infectious Disease Referring Provider: SUNDAR OBRIEN 24 HR Interval Summary Free Text/Dictation States had paracentesis yesterday and c/o increasing abdominal distention. No fever, chills, CP, n/v/d. Has occ SOB r/t abd distention. Exam/Review of Systems Vital Signs Vitals Vital Signs Date Time Temp Pulse Resp B/P Pulse Ox O2 Delivery O2 Flow Rate FiO2 12/11/16 11:46 97.7 80 18 104/87 100 Room Air Intake and Output 12/10/16 12/10/16 12/11/16 15:00 23:00 07:00 Intake Total 1660 ml Balance 1660 ml Exam Constitutional: alert, frail, oriented, well developed Head: atraumatic, normocephalic Eyes: nl conjunctiva Neck: supple Respiratory: diminished breath sounds Cardiovascular: nl pulses, regular rate and rhythm Gastrointestinal: ascites, distended, soft Extremities: edema Results Result Diagram: 12/11/16 0800 12/11/16 0800 Results 24 hrs Laboratory Tests Test 12/10/16 21:17 12/11/16 00:27 12/11/16 03:21 12/11/16 05:41 Bedside Glucose 181 144 134 131 Test 12/11/16 08:00 12/11/16 08:43 12/11/16 11:58 12/11/16 14:06 Anion Gap 17 H Basophils # 0.0 Basophils % 0.2 Blood Morphology Comment Blood Urea Nitrogen 59 H Calcium Level 8.3 L Carbon Dioxide Level 19 L Chloride Level 122 H Creatinine 1.46 H Eosinophils # 0.1 Eosinophils % 1.2 Glucose Level 157 Hematocrit 32.1 #L Hemoglobin 10.8 #L INR International Normalized Ratio 1.76 Lymphocytes # 1.0 Lymphocytes % 15.1 Mean Corpuscular Hemoglobin 31.5 Mean Corpuscular Hemoglobin Concent 33.7 Mean Corpuscular Volume 93.6 Mean Platelet Volume 9.6 Monocytes # 0.8 Monocytes % 11.7 H Neutrophils # 4.7 Neutrophils % 71.8 Nucleated Red Blood Cells # 0.0 Nucleated Red Blood Cells % 0.0 Platelet Count 45 #L Potassium Level 3.5 Prothrombin Time 20.7 H Prothrombin Time Ratio 1.6 Red Blood Count 3.43 #L Red Cell Distribution Width 16.4 H Sodium Level 154 H White Blood Count 6.5 Bedside Glucose 173 166 175 Test 12/11/16 17:34 Bedside Glucose 192 Medications Medications Current Medications Rifaximin (Xifaxan) 550 mg BID PO Last administered on 12/11/16t 08:40; Admin Dose 550 MG; Start 11/28/16 at 21:00 Miscellaneous Information 1 ea NOTE XX ; Start 11/28/16 at 20:00 Glucose (Glutose) 15 gm Q15M PRN PO DECREASED GLUCOSE; Start 11/28/16 at 20:00 Glucose (Glutose) 22.5 gm Q15M PRN PO DECREASED GLUCOSE; Start 11/28/16 at 20: 00 Dextrose (D50w Syringe) 25 ml Q15M PRN IV DECREASED GLUCOSE; Start 11/28/16 at 20:00 Dextrose (D50w Syringe) 50 ml Q15M PRN IV DECREASED GLUCOSE; Start 11/28/16 at 20:00 Glucagon (Glucagen) 1 mg Q15M PRN IM DECREASED GLUCOSE; Start 11/28/16 at 20:00 Glucose (Glutose) 15 gm Q15M PRN BUCCAL DECREASED GLUCOSE; Start 11/28/16 at 20 :00 Citric Acid/ Sodium Citrate (Bicitra) 15 ml BID PO Last administered on 08:40; Admin Dose 15 ML; Start 11/29/16 at 21:00 Pantoprazole (Protonix Tab) 40 mg DAILY@06 PO Last administered on 12/11/16 05 :39; Admin Dose 40 MG; Start 12/02/16 at 06:00 Morphine Sulfate (morphine) 2 mg Q4H PRN IV PAIN LEVEL 6-10 Last administered on 12/04/16 21:02; Admin Dose 2 MG; Start 12/02/16 at 06:00 IV Flush (NS 10 ml) 10 ml PRN PRN IV IV PROTOCOL; Start 12/02/16 at 18:30 Ondansetron HCl (Zofran Inj) 4 mg Q6H PRN IV NAUSEA AND/OR VOMITING Last administered on 12/03/16 02:23; Admin Dose 4 MG; Start 12/03/16 at 02:30 Lactulose (Enulose) 40 gm Q6 PO Last administered on 12/11/16 17:46; Admin Dose 40 GM; Start 12/03/16 at 18:00 Epoetin Brandan (Epogen (Non Esrd/Non Oncology)) 10,000 units MoWeFr@17 SC Last administered on 12/10/16 17:35; Admin Dose 10,000 UNITS; Start 12/03/16 at 21:30 Calcium Carbonate (Ca Carbonate) 1,250 mg BID NGT Last administered on 08:40; Admin Dose 1,250 MG; Start 12/03/16 at 21:00 Diagnostic Test (Pha) (Accucheck) 1 ea 02 XX ; Start 12/07/16 at 02:00 Ciprofloxacin (Cipro) 250 mg DAILY@06 PO Last administered on 12/11/16 05:39; Admin Dose 250 MG; Start 12/08/16 at 14:00 Fluconazole 100 mg 100 mg DAILY PO Last administered on 12/11/16 08:40; Admin Dose 100 MG; Start 12/08/16 at 14:00 Dextrose (D5W) 1,000 ml @ 100 mls/hr Q10H IV Last administered on 12/10/16 18 :24; Admin Dose 100 MLS/HR; Start 12/10/16 at 17:30 Diagnostic Test (Pha) (Accucheck) 1 ea Q3H XX Last administered on 12/11/16 17 :41; Admin Dose 1 EA; Start 12/10/16 at 17:30 Procedures Procedures Paracentesis 12/10/16: Successful ultrasound-guided paracentesis with 7.8 L removed. TAVIA TY NP Dec 11, 2016 19:20
[2016-12-11] MEDS ORDERED: [UNRECOGNIZED DRUG - OTHER] IV SCH (21:42)
[2016-12-11] MEDS ORDERED: POTASSIUM CHLORIDE IV SCH (21:42)
--- NOTE | 2016-12-11 21:45 | CONS ---
Date/Time of Note Date/Time of Note DATE: 12/11/16 TIME: 21:43 Assessment/Plan Assessment/Plan Chief Complaint/Hosp Course Must increase Lactulose Add Epo for Anemia continue to monitor renal fn closely Add phosphate binder Problems: Additional Assessment/Plan Will aadd KCl in IV Fluids & await lab in AM Consultation Date/Type/Reason Admit Date/Time Nov 28, 2016 at 12:41 Initial Consult Date 12/02/16 Type of Consultation: Renal Reason for Consultation more alert & responsive Referring Provider: SUNDAR OBRIEN Exam/Review of Systems Vital Signs Vitals Vital Signs Date Time Temp Pulse Resp B/P Pulse Ox O2 Delivery O2 Flow Rate FiO2 12/11/16 19:53 98.2 87 18 106/67 100 12/11/16 11:46 Room Air Intake and Output 12/10/16 12/10/16 12/11/16 15:00 23:00 07:00 Intake Total 1660 ml Balance 1660 ml Exam Constitutional: alert, oriented, well developed Psych: nl mood/affect, no complaints Head: atraumatic, normocephalic Eyes: EOMI, PERRL, nl conjunctiva, nl lids, nl sclera ENMT: nl external ears & nose, nl lips & teeth, nl nasal mucosa & septum Neck: non-tender, supple Respiratory: clear to auscultation, normal air movement Cardiovascular: nl pulses, regular rate and rhythm Gastrointestinal: ascites (decreased), nl liver, spleen, non-tender, soft Musculoskeletal: nl extremities to inspection, nl gait and stance Extremities: normal pulses 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, nl mental status, nl speech, nl strength Skin: nl turgor, No rash or lesions Results SNa, BUN/Creat improving Note K dropping Result Diagram: 12/11/16 0800 12/11/16 0800 Results 24 hrs Laboratory Tests Test 12/11/16 00:27 12/11/16 03:21 12/11/16 05:41 12/11/16 08:00 Bedside Glucose 144 134 131 Anion Gap 17 H Basophils # 0.0 Basophils % 0.2 Blood Morphology Comment Blood Urea Nitrogen 59 H Calcium Level 8.3 L Carbon Dioxide Level 19 L Chloride Level 122 H Creatinine 1.46 H Eosinophils # 0.1 Eosinophils % 1.2 Glucose Level 157 Hematocrit 32.1 #L Hemoglobin 10.8 #L INR International Normalized Ratio 1.76 Lymphocytes # 1.0 Lymphocytes % 15.1 Mean Corpuscular Hemoglobin 31.5 Mean Corpuscular Hemoglobin Concent 33.7 Mean Corpuscular Volume 93.6 Mean Platelet Volume 9.6 Monocytes # 0.8 Monocytes % 11.7 H Neutrophils # 4.7 Neutrophils % 71.8 Nucleated Red Blood Cells # 0.0 Nucleated Red Blood Cells % 0.0 Platelet Count 45 #L Potassium Level 3.5 Prothrombin Time 20.7 H Prothrombin Time Ratio 1.6 Red Blood Count 3.43 #L Red Cell Distribution Width 16.4 H Sodium Level 154 H White Blood Count 6.5 Test 12/11/16 08:43 12/11/16 11:58 12/11/16 14:06 12/11/16 17:34 Bedside Glucose 173 166 175 192 Test 12/11/16 20:37 Bedside Glucose 137 Medications Medications Current Medications Rifaximin (Xifaxan) 550 mg BID PO Last administered on 12/11/16 08:40; Admin Dose 550 MG; Start 11/28/16 at 21:00 Miscellaneous Information 1 ea NOTE XX ; Start 11/28/16 at 20:00 Glucose (Glutose) 15 gm Q15M PRN PO DECREASED GLUCOSE; Start 11/28/16 at 20:00 Glucose (Glutose) 22.5 gm Q15M PRN PO DECREASED GLUCOSE; Start 11/28/16 at 20: 00 Dextrose (D50w Syringe) 25 ml Q15M PRN IV DECREASED GLUCOSE; Start 11/28/16 at 20:00 Dextrose (D50w Syringe) 50 ml Q15M PRN IV DECREASED GLUCOSE; Start 11/28/16 at 20:00 Glucagon (Glucagen) 1 mg Q15M PRN IM DECREASED GLUCOSE; Start 11/28/16 at 20:00 Glucose (Glutose) 15 gm Q15M PRN BUCCAL DECREASED GLUCOSE; Start 11/28/16 at 20 :00 Citric Acid/ Sodium Citrate (Bicitra) 15 ml BID PO Last administered on 08:40; Admin Dose 15 ML; Start 11/29/16 at 21:00 Pantoprazole (Protonix Tab) 40 mg DAILY@06 PO Last administered on 12/11/16 05 :39; Admin Dose 40 MG; Start 12/02/16 at 06:00 Morphine Sulfate (morphine) 2 mg Q4H PRN IV PAIN LEVEL 6-10 Last administered on 12/04/16 21:02; Admin Dose 2 MG; Start 12/02/16 at 06:00 IV Flush (NS 10 ml) 10 ml PRN PRN IV IV PROTOCOL; Start 12/02/16 at 18:30 Ondansetron HCl (Zofran Inj) 4 mg Q6H PRN IV NAUSEA AND/OR VOMITING Last administered on 12/03/16 02:23; Admin Dose 4 MG; Start 12/03/16 at 02:30 Lactulose (Enulose) 40 gm Q6 PO Last administered on 12/11/16 17:46; Admin Dose 40 GM; Start 12/03/16 at 18:00 Epoetin Brandan (Epogen (Non Esrd/Non Oncology)) 10,000 units MoWeFr@17 SC Last administered on 12/10/16 17:35; Admin Dose 10,000 UNITS; Start 12/03/16 at 21:30 Calcium Carbonate (Ca Carbonate) 1,250 mg BID NGT Last administered on 08:40; Admin Dose 1,250 MG; Start 12/03/16 at 21:00 Diagnostic Test (Pha) (Accucheck) 1 ea 02 XX ; Start 12/07/16 at 02:00 Ciprofloxacin (Cipro) 250 mg DAILY@06 PO Last administered on 12/11/16 05:39; Admin Dose 250 MG; Start 12/08/16 at 14:00 Fluconazole 100 mg 100 mg DAILY PO Last administered on 12/11/16 08:40; Admin Dose 100 MG; Start 12/08/16 at 14:00 Dextrose (D5W) 1,000 ml @ 100 mls/hr Q10H IV Last administered on 12/10/16 18 :24; Admin Dose 100 MLS/HR; Start 12/10/16 at 17:30 Diagnostic Test (Pha) (Accucheck) 1 ea Q3H XX Last administered on 12/11/16 17 :41; Admin Dose 1 EA; Start 12/10/16 at 17:30 NELSON BRIGGS MD Dec 11, 2016 21:45
[2016-12-11] MEDS: D5W + KCL 20 MEQ 1,000 ML IV SCH (22:41)
[2016-12-12] MEDS: ACCUCHECK XX SCH ×8 (02:00→19:52)
[2016-12-12 05:27] LABS: BASOPHILS % 0.5 % (0.0-2.0); EOSINOPHILS # 0.1 10^3/ul (0.0-0.5); EOSINOPHILS % 0.9 % (0.0-7.0); HEMATOCRIT 33.2 % (42.0-52.0); HEMOGLOBIN 11.2 g/dl (14.0-18.0); LYMPHOCYTES % 14.9 % (15.0-51.0); MEAN CORPUSCULAR HEMOGLOBIN 31.8 pg (29.0-33.0); MEAN CORPUSCULAR HGB CONC 33.7 g/dl (32.0-37.0); MEAN CORPUSCULAR VOLUME 94.4 fl (82.0-101.0); MEAN PLATELET VOLUME 9.7 fl (7.4-10.4); MONOCYTE # 0.7 10^3/ul (0.3-0.9); MONOCYTES % 10.9 % (0.0-11.0); NEUTROPHIL # 4.8 10^3/ul (1.6-7.5); NEUTROPHILS % 72.8 % (39.0-77.0); PLATELET COUNT 45 10^3/UL (140-440); POTASSIUM 3.5 mmol/L (3.5-5.1); RED BLOOD COUNT 3.52 10^6/ul (4.70-6.10); UNCORRECTED WBC 6.6 10^3/ul (4.8-10.8); WHITE BLOOD COUNT 6.6 10^3/ul (4.8-10.8)
[2016-12-12 05:30] LABS: CALCIUM 7.8 mg/dl (8.4-10.2); CREATININE 1.33 mg/dl (0.61-1.24)
[2016-12-12 05:58] LABS: CONDITION 1; LH ANALYZER COMMENTS 1
[2016-12-12] MEDS: PANTOPRAZOLE (EC) 40 MG TAB PO SCH (06:47)
[2016-12-12] MEDS: LACTULOSE 30ML CUP PO SCH ×4 (06:47→23:54)
[2016-12-12 08:07] VITALS: BP 114/79; RESP 16
[2016-12-12] MEDS: INSULIN ASPART [NOVOLOG] 3 ML PEN SC SCH ×4 (08:39→20:06)
[2016-12-12] MEDS: CITRIC ACID/NA CITRATE 30 ML CUP PO SCH ×2 (08:40→20:05)
[2016-12-12] MEDS: RIFAXIMIN 550 MG TAB PO SCH ×2 (08:40→20:04)
[2016-12-12] MEDS: CIPROFLOXACIN 250 MG TAB PO SCH (08:40)
[2016-12-12] MEDS: FLUCONAZOLE 100 MG TAB PO SCH (08:40)
[2016-12-12] MEDS: CA CARBONATE (250 MG/ML) 5ML CUP NGT SCH (08:40)
[2016-12-12] MEDS: D5W + KCL 20 MEQ 1,000 ML IV SCH ×3 (08:51→20:04)
--- NOTE | 2016-12-12 17:16 | PN ---
Date/Time of Note Date/Time of Note DATE: 12/12/16 TIME: 17:14 Assessment/Plan Lines/Catheters IV Catheter Type (from Nrs): PICC Line Urinary Cath still in place: No Subjective 24 Hr Interval Summary Free Text/Dictation C/O abdominal distention, at bed side- all Qs answered. dw staff- no new issues reported. Constitutional: requiring IVF Eyes: no complaints ENT: no complaints Respiratory: no complaints Cardiovascular: no complaints Gastrointestinal: other (due to fluid in abdomen), pain Exam/Review of Systems Vital Signs Vitals Vital Signs Date Time Temp Pulse Resp B/P Pulse Ox O2 Delivery O2 Flow Rate FiO2 12/12/16 08:07 98.2 93 16 114/79 99 12/11/16 11:46 Room Air Intake and Output 12/11/16 12/11/16 12/12/16 14:59 22:59 06:59 Intake Total 470 ml 300 ml Balance 470 ml 300 ml Exam Constitutional: alert, well developed Psych: no complaints Head: atraumatic Eyes: EOMI, PERRL, nl sclera ENMT: nl external ears & nose Neck: supple Respiratory: diminished breath sounds Cardiovascular: nl pulses Gastrointestinal: ascites, distended Musculoskeletal: nl extremities to inspection Extremities: normal pulses 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: nl speech Skin: nl turgor Lymph: nontender Results Result Diagram: 12/12/160 12/12/16 0450 Results 24 hrs Laboratory Tests Test 12/11/16 17:34 12/11/16 20:37 12/11/16 23:39 12/12/16 04:50 Bedside Glucose 192 137 139 Anion Gap 18 H Basophils # 0.0 Basophils % 0.5 Blood Morphology Comment Blood Urea Nitrogen 48 #H Calcium Level 7.8 L Carbon Dioxide Level 18 L Chloride Level 117 H Creatinine 1.33 H Eosinophils # 0.1 Eosinophils % 0.9 Glucose Level 184 Hematocrit 33.2 L Hemoglobin 11.2 L Lymphocytes # 1.0 Lymphocytes % 14.9 L Mean Corpuscular Hemoglobin 31.8 Mean Corpuscular Hemoglobin Concent 33.7 Mean Corpuscular Volume 94.4 Mean Platelet Volume 9.7 Monocytes # 0.7 Monocytes % 10.9 Neutrophils # 4.8 Neutrophils % 72.8 Nucleated Red Blood Cells # 0.0 Nucleated Red Blood Cells % 0.0 Platelet Count 45 L Potassium Level 3.5 Red Blood Count 3.52 L Red Cell Distribution Width 16.0 H Sodium Level 149 H White Blood Count 6.6 Test 12/12/16 05:28 12/12/16 08:18 12/12/16 11:35 12/12/16 15:08 Bedside Glucose 177 158 254 H 208 Medications Medications Current Medications Rifaximin (Xifaxan) 550 mg BID PO Last administered on 12/12/16 08:40; Admin Dose 550 MG; Start 11/28/16 at 21:00 Miscellaneous Information 1 ea NOTE XX ; Start 11/28/16 at 20:00 Glucose (Glutose) 15 gm Q15M PRN PO DECREASED GLUCOSE; Start 11/28/16 at 20:00 Glucose (Glutose) 22.5 gm Q15M PRN PO DECREASED GLUCOSE; Start 11/28/16 at 20: 00 Dextrose (D50w Syringe) 25 ml Q15M PRN IV DECREASED GLUCOSE; Start 11/28/16 at 20:00 Dextrose (D50w Syringe) 50 ml Q15M PRN IV DECREASED GLUCOSE; Start 11/28/16 at 20:00 Glucagon (Glucagen) 1 mg Q15M PRN IM DECREASED GLUCOSE; Start 11/28/16 at 20:00 Glucose (Glutose) 15 gm Q15M PRN BUCCAL DECREASED GLUCOSE; Start 11/28/16 at 20 :00 Citric Acid/ Sodium Citrate (Bicitra) 15 ml BID PO Last administered on 08:40; Admin Dose 15 ML; Start 11/29/16 at 21:00 Pantoprazole (Protonix Tab) 40 mg DAILY@06 PO Last administered on 12/12/16 06 :47; Admin Dose 40 MG; Start 12/02/16 at 06:00 Morphine Sulfate (morphine) 2 mg Q4H PRN IV PAIN LEVEL 6-10 Last administered on 12/04/16 21:02; Admin Dose 2 MG; Start 12/02/16 at 06:00 IV Flush (NS 10 ml) 10 ml PRN PRN IV IV PROTOCOL; Start 12/02/16 at 18:30 Ondansetron HCl (Zofran Inj) 4 mg Q6H PRN IV NAUSEA AND/OR VOMITING Last administered on 12/03/16 02:23; Admin Dose 4 MG; Start 12/03/16 at 02:30 Lactulose (Enulose) 40 gm Q6 PO Last administered on 12/12/16 11:36; Admin Dose 40 GM; Start 12/03/16 at 18:00 Epoetin Brandan (Epogen (Non Esrd/Non Oncology)) 10,000 units MoWeFr@17 SC Last administered on 12/10/16 17:35; Admin Dose 10,000 UNITS; Start 12/03/16 at 21:30 Calcium Carbonate (Ca Carbonate) 1,250 mg BID NGT Last administered on 08:40; Admin Dose 1,250 MG; Start 12/03/16 at 21:00 Diagnostic Test (Pha) (Accucheck) 1 ea 02 XX ; Start 12/07/16 at 02:00 Ciprofloxacin (Cipro) 250 mg DAILY@06 PO Last administered on 12/12/16 08:40; Admin Dose 250 MG; Start 12/08/16 at 14:00 Fluconazole (Diflucan) 100 mg DAILY PO Last administered on 12/12/16 08:40; Admin Dose 100 MG; Start 12/08/16 at 14:00 Diagnostic Test (Pha) 1 ea 1 ea Q3H XX Last administered on 12/11/16 17:41; Admin Dose 1 EA; Start 12/10/16 at 17:30 Potassium Chloride/Dextrose (D5W + KCl 20 Meq) 1,000 ml @ 100 mls/hr Q10H6M IV Last administered on 12/12/16 08:51; Admin Dose 100 MLS/HR; Start 12/11/16 at 22:30 SUNDAR OBRIEN Dec 12, 2016 17:16
--- NOTE | 2016-12-12 18:23 | CONS ---
Date/Time of Note Date/Time of Note DATE: 12/12/16 TIME: 18:23 Assessment/Plan Assessment/Plan Additional Assessment/Plan Additional Assessment/Plan 1. Hepatic encephalopathy. 2. Cirrhosis of liver. 3. Refractory ascites. 4. Hepatorenal syndrome, type 1. 5. Diabetes mellitus. 6.hypotension,transferred to ICU 7.leucocytosis,w/u in progress 8.spontaneous bacterial peritonitis ,resolved PLAN: To continue with lactulose and rifaximin. Hold off on diuretics because that will worsen the patient's renal function. Fluid restriction. Reduced protein diet. stool for occult blood,negative empiric Zosyn albumin to sustain BP resume feeding po Midodrine 5 mg bid paracentesis,with albumin infusion before and during procedure., had paracentesis and 9 liter removed Consultation Date/Type/Reason Admit Date/Time Nov 28, 2016 at 12:41 Initial Consult Date 11/29/16 Type of Consultation: Renal Referring Provider: SUNDAR OBRIEN Exam/Review of Systems Vital Signs Vitals Vital Signs Date Time Temp Pulse Resp B/P Pulse Ox O2 Delivery O2 Flow Rate FiO2 12/12/16 08:07 98.2 93 16 114/79 99 12/11/16 11:46 Room Air Intake and Output 12/11/16 12/11/16 12/12/16 15:00 23:00 07:00 Intake Total 470 ml 300 ml Balance 470 ml 300 ml Exam Constitutional: alert, oriented, well developed Psych: nl mood/affect, no complaints Head: atraumatic, normocephalic Eyes: EOMI, PERRL, nl conjunctiva, nl lids, nl sclera ENMT: nl external ears & nose, nl lips & teeth, nl nasal mucosa & septum Neck: non-tender, supple Respiratory: clear to auscultation, normal air movement Cardiovascular: nl pulses, regular rate and rhythm Gastrointestinal: nl liver, spleen, non-tender, soft Musculoskeletal: nl extremities to inspection, nl gait and stance Extremities: normal pulses 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: 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, nl mental status, nl speech, nl strength Skin: nl turgor, No rash or lesions Lymph: nl lymph nodes Results Result Diagram: 12/12/16 0450 12/12/16 0450 Results 24 hrs Laboratory Tests Test 12/11/16 20:37 12/11/16 23:39 12/12/16 04:50 12/12/16 05:28 Bedside Glucose 137 139 177 Anion Gap 18 H Basophils # 0.0 Basophils % 0.5 Blood Morphology Comment Blood Urea Nitrogen 48 #H Calcium Level 7.8 L Carbon Dioxide Level 18 L Chloride Level 117 H Creatinine 1.33 H Eosinophils # 0.1 Eosinophils % 0.9 Glucose Level 184 Hematocrit 33.2 L Hemoglobin 11.2 L Lymphocytes # 1.0 Lymphocytes % 14.9 L Mean Corpuscular Hemoglobin 31.8 Mean Corpuscular Hemoglobin Concent 33.7 Mean Corpuscular Volume 94.4 Mean Platelet Volume 9.7 Monocytes # 0.7 Monocytes % 10.9 Neutrophils # 4.8 Neutrophils % 72.8 Nucleated Red Blood Cells # 0.0 Nucleated Red Blood Cells % 0.0 Platelet Count 45 L Potassium Level 3.5 Red Blood Count 3.52 L Red Cell Distribution Width 16.0 H Sodium Level 149 H White Blood Count 6.6 Test 12/12/16 08:18 12/12/16 11:35 12/12/16 15:08 12/12/16 17:16 Bedside Glucose 158 254 H 208 163 Medications Medications Current Medications Rifaximin (Xifaxan) 550 mg BID PO Last administered on 12/12/16 08:40; Admin Dose 550 MG; Start 11/28/16 at 21:00 Miscellaneous Information 1 ea NOTE XX ; Start 11/28/16 at 20:00 Glucose (Glutose) 15 gm Q15M PRN PO DECREASED GLUCOSE; Start 11/28/16 at 20:00 Glucose (Glutose) 22.5 gm Q15M PRN PO DECREASED GLUCOSE; Start 11/28/16 at 20: 00 Dextrose (D50w Syringe) 25 ml Q15M PRN IV DECREASED GLUCOSE; Start 11/28/16 at 20:00 Dextrose (D50w Syringe) 50 ml Q15M PRN IV DECREASED GLUCOSE; Start 11/28/16 at 20:00 Glucagon (Glucagen) 1 mg Q15M PRN IM DECREASED GLUCOSE; Start 11/28/16 at 20:00 Glucose (Glutose) 15 gm Q15M PRN BUCCAL DECREASED GLUCOSE; Start 11/28/16 at 20 :00 Citric Acid/ Sodium Citrate (Bicitra) 15 ml BID PO Last administered on 08:40; Admin Dose 15 ML; Start 11/29/16 at 21:00 Pantoprazole (Protonix Tab) 40 mg DAILY@06 PO Last administered on 12/12/16 06 :47; Admin Dose 40 MG; Start 12/02/16 at 06:00 Morphine Sulfate (morphine) 2 mg Q4H PRN IV PAIN LEVEL 6-10 Last administered on 12/04/16 21:02; Admin Dose 2 MG; Start 12/02/16 at 06:00 IV Flush (NS 10 ml) 10 ml PRN PRN IV IV PROTOCOL; Start 12/02/16 at 18:30 Ondansetron HCl (Zofran Inj) 4 mg Q6H PRN IV NAUSEA AND/OR VOMITING Last administered on 12/03/16 02:23; Admin Dose 4 MG; Start 12/03/16 at 02:30 Lactulose (Enulose) 40 gm Q6 PO Last administered on 12/12/16 17:42; Admin Dose 40 GM; Start 12/03/16 at 18:00 Epoetin Brandan (Epogen (Non Esrd/Non Oncology)) 10,000 units MoWeFr@17 SC Last administered on 12/10/16 17:35; Admin Dose 10,000 UNITS; Start 12/03/16 at 21:30 Calcium Carbonate (Ca Carbonate) 1,250 mg BID NGT Last administered on 08:40; Admin Dose 1,250 MG; Start 12/03/16 at 21:00 Diagnostic Test (Pha) (Accucheck) 1 ea 02 XX ; Start 12/07/16 at 02:00 Ciprofloxacin (Cipro) 250 mg DAILY@06 PO Last administered on 12/12/16 08:40; Admin Dose 250 MG; Start 12/08/16 at 14:00 Fluconazole (Diflucan) 100 mg DAILY PO Last administered on 12/12/16 08:40; Admin Dose 100 MG; Start 12/08/16 at 14:00 Diagnostic Test (Pha) 1 ea 1 ea Q3H XX Last administered on 12/11/16 17:41; Admin Dose 1 EA; Start 12/10/16 at 17:30 Potassium Chloride/Dextrose (D5W + KCl 20 Meq) 1,000 ml @ 100 mls/hr Q10H6M IV Last administered on 12/12/16 08:51; Admin Dose 100 MLS/HR; Start 12/11/16 at 22:30 JOHANA MOTLEY MD Dec 12, 2016 18:23
[2016-12-12] MEDS: CALCIUM CARBONATE 1.25 GM TAB PO SCH (20:04)
[2016-12-12 20:13] VITALS: BP 131/81; RESP 21
--- NOTE | 2016-12-12 20:20 | CONS ---
Date/Time of Note Date/Time of Note DATE: 12/12/16 TIME: 20:10 Assessment/Plan Assessment/Plan Chief Complaint/Hosp Course assessment/impression - sepsis d/t peritonitis - leukocytosis and tachycardia resolved. - culture-negative neutrocytic peritonitis, s/p paracentesis 12/02/2016. Ascitic PMNs=9,413. Repeat paracentesis done 12/10/16 and ascitic fluid show decreased WBC and neutrophils. Pt completed renally dosed, empiric meropenem (12/05/2016-12/08/2016), pip/tazo (12/01/2016-12/04/2016), caspofungin (12/03/2016-12/08/2016) - probable UTI (pyuria, increased urinary frequency) - urine cx showed no growth - thrush - LEONARDO - ileus - recurrent hepatic encephalopathy - cholelithiasis - RLQ pain: CT did not demonstrate other acute GI processes - h/o alcoholic liver cirrhosis and portal hypertension - Recurrent ascites s/p multiple paracentesis - DM - CRI - thrombocytopenia - normocytic anemia (HIV screen negative in 2016, hepatitis screen was negative in 2015) recommendations - continue renally dosed ciprofloxacin for secondary prophylaxis of SBP (2016-). Note: Pt completed renally dosed, empiric meropenem (12/05/2016-12/08/2016) , pip/tazo (12/01/2016-12/04/2016), caspofungin (12/03/2016-12/08/2016). - continue renally dosed fluconazole (12/08/16-) for thrush - continue rifaxamin (11/28/16-) - consider repeat paracentesis - Above d/w Dr. Ponce Problems: Consultation Date/Type/Reason Admit Date/Time Nov 28, 2016 at 12:41 Initial Consult Date 12/02/16 Type of Consultation: Infectious Disease Referring Provider: SUNDAR OBRIEN 24 HR Interval Summary Free Text/Dictation C/o increasing abdominal distention and discomfort. No fever, chills, CP, n/v/ d. Has occ SOB r/t abd distention. Exam/Review of Systems Vital Signs Vitals Vital Signs Date Time Temp Pulse Resp B/P Pulse Ox O2 Delivery O2 Flow Rate FiO2 12/12/16 08:07 98.2 93 16 114/79 99 12/11/16 11:46 Room Air Intake and Output 12/11/16 12/11/16 12/12/16 15:00 23:00 07:00 Intake Total 470 ml 300 ml Balance 470 ml 300 ml Exam Constitutional: alert, frail, oriented, well developed Head: atraumatic, normocephalic Neck: supple, no carotid bruits Respiratory: diminished breath sounds Cardiovascular: nl pulses, regular rate and rhythm Gastrointestinal: ascites, distended, tense Extremities: no clubbing, cyanosis, edema Skin: Warm, dry. No rash Results Result Diagram: 12/12/16 0450 12/12/16 0450 Results 24 hrs Laboratory Tests Test 12/11/16 20:37 12/11/16 23:39 12/12/16 04:50 12/12/16 05:28 Bedside Glucose 137 139 177 Anion Gap 18 H Basophils # 0.0 Basophils % 0.5 Blood Morphology Comment Blood Urea Nitrogen 48 #H Calcium Level 7.8 L Carbon Dioxide Level 18 L Chloride Level 117 H Creatinine 1.33 H Eosinophils # 0.1 Eosinophils % 0.9 Glucose Level 184 Hematocrit 33.2 L Hemoglobin 11.2 L Lymphocytes # 1.0 Lymphocytes % 14.9 L Mean Corpuscular Hemoglobin 31.8 Mean Corpuscular Hemoglobin Concent 33.7 Mean Corpuscular Volume 94.4 Mean Platelet Volume 9.7 Monocytes # 0.7 Monocytes % 10.9 Neutrophils # 4.8 Neutrophils % 72.8 Nucleated Red Blood Cells # 0.0 Nucleated Red Blood Cells % 0.0 Platelet Count 45 L Potassium Level 3.5 Red Blood Count 3.52 L Red Cell Distribution Width 16.0 H Sodium Level 149 H White Blood Count 6.6 Test 12/12/16 08:18 12/12/16 11:35 12/12/16 15:08 12/12/16 17:16 Bedside Glucose 158 254 H 208 163 Test 12/12/16 19:39 Bedside Glucose 199 Medications Medications Current Medications Rifaximin (Xifaxan) 550 mg BID PO Last administered on 12/12/16t 08:40; Admin Dose 550 MG; Start 11/28/16 at 21:00 Miscellaneous Information 1 ea NOTE XX ; Start 11/28/16 at 20:00 Glucose (Glutose) 15 gm Q15M PRN PO DECREASED GLUCOSE; Start 11/28/16 at 20:00 Glucose (Glutose) 22.5 gm Q15M PRN PO DECREASED GLUCOSE; Start 11/28/16 at 20: 00 Dextrose (D50w Syringe) 25 ml Q15M PRN IV DECREASED GLUCOSE; Start 11/28/16 at 20:00 Dextrose (D50w Syringe) 50 ml Q15M PRN IV DECREASED GLUCOSE; Start 11/28/16 at 20:00 Glucagon (Glucagen) 1 mg Q15M PRN IM DECREASED GLUCOSE; Start 11/28/16 at 20:00 Glucose (Glutose) 15 gm Q15M PRN BUCCAL DECREASED GLUCOSE; Start 11/28/16 at 20 :00 Citric Acid/ Sodium Citrate (Bicitra) 15 ml BID PO Last administered on 08:40; Admin Dose 15 ML; Start 11/29/16 at 21:00 Pantoprazole (Protonix Tab) 40 mg DAILY@06 PO Last administered on 12/12/16 06 :47; Admin Dose 40 MG; Start 12/02/16 at 06:00 Morphine Sulfate (morphine) 2 mg Q4H PRN IV PAIN LEVEL 6-10 Last administered on 12/04/16 21:02; Admin Dose 2 MG; Start 12/02/16 at 06:00 IV Flush (NS 10 ml) 10 ml PRN PRN IV IV PROTOCOL; Start 12/02/16 at 18:30 Ondansetron HCl (Zofran Inj) 4 mg Q6H PRN IV NAUSEA AND/OR VOMITING Last administered on 12/03/16 02:23; Admin Dose 4 MG; Start 12/03/16 at 02:30 Lactulose (Enulose) 40 gm Q6 PO Last administered on 12/12/16 17:42; Admin Dose 40 GM; Start 12/03/16 at 18:00 Epoetin Brandan (Epogen (Non Esrd/Non Oncology)) 10,000 units MoWeFr@17 SC Last administered on 12/10/16 17:35; Admin Dose 10,000 UNITS; Start 12/03/16 at 21:30 Diagnostic Test (Pha) (Accucheck) 1 ea 02 XX ; Start 12/07/16 at 02:00 Ciprofloxacin (Cipro) 250 mg DAILY@06 PO Last administered on 2/12/17at 08:40; Admin Dose 250 MG; Start 12/08/16 at 14:00 Fluconazole (Diflucan) 100 mg DAILY PO Last administered on 12/12/16 08:40; Admin Dose 100 MG; Start 12/08/16 at 14:00 Diagnostic Test (Pha) 1 ea 1 ea Q3H XX Last administered on 12/11/16 17:41; Admin Dose 1 EA; Start 12/10/16 at 17:30 Potassium Chloride/Dextrose (D5W + KCl 20 Meq) 1,000 ml @ 100 mls/hr Q10H6M IV Last administered on 12/12/16 08:51; Admin Dose 100 MLS/HR; Start 12/11/16 at 22:30 Calcium Carbonate (Oyster Shell Calcium) 1.25 gm BID PO ; Start 12/12/16 at 21: 00 TAVIA TY NP Dec 12, 2016 20:19
[2016-12-13] MEDS: ACCUCHECK XX SCH ×4 (01:43→17:23)
[2016-12-13] MEDS: LACTULOSE 30ML CUP PO SCH ×4 (05:09→23:54)
[2016-12-13] MEDS: CIPROFLOXACIN 250 MG TAB PO SCH (05:09)
[2016-12-13] MEDS: PANTOPRAZOLE (EC) 40 MG TAB PO SCH (05:09)
[2016-12-13] MEDS: D5W + KCL 20 MEQ 1,000 ML IV SCH ×2 (05:12→19:11)
[2016-12-13 05:17] LABS: BASOPHILS % 0.5 % (0.0-2.0); EOSINOPHILS # 0.1 10^3/ul (0.0-0.5); EOSINOPHILS % 0.6 % (0.0-7.0); HEMATOCRIT 34.8 % (42.0-52.0); HEMOGLOBIN 11.8 g/dl (14.0-18.0); LYMPHOCYTES # 0.8 10^3/ul (0.8-2.9); LYMPHOCYTES % 8.9 % (15.0-51.0); MEAN CORPUSCULAR HEMOGLOBIN 32.3 pg (29.0-33.0); MEAN CORPUSCULAR HGB CONC 33.8 g/dl (32.0-37.0); MEAN CORPUSCULAR VOLUME 95.5 fl (82.0-101.0); MEAN PLATELET VOLUME 10.1 fl (7.4-10.4); MONOCYTE # 1.1 10^3/ul (0.3-0.9); MONOCYTES % 12.6 % (0.0-11.0); NEUTROPHIL # 6.8 10^3/ul (1.6-7.5); NEUTROPHILS % 77.4 % (39.0-77.0); PLATELET COUNT 49 10^3/UL (140-440); RED BLOOD COUNT 3.64 10^6/ul (4.70-6.10); RED CELL DISTRIBUTION WIDTH 16.5 % (11.5-14.5); UNCORRECTED WBC 8.7 10^3/ul (4.8-10.8); WHITE BLOOD COUNT 8.7 10^3/ul (4.8-10.8)
[2016-12-13 05:39] LABS: POTASSIUM 4.4 mmol/L (3.5-5.1)
[2016-12-13 05:42] LABS: CALCIUM 7.8 mg/dl (8.4-10.2); CREATININE 1.8 mg/dl (0.61-1.24)
[2016-12-13 06:08] LABS: CONDITION 1; LH ANALYZER COMMENTS 1
[2016-12-13 08:03] VITALS: BP 82/52; RESP 19
[2016-12-13] MEDS: morphine 2 MG INJ IV PRN ×2 (08:11→13:49)
[2016-12-13] MEDS: RIFAXIMIN 550 MG TAB PO SCH ×2 (08:12→21:01)
[2016-12-13] MEDS: INSULIN ASPART [NOVOLOG] 3 ML PEN SC SCH ×3 (08:12→17:46)
[2016-12-13] MEDS: FLUCONAZOLE 100 MG TAB PO SCH (08:13)
[2016-12-13] MEDS: CALCIUM CARBONATE 1.25 GM TAB PO SCH ×2 (08:13→21:01)
[2016-12-13] MEDS: CITRIC ACID/NA CITRATE 30 ML CUP PO SCH ×2 (08:13→21:00)
[2016-12-13] MEDS ORDERED: SOD CHLORIDE 0.9% 500 ML IV PRN (09:00)
[2016-12-13 10:32] VITALS: BP 112/73; PULSE 99
[2016-12-13 13:49] VITALS: BP 112/65; PULSE 94
--- NOTE | 2016-12-13 15:01 | PN ---
Date/Time of Note Date/Time of Note DATE: 12/13/16 TIME: 14:49 Assessment/Plan VTE Prophylaxis VTE Prophylaxis Intervention: SCD's Lines/Catheters [facility]from [facility]): PICC Line Central line still needed: Yes Urinary Cath still in place: No Reason Cath still needed: urinary retention Assessment/Plan Chief Complaint/Hosp Course ASSESSMENT AND PLAN: - Sepsis, resolve. Continue abx per ID. Dr. Sandhu is following in infection disease consultation. - Possible SBP, follow-up on final ascetic culture. On Cipro. - Hepatic encephalopathy. Continue lactulose q.i.d. and rifaximin. Dr. Melendez is following in gastroenterology consultation. - Alcoholic liver cirrhosis with recurrent ascites. s/p paracentesis on 12/02, pending paracentesis. - LEONARDO on Chronic kidney disease. Dr. Morrison is following in nephrology consultation. - Diabetes mellitus. Continue NovoLog per mild algorithm sliding scale coverage. - Thrombocytopenia, most likely secondary to liver cirrhosis. Continue to monitor platelet count. - Coagulopathy, check PT and INR tomorrow. Continue Protonix for peptic ulcer disease prophylaxis and sequential compression device for deep venous thrombosis prophylaxis. Further recommendations based on clinical course. Plan of care discussed with Dr. Qureshi. Problems: Subjective 24 Hr Interval Summary Free Text/Dictation s/p paracentesis on Tuesday, no fever, n/v. Exam/Review of Systems Vital Signs Vitals Vital Signs Date Time Temp Pulse Resp B/P Pulse Ox O2 Delivery O2 Flow Rate FiO2 12/13/16 13:49 94 112/65 12/13/16 08:03 98.0 19 100 12/11/16 11:46 Room Air Intake and Output 12/12/16 12/12/16 12/13/16 15:00 23:00 07:00 Intake Total 200 ml 2040 ml 1300 ml Output Total 150 ml Balance 200 ml 2040 ml 1150 ml Exam GENERAL: Well-developed, well-nourished male currently in no acute distress HEENT: Head is atraumatic, normocephalic. Pupils equal, round, reactive to light and accommodation. The patient has slightly jaundiced sclerae. NECK: Supple. No cervical lymphadenopathy, no thyromegaly. CHEST: Lungs clear bilaterally. There is no rhonchi, wheezes, rales noted. CARDIOVASCULAR: Normal S1, S2. No murmurs, gallops, clicks, rubs noted. ABDOMEN: Protuberant, soft, distended, nontender. EXTREMITIES: No edema, clubbing, cyanosis. Pulses equal bilaterally 2+. SKIN: The patient has multiple ecchymotic areas and healing scabs. NEUROLOGIC: Patient is awake, alert to name and situation, otherwise confused. Results Result Diagram: 12/13/16 0422 12/13/16 0422 Results 24 hrs Laboratory Tests Test 12/12/16 15:08 12/12/16 17:16 12/12/16 19:39 12/13/16 02:14 Bedside Glucose 208 163 199 172 Test 12/13/16 04:22 12/13/16 07:44 12/13/16 11:33 Anion Gap 15 Basophils # 0.0 Basophils % 0.5 Blood Morphology Comment Blood Urea Nitrogen 50 H Calcium Level 7.8 L Carbon Dioxide Level 17 L Chloride Level 115 H Creatinine 1.80 H Eosinophils # 0.1 Eosinophils % 0.6 Glucose Level 190 Hematocrit 34.8 L Hemoglobin 11.8 L Lymphocytes # 0.8 Lymphocytes % 8.9 L Mean Corpuscular Hemoglobin 32.3 Mean Corpuscular Hemoglobin Concent 33.8 Mean Corpuscular Volume 95.5 Mean Platelet Volume 10.1 Monocytes # 1.1 H Monocytes % 12.6 H Neutrophils # 6.8 Neutrophils % 77.4 H Nucleated Red Blood Cells # 0.0 Nucleated Red Blood Cells % 0.0 Platelet Count 49 L Potassium Level 4.4 Red Blood Count 3.64 L Red Cell Distribution Width 16.5 H Sodium Level 143 White Blood Count 8.7 # Bedside Glucose 157 203 Medications Medications Current Medications Rifaximin (Xifaxan) 550 mg BID PO Last administered on 12/13/16t 08:12; Admin Dose 550 MG; Start 11/28/16 at 21:00 Miscellaneous Information 1 ea NOTE XX ; Start 11/28/16 at 20:00 Glucose (Glutose) 15 gm Q15M PRN PO DECREASED GLUCOSE; Start 11/28/16 at 20:00 Glucose (Glutose) 22.5 gm Q15M PRN PO DECREASED GLUCOSE; Start 11/28/16 at 20: 00 Dextrose (D50w Syringe) 25 ml Q15M PRN IV DECREASED GLUCOSE; Start 11/28/16 at 20:00 Dextrose (D50w Syringe) 50 ml Q15M PRN IV DECREASED GLUCOSE; Start 11/28/16 at 20:00 Glucagon (Glucagen) 1 mg Q15M PRN IM DECREASED GLUCOSE; Start 11/28/16 at 20:00 Glucose (Glutose) 15 gm Q15M PRN BUCCAL DECREASED GLUCOSE; Start 11/28/16 at 20 :00 Citric Acid/ Sodium Citrate (Bicitra) 15 ml BID PO Last administered on 08:13; Admin Dose 15 ML; Start 11/29/16 at 21:00 Pantoprazole (Protonix Tab) 40 mg DAILY@06 PO Last administered on 12/13/16 05 :09; Admin Dose 40 MG; Start 12/02/16 at 06:00 Morphine Sulfate (morphine) 2 mg Q4H PRN IV PAIN LEVEL 6-10 Last administered on 12/13/16 13:49; Admin Dose 2 MG; Start 12/02/16 at 06:00 IV Flush (NS 10 ml) 10 ml PRN PRN IV IV PROTOCOL; Start 12/02/16 at 18:30 Ondansetron HCl (Zofran Inj) 4 mg Q6H PRN IV NAUSEA AND/OR VOMITING Last administered on 12/03/16 02:23; Admin Dose 4 MG; Start 12/03/16 at 02:30 Lactulose (Enulose) 40 gm Q6 PO Last administered on 12/13/16 12:06; Admin Dose 40 GM; Start 12/03/16 at 18:00 Epoetin Brandan (Epogen (Non Esrd/Non Oncology)) 10,000 units MoWeFr@17 SC Last administered on 12/10/16 17:35; Admin Dose 10,000 UNITS; Start 12/03/16 at 21:30 Diagnostic Test (Pha) (Accucheck) 1 ea 02 XX ; Start 12/07/16 at 02:00 Ciprofloxacin (Cipro) 250 mg DAILY@06 PO Last administered on 12/13/16 05:09; Admin Dose 250 MG; Start 12/08/16 at 14:00 Fluconazole 100 mg 100 mg DAILY PO Last administered on 12/13/16 08:13; Admin Dose 100 MG; Start 12/08/16 at 14:00 Potassium Chloride/Dextrose (D5W + KCl 20 Meq) 1,000 ml @ 100 mls/hr Q10H6M IV Last administered on 12/13/16 05:12; Admin Dose 100 MLS/HR; Start 12/11/16 at 22:30 Calcium Carbonate 1.25 gm 1.25 gm BID PO Last administered on 12/13/16 08:13; Admin Dose 1.25 GM; Start 12/12/16 at 21:00 Sodium Chloride (NS) 500 ml @ 500 mls/hr Q1H PRN IV BLOOD PRESSURE SUPPORT Last administered on 12/13/16 09:14; Admin Dose 500 MLS/HR; Start 12/13/16 at 09:00 RIDDHI BLOCK Dec 13, 2016 15:00
--- NOTE | 2016-12-13 16:04 | CONS ---
Date/Time of Note Date/Time of Note DATE: 12/13/16 TIME: 16:04 Assessment/Plan Assessment/Plan Chief Complaint/Hosp Course - sepsis d/t peritonitis - leukocytosis and tachycardia resolved. - culture-negative neutrocytic peritonitis, s/p paracentesis 12/02/2016. Ascitic PMNs=9,413. Repeat paracentesis done 12/10/16 and ascitic fluid show decreased WBC and neutrophils. Pt completed renally dosed, empiric meropenem (12/05/2016-12/08/2016), pip/tazo (12/01/2016-12/04/2016), caspofungin (12/03/2016-12/08/2016) - probable UTI (pyuria, increased urinary frequency) - urine cx showed no growth - thrush - LEONADRO - ileus - recurrent hepatic encephalopathy - cholelithiasis - RLQ pain: CT did not demonstrate other acute GI processes - h/o alcoholic liver cirrhosis and portal hypertension - Recurrent ascites s/p multiple paracentesis - DM - CRI - thrombocytopenia - normocytic anemia (HIV screen negative in 2016, hepatitis screen was negative in 2015) recommendations - continue renally dosed ciprofloxacin for secondary prophylaxis of SBP (2016-). Note: Pt completed renally dosed, empiric meropenem (12/05/2016-12/08/2016) , pip/tazo (12/01/2016-12/04/2016), caspofungin (12/03/2016-12/08/2016). - continue renally dosed fluconazole (12/08/16-) for thrush - continue rifaxamin (11/28/16-) - consider repeat paracentesis Problems: Consultation Date/Type/Reason Admit Date/Time Nov 28, 2016 at 12:41 Initial Consult Date 12/02/16 Type of Consultation: Infectious Disease Referring Provider: SUNDAR OBRIEN Exam/Review of Systems Vital Signs Vitals Vital Signs Date Time Temp Pulse Resp B/P Pulse Ox O2 Delivery O2 Flow Rate FiO2 12/13/16 13:49 94 112/65 12/13/16 08:03 98.0 19 100 12/11/16 11:46 Room Air Intake and Output 12/12/16 12/12/16 12/13/16 15:00 23:00 07:00 Intake Total 200 ml 2040 ml 1300 ml Output Total 150 ml Balance 200 ml 2040 ml 1150 ml Results Result Diagram: 12/13/16 0422 12/13/16 0422 Results 24 hrs Laboratory Tests Test 12/12/16 17:16 12/12/16 19:39 12/13/16 02:14 12/13/16 04:22 Bedside Glucose 163 199 172 Anion Gap 15 Basophils # 0.0 Basophils % 0.5 Blood Morphology Comment Blood Urea Nitrogen 50 H Calcium Level 7.8 L Carbon Dioxide Level 17 L Chloride Level 115 H Creatinine 1.80 H Eosinophils # 0.1 Eosinophils % 0.6 Glucose Level 190 Hematocrit 34.8 L Hemoglobin 11.8 L Lymphocytes # 0.8 Lymphocytes % 8.9 L Mean Corpuscular Hemoglobin 32.3 Mean Corpuscular Hemoglobin Concent 33.8 Mean Corpuscular Volume 95.5 Mean Platelet Volume 10.1 Monocytes # 1.1 H Monocytes % 12.6 H Neutrophils # 6.8 Neutrophils % 77.4 H Nucleated Red Blood Cells # 0.0 Nucleated Red Blood Cells % 0.0 Platelet Count 49 L Potassium Level 4.4 Red Blood Count 3.64 L Red Cell Distribution Width 16.5 H Sodium Level 143 White Blood Count 8.7 # Test 12/13/16 07:44 12/13/16 11:33 Bedside Glucose 157 203 Medications Medications Current Medications Rifaximin (Xifaxan) 550 mg BID PO Last administered on 12/13/16t 08:12; Admin Dose 550 MG; Start 11/28/16 at 21:00 Miscellaneous Information 1 ea NOTE XX ; Start 11/28/16 at 20:00 Glucose (Glutose) 15 gm Q15M PRN PO DECREASED GLUCOSE; Start 11/28/16 at 20:00 Glucose (Glutose) 22.5 gm Q15M PRN PO DECREASED GLUCOSE; Start 11/28/16 at 20: 00 Dextrose (D50w Syringe) 25 ml Q15M PRN IV DECREASED GLUCOSE; Start 11/28/16 at 20:00 Dextrose (D50w Syringe) 50 ml Q15M PRN IV DECREASED GLUCOSE; Start 11/28/16 at 20:00 Glucagon (Glucagen) 1 mg Q15M PRN IM DECREASED GLUCOSE; Start 11/28/16 at 20:00 Glucose (Glutose) 15 gm Q15M PRN BUCCAL DECREASED GLUCOSE; Start 11/28/16 at 20 :00 Citric Acid/ Sodium Citrate (Bicitra) 15 ml BID PO Last administered on 08:13; Admin Dose 15 ML; Start 11/29/16 at 21:00 Pantoprazole (Protonix Tab) 40 mg DAILY@06 PO Last administered on 12/13/16 05 :09; Admin Dose 40 MG; Start 12/02/16 at 06:00 Morphine Sulfate (morphine) 2 mg Q4H PRN IV PAIN LEVEL 6-10 Last administered on 12/13/16 13:49; Admin Dose 2 MG; Start 12/02/16 at 06:00 IV Flush (NS 10 ml) 10 ml PRN PRN IV IV PROTOCOL; Start 12/02/16 at 18:30 Ondansetron HCl (Zofran Inj) 4 mg Q6H PRN IV NAUSEA AND/OR VOMITING Last administered on 12/03/16 02:23; Admin Dose 4 MG; Start 12/03/16 at 02:30 Lactulose (Enulose) 40 gm Q6 PO Last administered on 12/13/16 12:06; Admin Dose 40 GM; Start 12/03/16 at 18:00 Epoetin Brandan (Epogen (Non Esrd/Non Oncology)) 10,000 units MoWeFr@17 SC Last administered on 12/10/16 17:35; Admin Dose 10,000 UNITS; Start 12/03/16 at 21:30 Diagnostic Test (Pha) (Accucheck) 1 ea 02 XX ; Start 12/07/16 at 02:00 Ciprofloxacin (Cipro) 250 mg DAILY@06 PO Last administered on 12/13/16 05:09; Admin Dose 250 MG; Start 12/08/16 at 14:00 Fluconazole 100 mg 100 mg DAILY PO Last administered on 12/13/16 08:13; Admin Dose 100 MG; Start 12/08/16 at 14:00 Potassium Chloride/Dextrose (D5W + KCl 20 Meq) 1,000 ml @ 100 mls/hr Q10H6M IV Last administered on 12/13/16 05:12; Admin Dose 100 MLS/HR; Start 12/11/16 at 22:30 Calcium Carbonate 1.25 gm 1.25 gm BID PO Last administered on 12/13/16 08:13; Admin Dose 1.25 GM; Start 12/12/16 at 21:00 Sodium Chloride (NS) 500 ml @ 500 mls/hr Q1H PRN IV BLOOD PRESSURE SUPPORT Last administered on 12/13/16 09:14; Admin Dose 500 MLS/HR; Start 12/13/16 at 09:00 TONYA CURRY MD Dec 13, 2016 16:04
[2016-12-13] MEDS: EPOETIN 10000 UNITS/ML (NON ESRD/NON ONCOLOGY) SC SCH (17:44)
--- NOTE | 2016-12-13 18:29 | CONS ---
Date/Time of Note Date/Time of Note DATE: 12/13/16 TIME: 18:21 Assessment/Plan Assessment/Plan Chief Complaint/Hosp Course Must increase Lactulose Add Epo for Anemia continue to monitor renal fn closely Add phosphate binder Problems: Additional Assessment/Plan Pt continues to improve renal hunter will decrease IV Rate to prevent increase in Ascites Consultation Date/Type/Reason Admit Date/Time Nov 28, 2016 at 12:41 Initial Consult Date 12/02/16 Type of Consultation: Infectious Disease Referring Provider: SUNDAR OBRIEN Exam/Review of Systems Vital Signs Vitals Vital Signs Date Time Temp Pulse Resp B/P Pulse Ox O2 Delivery O2 Flow Rate FiO2 12/13/16 13:49 94 112/65 12/13/16 08:03 98.0 19 100 12/11/16 11:46 Room Air Intake and Output 12/12/16 12/12/16 12/13/16 15:00 23:00 07:00 Intake Total 200 ml 2040 ml 1300 ml Output Total 150 ml Balance 200 ml 2040 ml 1150 ml Exam Constitutional: alert, oriented, well developed Psych: nl mood/affect, no complaints Head: atraumatic, normocephalic Eyes: EOMI, PERRL, nl conjunctiva, nl lids, nl sclera ENMT: nl external ears & nose, nl lips & teeth, nl nasal mucosa & septum Neck: non-tender, supple Respiratory: clear to auscultation, normal air movement Cardiovascular: nl pulses, regular rate and rhythm Gastrointestinal: nl liver, spleen, non-tender, soft Musculoskeletal: nl extremities to inspection, nl gait and stance Extremities: normal pulses 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: VP ANCILLARY II-XII intact, nl mental status, nl speech, nl strength Results SNa is better, BUN/Creat seem to have stablized K 3.4 should improve with KCl in the IVF add CaCO3 for low tCO2 Result Diagram: 12/13/1642112/13/16421 Results 24 hrs Laboratory Tests Test 12/12/16 19:39 12/13/16 02:14 12/13/16 04:22 12/13/16 07:44 Bedside Glucose 199 172 157 Anion Gap 15 Basophils # 0.0 Basophils % 0.5 Blood Morphology Comment Blood Urea Nitrogen 50 H Calcium Level 7.8 L Carbon Dioxide Level 17 L Chloride Level 115 H Creatinine 1.80 H Eosinophils # 0.1 Eosinophils % 0.6 Glucose Level 190 Hematocrit 34.8 L Hemoglobin 11.8 L Lymphocytes # 0.8 Lymphocytes % 8.9 L Mean Corpuscular Hemoglobin 32.3 Mean Corpuscular Hemoglobin Concent 33.8 Mean Corpuscular Volume 95.5 Mean Platelet Volume 10.1 Monocytes # 1.1 H Monocytes % 12.6 H Neutrophils # 6.8 Neutrophils % 77.4 H Nucleated Red Blood Cells # 0.0 Nucleated Red Blood Cells % 0.0 Platelet Count 49 L Potassium Level 4.4 Red Blood Count 3.64 L Red Cell Distribution Width 16.5 H Sodium Level 143 White Blood Count 8.7 # Test 12/13/16 11:33 12/13/16 17:00 Bedside Glucose 203 176 Medications Medications Current Medications Rifaximin (Xifaxan) 550 mg BID PO Last administered on 12/13/16 08:12; Admin Dose 550 MG; Start 11/28/16 at 21:00 Miscellaneous Information 1 ea NOTE XX ; Start 11/28/16 at 20:00 Glucose (Glutose) 15 gm Q15M PRN PO DECREASED GLUCOSE; Start 11/28/16 at 20:00 Glucose (Glutose) 22.5 gm Q15M PRN PO DECREASED GLUCOSE; Start 11/28/16 at 20: 00 Dextrose (D50w Syringe) 25 ml Q15M PRN IV DECREASED GLUCOSE; Start 11/28/16 at 20:00 Dextrose (D50w Syringe) 50 ml Q15M PRN IV DECREASED GLUCOSE; Start 11/28/16 at 20:00 Glucagon (Glucagen) 1 mg Q15M PRN IM DECREASED GLUCOSE; Start 11/28/16 at 20:00 Glucose (Glutose) 15 gm Q15M PRN BUCCAL DECREASED GLUCOSE; Start 11/28/16 at 20 :00 Citric Acid/ Sodium Citrate (Bicitra) 15 ml BID PO Last administered on 08:13; Admin Dose 15 ML; Start 11/29/16 at 21:00 Pantoprazole (Protonix Tab) 40 mg DAILY@06 PO Last administered on 12/13/16 05 :09; Admin Dose 40 MG; Start 12/02/16 at 06:00 Morphine Sulfate (morphine) 2 mg Q4H PRN IV PAIN LEVEL 6-10 Last administered on 12/13/16 13:49; Admin Dose 2 MG; Start 12/02/16 at 06:00 IV Flush (NS 10 ml) 10 ml PRN PRN IV IV PROTOCOL; Start 12/02/16 at 18:30 Ondansetron HCl (Zofran Inj) 4 mg Q6H PRN IV NAUSEA AND/OR VOMITING Last administered on 12/03/16 02:23; Admin Dose 4 MG; Start 12/03/16 at 02:30 Lactulose (Enulose) 40 gm Q6 PO Last administered on 12/13/16 17:43; Admin Dose 40 GM; Start 12/03/16 at 18:00 Epoetin Brandan (Epogen (Non Esrd/Non Oncology)) 10,000 units MoWeFr@17 SC Last administered on 12/13/16 17:44; Admin Dose 10,000 UNITS; Start 12/03/16 at 21:30 Diagnostic Test (Pha) (Accucheck) 1 ea 02 XX ; Start 12/07/16 at 02:00 Ciprofloxacin (Cipro) 250 mg DAILY@06 PO Last administered on 12/13/16 05:09; Admin Dose 250 MG; Start 12/08/16 at 14:00 Fluconazole 100 mg 100 mg DAILY PO Last administered on 12/13/16 08:13; Admin Dose 100 MG; Start 12/08/16 at 14:00 Potassium Chloride/Dextrose (D5W + KCl 20 Meq) 1,000 ml @ 100 mls/hr Q10H6M IV Last administered on 12/13/16 05:12; Admin Dose 100 MLS/HR; Start 12/11/16 at 22:30 Calcium Carbonate 1.25 gm 1.25 gm BID PO Last administered on 12/13/16 08:13; Admin Dose 1.25 GM; Start 12/12/16 at 21:00 Sodium Chloride (NS) 500 ml @ 500 mls/hr Q1H PRN IV BLOOD PRESSURE SUPPORT Last administered on 12/13/16 09:14; Admin Dose 500 MLS/HR; Start 12/13/16 at 09:00 NELSON BRIGGS MD Dec 13, 2016 18:29
[2016-12-13] MEDS: CALCIUM CARBONATE 500 MG CHEW TAB PO SCH (19:05)
--- NOTE | 2016-12-13 19:29 | CONS ---
Date/Time of Note Date/Time of Note DATE: 12/13/16 TIME: 19:28 Assessment/Plan Assessment/Plan Additional Assessment/Plan Assessment/Plan Assessment/Plan Additional Assessment/Plan Additional Assessment/Plan 1. Hepatic encephalopathy. 2. Cirrhosis of liver. 3. Refractory ascites. 4. Hepatorenal syndrome, type 1. 5. Diabetes mellitus. 6.spontaneous bacterial peritonitis ,resolved PLAN: To continue with lactulose and rifaximin. Hold off on diuretics because that will worsen the patient's renal function. Fluid restriction. Reduced protein diet. stool for occult blood,negative albumin to sustain BP resume feeding po Midodrine 5 mg bid paracentesis,with albumin infusion before and during procedure., had paracentesis and 9 liter removed Consultation Date/Type/Reason Admit Date/Time Nov 28, 2016 at 12:41 Initial Consult Date 11/29/16 Type of Consultation: Infectious Disease Referring Provider: SUNDAR OBRIEN 24 HR Interval Summary Constitutional: improved Exam/Review of Systems Vital Signs Vitals Vital Signs Date Time Temp Pulse Resp B/P Pulse Ox O2 Delivery O2 Flow Rate FiO2 12/13/16 13:49 94 112/65 12/13/16 08:03 98.0 19 100 12/11/16 11:46 Room Air Intake and Output 12/12/16 12/12/16 12/13/16 15:00 23:00 07:00 Intake Total 200 ml 2040 ml 1300 ml Output Total 150 ml Balance 200 ml 2040 ml 1150 ml Exam Constitutional: alert, oriented, well developed Psych: nl mood/affect, no complaints Head: atraumatic, normocephalic Eyes: EOMI, PERRL, nl conjunctiva, nl lids, nl sclera ENMT: nl external ears & nose, nl lips & teeth, nl nasal mucosa & septum Neck: non-tender, supple Respiratory: clear to auscultation, normal air movement Cardiovascular: nl pulses, regular rate and rhythm Gastrointestinal: nl liver, spleen, non-tender, soft Musculoskeletal: nl extremities to inspection, nl gait and stance Extremities: normal pulses 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: DENTAL APPLIANCE REPAIRER II-XII intact, nl mental status, nl speech, nl strength Skin: nl turgor, No rash or lesions Lymph: nl lymph nodes Results Result Diagram: 12/13/1642112/13/16421 Results 24 hrs Laboratory Tests Test 12/12/16:39 12/13/16 02:14 12/13/16 04:22 12/13/16 07:44 Bedside Glucose 199 172 157 Anion Gap 15 Basophils # 0.0 Basophils % 0.5 Blood Morphology Comment Blood Urea Nitrogen 50 H Calcium Level 7.8 L Carbon Dioxide Level 17 L Chloride Level 115 H Creatinine 1.80 H Eosinophils # 0.1 Eosinophils % 0.6 Glucose Level 190 Hematocrit 34.8 L Hemoglobin 11.8 L Lymphocytes # 0.8 Lymphocytes % 8.9 L Mean Corpuscular Hemoglobin 32.3 Mean Corpuscular Hemoglobin Concent 33.8 Mean Corpuscular Volume 95.5 Mean Platelet Volume 10.1 Monocytes # 1.1 H Monocytes % 12.6 H Neutrophils # 6.8 Neutrophils % 77.4 H Nucleated Red Blood Cells # 0.0 Nucleated Red Blood Cells % 0.0 Platelet Count 49 L Potassium Level 4.4 Red Blood Count 3.64 L Red Cell Distribution Width 16.5 H Sodium Level 143 White Blood Count 8.7 # Test 12/13/16 11:33 12/13/16 17:00 Bedside Glucose 203 176 Medications Medications Current Medications Rifaximin (Xifaxan) 550 mg BID PO Last administered on 12/13/16 08:12; Admin Dose 550 MG; Start 11/28/16 at 21:00 Miscellaneous Information 1 ea NOTE XX ; Start 11/28/16 at 20:00 Glucose (Glutose) 15 gm Q15M PRN PO DECREASED GLUCOSE; Start 11/28/16 at 20:00 Glucose (Glutose) 22.5 gm Q15M PRN PO DECREASED GLUCOSE; Start 11/28/16 at 20: 00 Dextrose (D50w Syringe) 25 ml Q15M PRN IV DECREASED GLUCOSE; Start 11/28/16 at 20:00 Dextrose (D50w Syringe) 50 ml Q15M PRN IV DECREASED GLUCOSE; Start 11/28/16 at 20:00 Glucagon (Glucagen) 1 mg Q15M PRN IM DECREASED GLUCOSE; Start 11/28/16 at 20:00 Glucose (Glutose) 15 gm Q15M PRN BUCCAL DECREASED GLUCOSE; Start 11/28/16 at 20 :00 Citric Acid/ Sodium Citrate (Bicitra) 15 ml BID PO Last administered on 08:13; Admin Dose 15 ML; Start 11/29/16 at 21:00 Pantoprazole (Protonix Tab) 40 mg DAILY@06 PO Last administered on 12/13/16 05 :09; Admin Dose 40 MG; Start 12/02/16 at 06:00 Morphine Sulfate (morphine) 2 mg Q4H PRN IV PAIN LEVEL 6-10 Last administered on 12/13/16 13:49; Admin Dose 2 MG; Start 12/02/16 at 06:00 IV Flush (NS 10 ml) 10 ml PRN PRN IV IV PROTOCOL; Start 12/02/16 at 18:30 Ondansetron HCl (Zofran Inj) 4 mg Q6H PRN IV NAUSEA AND/OR VOMITING Last administered on 12/03/16 02:23; Admin Dose 4 MG; Start 12/03/16 at 02:30 Lactulose (Enulose) 40 gm Q6 PO Last administered on 12/13/16 17:43; Admin Dose 40 GM; Start 12/03/16 at 18:00 Epoetin Brandan (Epogen (Non Esrd/Non Oncology)) 10,000 units MoWeFr@17 SC Last administered on 12/13/16 17:44; Admin Dose 10,000 UNITS; Start 12/03/16 at 21:30 Diagnostic Test (Pha) (Accucheck) 1 ea 02 XX ; Start 12/07/16 at 02:00 Ciprofloxacin (Cipro) 250 mg DAILY@06 PO Last administered on 12/13/16 05:09; Admin Dose 250 MG; Start 12/08/16 at 14:00 Fluconazole 100 mg 100 mg DAILY PO Last administered on 12/13/16 08:13; Admin Dose 100 MG; Start 12/08/16 at 14:00 Potassium Chloride/Dextrose (D5W + KCl 20 Meq) 1,000 ml @ 40 mls/hr Q24H IV Last administered on 12/13/16 19:11; Admin Dose 40 MLS/HR; Start 12/11/16 at 22 :30; Stop 12/14/16 at 09:00 Calcium Carbonate 1.25 gm 1.25 gm BID PO Last administered on 12/13/16 08:13; Admin Dose 1.25 GM; Start 12/12/16 at 21:00 Sodium Chloride (NS) 500 ml @ 500 mls/hr Q1H PRN IV BLOOD PRESSURE SUPPORT Last administered on 12/13/16 09:14; Admin Dose 500 MLS/HR; Start 12/13/16 at 09:00 Potassium Chloride (Klor-Con 20) 20 meq BID PO ; Start 12/13/16 at 21:00; Stop 12/15/16 at 09:00 JOHANA MOTLEY MD Dec 13, 2016 19:29
[2016-12-13 19:50] VITALS: BP 91/64; RESP 19
[2016-12-13] MEDS: POTASSIUM CHLORIDE (SR) 20 MEQ TAB PO SCH (21:01)
[2016-12-14] MEDS: morphine 2 MG INJ IV PRN (02:05)
[2016-12-14] MEDS: ACCUCHECK XX SCH ×4 (02:12→17:08)
[2016-12-14 05:10] LABS: BASOPHILS % 0.3 % (0.0-2.0); EOSINOPHILS # 0.1 10^3/ul (0.0-0.5); EOSINOPHILS % 1.1 % (0.0-7.0); HEMATOCRIT 35.8 % (42.0-52.0); HEMOGLOBIN 11.9 g/dl (14.0-18.0); LYMPHOCYTES # 0.9 10^3/ul (0.8-2.9); LYMPHOCYTES % 10.9 % (15.0-51.0); MEAN CORPUSCULAR HEMOGLOBIN 31.6 pg (29.0-33.0); MEAN CORPUSCULAR HGB CONC 33.4 g/dl (32.0-37.0); MEAN CORPUSCULAR VOLUME 94.7 fl (82.0-101.0); MEAN PLATELET VOLUME 9.8 fl (7.4-10.4); MONOCYTE # 1.4 10^3/ul (0.3-0.9); MONOCYTES % 17.1 % (0.0-11.0); NEUTROPHIL # 5.7 10^3/ul (1.6-7.5); NEUTROPHILS % 70.6 % (39.0-77.0); PLATELET COUNT 41 10^3/UL (140-440); RED BLOOD COUNT 3.78 10^6/ul (4.70-6.10); RED CELL DISTRIBUTION WIDTH 17.2 % (11.5-14.5); UNCORRECTED WBC 8.1 10^3/ul (4.8-10.8); WHITE BLOOD COUNT 8.1 10^3/ul (4.8-10.8)
[2016-12-14 05:13] LABS: CONDITION 1; LH ANALYZER COMMENTS 1; SUSPECT 1
[2016-12-14 05:34] LABS: POTASSIUM 5.3 mmol/L (3.5-5.1)
[2016-12-14 05:36] LABS: CREATININE 2.32 mg/dl (0.61-1.24)
[2016-12-14 05:37] LABS: CALCIUM 7.8 mg/dl (8.4-10.2)
[2016-12-14] MEDS: CIPROFLOXACIN 250 MG TAB PO SCH (05:39)
[2016-12-14] MEDS: LACTULOSE 30ML CUP PO SCH ×3 (05:40→17:33)
[2016-12-14] MEDS: PANTOPRAZOLE (EC) 40 MG TAB PO SCH (05:40)
[2016-12-14 08:09] VITALS: BP 88/72; RESP 18
[2016-12-14] MEDS: CITRIC ACID/NA CITRATE 30 ML CUP PO SCH ×2 (08:43→21:01)
[2016-12-14] MEDS: RIFAXIMIN 550 MG TAB PO SCH ×2 (08:43→21:01)
[2016-12-14] MEDS: CALCIUM CARBONATE 1.25 GM TAB PO SCH ×2 (08:44→21:01)
[2016-12-14] MEDS: CALCIUM CARBONATE 500 MG CHEW TAB PO SCH ×3 (08:44→17:09)
[2016-12-14] MEDS: FLUCONAZOLE 100 MG TAB PO SCH (08:44)
[2016-12-14 08:45] VITALS: BP 115/45; PULSE 100
[2016-12-14] MEDS: INSULIN ASPART [NOVOLOG] 3 ML PEN SC SCH ×3 (08:45→17:34)
[2016-12-14 10:43] LABS: PLATELET ESTIMATE PLT APPEAR DECREASED
[2016-12-14] MEDS: POTASSIUM CHLORIDE (SR) 20 MEQ TAB PO SCH (10:48)
[2016-12-14] MEDS ORDERED: NA POLYST SULFON 15 GM/60 ML BTL PO ONE (11:30)
--- NOTE | 2016-12-14 13:35 | CONS ---
Date/Time of Note Date/Time of Note DATE: 12/14/16 TIME: 13:29 Assessment/Plan Assessment/Plan Chief Complaint/Hosp Course assessment/impression - sepsis d/t peritonitis - leukocytosis and tachycardia resolved. - culture-negative neutrocytic peritonitis, s/p paracentesis 12/02/2016. Ascitic PMNs=9,413. Repeat paracentesis done 12/10/16 and ascitic fluid show decreased WBC and neutrophils. Pt completed renally dosed, empiric meropenem (12/05/2016-12/08/2016), pip/tazo (12/01/2016-12/04/2016), caspofungin (12/03/2016-12/08/2016) - probable UTI (pyuria, increased urinary frequency) - urine cx showed no growth - thrush - LEONARDO - ileus - recurrent hepatic encephalopathy - cholelithiasis - RLQ pain: CT did not demonstrate other acute GI processes - h/o alcoholic liver cirrhosis and portal hypertension - Recurrent ascites s/p multiple paracentesis - DM - CRI - thrombocytopenia - normocytic anemia (HIV screen negative in 2016, hepatitis screen was negative in 2015) recommendations - continue renally dosed ciprofloxacin for secondary prophylaxis of SBP (2016-). Note: Pt completed renally dosed, empiric meropenem (12/05/2016-12/08/2016) , pip/tazo (12/01/2016-12/04/2016), caspofungin (12/03/2016-12/08/2016). - continue renally dosed fluconazole (12/08/16-) for thrush - continue rifaxamin (11/28/16-) - Above d/w Dr. Ponce Problems: Consultation Date/Type/Reason Admit Date/Time Nov 28, 2016 at 12:41 Initial Consult Date 12/02/16 Type of Consultation: Infectious Disease Referring Provider: SUNDAR OBRIEN 24 HR Interval Summary Free Text/Dictation Had paracentesis yesterday with 9 L removed but abdomen is again distended per NAIF Hernandez; still on lactulose. Denies abd pain, n/v, dysuria. Exam/Review of Systems Vital Signs Vitals Vital Signs Date Time Temp Pulse Resp B/P Pulse Ox O2 Delivery O2 Flow Rate FiO2 12/14/16 08:45 100 115/45 12/14/16 08:09 97.8 18 99 12/11/16 11:46 Room Air Intake and Output 12/13/16 12/13/16 12/14/16 15:00 23:00 07:00 Intake Total 500 ml 1620 ml 830 ml Balance 500 ml 1620 ml 830 ml Exam Constitutional: sleeping but easily arousable, frail, well developed Head: atraumatic, normocephalic Neck: supple, no carotid bruits Respiratory: diminished breath sounds Cardiovascular: nl pulses, regular rate and rhythm Gastrointestinal: ascites, distended, soft Extremities: no clubbing, cyanosis or edema Results Result Diagram: 12/14/16 0425 12/14/16 0425 Results 24 hrs Laboratory Tests Test 12/13/16 17:00 12/14/16 01:59 12/14/16 04:25 12/14/16 07:57 Bedside Glucose 176 168 142 Anion Gap 16 Basophils # 0.0 Basophils % 0.3 Blood Morphology Comment Blood Urea Nitrogen 52 H Calcium Level 7.8 L Carbon Dioxide Level 19 L Chloride Level 113 H Creatinine 2.32 H Differential Comment AUTO w/SCAN Eosinophils # 0.1 Eosinophils % 1.1 Glucose Level 179 Hematocrit 35.8 L Hemoglobin 11.9 L Lymphocytes # 0.9 Lymphocytes % 10.9 L Mean Corpuscular Hemoglobin 31.6 Mean Corpuscular Hemoglobin Concent 33.4 Mean Corpuscular Volume 94.7 Mean Platelet Volume 9.8 Monocytes # 1.4 H Monocytes % 17.1 H Neutrophils # 5.7 Neutrophils % 70.6 Nucleated Red Blood Cells # 0.0 Nucleated Red Blood Cells % 0.0 Platelet Count 41 L Platelet Estimate PLT APPEAR DECREASED Potassium Level 5.3 H Red Blood Count 3.78 L Red Cell Distribution Width 17.2 H Sodium Level 143 White Blood Count 8.1 Test 12/14/16 11:25 Bedside Glucose 177 Medications Medications Current Medications Rifaximin (Xifaxan) 550 mg BID PO Last administered on 12/14/16t 08:43; Admin Dose 550 MG; Start 11/28/16 at 21:00 Miscellaneous Information 1 ea NOTE XX ; Start 11/28/16 at 20:00 Glucose (Glutose) 15 gm Q15M PRN PO DECREASED GLUCOSE; Start 11/28/16 at 20:00 Glucose (Glutose) 22.5 gm Q15M PRN PO DECREASED GLUCOSE; Start 11/28/16 at 20: 00 Dextrose (D50w Syringe) 25 ml Q15M PRN IV DECREASED GLUCOSE; Start 11/28/16 at 20:00 Dextrose (D50w Syringe) 50 ml Q15M PRN IV DECREASED GLUCOSE; Start 11/28/16 at 20:00 Glucagon (Glucagen) 1 mg Q15M PRN IM DECREASED GLUCOSE; Start 11/28/16 at 20:00 Glucose (Glutose) 15 gm Q15M PRN BUCCAL DECREASED GLUCOSE; Start 11/28/16 at 20 :00 Citric Acid/ Sodium Citrate (Bicitra) 15 ml BID PO Last administered on 08:43; Admin Dose 15 ML; Start 11/29/16 at 21:00 Pantoprazole (Protonix Tab) 40 mg DAILY@06 PO Last administered on 12/14/16 05 :40; Admin Dose 40 MG; Start 12/02/16 at 06:00 Morphine Sulfate (morphine) 2 mg Q4H PRN IV PAIN LEVEL 6-10 Last administered on 12/14/16 02:05; Admin Dose 2 MG; Start 12/02/16 at 06:00 IV Flush (NS 10 ml) 10 ml PRN PRN IV IV PROTOCOL; Start 12/02/16 at 18:30 Ondansetron HCl (Zofran Inj) 4 mg Q6H PRN IV NAUSEA AND/OR VOMITING Last administered on 12/03/16 02:23; Admin Dose 4 MG; Start 12/03/16 at 02:30 Lactulose (Enulose) 40 gm Q6 PO Last administered on 12/14/16 12:37; Admin Dose 40 GM; Start 12/03/16 at 18:00 Epoetin Brandan (Epogen (Non Esrd/Non Oncology)) 10,000 units MoWeFr@17 SC Last administered on 12/13/16 17:44; Admin Dose 10,000 UNITS; Start 12/03/16 at 21:30 Diagnostic Test (Pha) (Accucheck) 1 ea 02 XX Last administered on 12/14/16 02: 12; Admin Dose 1 EA; Start 12/07/16 at 02:00 Ciprofloxacin (Cipro) 250 mg DAILY@06 PO Last administered on 12/14/16 05:39; Admin Dose 250 MG; Start 12/08/16 at 14:00 Fluconazole (Diflucan) 100 mg DAILY PO Last administered on 12/14/16 08:44; Admin Dose 100 MG; Start 12/08/16 at 14:00 Calcium Carbonate 1.25 gm 1.25 gm BID PO Last administered on 12/14/16 08:44; Admin Dose 1.25 GM; Start 12/12/16 at 21:00 Sodium Chloride (NS) 500 ml @ 500 mls/hr Q1H PRN IV BLOOD PRESSURE SUPPORT Last administered on 12/13/16 09:14; Admin Dose 500 MLS/HR; Start 12/13/16 at 09:00 TAVIA TY NP Dec 14, 2016 13:35
[2016-12-14 16:18] VITALS: BP 98/43; PULSE 102
[2016-12-14] MEDS ORDERED: morphine 2 MG INJ IV ONE (16:30)
--- NOTE | 2016-12-14 16:43 | PN ---
Date/Time of Note Date/Time of Note DATE: 12/14/16 TIME: 16:42 Assessment/Plan VTE Prophylaxis VTE Prophylaxis Intervention: SCD's Lines/Catheters IV [facility] PICC Line Central line still needed: Yes Urinary Cath still in place: No Assessment/Plan Chief Complaint/Hosp Course ASSESSMENT AND PLAN: - Sepsis, resolve. Continue abx per ID. Dr. Sandhu is following in infection disease consultation. - Possible SBP, follow-up on final ascetic culture. On Cipro. - Hepatic encephalopathy. Continue lactulose q.i.d. and rifaximin. Dr. Melendez is following in gastroenterology consultation. - Alcoholic liver cirrhosis with recurrent ascites. s/p paracentesis on 12/02, pending paracentesis. - LEONARDO on Chronic kidney disease. Dr. Morrison is following in nephrology consultation. - Diabetes mellitus. Continue NovoLog per mild algorithm sliding scale coverage. - Thrombocytopenia, most likely secondary to liver cirrhosis. Continue to monitor platelet count. - Coagulopathy, check PT and INR tomorrow. Continue Protonix for peptic ulcer disease prophylaxis and sequential compression device for deep venous thrombosis prophylaxis. Further recommendations based on clinical course. Plan of care discussed with Dr. Qureshi. Problems: Exam/Review of Systems Vital Signs Vitals Vital Signs Date Time Temp Pulse Resp B/P Pulse Ox O2 Delivery O2 Flow Rate FiO2 12/14/16 16:18 102 98/43 12/14/16 08:09 97.8 18 99 12/11/16 11:46 Room Air Intake and Output 12/13/16 12/13/16 12/14/16 15:00 23:00 07:00 Intake Total 500 ml 1620 ml 830 ml Balance 500 ml 1620 ml 830 ml Exam GENERAL: Well-developed, well-nourished male currently in no acute distress HEENT: Head is atraumatic, normocephalic. Pupils equal, round, reactive to light and accommodation. The patient has slightly jaundiced sclerae. NECK: Supple. No cervical lymphadenopathy, no thyromegaly. CHEST: Lungs clear bilaterally. There is no rhonchi, wheezes, rales noted. CARDIOVASCULAR: Normal S1, S2. No murmurs, gallops, clicks, rubs noted. ABDOMEN: Protuberant, soft, distended, nontender. EXTREMITIES: No edema, clubbing, cyanosis. Pulses equal bilaterally 2+. SKIN: The patient has multiple ecchymotic areas and healing scabs. NEUROLOGIC: Patient is awake, alert to name and situation, otherwise confused. Results Result Diagram: 12/14/1642412/14/165 Results 24 hrs Laboratory Tests Test 12/13/16 17:00 12/14/16 01:59 12/14/16 04:25 12/14/16 07:57 Bedside Glucose 176 168 142 Anion Gap 16 Basophils # 0.0 Basophils % 0.3 Blood Morphology Comment Blood Urea Nitrogen 52 H Calcium Level 7.8 L Carbon Dioxide Level 19 L Chloride Level 113 H Creatinine 2.32 H Differential Comment AUTO w/SCAN Eosinophils # 0.1 Eosinophils % 1.1 Glucose Level 179 Hematocrit 35.8 L Hemoglobin 11.9 L Lymphocytes # 0.9 Lymphocytes % 10.9 L Mean Corpuscular Hemoglobin 31.6 Mean Corpuscular Hemoglobin Concent 33.4 Mean Corpuscular Volume 94.7 Mean Platelet Volume 9.8 Monocytes # 1.4 H Monocytes % 17.1 H Neutrophils # 5.7 Neutrophils % 70.6 Nucleated Red Blood Cells # 0.0 Nucleated Red Blood Cells % 0.0 Platelet Count 41 L Platelet Estimate PLT APPEAR DECREASED Potassium Level 5.3 H Red Blood Count 3.78 L Red Cell Distribution Width 17.2 H Sodium Level 143 White Blood Count 8.1 Test 12/14/16 11:25 Bedside Glucose 177 Medications Medications Current Medications Rifaximin (Xifaxan) 550 mg BID PO Last administered on 12/14/16t 08:43; Admin Dose 550 MG; Start 11/28/16 at 21:00 Miscellaneous Information 1 ea NOTE XX ; Start 11/28/16 at 20:00 Glucose (Glutose) 15 gm Q15M PRN PO DECREASED GLUCOSE; Start 11/28/16 at 20:00 Glucose (Glutose) 22.5 gm Q15M PRN PO DECREASED GLUCOSE; Start 11/28/16 at 20: 00 Dextrose (D50w Syringe) 25 ml Q15M PRN IV DECREASED GLUCOSE; Start 11/28/16 at 20:00 Dextrose (D50w Syringe) 50 ml Q15M PRN IV DECREASED GLUCOSE; Start 11/28/16 at 20:00 Glucagon (Glucagen) 1 mg Q15M PRN IM DECREASED GLUCOSE; Start 11/28/16 at 20:00 Glucose (Glutose) 15 gm Q15M PRN BUCCAL DECREASED GLUCOSE; Start 11/28/16 at 20 :00 Citric Acid/ Sodium Citrate (Bicitra) 15 ml BID PO Last administered on 08:43; Admin Dose 15 ML; Start 11/29/16 at 21:00 Pantoprazole (Protonix Tab) 40 mg DAILY@06 PO Last administered on 12/14/16 05 :40; Admin Dose 40 MG; Start 12/02/16 at 06:00 Morphine Sulfate (morphine) 2 mg Q4H PRN IV PAIN LEVEL 6-10 Last administered on 12/14/16 02:05; Admin Dose 2 MG; Start 12/02/16 at 06:00 IV Flush (NS 10 ml) 10 ml PRN PRN IV IV PROTOCOL; Start 12/02/16 at 18:30 Ondansetron HCl (Zofran Inj) 4 mg Q6H PRN IV NAUSEA AND/OR VOMITING Last administered on 12/03/16 02:23; Admin Dose 4 MG; Start 12/03/16 at 02:30 Lactulose (Enulose) 40 gm Q6 PO Last administered on 12/14/16 12:37; Admin Dose 40 GM; Start 12/03/16 at 18:00 Epoetin Brandan (Epogen (Non Esrd/Non Oncology)) 10,000 units MoWeFr@17 SC Last administered on 12/13/16 17:44; Admin Dose 10,000 UNITS; Start 12/03/16 at 21:30 Diagnostic Test (Pha) (Accucheck) 1 ea 02 XX Last administered on 12/14/16 02: 12; Admin Dose 1 EA; Start 12/07/16 at 02:00 Ciprofloxacin (Cipro) 250 mg DAILY@06 PO Last administered on 12/14/16 05:39; Admin Dose 250 MG; Start 12/08/16 at 14:00 Fluconazole (Diflucan) 100 mg DAILY PO Last administered on 12/14/16 08:44; Admin Dose 100 MG; Start 12/08/16 at 14:00 Calcium Carbonate 1.25 gm 1.25 gm BID PO Last administered on 12/14/16 08:44; Admin Dose 1.25 GM; Start 12/12/16 at 21:00 Sodium Chloride (NS) 500 ml @ 500 mls/hr Q1H PRN IV BLOOD PRESSURE SUPPORT Last administered on 12/13/16t 09:14; Admin Dose 500 MLS/HR; Start 12/13/16 at 09:00 RIDDHI BLOCK Dec 14, 2016 16:43
[2016-12-14 19:50] VITALS: BP 107/55; RESP 16
--- NOTE | 2016-12-14 22:37 | CONS ---
Date/Time of Note Date/Time of Note DATE: 12/14/16 TIME: 22:37 Assessment/Plan Assessment/Plan Chief Complaint/Hosp Course Must increase Lactulose Add Epo for Anemia continue to monitor renal fn closely Add phosphate binder Problems: Consultation Date/Type/Reason Admit Date/Time Nov 28, 2016 at 12:41 Initial Consult Date 12/02/16 Type of Consultation: renal Referring Provider: SUNDAR OBRIEN 24 HR Interval Summary Free Text/Dictation Pt remains lethargic Exam/Review of Systems Vital Signs Vitals Vital Signs Date Time Temp Pulse Resp B/P Pulse Ox O2 Delivery O2 Flow Rate FiO2 12/14/16 19:50 97.8 107 16 107/55 98 12/11/16 11:46 Room Air Intake and Output 12/13/16 12/13/16 12/14/16 15:00 23:00 07:00 Intake Total 500 ml 1620 ml 830 ml Balance 500 ml 1620 ml 830 ml Exam Constitutional: non-verbal Psych: confusion Head: atraumatic, normocephalic Eyes: EOMI, PERRL, nl conjunctiva, nl lids, nl sclera ENMT: nl external ears & nose, nl lips & teeth, nl nasal mucosa & septum Neck: non-tender, supple Respiratory: clear to auscultation, normal air movement Cardiovascular: nl pulses, regular rate and rhythm Gastrointestinal: nl liver, spleen, non-tender, soft Musculoskeletal: nl extremities to inspection, nl gait and stance Extremities: normal pulses 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: lethargic (Family considering DNR) Skin: nl turgor, No rash or lesions Lymph: nl lymph nodes Results Result Diagram: 12/14/16 0425 12/14/16 0425 Results 24 hrs Laboratory Tests Test 12/14/16 01:59 12/14/16 04:25 12/14/16 07:57 12/14/16 11:25 Bedside Glucose 168 142 177 Anion Gap 16 Basophils # 0.0 Basophils % 0.3 Blood Morphology Comment Blood Urea Nitrogen 52 H Calcium Level 7.8 L Carbon Dioxide Level 19 L Chloride Level 113 H Creatinine 2.32 H Differential Comment AUTO w/SCAN Eosinophils # 0.1 Eosinophils % 1.1 Glucose Level 179 Hematocrit 35.8 L Hemoglobin 11.9 L Lymphocytes # 0.9 Lymphocytes % 10.9 L Mean Corpuscular Hemoglobin 31.6 Mean Corpuscular Hemoglobin Concent 33.4 Mean Corpuscular Volume 94.7 Mean Platelet Volume 9.8 Monocytes # 1.4 H Monocytes % 17.1 H Neutrophils # 5.7 Neutrophils % 70.6 Nucleated Red Blood Cells # 0.0 Nucleated Red Blood Cells % 0.0 Platelet Count 41 L Platelet Estimate PLT APPEAR DECREASED Potassium Level 5.3 H Red Blood Count 3.78 L Red Cell Distribution Width 17.2 H Sodium Level 143 White Blood Count 8.1 Test 12/14/16 17:00 12/14/16 21:02 Bedside Glucose 188 213 Medications Medications Current Medications Rifaximin (Xifaxan) 550 mg BID PO Last administered on 12/14/16 21:01; Admin Dose 550 MG; Start 11/28/16 at 21:00 Miscellaneous Information 1 ea NOTE XX ; Start 11/28/16 at 20:00 Glucose (Glutose) 15 gm Q15M PRN PO DECREASED GLUCOSE; Start 11/28/16 at 20:00 Glucose (Glutose) 22.5 gm Q15M PRN PO DECREASED GLUCOSE; Start 11/28/16 at 20: 00 Dextrose (D50w Syringe) 25 ml Q15M PRN IV DECREASED GLUCOSE; Start 11/28/16 at 20:00 Dextrose (D50w Syringe) 50 ml Q15M PRN IV DECREASED GLUCOSE; Start 11/28/16 at 20:00 Glucagon (Glucagen) 1 mg Q15M PRN IM DECREASED GLUCOSE; Start 11/28/16 at 20:00 Glucose (Glutose) 15 gm Q15M PRN BUCCAL DECREASED GLUCOSE; Start 11/28/16 at 20 :00 Citric Acid/ Sodium Citrate (Bicitra) 15 ml BID PO Last administered on 21:01; Admin Dose 15 ML; Start 11/29/16 at 21:00 Pantoprazole (Protonix Tab) 40 mg DAILY@06 PO Last administered on 12/14/16 05 :40; Admin Dose 40 MG; Start 12/02/16 at 06:00 Morphine Sulfate (morphine) 2 mg Q4H PRN IV PAIN LEVEL 6-10 Last administered on 12/14/16 02:05; Admin Dose 2 MG; Start 12/02/16 at 06:00 IV Flush (NS 10 ml) 10 ml PRN PRN IV IV PROTOCOL; Start 12/02/16 at 18:30 Ondansetron HCl (Zofran Inj) 4 mg Q6H PRN IV NAUSEA AND/OR VOMITING Last administered on 12/03/16 02:23; Admin Dose 4 MG; Start 12/03/16 at 02:30 Lactulose (Enulose) 40 gm Q6 PO Last administered on 12/14/16 17:33; Admin Dose 40 GM; Start 12/03/16 at 18:00 Epoetin Brandan (Epogen (Non Esrd/Non Oncology)) 10,000 units MoWeFr@17 SC Last administered on 12/13/16 17:44; Admin Dose 10,000 UNITS; Start 12/03/16 at 21:30 Diagnostic Test (Pha) (Accucheck) 1 ea 02 XX Last administered on 12/14/16 02: 12; Admin Dose 1 EA; Start 12/07/16 at 02:00 Ciprofloxacin (Cipro) 250 mg DAILY@06 PO Last administered on 12/14/16 05:39; Admin Dose 250 MG; Start 12/08/16 at 14:00 Fluconazole (Diflucan) 100 mg DAILY PO Last administered on 12/14/16 08:44; Admin Dose 100 MG; Start 12/08/16 at 14:00 Calcium Carbonate 1.25 gm 1.25 gm BID PO Last administered on 12/14/16 21:01; Admin Dose 1.25 GM; Start 12/12/16 at 21:00 Sodium Chloride (NS) 500 ml @ 500 mls/hr Q1H PRN IV BLOOD PRESSURE SUPPORT Last administered on 12/13/16 09:14; Admin Dose 500 MLS/HR; Start 12/13/16 at 09:00 NELSON BRIGGS MD Dec 14, 2016 22:37
[2016-12-15] MEDS: ACCUCHECK XX SCH ×4 (02:00→17:11)
[2016-12-15 05:34] LABS: BASOPHILS % 0.1 % (0.0-2.0); EOSINOPHILS % 0.4 % (0.0-7.0); HEMATOCRIT 35.5 % (42.0-52.0); HEMOGLOBIN 11.8 g/dl (14.0-18.0); LYMPHOCYTES # 0.7 10^3/ul (0.8-2.9); LYMPHOCYTES % 8.4 % (15.0-51.0); MEAN CORPUSCULAR HEMOGLOBIN 31.9 pg (29.0-33.0); MEAN CORPUSCULAR HGB CONC 33.3 g/dl (32.0-37.0); MEAN CORPUSCULAR VOLUME 95.8 fl (82.0-101.0); MEAN PLATELET VOLUME 10.1 fl (7.4-10.4); MONOCYTE # 1.2 10^3/ul (0.3-0.9); MONOCYTES % 13.9 % (0.0-11.0); NEUTROPHIL # 6.8 10^3/ul (1.6-7.5); NEUTROPHILS % 77.2 % (39.0-77.0); PLATELET COUNT 48 10^3/UL (140-440); RED BLOOD COUNT 3.71 10^6/ul (4.70-6.10); RED CELL DISTRIBUTION WIDTH 17.9 % (11.5-14.5); UNCORRECTED WBC 8.8 10^3/ul (4.8-10.8); WHITE BLOOD COUNT 8.8 10^3/ul (4.8-10.8)
[2016-12-15 05:42] LABS: CONDITION 1; LH ANALYZER COMMENTS 1; SUSPECT 1
[2016-12-15 05:45] LABS: POTASSIUM 5.8 mmol/L (3.5-5.1)
[2016-12-15 05:47] LABS: CREATININE 3.03 mg/dl (0.61-1.24)
[2016-12-15 05:48] LABS: CALCIUM 8.2 mg/dl (8.4-10.2)
[2016-12-15] MEDS: PANTOPRAZOLE (EC) 40 MG TAB PO SCH (05:51)
[2016-12-15] MEDS: CIPROFLOXACIN 250 MG TAB PO SCH (05:51)
[2016-12-15] MEDS: LACTULOSE 30ML CUP PO SCH ×4 (06:00→16:52)
[2016-12-15] MEDS: INSULIN ASPART [NOVOLOG] 3 ML PEN SC SCH ×3 (07:30→17:11)
[2016-12-15 07:40] VITALS: BP 90/50; RESP 16
[2016-12-15] MEDS: CALCIUM CARBONATE 500 MG CHEW TAB PO SCH ×3 (08:47→17:15)
[2016-12-15] MEDS: CITRIC ACID/NA CITRATE 30 ML CUP PO SCH ×2 (08:47→21:39)
[2016-12-15] MEDS: FLUCONAZOLE 100 MG TAB PO SCH (08:47)
[2016-12-15] MEDS: CALCIUM CARBONATE 1.25 GM TAB PO SCH ×2 (08:47→21:40)
[2016-12-15] MEDS: RIFAXIMIN 550 MG TAB PO SCH ×2 (08:54→21:40)
[2016-12-15 11:22] VITALS: BP 88/60; PULSE 103
--- NOTE | 2016-12-15 15:53 | CONS ---
Date/Time of Note Date/Time of Note DATE: 12/15/16 TIME: 15:53 Assessment/Plan Assessment/Plan Chief Complaint/Hosp Course assessment/impression - sepsis d/t peritonitis - leukocytosis and tachycardia resolved. - culture-negative neutrocytic peritonitis, s/p paracentesis 12/02/2016. Ascitic PMNs=9,413. Repeat paracentesis done 12/10/16 and ascitic fluid show decreased WBC and neutrophils. Pt completed renally dosed, empiric meropenem (12/05/2016-12/08/2016), pip/tazo (12/01/2016-12/04/2016), caspofungin (12/03/2016-12/08/2016) - probable UTI (pyuria, increased urinary frequency) - urine cx showed no growth - thrush - LEONARDO - ileus - recurrent hepatic encephalopathy - cholelithiasis - RLQ pain: CT did not demonstrate other acute GI processes - h/o alcoholic liver cirrhosis and portal hypertension - Recurrent ascites s/p multiple paracentesis - DM - CRI - thrombocytopenia - normocytic anemia (HIV screen negative in 2016, hepatitis screen was negative in 2015) recommendations - continue renally dosed ciprofloxacin for secondary prophylaxis of SBP (2016-). Note: Pt completed renally dosed, empiric meropenem (12/05/2016-12/08/2016) , pip/tazo (12/01/2016-12/04/2016), caspofungin (12/03/2016-12/08/2016). - continue renally dosed fluconazole (12/08/16-) for thrush - continue rifaxamin (11/28/16-) Problems: Consultation Date/Type/Reason Admit Date/Time Nov 28, 2016 at 12:41 Initial Consult Date 12/02/16 Type of Consultation: id Referring Provider: SUNDAR OBRIEN Exam/Review of Systems Vital Signs Vitals Vital Signs Date Time Temp Pulse Resp B/P Pulse Ox O2 Delivery O2 Flow Rate FiO2 12/15/16 11:22 103 88/60 12/15/16 07:40 97.6 16 96 12/11/16 11:46 Room Air Intake and Output 12/14/16 12/14/16 12/15/16 15:00 23:00 07:00 Intake Total 1040 ml 240 ml Balance 1040 ml 240 ml Exam Constitutional: alert, oriented, well developed Psych: nl mood/affect, no complaints Head: atraumatic, normocephalic Eyes: EOMI, PERRL, nl conjunctiva, nl lids, nl sclera ENMT: nl external ears & nose, nl lips & teeth, nl nasal mucosa & septum Neck: non-tender, supple Respiratory: clear to auscultation, normal air movement Cardiovascular: nl pulses, regular rate and rhythm Gastrointestinal: nl liver, spleen, non-tender, soft Results Result Diagram: 12/15/167 12/15/16436 Results 24 hrs Laboratory Tests Test 12/14/16 17:00 12/14/16 21:02 12/15/16 04:37 12/15/16 07:59 Bedside Glucose 188 213 135 Anion Gap 18 H Basophils # 0.0 Basophils % 0.1 Blood Morphology Comment Blood Urea Nitrogen 61 H Calcium Level 8.2 L Carbon Dioxide Level 19 L Chloride Level 117 H Creatinine 3.03 H Eosinophils # 0.0 Eosinophils % 0.4 Glucose Level 146 Hematocrit 35.5 L Hemoglobin 11.8 L Lymphocytes # 0.7 L Lymphocytes % 8.4 L Mean Corpuscular Hemoglobin 31.9 Mean Corpuscular Hemoglobin Concent 33.3 Mean Corpuscular Volume 95.8 Mean Platelet Volume 10.1 Monocytes # 1.2 H Monocytes % 13.9 H Neutrophils # 6.8 Neutrophils % 77.2 H Nucleated Red Blood Cells # 0.0 Nucleated Red Blood Cells % 0.0 Platelet Count 48 L Potassium Level 5.8 H Red Blood Count 3.71 L Red Cell Distribution Width 17.9 H Sodium Level 148 H White Blood Count 8.8 Test 12/15/16 12:00 Bedside Glucose 158 Medications Medications Current Medications Rifaximin (Xifaxan) 550 mg BID PO Last administered on 12/15/16t 08:54; Admin Dose 550 MG; Start 11/28/16 at 21:00 Miscellaneous Information 1 ea NOTE XX ; Start 11/28/16 at 20:00 Glucose (Glutose) 15 gm Q15M PRN PO DECREASED GLUCOSE; Start 11/28/16 at 20:00 Glucose (Glutose) 22.5 gm Q15M PRN PO DECREASED GLUCOSE; Start 11/28/16 at 20: 00 Dextrose (D50w Syringe) 25 ml Q15M PRN IV DECREASED GLUCOSE; Start 11/28/16 at 20:00 Dextrose (D50w Syringe) 50 ml Q15M PRN IV DECREASED GLUCOSE; Start 11/28/16 at 20:00 Glucagon (Glucagen) 1 mg Q15M PRN IM DECREASED GLUCOSE; Start 11/28/16 at 20:00 Glucose (Glutose) 15 gm Q15M PRN BUCCAL DECREASED GLUCOSE; Start 11/28/16 at 20 :00 Citric Acid/ Sodium Citrate (Bicitra) 15 ml BID PO Last administered on 08:47; Admin Dose 15 ML; Start 11/29/16 at 21:00 Pantoprazole (Protonix Tab) 40 mg DAILY@06 PO Last administered on 12/15/16 05 :51; Admin Dose 40 MG; Start 12/02/16 at 06:00 Morphine Sulfate (morphine) 2 mg Q4H PRN IV PAIN LEVEL 6-10 Last administered on 12/14/16 02:05; Admin Dose 2 MG; Start 12/02/16 at 06:00 IV Flush (NS 10 ml) 10 ml PRN PRN IV IV PROTOCOL; Start 12/02/16 at 18:30 Ondansetron HCl (Zofran Inj) 4 mg Q6H PRN IV NAUSEA AND/OR VOMITING Last administered on 12/03/16 02:23; Admin Dose 4 MG; Start 12/03/16 at 02:30 Lactulose (Enulose) 40 gm Q6 PO Last administered on 12/14/16 17:33; Admin Dose 40 GM; Start 12/03/16 at 18:00 Epoetin Brandan (Epogen (Non Esrd/Non Oncology)) 10,000 units MoWeFr@17 SC Last administered on 12/13/16 17:44; Admin Dose 10,000 UNITS; Start 12/03/16 at 21:30 Diagnostic Test (Pha) (Accucheck) 1 ea 02 XX Last administered on 12/14/16 02: 12; Admin Dose 1 EA; Start 12/07/16 at 02:00 Ciprofloxacin (Cipro) 250 mg DAILY@06 PO Last administered on 12/15/16 05:51; Admin Dose 250 MG; Start 12/08/16 at 14:00 Fluconazole (Diflucan) 100 mg DAILY PO Last administered on 12/15/16 08:47; Admin Dose 100 MG; Start 12/08/16 at 14:00 Calcium Carbonate 1.25 gm 1.25 gm BID PO Last administered on 12/15/16 08:47; Admin Dose 1.25 GM; Start 12/12/16 at 21:00 Sodium Chloride (NS) 500 ml @ 500 mls/hr Q1H PRN IV BLOOD PRESSURE SUPPORT Last administered on 12/13/16 09:14; Admin Dose 500 MLS/HR; Start 12/13/16 at 09:00 TONYA CURRY MD Dec 15, 2016 15:53
[2016-12-15] MEDS: EPOETIN 10000 UNITS/ML (NON ESRD/NON ONCOLOGY) SC SCH (16:52)
--- NOTE | 2016-12-15 17:58 | CONS ---
Date/Time of Note Date/Time of Note DATE: 12/15/16 TIME: 17:57 Assessment/Plan Assessment/Plan Additional Assessment/Plan Additional Assessment/Plan Additional Assessment/Plan 1. Hepatic encephalopathy. 2. Cirrhosis of liver. 3. Refractory ascites. 4. Hepatorenal syndrome, type 2,worsening 5. Diabetes mellitus. 6.spontaneous bacterial peritonitis ,resolved PLAN: To continue with lactulose and rifaximin. Hold off on diuretics because that will worsen the patient's renal function. Fluid restriction. Reduced protein diet. stool for occult blood,negative albumin to sustain BP resume feeding po Midodrine 5 mg bid paracentesis,with albumin infusion before and during procedure., had paracentesis and 9 liter removed Consultation Date/Type/Reason Admit Date/Time Nov 28, 2016 at 12:41 Initial Consult Date 11/29/16 Type of Consultation: id Referring Provider: SUNDAR OBRIEN 24 HR Interval Summary Free Text/Dictation wants to go home Exam/Review of Systems Vital Signs Vitals Vital Signs Date Time Temp Pulse Resp B/P Pulse Ox O2 Delivery O2 Flow Rate FiO2 12/15/16 11:22 103 88/60 12/15/16 07:40 97.6 16 96 12/11/16 11:46 Room Air Intake and Output 12/14/16 12/14/16 12/15/16 15:00 23:00 07:00 Intake Total 1040 ml 240 ml Balance 1040 ml 240 ml Exam Constitutional: alert, oriented, well developed Psych: nl mood/affect, no complaints Head: atraumatic, normocephalic Eyes: EOMI, PERRL, nl conjunctiva, nl lids, nl sclera ENMT: nl external ears & nose, nl lips & teeth, nl nasal mucosa & septum Neck: non-tender, supple Respiratory: clear to auscultation, normal air movement Cardiovascular: nl pulses, regular rate and rhythm Gastrointestinal: nl liver, spleen, non-tender, soft Musculoskeletal: nl extremities to inspection, nl gait and stance Extremities: normal pulses 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: GED INSTRUCTOR II-XII intact, nl mental status, nl speech, nl strength Skin: nl turgor, No rash or lesions Lymph: nl lymph nodes Results Result Diagram: 12/15/16 0437 12/15/16 0437 Results 24 hrs Laboratory Tests Test 12/14/16 21:02 12/15/16 04:37 12/15/16 07:59 12/15/16 12:00 Bedside Glucose 213 135 158 Anion Gap 18 H Basophils # 0.0 Basophils % 0.1 Blood Morphology Comment Blood Urea Nitrogen 61 H Calcium Level 8.2 L Carbon Dioxide Level 19 L Chloride Level 117 H Creatinine 3.03 H Eosinophils # 0.0 Eosinophils % 0.4 Glucose Level 146 Hematocrit 35.5 L Hemoglobin 11.8 L Lymphocytes # 0.7 L Lymphocytes % 8.4 L Mean Corpuscular Hemoglobin 31.9 Mean Corpuscular Hemoglobin Concent 33.3 Mean Corpuscular Volume 95.8 Mean Platelet Volume 10.1 Monocytes # 1.2 H Monocytes % 13.9 H Neutrophils # 6.8 Neutrophils % 77.2 H Nucleated Red Blood Cells # 0.0 Nucleated Red Blood Cells % 0.0 Platelet Count 48 L Potassium Level 5.8 H Red Blood Count 3.71 L Red Cell Distribution Width 17.9 H Sodium Level 148 H White Blood Count 8.8 Test 12/15/16 17:08 Bedside Glucose 156 Medications Medications Current Medications Rifaximin (Xifaxan) 550 mg BID PO Last administered on 12/15/16 08:54; Admin Dose 550 MG; Start 11/28/16 at 21:00 Miscellaneous Information 1 ea NOTE XX ; Start 11/28/16 at 20:00 Glucose (Glutose) 15 gm Q15M PRN PO DECREASED GLUCOSE; Start 11/28/16 at 20:00 Glucose (Glutose) 22.5 gm Q15M PRN PO DECREASED GLUCOSE; Start 11/28/16 at 20: 00 Dextrose (D50w Syringe) 25 ml Q15M PRN IV DECREASED GLUCOSE; Start 11/28/16 at 20:00 Dextrose (D50w Syringe) 50 ml Q15M PRN IV DECREASED GLUCOSE; Start 11/28/16 at 20:00 Glucagon (Glucagen) 1 mg Q15M PRN IM DECREASED GLUCOSE; Start 11/28/16 at 20:00 Glucose (Glutose) 15 gm Q15M PRN BUCCAL DECREASED GLUCOSE; Start 11/28/16 at 20 :00 Citric Acid/ Sodium Citrate (Bicitra) 15 ml BID PO Last administered on 08:47; Admin Dose 15 ML; Start 11/29/16 at 21:00 Pantoprazole (Protonix Tab) 40 mg DAILY@06 PO Last administered on 12/15/16 05 :51; Admin Dose 40 MG; Start 12/02/16 at 06:00 Morphine Sulfate (morphine) 2 mg Q4H PRN IV PAIN LEVEL 6-10 Last administered on 12/14/16 02:05; Admin Dose 2 MG; Start 12/02/16 at 06:00 IV Flush (NS 10 ml) 10 ml PRN PRN IV IV PROTOCOL; Start 12/02/16 at 18:30 Ondansetron HCl (Zofran Inj) 4 mg Q6H PRN IV NAUSEA AND/OR VOMITING Last administered on 12/03/16 02:23; Admin Dose 4 MG; Start 12/03/16 at 02:30 Lactulose (Enulose) 40 gm Q6 PO Last administered on 12/15/16 16:52; Admin Dose 40 GM; Start 12/03/16 at 18:00 Epoetin Brandan (Epogen (Non Esrd/Non Oncology)) 10,000 units MoWeFr@17 SC Last administered on 12/15/16 16:52; Admin Dose 10,000 UNITS; Start 12/03/16 at 21:30 Diagnostic Test (Pha) (Accucheck) 1 ea 02 XX Last administered on 12/14/16 02: 12; Admin Dose 1 EA; Start 12/07/16 at 02:00 Ciprofloxacin (Cipro) 250 mg DAILY@06 PO Last administered on 12/15/16 05:51; Admin Dose 250 MG; Start 12/08/16 at 14:00 Fluconazole (Diflucan) 100 mg DAILY PO Last administered on 12/15/16 08:47; Admin Dose 100 MG; Start 12/08/16 at 14:00 Calcium Carbonate 1.25 gm 1.25 gm BID PO Last administered on 12/15/16 08:47; Admin Dose 1.25 GM; Start 12/12/16 at 21:00 Sodium Chloride (NS) 500 ml @ 500 mls/hr Q1H PRN IV BLOOD PRESSURE SUPPORT Last administered on 12/13/16 09:14; Admin Dose 500 MLS/HR; Start 12/13/16 at 09:00 JOHANA MOTLEY MD Dec 15, 2016 17:57
--- NOTE | 2016-12-15 18:17 | PN ---
RIDDHI BLOCK 12/15/16 1817: Date/Time of Note Date/Time of Note DATE: 12/15/16 TIME: 18:14 Assessment/Plan VTE Prophylaxis VTE Prophylaxis Intervention: SCD's Lines/Catheters IV Catheter Type (from Nrs): PICC Line Central line still needed: Yes Urinary Cath still in place: No Assessment/Plan Chief Complaint/Hosp Course ASSESSMENT AND PLAN: - Sepsis, resolve. Continue abx per ID. Dr. Sandhu is following in infection disease consultation. - Possible SBP, follow-up on final ascetic culture. On Cipro. - Hepatic encephalopathy. Continue lactulose q.i.d. and rifaximin. Dr. Melendez is following in gastroenterology consultation. - Alcoholic liver cirrhosis with recurrent ascites. s/p paracentesis on 12/02, 12/10. - LEONARDO on Chronic kidney disease. Dr. Morrison is following in nephrology consultation. - Diabetes mellitus. Continue NovoLog per mild algorithm sliding scale coverage. - Thrombocytopenia, most likely secondary to liver cirrhosis. Continue to monitor platelet count. - Coagulopathy Continue Protonix for peptic ulcer disease prophylaxis and sequential compression device for deep venous thrombosis prophylaxis. Further recommendations based on clinical course. Plan of care discussed with Dr. Qureshi. Problems: Subjective 24 Hr Interval Summary Free Text/Dictation Patient was increased ascites, with an patient is calm, intermittent periods of confusion, denies any pain nausea vomiting. at the bedside complains that patient has a very poor appetite. Paracentesis ordered, albumin after paracentesis. Exam/Review of Systems Vital Signs Vitals Vital Signs Date Time Temp Pulse Resp B/P Pulse Ox O2 Delivery O2 Flow Rate FiO2 12/15/16 11:22 103 88/60 12/15/16 07:40 97.6 16 96 12/11/16 11:46 Room Air Intake and Output 12/14/16 12/14/16 12/15/16 15:00 23:00 07:00 Intake Total 1040 ml 240 ml Balance 1040 ml 240 ml Exam GENERAL: Well-developed, well-nourished male currently in no acute distress HEENT: Head is atraumatic, normocephalic. Pupils equal, round, reactive to light and accommodation. The patient has slightly jaundiced sclerae. NECK: Supple. No cervical lymphadenopathy, no thyromegaly. CHEST: Lungs clear bilaterally. There is no rhonchi, wheezes, rales noted. CARDIOVASCULAR: Normal S1, S2. No murmurs, gallops, clicks, rubs noted. ABDOMEN: Protuberant, soft, distended, nontender. EXTREMITIES: No edema, clubbing, cyanosis. Pulses equal bilaterally 2+. SKIN: The patient has multiple ecchymotic areas and healing scabs. NEUROLOGIC: Patient is awake, alert to name and situation, otherwise confused. Results Result Diagram: 12/15/16 0437 12/15/16 0437 Results 24 hrs Laboratory Tests Test 12/14/16 21:02 12/15/16 04:37 12/15/16 07:59 12/15/16 12:00 Bedside Glucose 213 135 158 Anion Gap 18 H Basophils # 0.0 Basophils % 0.1 Blood Morphology Comment Blood Urea Nitrogen 61 H Calcium Level 8.2 L Carbon Dioxide Level 19 L Chloride Level 117 H Creatinine 3.03 H Eosinophils # 0.0 Eosinophils % 0.4 Glucose Level 146 Hematocrit 35.5 L Hemoglobin 11.8 L Lymphocytes # 0.7 L Lymphocytes % 8.4 L Mean Corpuscular Hemoglobin 31.9 Mean Corpuscular Hemoglobin Concent 33.3 Mean Corpuscular Volume 95.8 Mean Platelet Volume 10.1 Monocytes # 1.2 H Monocytes % 13.9 H Neutrophils # 6.8 Neutrophils % 77.2 H Nucleated Red Blood Cells # 0.0 Nucleated Red Blood Cells % 0.0 Platelet Count 48 L Potassium Level 5.8 H Red Blood Count 3.71 L Red Cell Distribution Width 17.9 H Sodium Level 148 H White Blood Count 8.8 Test 12/15/16 17:08 Bedside Glucose 156 Medications Medications Current Medications Rifaximin (Xifaxan) 550 mg BID PO Last administered on 12/15/16t 08:54; Admin Dose 550 MG; Start 11/28/16 at 21:00 Miscellaneous Information 1 ea NOTE XX ; Start 11/28/16 at 20:00 Glucose (Glutose) 15 gm Q15M PRN PO DECREASED GLUCOSE; Start 11/28/16 at 20:00 Glucose (Glutose) 22.5 gm Q15M PRN PO DECREASED GLUCOSE; Start 11/28/16 at 20: 00 Dextrose (D50w Syringe) 25 ml Q15M PRN IV DECREASED GLUCOSE; Start 11/28/16 at 20:00 Dextrose (D50w Syringe) 50 ml Q15M PRN IV DECREASED GLUCOSE; Start 11/28/16 at 20:00 Glucagon (Glucagen) 1 mg Q15M PRN IM DECREASED GLUCOSE; Start 11/28/16 at 20:00 Glucose (Glutose) 15 gm Q15M PRN BUCCAL DECREASED GLUCOSE; Start 11/28/16 at 20 :00 Citric Acid/ Sodium Citrate (Bicitra) 15 ml BID PO Last administered on 08:47; Admin Dose 15 ML; Start 11/29/16 at 21:00 Pantoprazole (Protonix Tab) 40 mg DAILY@06 PO Last administered on 12/15/16 05 :51; Admin Dose 40 MG; Start 12/02/16 at 06:00 Morphine Sulfate (morphine) 2 mg Q4H PRN IV PAIN LEVEL 6-10 Last administered on 12/14/16 02:05; Admin Dose 2 MG; Start 12/02/16 at 06:00 IV Flush (NS 10 ml) 10 ml PRN PRN IV IV PROTOCOL; Start 12/02/16 at 18:30 Ondansetron HCl (Zofran Inj) 4 mg Q6H PRN IV NAUSEA AND/OR VOMITING Last administered on 12/03/16 02:23; Admin Dose 4 MG; Start 12/03/16 at 02:30 Lactulose (Enulose) 40 gm Q6 PO Last administered on 12/15/16 16:52; Admin Dose 40 GM; Start 12/03/16 at 18:00 Epoetin Brandan (Epogen (Non Esrd/Non Oncology)) 10,000 units MoWeFr@17 SC Last administered on 12/15/16 16:52; Admin Dose 10,000 UNITS; Start 12/03/16 at 21:30 Diagnostic Test (Pha) (Accucheck) 1 ea 02 XX Last administered on 12/14/16 02: 12; Admin Dose 1 EA; Start 12/07/16 at 02:00 Ciprofloxacin (Cipro) 250 mg DAILY@06 PO Last administered on 12/15/16 05:51; Admin Dose 250 MG; Start 12/08/16 at 14:00 Fluconazole (Diflucan) 100 mg DAILY PO Last administered on 12/15/16 08:47; Admin Dose 100 MG; Start 12/08/16 at 14:00 Calcium Carbonate 1.25 gm 1.25 gm BID PO Last administered on 12/15/16 08:47; Admin Dose 1.25 GM; Start 12/12/16 at 21:00 Sodium Chloride (NS) 500 ml @ 500 mls/hr Q1H PRN IV BLOOD PRESSURE SUPPORT Last administered on 12/13/16 09:14; Admin Dose 500 MLS/HR; Start 12/13/16 at 09:00 SUNDAR OBRIEN 12/16/16 1545: Assessment/Plan Assessment/Plan Assessment/Plan - Sepsis, resolve. Continue abx per ID. Dr. Sadnhu is following in infection disease consultation. - Possible SBP, follow-up on final ascetic culture. On Cipro. - Hepatic encephalopathy. Continue lactulose q.i.d. and rifaximin. Dr. Melendez is following in gastroenterology consultation. - Alcoholic liver cirrhosis with recurrent ascites. s/p paracentesis on 12/02, 12/10. - LEONARDO on Chronic kidney disease. Dr. Morrison is following in nephrology consultation. - Diabetes mellitus. Continue NovoLog per mild algorithm sliding scale coverage. - Thrombocytopenia, most likely secondary to liver cirrhosis. Continue to monitor platelet count. - Coagulopathy Continue Protonix for peptic ulcer disease prophylaxis and sequential compression device for deep venous thrombosis prophylaxis. Further recommendations based on clinical course. Plan of care discussed with Dr. Qureshi. Subjective 24 Hr Interval Summary Free Text/Dictation Off floor for Paracentesis. dw staff Exam/Review of Systems Results Result Diagram: 12/15/16 0437 12/15/16 0437 RIDDHI BLOCK Dec 15, 2016 18:17 SUNDAR OBRIEN Dec 16, 2016 15:45
[2016-12-15] MEDS ORDERED: ALBUMIN HUMAN 25% 100 ML IV ONE (18:30)
[2016-12-15 19:35] VITALS: BP 99/69; RESP 18
[2016-12-15 20:00] VITALS: BP 99/69; PULSE 102; RESP 18
[2016-12-15] MEDS ORDERED: NA POLYST SULFON 15 GM/60 ML BTL PO ONE (21:00)
--- NOTE | 2016-12-15 22:05 | CONS ---
Date/Time of Note Date/Time of Note DATE: 12/15/16 TIME: 21:56 Assessment/Plan Assessment/Plan Chief Complaint/Hosp Course Must increase Lactulose Add Epo for Anemia continue to monitor renal fn closely Add phosphate binder Problems: Additional Assessment/Plan will need to offer increase free water tho Persistent & reccurrent ascites remains a problem!! Consultation Date/Type/Reason Admit Date/Time Nov 28, 2016 at 12:41 Initial Consult Date 12/02/16 Type of Consultation: renal Referring Provider: SUNDAR OBRIEN 24 HR Interval Summary Free Text/Dictation Depressed, not able to get around much Exam/Review of Systems Vital Signs Vitals Vital Signs Date Time Temp Pulse Resp B/P Pulse Ox O2 Delivery O2 Flow Rate FiO2 12/15/16 19:35 97.9 102 18 99/69 97 12/11/16 11:46 Room Air Intake and Output 12/14/16 12/14/16 12/15/16 15:00 23:00 07:00 Intake Total 1040 ml 240 ml Balance 1040 ml 240 ml Exam Constitutional: alert, oriented, well developed Head: atraumatic, normocephalic Eyes: EOMI, PERRL, nl conjunctiva, nl lids, nl sclera ENMT: nl external ears & nose, nl lips & teeth, nl nasal mucosa & septum Neck: non-tender, supple Respiratory: clear to auscultation, normal air movement Cardiovascular: nl pulses, regular rate and rhythm Gastrointestinal: ascites (Ascites is increasing), nl liver, spleen, non-tender , soft Musculoskeletal: nl extremities to inspection, nl gait and stance Extremities: normal pulses 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: DEADENER II-XII intact, nl mental status, nl speech, nl strength Skin: nl turgor, No rash or lesions Additional Comments Sna, BUN/Creat rising Results K prabhu & was treated with Kayxalate Result Diagram: 12/15/1643612/15/16 0437 Results 24 hrs Laboratory Tests Test 12/15/16 04:37 12/15/16 07:59 12/15/16 12:00 12/15/16 17:08 Anion Gap 18 H Basophils # 0.0 Basophils % 0.1 Blood Morphology Comment Blood Urea Nitrogen 61 H Calcium Level 8.2 L Carbon Dioxide Level 19 L Chloride Level 117 H Creatinine 3.03 H Eosinophils # 0.0 Eosinophils % 0.4 Glucose Level 146 Hematocrit 35.5 L Hemoglobin 11.8 L Lymphocytes # 0.7 L Lymphocytes % 8.4 L Mean Corpuscular Hemoglobin 31.9 Mean Corpuscular Hemoglobin Concent 33.3 Mean Corpuscular Volume 95.8 Mean Platelet Volume 10.1 Monocytes # 1.2 H Monocytes % 13.9 H Neutrophils # 6.8 Neutrophils % 77.2 H Nucleated Red Blood Cells # 0.0 Nucleated Red Blood Cells % 0.0 Platelet Count 48 L Potassium Level 5.8 H Red Blood Count 3.71 L Red Cell Distribution Width 17.9 H Sodium Level 148 H White Blood Count 8.8 Bedside Glucose 135 158 156 Medications Medications Current Medications Rifaximin (Xifaxan) 550 mg BID PO Last administered on 12/15/16 21:40; Admin Dose 550 MG; Start 11/28/16 at 21:00 Miscellaneous Information 1 ea NOTE XX ; Start 11/28/16 at 20:00 Glucose (Glutose) 15 gm Q15M PRN PO DECREASED GLUCOSE; Start 11/28/16 at 20:00 Glucose (Glutose) 22.5 gm Q15M PRN PO DECREASED GLUCOSE; Start 11/28/16 at 20: 00 Dextrose (D50w Syringe) 25 ml Q15M PRN IV DECREASED GLUCOSE; Start 11/28/16 at 20:00 Dextrose (D50w Syringe) 50 ml Q15M PRN IV DECREASED GLUCOSE; Start 11/28/16 at 20:00 Glucagon (Glucagen) 1 mg Q15M PRN IM DECREASED GLUCOSE; Start 11/28/16 at 20:00 Glucose (Glutose) 15 gm Q15M PRN BUCCAL DECREASED GLUCOSE; Start 11/28/16 at 20 :00 Citric Acid/ Sodium Citrate (Bicitra) 15 ml BID PO Last administered on 21:39; Admin Dose 15 ML; Start 11/29/16 at 21:00 Pantoprazole (Protonix Tab) 40 mg DAILY@06 PO Last administered on 12/15/16 05 :51; Admin Dose 40 MG; Start 12/02/16 at 06:00 Morphine Sulfate (morphine) 2 mg Q4H PRN IV PAIN LEVEL 6-10 Last administered on 12/14/16 02:05; Admin Dose 2 MG; Start 12/02/16 at 06:00 IV Flush (NS 10 ml) 10 ml PRN PRN IV IV PROTOCOL; Start 12/02/16 at 18:30 Ondansetron HCl (Zofran Inj) 4 mg Q6H PRN IV NAUSEA AND/OR VOMITING Last administered on 12/03/16 02:23; Admin Dose 4 MG; Start 12/03/16 at 02:30 Lactulose (Enulose) 40 gm Q6 PO Last administered on 12/15/16 16:52; Admin Dose 40 GM; Start 12/03/16 at 18:00 Epoetin Brandan (Epogen (Non Esrd/Non Oncology)) 10,000 units MoWeFr@17 SC Last administered on 12/15/16 16:52; Admin Dose 10,000 UNITS; Start 12/03/16 at 21:30 Diagnostic Test (Pha) (Accucheck) 1 ea 02 XX Last administered on 12/14/16 02: 12; Admin Dose 1 EA; Start 12/07/16 at 02:00 Ciprofloxacin (Cipro) 250 mg DAILY@06 PO Last administered on 12/15/16 05:51; Admin Dose 250 MG; Start 12/08/16 at 14:00 Fluconazole (Diflucan) 100 mg DAILY PO Last administered on 12/15/16 08:47; Admin Dose 100 MG; Start 12/08/16 at 14:00 Calcium Carbonate 1.25 gm 1.25 gm BID PO Last administered on 12/15/16 21:40; Admin Dose 1.25 GM; Start 12/12/16 at 21:00 Sodium Chloride (NS) 500 ml @ 500 mls/hr Q1H PRN IV BLOOD PRESSURE SUPPORT Last administered on 12/13/16 09:14; Admin Dose 500 MLS/HR; Start 12/13/16 at 09:00 NELSON BRIGGS MD Dec 15, 2016 22:05
[2016-12-15] MEDS ORDERED: NA POLYST SULFON 15 GM/60 ML BTL PR ONE (22:30)
[2016-12-15 23:15] VITALS: BP 105/65; PULSE 98
[2016-12-15] MEDS: morphine 2 MG INJ IV PRN (23:25)
[2016-12-15] MEDS: ONDANSETRON 4 MG INJ IV PRN (23:25)
[2016-12-16] MEDS: ACCUCHECK XX SCH ×4 (01:51→17:35)
[2016-12-16] MEDS: CIPROFLOXACIN 250 MG TAB PO SCH (05:44)
[2016-12-16] MEDS: PANTOPRAZOLE (EC) 40 MG TAB PO SCH (05:44)
[2016-12-16] MEDS: LACTULOSE 30ML CUP PO SCH ×4 (05:44→17:35)
[2016-12-16 06:53] LABS: BASOPHILS % 0.2 % (0.0-2.0); EOSINOPHILS % 0.7 % (0.0-7.0); HEMOGLOBIN 10.7 g/dl (14.0-18.0); LYMPHOCYTES # 0.8 10^3/ul (0.8-2.9); MEAN CORPUSCULAR HEMOGLOBIN 31.8 pg (29.0-33.0); MEAN CORPUSCULAR HGB CONC 33.4 g/dl (32.0-37.0); MEAN CORPUSCULAR VOLUME 95.3 fl (82.0-101.0); MEAN PLATELET VOLUME 9.9 fl (7.4-10.4); MONOCYTES % 13.8 % (0.0-11.0); NEUTROPHIL # 5.4 10^3/ul (1.6-7.5); NEUTROPHILS % 74.3 % (39.0-77.0); PLATELET COUNT 50 10^3/UL (140-440); RED BLOOD COUNT 3.36 10^6/ul (4.70-6.10); RED CELL DISTRIBUTION WIDTH 20.2 % (11.5-14.5); UNCORRECTED WBC 7.3 10^3/ul (4.8-10.8); WHITE BLOOD COUNT 7.3 10^3/ul (4.8-10.8)
[2016-12-16 06:59] LABS: CONDITION 1; LH ANALYZER COMMENTS 1
[2016-12-16 07:07] LABS: POTASSIUM 5.4 mmol/L (3.5-5.1)
[2016-12-16 07:10] LABS: CREATININE 3.41 mg/dl (0.61-1.24)
[2016-12-16 07:11] LABS: CALCIUM 7.7 mg/dl (8.4-10.2)
[2016-12-16 07:17] LABS: INR 1.89; PROTIME 21.9 Sec (12.2-14.2); PT RATIO 1.7
[2016-12-16 08:15] VITALS: BP 86/65; RESP 20
[2016-12-16] MEDS: FLUCONAZOLE 100 MG TAB PO SCH ×2 (09:00→09:36)
[2016-12-16] MEDS: RIFAXIMIN 550 MG TAB PO SCH ×3 (09:00→21:42)
[2016-12-16] MEDS: CITRIC ACID/NA CITRATE 30 ML CUP PO SCH ×3 (09:00→21:41)
[2016-12-16] MEDS: CALCIUM CARBONATE 500 MG CHEW TAB PO SCH ×4 (09:00→21:41)
[2016-12-16] MEDS: CALCIUM CARBONATE 1.25 GM TAB PO SCH ×3 (09:00→21:41)
[2016-12-16 09:30] VITALS: BP 100/66; PULSE 101; RESP 16
[2016-12-16] MEDS: INSULIN ASPART [NOVOLOG] 3 ML PEN SC SCH ×3 (09:34→17:51)
--- NOTE | 2016-12-16 14:01 | CONS ---
Date/Time of Note Date/Time of Note DATE: 12/16/16 TIME: 14:00 Assessment/Plan Assessment/Plan Chief Complaint/Hosp Course assessment/impression - sepsis d/t peritonitis - leukocytosis and tachycardia resolved. - culture-negative neutrocytic peritonitis, s/p paracentesis 12/02/2016. Ascitic PMNs=9,413. Repeat paracentesis done 12/10/16 and ascitic fluid show decreased WBC and neutrophils. Pt completed renally dosed, empiric meropenem (12/05/2016-12/08/2016), pip/tazo (12/01/2016-12/04/2016), caspofungin (12/03/2016-12/08/2016) - probable UTI (pyuria, increased urinary frequency) - urine cx showed no growth - thrush - LEONARDO - ileus - recurrent hepatic encephalopathy - cholelithiasis - RLQ pain: CT did not demonstrate other acute GI processes - h/o alcoholic liver cirrhosis and portal hypertension - Recurrent ascites s/p multiple paracentesis - DM - CRI - thrombocytopenia - normocytic anemia (HIV screen negative in 2016, hepatitis screen was negative in 2015) recommendations - continue renally dosed ciprofloxacin for secondary prophylaxis of SBP (2016-). Note: Pt completed renally dosed, empiric meropenem (12/05/2016-12/08/2016) , pip/tazo (12/01/2016-12/04/2016), caspofungin (12/03/2016-12/08/2016). - continue renally dosed fluconazole (12/08/16-) for thrush - continue rifaxamin (11/28/16-) - management d/w pt, pt's and NAIF Avelar - Above d/w Dr. Ponce Problems: Consultation Date/Type/Reason Admit Date/Time Nov 28, 2016 at 12:41 Initial Consult Date 12/02/16 Type of Consultation: Infectious Disease Referring Provider: SUNDAR OBRIEN 24 HR Interval Summary Free Text/Dictation Going for paracentesis today and last paracentesis was 12/10/16 per NAIF Avelar. reports pt usually gets paracentesis about every 7 days prior to hospitalization. C/o abd distention but currently no SOB, n/v/d, dysuria. Exam/Review of Systems Vital Signs Vitals Vital Signs Date Time Temp Pulse Resp B/P Pulse Ox O2 Delivery O2 Flow Rate FiO2 12/16/16 09:30 101 16 100/66 97 Room Air 12/16/16 08:15 97.6 Intake and Output 12/15/16 12/15/16 12/16/16 15:00 23:00 07:00 Intake Total 680 ml 0 ml Balance 680 ml 0 ml Exam Constitutional: sleeping but easily arousable, frail, well developed Head: atraumatic, normocephalic Neck: supple, no carotid bruits Respiratory: diminished breath sounds Cardiovascular: nl pulses, regular rate and rhythm Gastrointestinal: ascites, distended, soft Musculoskeletal: nl extremities to inspection Extremities: no clubbing, cyanosis or edema Results Result Diagram: 12/16/16 0535 12/16/16 0535 Results 24 hrs Laboratory Tests Test 12/15/16 17:08 12/16/16 05:35 12/16/16 08:12 12/16/16 13:23 Bedside Glucose 156 157 115 Anion Gap 21 H Basophils # 0.0 Basophils % 0.2 Blood Morphology Comment Blood Urea Nitrogen 65 H Calcium Level 7.7 L Carbon Dioxide Level 16 L Chloride Level 110 Creatinine 3.41 H Eosinophils # 0.0 Eosinophils % 0.7 Glucose Level 148 Hematocrit 32.0 L Hemoglobin 10.7 L INR International Normalized Ratio 1.89 Lymphocytes # 0.8 Lymphocytes % 11.0 L Mean Corpuscular Hemoglobin 31.8 Mean Corpuscular Hemoglobin Concent 33.4 Mean Corpuscular Volume 95.3 Mean Platelet Volume 9.9 Monocytes # 1.0 H Monocytes % 13.8 H Neutrophils # 5.4 Neutrophils % 74.3 Nucleated Red Blood Cells # 0.0 Nucleated Red Blood Cells % 0.0 Platelet Count 50 L Potassium Level 5.4 H Prothrombin Time 21.9 H Prothrombin Time Ratio 1.7 Red Blood Count 3.36 L Red Cell Distribution Width 20.2 H Sodium Level 142 White Blood Count 7.3 Medications Medications Current Medications Rifaximin (Xifaxan) 550 mg BID PO Last administered on 12/15/16t 21:40; Admin Dose 550 MG; Start 11/28/16 at 21:00 Miscellaneous Information 1 ea NOTE XX ; Start 11/28/16 at 20:00 Glucose (Glutose) 15 gm Q15M PRN PO DECREASED GLUCOSE; Start 11/28/16 at 20:00 Glucose (Glutose) 22.5 gm Q15M PRN PO DECREASED GLUCOSE; Start 11/28/16 at 20: 00 Dextrose (D50w Syringe) 25 ml Q15M PRN IV DECREASED GLUCOSE; Start 11/28/16 at 20:00 Dextrose (D50w Syringe) 50 ml Q15M PRN IV DECREASED GLUCOSE; Start 11/28/16 at 20:00 Glucagon (Glucagen) 1 mg Q15M PRN IM DECREASED GLUCOSE; Start 11/28/16 at 20:00 Glucose (Glutose) 15 gm Q15M PRN BUCCAL DECREASED GLUCOSE; Start 11/28/16 at 20 :00 Citric Acid/ Sodium Citrate (Bicitra) 15 ml BID PO Last administered on 21:39; Admin Dose 15 ML; Start 11/29/16 at 21:00 Pantoprazole (Protonix Tab) 40 mg DAILY@06 PO Last administered on 12/15/16 05 :51; Admin Dose 40 MG; Start 12/02/16 at 06:00 Morphine Sulfate (morphine) 2 mg Q4H PRN IV PAIN LEVEL 6-10 Last administered on 12/15/16 23:25; Admin Dose 2 MG; Start 12/02/16 at 06:00 IV Flush (NS 10 ml) 10 ml PRN PRN IV IV PROTOCOL; Start 12/02/16 at 18:30 Ondansetron HCl (Zofran Inj) 4 mg Q6H PRN IV NAUSEA AND/OR VOMITING Last administered on 12/15/16 23:25; Admin Dose 4 MG; Start 12/03/16 at 02:30 Lactulose (Enulose) 40 gm Q6 PO Last administered on 12/15/16 16:52; Admin Dose 40 GM; Start 12/03/16 at 18:00 Epoetin Brandan (Epogen (Non Esrd/Non Oncology)) 10,000 units MoWeFr@17 SC Last administered on 12/15/16 16:52; Admin Dose 10,000 UNITS; Start 12/03/16 at 21:30 Diagnostic Test (Pha) (Accucheck) 1 ea 02 XX Last administered on 12/14/16 02: 12; Admin Dose 1 EA; Start 12/07/16 at 02:00 Ciprofloxacin (Cipro) 250 mg DAILY@06 PO Last administered on 12/15/16 05:51; Admin Dose 250 MG; Start 12/08/16 at 14:00 Fluconazole (Diflucan) 100 mg DAILY PO Last administered on 12/15/16 08:47; Admin Dose 100 MG; Start 12/08/16 at 14:00 Calcium Carbonate 1.25 gm 1.25 gm BID PO Last administered on 12/15/16 21:40; Admin Dose 1.25 GM; Start 12/12/16 at 21:00 Sodium Chloride (NS) 500 ml @ 500 mls/hr Q1H PRN IV BLOOD PRESSURE SUPPORT Last administered on 12/13/16 09:14; Admin Dose 500 MLS/HR; Start 12/13/16 at 09:00 TAVIA TY NP Dec 16, 2016 14:00
[2016-12-16] MEDS ORDERED: LIDOCAINE 1% (MPF) 5 ML VIAL ONE (15:08)
[2016-12-16 17:17] LABS: BILIRUBIN,INDIRECT 1.7 mg/dl (0-1.1); BILIRUBIN,TOTAL 1.7 mg/dl (0.2-1.3)
--- NOTE | 2016-12-16 17:41 | CONS ---
Date/Time of Note Date/Time of Note DATE: 12/16/16 TIME: 17:39 Assessment/Plan Assessment/Plan Additional Assessment/Plan Assessment/Plan Additional Assessment/Plan Additional Assessment/Plan Additional Assessment/Plan 1. Hepatic encephalopathy. 2. Cirrhosis of liver. 3. Refractory ascites. 4. Hepatorenal syndrome, type 2,worsening creatinine 3.45 5. Diabetes mellitus. 6.spontaneous bacterial peritonitis ,resolved 7.gallstone PLAN: To continue with lactulose and rifaximin. Hold off on diuretics because that will worsen the patient's renal function. Fluid restriction. Reduced protein diet. stool for occult blood,negative albumin to sustain BP pt had only one episode of SBP, resume feeding po Midodrine 5 mg bid paracentesis,with albumin infusion before and during procedure., Consultation Date/Type/Reason Admit Date/Time Nov 28, 2016 at 12:41 Initial Consult Date 11/29/16 Type of Consultation: Infectious Disease Referring Provider: SUNDAR OBRIEN 24 HR Interval Summary Free Text/Dictation wants to go home Exam/Review of Systems Vital Signs Vitals Vital Signs Date Time Temp Pulse Resp B/P Pulse Ox O2 Delivery O2 Flow Rate FiO2 12/16/16 09:30 101 16 100/66 97 Room Air 12/16/16 08:15 97.6 Intake and Output 12/15/16 12/15/16 12/16/16 15:00 23:00 07:00 Intake Total 680 ml 0 ml Balance 680 ml 0 ml Exam Constitutional: alert, oriented, well developed Psych: nl mood/affect, no complaints Head: atraumatic, normocephalic Eyes: EOMI, PERRL, nl conjunctiva, nl lids, nl sclera ENMT: nl external ears & nose, nl lips & teeth, nl nasal mucosa & septum Neck: non-tender, supple Respiratory: clear to auscultation, normal air movement Cardiovascular: nl pulses, regular rate and rhythm Gastrointestinal: nl liver, spleen, non-tender, soft Musculoskeletal: nl extremities to inspection, nl gait and stance Extremities: normal pulses 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: CLINICAL RN MANAGER II-XII intact, nl mental status, nl speech, nl strength Skin: nl turgor, No rash or lesions Lymph: nl lymph nodes Results Result Diagram: 12/16/16 0535 12/16/16 0535 Results 24 hrs Laboratory Tests Test 12/16/16 05:35 12/16/16 08:12 12/16/16 13:23 12/16/16 16:40 Anion Gap 21 H Basophils # 0.0 Basophils % 0.2 Blood Morphology Comment Blood Urea Nitrogen 65 H Calcium Level 7.7 L Carbon Dioxide Level 16 L Chloride Level 110 Creatinine 3.41 H Eosinophils # 0.0 Eosinophils % 0.7 Glucose Level 148 Hematocrit 32.0 L Hemoglobin 10.7 L INR International Normalized Ratio 1.89 Lymphocytes # 0.8 Lymphocytes % 11.0 L Mean Corpuscular Hemoglobin 31.8 Mean Corpuscular Hemoglobin Concent 33.4 Mean Corpuscular Volume 95.3 Mean Platelet Volume 9.9 Monocytes # 1.0 H Monocytes % 13.8 H Neutrophils # 5.4 Neutrophils % 74.3 Nucleated Red Blood Cells # 0.0 Nucleated Red Blood Cells % 0.0 Platelet Count 50 L Potassium Level 5.4 H Prothrombin Time 21.9 H Prothrombin Time Ratio 1.7 Red Blood Count 3.36 L Red Cell Distribution Width 20.2 H Sodium Level 142 White Blood Count 7.3 Bedside Glucose 157 115 Direct Bilirubin 0.00 Indirect Bilirubin 1.7 H Total Bilirubin 1.7 H Medications Medications Current Medications Rifaximin (Xifaxan) 550 mg BID PO Last administered on 12/15/16 21:40; Admin Dose 550 MG; Start 11/28/16 at 21:00 Miscellaneous Information 1 ea NOTE XX ; Start 11/28/16 at 20:00 Glucose (Glutose) 15 gm Q15M PRN PO DECREASED GLUCOSE; Start 11/28/16 at 20:00 Glucose (Glutose) 22.5 gm Q15M PRN PO DECREASED GLUCOSE; Start 11/28/16 at 20: 00 Dextrose (D50w Syringe) 25 ml Q15M PRN IV DECREASED GLUCOSE; Start 11/28/16 at 20:00 Dextrose (D50w Syringe) 50 ml Q15M PRN IV DECREASED GLUCOSE; Start 11/28/16 at 20:00 Glucagon (Glucagen) 1 mg Q15M PRN IM DECREASED GLUCOSE; Start 11/28/16 at 20:00 Glucose (Glutose) 15 gm Q15M PRN BUCCAL DECREASED GLUCOSE; Start 11/28/16 at 20 :00 Citric Acid/ Sodium Citrate (Bicitra) 15 ml BID PO Last administered on 21:39; Admin Dose 15 ML; Start 11/29/16 at 21:00 Pantoprazole (Protonix Tab) 40 mg DAILY@06 PO Last administered on 12/15/16 05 :51; Admin Dose 40 MG; Start 12/02/16 at 06:00 Morphine Sulfate (morphine) 2 mg Q4H PRN IV PAIN LEVEL 6-10 Last administered on 12/15/16 23:25; Admin Dose 2 MG; Start 12/02/16 at 06:00 IV Flush (NS 10 ml) 10 ml PRN PRN IV IV PROTOCOL; Start 12/02/16 at 18:30 Ondansetron HCl (Zofran Inj) 4 mg Q6H PRN IV NAUSEA AND/OR VOMITING Last administered on 12/15/16 23:25; Admin Dose 4 MG; Start 12/03/16 at 02:30 Lactulose (Enulose) 40 gm Q6 PO Last administered on 12/16/16 14:07; Admin Dose 40 GM; Start 12/03/16 at 18:00 Epoetin Brandan (Epogen (Non Esrd/Non Oncology)) 10,000 units MoWeFr@17 SC Last administered on 12/15/16 16:52; Admin Dose 10,000 UNITS; Start 12/03/16 at 21:30 Diagnostic Test (Pha) (Accucheck) 1 ea 02 XX Last administered on 12/14/16 02: 12; Admin Dose 1 EA; Start 12/07/16 at 02:00 Ciprofloxacin (Cipro) 250 mg DAILY@06 PO Last administered on 12/15/16 05:51; Admin Dose 250 MG; Start 12/08/16 at 14:00 Fluconazole (Diflucan) 100 mg DAILY PO Last administered on 12/15/16 08:47; Admin Dose 100 MG; Start 12/08/16 at 14:00 Calcium Carbonate 1.25 gm 1.25 gm BID PO Last administered on 12/15/16 21:40; Admin Dose 1.25 GM; Start 12/12/16 at 21:00 Sodium Chloride (NS) 500 ml @ 500 mls/hr Q1H PRN IV BLOOD PRESSURE SUPPORT Last administered on 12/13/16 09:14; Admin Dose 500 MLS/HR; Start 12/13/16 at 09:00 JOHANA MOTLEY MD Dec 16, 2016 17:41
[2016-12-16 18:06] VITALS: BP 86/48; PULSE 96; RESP 18
--- NOTE | 2016-12-16 18:15 | RADRPT ---
PROCEDURE: Ultrasound guided paracentesis. CLINICAL INDICATION: Ascites and shortness of breath. COMPARISON: 12/10/2016. TECHNIQUE: The risks, benefits, and alternatives were explained to the patient and/or the patient's family, inc luding but not limited to bleeding, infection, pain, visceral or vascular damage, shock, and . The patient and/or the patient's family understood the risks and the alternatives and wished to pro ceed with the procedure. Informed written consent was obtained. A procedural time out was performed . The patient's name, date of , and procedure to be performed were verified. Utilizing ultrasound guidance, optimal location for entry to the peritoneal cavity was ascertained. The overlying skin was prepped and draped in the usual sterile fashion. Approximately 10 ml of 1% Xylocaine was injected locally for pain control. Using ultrasound guidance, an 8 Nigerien catheter wa s introduced into the peritoneal cavity in the right lower quadrant without difficulty. FINDINGS: Initial images demonstrate ascites. Approximately 10.0 liters of serous fluid was aspirated and dis carded. The patient tolerated the procedure well without complication. IMPRESSION: 1. Successful ultrasound-guided paracentesis. RPTAT: QQ .Emilio Everett MD, Date Time Electronically viewed and signed by .Emilio Everett MD, on 12/16/2016 18:15 .R/
--- NOTE | 2016-12-16 19:12 | CONS ---
Date/Time of Note Date/Time of Note DATE: 12/16/16 TIME: 18:59 Assessment/Plan Assessment/Plan Chief Complaint/Hosp Course Must increase Lactulose Add Epo for Anemia continue to monitor renal fn closely Add phosphate binder Problems: Additional Assessment/Plan Difficult management problem Unable to give IV Fluids which will increase ascites will rpt urine Cont'd Hospitalization Reason: Will cut down epo dose Consultation Date/Type/Reason Admit Date/Time Nov 28, 2016 at 12:41 Initial Consult Date 12/02/16 Type of Consultation: renal Referring Provider: SUNDAR OBRIEN 24 HR Interval Summary Free Text/Dictation Remains weak & confined to bed Exam/Review of Systems Vital Signs Vitals Vital Signs Date Time Temp Pulse Resp B/P Pulse Ox O2 Delivery O2 Flow Rate FiO2 12/16/16 18:06 96 18 86/48 99 Room Air 12/16/16 08:15 97.6 Intake and Output 12/15/16 12/15/16 12/16/16 15:00 23:00 07:00 Intake Total 680 ml 0 ml Balance 680 ml 0 ml Exam Constitutional: alert, oriented, well developed Psych: nl mood/affect, no complaints Head: atraumatic, normocephalic Eyes: EOMI, PERRL, nl conjunctiva, nl lids, nl sclera ENMT: nl external ears & nose, nl lips & teeth, nl nasal mucosa & septum Neck: non-tender, supple Respiratory: clear to auscultation, normal air movement Cardiovascular: nl pulses, regular rate and rhythm Gastrointestinal: ascites, nl liver, spleen, non-tender, soft Musculoskeletal: nl extremities to inspection, nl gait and stance Extremities: normal pulses 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: ASSISTANT IMPORT MANAGER II-XII intact, nl mental status, nl speech, nl strength Skin: nl turgor, No rash or lesions Additional Comments Pt remains oliguric with persistant ascites Results Hbg has improved tho BUN/Creat rising Result Diagram: 12/16/16 0535 12/16/16 0535 Results 24 hrs Laboratory Tests Test 12/16/16 05:35 12/16/16 08:12 12/16/16 13:23 12/16/16 16:40 Anion Gap 21 H Basophils # 0.0 Basophils % 0.2 Blood Morphology Comment Blood Urea Nitrogen 65 H Calcium Level 7.7 L Carbon Dioxide Level 16 L Chloride Level 110 Creatinine 3.41 H Eosinophils # 0.0 Eosinophils % 0.7 Glucose Level 148 Hematocrit 32.0 L Hemoglobin 10.7 L INR International Normalized Ratio 1.89 Lymphocytes # 0.8 Lymphocytes % 11.0 L Mean Corpuscular Hemoglobin 31.8 Mean Corpuscular Hemoglobin Concent 33.4 Mean Corpuscular Volume 95.3 Mean Platelet Volume 9.9 Monocytes # 1.0 H Monocytes % 13.8 H Neutrophils # 5.4 Neutrophils % 74.3 Nucleated Red Blood Cells # 0.0 Nucleated Red Blood Cells % 0.0 Platelet Count 50 L Potassium Level 5.4 H Prothrombin Time 21.9 H Prothrombin Time Ratio 1.7 Red Blood Count 3.36 L Red Cell Distribution Width 20.2 H Sodium Level 142 White Blood Count 7.3 Bedside Glucose 157 115 Direct Bilirubin 0.00 Indirect Bilirubin 1.7 H Total Bilirubin 1.7 H Test 12/16/16 17:28 Bedside Glucose 179 Medications Medications Current Medications Rifaximin (Xifaxan) 550 mg BID PO Last administered on 12/15/16 21:40; Admin Dose 550 MG; Start 11/28/16 at 21:00 Miscellaneous Information 1 ea NOTE XX ; Start 11/28/16 at 20:00 Glucose (Glutose) 15 gm Q15M PRN PO DECREASED GLUCOSE; Start 11/28/16 at 20:00 Glucose (Glutose) 22.5 gm Q15M PRN PO DECREASED GLUCOSE; Start 11/28/16 at 20: 00 Dextrose (D50w Syringe) 25 ml Q15M PRN IV DECREASED GLUCOSE; Start 11/28/16 at 20:00 Dextrose (D50w Syringe) 50 ml Q15M PRN IV DECREASED GLUCOSE; Start 11/28/16 at 20:00 Glucagon (Glucagen) 1 mg Q15M PRN IM DECREASED GLUCOSE; Start 11/28/16 at 20:00 Glucose (Glutose) 15 gm Q15M PRN BUCCAL DECREASED GLUCOSE; Start 11/28/16 at 20 :00 Citric Acid/ Sodium Citrate (Bicitra) 15 ml BID PO Last administered on 21:39; Admin Dose 15 ML; Start 11/29/16 at 21:00 Pantoprazole (Protonix Tab) 40 mg DAILY@06 PO Last administered on 12/15/16 05 :51; Admin Dose 40 MG; Start 12/02/16 at 06:00 Morphine Sulfate (morphine) 2 mg Q4H PRN IV PAIN LEVEL 6-10 Last administered on 12/15/16 23:25; Admin Dose 2 MG; Start 12/02/16 at 06:00 IV Flush (NS 10 ml) 10 ml PRN PRN IV IV PROTOCOL; Start 12/02/16 at 18:30 Ondansetron HCl (Zofran Inj) 4 mg Q6H PRN IV NAUSEA AND/OR VOMITING Last administered on 12/15/16 23:25; Admin Dose 4 MG; Start 12/03/16 at 02:30 Lactulose (Enulose) 40 gm Q6 PO Last administered on 12/16/16 14:07; Admin Dose 40 GM; Start 12/03/16 at 18:00 Epoetin Brandan (Epogen (Non Esrd/Non Oncology)) 10,000 units MoWeFr@17 SC Last administered on 12/15/16 16:52; Admin Dose 10,000 UNITS; Start 12/03/16 at 21:30 Diagnostic Test (Pha) (Accucheck) 1 ea 02 XX Last administered on 12/14/16 02: 12; Admin Dose 1 EA; Start 12/07/16 at 02:00 Ciprofloxacin (Cipro) 250 mg DAILY@06 PO Last administered on 12/15/16 05:51; Admin Dose 250 MG; Start 12/08/16 at 14:00 Fluconazole (Diflucan) 100 mg DAILY PO Last administered on 12/15/16 08:47; Admin Dose 100 MG; Start 12/08/16 at 14:00 Calcium Carbonate 1.25 gm 1.25 gm BID PO Last administered on 12/15/16 21:40; Admin Dose 1.25 GM; Start 12/12/16 at 21:00 Sodium Chloride (NS) 500 ml @ 500 mls/hr Q1H PRN IV BLOOD PRESSURE SUPPORT Last administered on 12/13/16 09:14; Admin Dose 500 MLS/HR; Start 12/13/16 at 09:00 NELSON BRIGGS MD Dec 16, 2016 19:11
[2016-12-16 20:06] VITALS: BP 77/43; RESP 19
[2016-12-16 20:35] VITALS: BP 92/50
[2016-12-16] MEDS: NA BICARBONATE 650 MG TAB PO SCH (21:41)
[2016-12-17] MEDS: ACCUCHECK XX SCH ×4 (02:00→16:59)
[2016-12-17 05:43] LABS: BASOPHILS % 0.5 % (0.0-2.0); EOSINOPHILS # 0.1 10^3/ul (0.0-0.5); EOSINOPHILS % 1.7 % (0.0-7.0); HEMATOCRIT 30.1 % (42.0-52.0); HEMOGLOBIN 10.2 g/dl (14.0-18.0); LYMPHOCYTES % 16.6 % (15.0-51.0); MEAN CORPUSCULAR HGB CONC 33.8 g/dl (32.0-37.0); MEAN CORPUSCULAR VOLUME 94.8 fl (82.0-101.0); MEAN PLATELET VOLUME 9.4 fl (7.4-10.4); MONOCYTE # 0.9 10^3/ul (0.3-0.9); MONOCYTES % 16.4 % (0.0-11.0); NEUTROPHIL # 3.8 10^3/ul (1.6-7.5); NEUTROPHILS % 64.8 % (39.0-77.0); RED BLOOD COUNT 3.18 10^6/ul (4.70-6.10); RED CELL DISTRIBUTION WIDTH 21.2 % (11.5-14.5); UNCORRECTED WBC 5.8 10^3/ul (4.8-10.8); WHITE BLOOD COUNT 5.8 10^3/ul (4.8-10.8)
[2016-12-17 05:49] LABS: CONDITION 1; LH ANALYZER COMMENTS 1; PLATELET COUNT 45 10^3/UL (140-440)
[2016-12-17] MEDS: LACTULOSE 30ML CUP PO SCH ×4 (06:02→17:17)
[2016-12-17] MEDS: CIPROFLOXACIN 250 MG TAB PO SCH (06:02)
[2016-12-17] MEDS: PANTOPRAZOLE (EC) 40 MG TAB PO SCH (06:02)
[2016-12-17 06:12] LABS: POTASSIUM 4.7 mmol/L (3.5-5.1)
[2016-12-17 06:14] LABS: CREATININE 4.01 mg/dl (0.61-1.24)
[2016-12-17 07:26] VITALS: BP 91/54; RESP 18
[2016-12-17] MEDS: INSULIN ASPART [NOVOLOG] 3 ML PEN SC SCH ×3 (07:30→16:58)
[2016-12-17] MEDS: CALCIUM CARBONATE 1.25 GM TAB PO SCH ×3 (08:14→21:07)
[2016-12-17] MEDS: CALCIUM CARBONATE 500 MG CHEW TAB PO SCH ×4 (08:14→17:19)
[2016-12-17] MEDS: NA BICARBONATE 650 MG TAB PO SCH ×5 (08:14→21:07)
[2016-12-17] MEDS: CITRIC ACID/NA CITRATE 30 ML CUP PO SCH ×3 (08:14→21:07)
[2016-12-17] MEDS: RIFAXIMIN 550 MG TAB PO SCH ×3 (08:14→21:07)
[2016-12-17] MEDS: FLUCONAZOLE 100 MG TAB PO SCH ×2 (08:17→08:23)
--- NOTE | 2016-12-17 15:30 | PN ---
Date/Time of Note Date/Time of Note DATE: 12/17/16 TIME: 15:21 Assessment/Plan VTE Prophylaxis VTE Prophylaxis Intervention: SCD's Lines/Catheters IV [facility]ter Type (from [facility]): PICC Line Central line still needed: Yes Urinary Cath still in place: No Assessment/Plan Chief Complaint/Hosp Course ASSESSMENT AND PLAN: - Sepsis, resolve. Continue abx per ID. Dr. Sandhu is following in infection disease consultation. - Possible SBP, follow-up on final ascetic culture. On Cipro. - Hepatic encephalopathy. Continue lactulose q.i.d. and rifaximin. Dr. Melendez is following in gastroenterology consultation. - Alcoholic liver cirrhosis with recurrent ascites. s/p paracentesis on 12/02, 12/10, 12/16. - LEONARDO on Chronic kidney disease. Dr. Morrison is following in nephrology consultation. - Diabetes mellitus. Continue NovoLog per mild algorithm sliding scale coverage. - Thrombocytopenia, most likely secondary to liver cirrhosis. Continue to monitor platelet count. - Coagulopathy Patient's condition and plan of care and lab results discussed with patient's at the bedside. Continue Protonix for peptic ulcer disease prophylaxis and sequential compression device for deep venous thrombosis prophylaxis. Further recommendations based on clinical course. Plan of care discussed with Dr. Qureshi. Problems: Subjective 24 Hr Interval Summary Free Text/Dictation Patient is status post paracentesis yesterday with removal of 10 liters of fluid , ammonia is elevated at 199, will repeat ammonia tomorrow, patient is currently is resting comfortably, no acute distress. Patient is neurological status is at his baseline per nurse. Exam/Review of Systems Vital Signs Vitals Vital Signs Date Time Temp Pulse Resp B/P Pulse Ox O2 Delivery O2 Flow Rate FiO2 12/17/16 07:26 98.0 89 18 91/54 98 12/16/16 18:06 Room Air Intake and Output 12/16/16 12/16/16 12/17/16 15:00 23:00 07:00 Intake Total 360 ml 120 ml Balance 360 ml 120 ml Exam GENERAL: Well-developed, well-nourished male currently in no acute distress HEENT: Head is atraumatic, normocephalic. Pupils equal, round, reactive to light and accommodation. The patient has slightly jaundiced sclerae. NECK: Supple. No cervical lymphadenopathy, no thyromegaly. CHEST: Lungs clear bilaterally. There is no rhonchi, wheezes, rales noted. CARDIOVASCULAR: Normal S1, S2. No murmurs, gallops, clicks, rubs noted. ABDOMEN: Protuberant, soft, distended, nontender. EXTREMITIES: No edema, clubbing, cyanosis. Pulses equal bilaterally 2+. SKIN: The patient has multiple ecchymotic areas and healing scabs. NEUROLOGIC: Patient is awake, alert to name and situation, otherwise confused. Results Result Diagram: 12/17/16 0449 12/17/16 0449 Results 24 hrs Laboratory Tests Test 12/16/16 16:40 12/16/16 17:28 12/16/16 21:43 12/17/16 04:49 Direct Bilirubin 0.00 Indirect Bilirubin 1.7 H Total Bilirubin 1.7 H Bedside Glucose 179 148 Ammonia 199 #H Anion Gap 20 H Basophils # 0.0 Basophils % 0.5 Blood Morphology Comment Blood Urea Nitrogen 74 H Calcium Level 8.0 L Carbon Dioxide Level 18 L Chloride Level 108 Creatinine 4.01 H Eosinophils # 0.1 Eosinophils % 1.7 Glucose Level 111 Hematocrit 30.1 L Hemoglobin 10.2 L Lymphocytes # 1.0 Lymphocytes % 16.6 Mean Corpuscular Hemoglobin 32.0 Mean Corpuscular Hemoglobin Concent 33.8 Mean Corpuscular Volume 94.8 Mean Platelet Volume 9.4 Monocytes # 0.9 Monocytes % 16.4 H Neutrophils # 3.8 Neutrophils % 64.8 Nucleated Red Blood Cells # 0.0 Nucleated Red Blood Cells % 0.0 Platelet Count 45 L Potassium Level 4.7 Red Blood Count 3.18 L Red Cell Distribution Width 21.2 H Sodium Level 141 White Blood Count 5.8 # Test 12/17/16 07:40 12/17/16 11:12 Bedside Glucose 135 148 Medications Medications Current Medications Rifaximin (Xifaxan) 550 mg BID PO Last administered on 12/16/16t 21:42; Admin Dose 550 MG; Start 11/28/16 at 21:00 Miscellaneous Information 1 ea NOTE XX ; Start 11/28/16 at 20:00 Glucose (Glutose) 15 gm Q15M PRN PO DECREASED GLUCOSE; Start 11/28/16 at 20:00 Glucose (Glutose) 22.5 gm Q15M PRN PO DECREASED GLUCOSE; Start 11/28/16 at 20: 00 Dextrose (D50w Syringe) 25 ml Q15M PRN IV DECREASED GLUCOSE; Start 11/28/16 at 20:00 Dextrose (D50w Syringe) 50 ml Q15M PRN IV DECREASED GLUCOSE; Start 11/28/16 at 20:00 Glucagon (Glucagen) 1 mg Q15M PRN IM DECREASED GLUCOSE; Start 11/28/16 at 20:00 Glucose (Glutose) 15 gm Q15M PRN BUCCAL DECREASED GLUCOSE; Start 11/28/16 at 20 :00 Citric Acid/ Sodium Citrate (Bicitra) 15 ml BID PO Last administered on 21:41; Admin Dose 15 ML; Start 11/29/16 at 21:00 Pantoprazole (Protonix Tab) 40 mg DAILY@06 PO Last administered on 12/17/16 06 :02; Admin Dose 40 MG; Start 12/02/16 at 06:00 Morphine Sulfate (morphine) 2 mg Q4H PRN IV PAIN LEVEL 6-10 Last administered on 12/15/16 23:25; Admin Dose 2 MG; Start 12/02/16 at 06:00 IV Flush (NS 10 ml) 10 ml PRN PRN IV IV PROTOCOL; Start 12/02/16 at 18:30 Ondansetron HCl (Zofran Inj) 4 mg Q6H PRN IV NAUSEA AND/OR VOMITING Last administered on 12/15/16 23:25; Admin Dose 4 MG; Start 12/03/16 at 02:30 Lactulose (Enulose) 40 gm Q6 PO Last administered on 12/17/16 11:51; Admin Dose 40 GM; Start 12/03/16 at 18:00 Diagnostic Test (Pha) (Accucheck) 1 ea 02 XX Last administered on 12/14/16 02: 12; Admin Dose 1 EA; Start 12/07/16 at 02:00 Ciprofloxacin (Cipro) 250 mg DAILY@06 PO Last administered on 12/17/16 06:02; Admin Dose 250 MG; Start 12/08/16 at 14:00 Fluconazole (Diflucan) 100 mg DAILY PO Last administered on 12/15/16 08:47; Admin Dose 100 MG; Start 12/08/16 at 14:00 Calcium Carbonate 1.25 gm 1.25 gm BID PO Last administered on 12/16/16 21:41; Admin Dose 1.25 GM; Start 12/12/16 at 21:00 Sodium Chloride (NS) 500 ml @ 500 mls/hr Q1H PRN IV BLOOD PRESSURE SUPPORT Last administered on 12/13/16 09:14; Admin Dose 500 MLS/HR; Start 12/13/16 at 09:00 Epoetin Brandan (Epogen (Esrd)) 3,000 units MoWeFr@17 SC ; Start 12/17/16 at 17:00 Sodium Bicarbonate (Sodium Bicarbonate Tab) 650 mg QID PO Last administered on 12/17/16 12:00; Admin Dose 650 MG; Start 12/16/16 at 21:00 RIDDHI BLOCK Dec 17, 2016 15:29
--- NOTE | 2016-12-17 16:04 | CONS ---
Date/Time of Note Date/Time of Note DATE: 12/17/16 TIME: 16:02 Assessment/Plan Assessment/Plan Additional Assessment/Plan Assessment/Plan Additional Assessment/Plan Additional Assessment/Plan Additional Assessment/Plan 1. Hepatic encephalopathy. 2. Cirrhosis of liver. 3. Refractory ascites. 4. Hepatorenal syndrome, type 2,worsening creatinine 3.45 5. Diabetes mellitus. 6.spontaneous bacterial peritonitis ,resolved 7.gallstone PLAN: To continue with lactulose and rifaximin. Hold off on diuretics because that will worsen the patient's renal function. Fluid restriction. Reduced protein diet. stool for occult blood,negative albumin to sustain BP pt had only one episode of SBP, resume feeding po Midodrine 5 mg bid paracentesis,with albumin infusion before and during procedure., may need dialysis Consultation Date/Type/Reason Admit Date/Time Nov 28, 2016 at 12:41 Initial Consult Date 11/29/16 Type of Consultation: renal Referring Provider: SUNDAR OBRIEN 24 HR Interval Summary Free Text/Dictation not much urine out put Constitutional: improved Exam/Review of Systems Vital Signs Vitals Vital Signs Date Time Temp Pulse Resp B/P Pulse Ox O2 Delivery O2 Flow Rate FiO2 12/17/16 07:26 98.0 89 18 91/54 98 12/16/16 18:06 Room Air Intake and Output 12/16/16 12/16/16 12/17/16 15:00 23:00 07:00 Intake Total 360 ml 120 ml Balance 360 ml 120 ml Exam Constitutional: alert, oriented, well developed Psych: nl mood/affect, no complaints Head: atraumatic, normocephalic Eyes: EOMI, PERRL, nl conjunctiva, nl lids, nl sclera ENMT: nl external ears & nose, nl lips & teeth, nl nasal mucosa & septum Neck: non-tender, supple Respiratory: clear to auscultation, normal air movement Cardiovascular: nl pulses, regular rate and rhythm Gastrointestinal: nl liver, spleen, non-tender, soft Musculoskeletal: nl extremities to inspection, nl gait and stance Extremities: normal pulses 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: BEARING INSPECTOR II-XII intact, nl mental status, nl speech, nl strength Skin: nl turgor, No rash or lesions Lymph: nl lymph nodes Results Result Diagram: 12/17/16 0449 12/17/169 Results 24 hrs Laboratory Tests Test 12/16/16 16:40 12/16/16 17:28 12/16/16 21:43 12/17/16 04:49 Direct Bilirubin 0.00 Indirect Bilirubin 1.7 H Total Bilirubin 1.7 H Bedside Glucose 179 148 Ammonia 199 #H Anion Gap 20 H Basophils # 0.0 Basophils % 0.5 Blood Morphology Comment Blood Urea Nitrogen 74 H Calcium Level 8.0 L Carbon Dioxide Level 18 L Chloride Level 108 Creatinine 4.01 H Eosinophils # 0.1 Eosinophils % 1.7 Glucose Level 111 Hematocrit 30.1 L Hemoglobin 10.2 L Lymphocytes # 1.0 Lymphocytes % 16.6 Mean Corpuscular Hemoglobin 32.0 Mean Corpuscular Hemoglobin Concent 33.8 Mean Corpuscular Volume 94.8 Mean Platelet Volume 9.4 Monocytes # 0.9 Monocytes % 16.4 H Neutrophils # 3.8 Neutrophils % 64.8 Nucleated Red Blood Cells # 0.0 Nucleated Red Blood Cells % 0.0 Platelet Count 45 L Potassium Level 4.7 Red Blood Count 3.18 L Red Cell Distribution Width 21.2 H Sodium Level 141 White Blood Count 5.8 # Test 12/17/16 07:40 12/17/16 11:12 Bedside Glucose 135 148 Medications Medications Current Medications Rifaximin (Xifaxan) 550 mg BID PO Last administered on 12/16/16t 21:42; Admin Dose 550 MG; Start 11/28/16 at 21:00 Miscellaneous Information 1 ea NOTE XX ; Start 11/28/16 at 20:00 Glucose (Glutose) 15 gm Q15M PRN PO DECREASED GLUCOSE; Start 11/28/16 at 20:00 Glucose (Glutose) 22.5 gm Q15M PRN PO DECREASED GLUCOSE; Start 11/28/16 at 20: 00 Dextrose (D50w Syringe) 25 ml Q15M PRN IV DECREASED GLUCOSE; Start 11/28/16 at 20:00 Dextrose (D50w Syringe) 50 ml Q15M PRN IV DECREASED GLUCOSE; Start 11/28/16 at 20:00 Glucagon (Glucagen) 1 mg Q15M PRN IM DECREASED GLUCOSE; Start 11/28/16 at 20:00 Glucose (Glutose) 15 gm Q15M PRN BUCCAL DECREASED GLUCOSE; Start 11/28/16 at 20 :00 Citric Acid/ Sodium Citrate (Bicitra) 15 ml BID PO Last administered on 21:41; Admin Dose 15 ML; Start 11/29/16 at 21:00 Pantoprazole (Protonix Tab) 40 mg DAILY@06 PO Last administered on 12/17/16 06 :02; Admin Dose 40 MG; Start 12/02/16 at 06:00 Morphine Sulfate (morphine) 2 mg Q4H PRN IV PAIN LEVEL 6-10 Last administered on 12/15/16 23:25; Admin Dose 2 MG; Start 12/02/16 at 06:00 IV Flush (NS 10 ml) 10 ml PRN PRN IV IV PROTOCOL; Start 12/02/16 at 18:30 Ondansetron HCl (Zofran Inj) 4 mg Q6H PRN IV NAUSEA AND/OR VOMITING Last administered on 12/15/16 23:25; Admin Dose 4 MG; Start 12/03/16 at 02:30 Lactulose (Enulose) 40 gm Q6 PO Last administered on 12/17/16 11:51; Admin Dose 40 GM; Start 12/03/16 at 18:00 Diagnostic Test (Pha) (Accucheck) 1 ea 02 XX Last administered on 12/14/16 02: 12; Admin Dose 1 EA; Start 12/07/16 at 02:00 Ciprofloxacin (Cipro) 250 mg DAILY@06 PO Last administered on 12/17/16 06:02; Admin Dose 250 MG; Start 12/08/16 at 14:00 Fluconazole (Diflucan) 100 mg DAILY PO Last administered on 12/15/16 08:47; Admin Dose 100 MG; Start 12/08/16 at 14:00 Calcium Carbonate 1.25 gm 1.25 gm BID PO Last administered on 12/16/16 21:41; Admin Dose 1.25 GM; Start 12/12/16 at 21:00 Sodium Chloride (NS) 500 ml @ 500 mls/hr Q1H PRN IV BLOOD PRESSURE SUPPORT Last administered on 12/13/16 09:14; Admin Dose 500 MLS/HR; Start 12/13/16 at 09:00 Epoetin Brandan (Epogen (Esrd)) 3,000 units MoWeFr@17 SC ; Start 12/17/16 at 17:00 Sodium Bicarbonate (Sodium Bicarbonate Tab) 650 mg QID PO Last administered on 12/17/16 12:00; Admin Dose 650 MG; Start 12/16/16 at 21:00 JOHANA MOTLEY MD Dec 17, 2016 16:04
[2016-12-17] MEDS: EPOETIN 3000 UNITS/1 ML INJ (ESRD) SC SCH (17:17)
--- NOTE | 2016-12-17 17:37 | CONS ---
Date/Time of Note Date/Time of Note DATE: 12/17/16 TIME: 17:21 Assessment/Plan Assessment/Plan Chief Complaint/Hosp Course assessment/impression - sepsis d/t peritonitis - leukocytosis and tachycardia resolved. - culture-negative neutrocytic peritonitis, s/p paracentesis 12/02/2016. Ascitic PMNs=9,413. Repeat paracentesis done 12/10/16 with 7.8 L removed and ascitic fluid show decreased WBC and neutrophils and again on 12/16/16 with 10 L removed. Pt completed renally dosed, empiric meropenem (12/05/2016-12/08/2016), pip /tazo (12/01/2016-12/04/2016), caspofungin (12/03/2016-12/08/2016) - probable UTI (pyuria, increased urinary frequency) - urine cx showed no growth - thrush - resolved - LEONARDO - ileus - recurrent hepatic encephalopathy - cholelithiasis - RLQ pain: CT did not demonstrate other acute GI processes - h/o alcoholic liver cirrhosis and portal hypertension - Recurrent ascites s/p multiple paracentesis - DM - CRI - thrombocytopenia - normocytic anemia (HIV screen negative in 2016, hepatitis screen was negative in 2015) recommendations - continue renally dosed ciprofloxacin for secondary prophylaxis of SBP (2016-). Note: Pt completed renally dosed, empiric meropenem (12/05/2016-12/08/2016) , pip/tazo (12/01/2016-12/04/2016), caspofungin (12/03/2016-12/08/2016). - discontinue renally dosed fluconazole (12/08/16-) for thrush which has resolved - continue rifaxamin (11/28/16-) - lactulose and titrate for at least 3 BMs/day; monitor mental status - management d/w pt's and pt's RN - Above d/w Dr. Ponce Problems: Consultation Date/Type/Reason Admit Date/Time Nov 28, 2016 at 12:41 Initial Consult Date 12/02/16 Type of Consultation: Infectious Disease Referring Provider: SUNDAR OBRIEN 24 HR Interval Summary Free Text/Dictation Had paracentesis yesterday with 10 L removed and AMS status slowly improving per NAIF Hernandez. Pt's lethargic most the day, moaning intermittently, ammonia "really high" (199 ) and pt had only one BM yesterday per pt's ; usually has at least 3 BMs/ day at home per . Pt currently noncommunicative. Exam/Review of Systems Vital Signs Vitals Vital Signs Date Time Temp Pulse Resp B/P Pulse Ox O2 Delivery O2 Flow Rate FiO2 12/17/16 07:26 98.0 89 18 91/54 98 12/16/16 18:06 Room Air Intake and Output 12/16/16 12/16/16 12/17/16 15:00 23:00 07:00 Intake Total 360 ml 120 ml Balance 360 ml 120 ml Exam Constitutional: lethargic, frail, well developed Head: atraumatic, normocephalic ENMT: Mucous membranes pink and moist without lesions; no thrush noted Neck: supple, no carotid bruits Respiratory: diminished breath sounds Cardiovascular: nl pulses, regular rate and rhythm Gastrointestinal: soft, less ascites, soft Musculoskeletal: nl extremities to inspection Extremities: no clubbing, cyanosis or edema 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: withdraws to pain, arousable but lethargic, moaning intermittently. VASQUEZ weakly. Results Result Diagram: 12/17/16 0449 12/17/16 0449 Results 24 hrs Laboratory Tests Test 12/16/16 17:28 12/16/16 21:43 12/17/16 04:49 12/17/16 07:40 Bedside Glucose 179 148 135 Ammonia 199 #H Anion Gap 20 H Basophils # 0.0 Basophils % 0.5 Blood Morphology Comment Blood Urea Nitrogen 74 H Calcium Level 8.0 L Carbon Dioxide Level 18 L Chloride Level 108 Creatinine 4.01 H Eosinophils # 0.1 Eosinophils % 1.7 Glucose Level 111 Hematocrit 30.1 L Hemoglobin 10.2 L Lymphocytes # 1.0 Lymphocytes % 16.6 Mean Corpuscular Hemoglobin 32.0 Mean Corpuscular Hemoglobin Concent 33.8 Mean Corpuscular Volume 94.8 Mean Platelet Volume 9.4 Monocytes # 0.9 Monocytes % 16.4 H Neutrophils # 3.8 Neutrophils % 64.8 Nucleated Red Blood Cells # 0.0 Nucleated Red Blood Cells % 0.0 Platelet Count 45 L Potassium Level 4.7 Red Blood Count 3.18 L Red Cell Distribution Width 21.2 H Sodium Level 141 White Blood Count 5.8 # Test 12/17/16 11:12 12/17/16 16:25 Bedside Glucose 148 141 Medications Medications Current Medications Rifaximin (Xifaxan) 550 mg BID PO Last administered on 12/16/16 21:42; Admin Dose 550 MG; Start 11/28/16 at 21:00 Miscellaneous Information 1 ea NOTE XX ; Start 11/28/16 at 20:00 Glucose (Glutose) 15 gm Q15M PRN PO DECREASED GLUCOSE; Start 11/28/16 at 20:00 Glucose (Glutose) 22.5 gm Q15M PRN PO DECREASED GLUCOSE; Start 11/28/16 at 20: 00 Dextrose (D50w Syringe) 25 ml Q15M PRN IV DECREASED GLUCOSE; Start 11/28/16 at 20:00 Dextrose (D50w Syringe) 50 ml Q15M PRN IV DECREASED GLUCOSE; Start 11/28/16 at 20:00 Glucagon (Glucagen) 1 mg Q15M PRN IM DECREASED GLUCOSE; Start 11/28/16 at 20:00 Glucose (Glutose) 15 gm Q15M PRN BUCCAL DECREASED GLUCOSE; Start 11/28/16 at 20 :00 Citric Acid/ Sodium Citrate (Bicitra) 15 ml BID PO Last administered on 21:41; Admin Dose 15 ML; Start 11/29/16 at 21:00 Pantoprazole (Protonix Tab) 40 mg DAILY@06 PO Last administered on 12/17/16 06 :02; Admin Dose 40 MG; Start 12/02/16 at 06:00 Morphine Sulfate (morphine) 2 mg Q4H PRN IV PAIN LEVEL 6-10 Last administered on 12/15/16 23:25; Admin Dose 2 MG; Start 12/02/16 at 06:00 IV Flush (NS 10 ml) 10 ml PRN PRN IV IV PROTOCOL; Start 12/02/16 at 18:30 Ondansetron HCl (Zofran Inj) 4 mg Q6H PRN IV NAUSEA AND/OR VOMITING Last administered on 12/15/16 23:25; Admin Dose 4 MG; Start 12/03/16 at 02:30 Lactulose (Enulose) 40 gm Q6 PO Last administered on 12/17/16 17:17; Admin Dose 40 GM; Start 12/03/16 at 18:00 Diagnostic Test (Pha) (Accucheck) 1 ea 02 XX Last administered on 12/14/16 02: 12; Admin Dose 1 EA; Start 12/07/16 at 02:00 Ciprofloxacin (Cipro) 250 mg DAILY@06 PO Last administered on 12/17/16 06:02; Admin Dose 250 MG; Start 12/08/16 at 14:00 Fluconazole (Diflucan) 100 mg DAILY PO Last administered on 12/15/16 08:47; Admin Dose 100 MG; Start 12/08/16 at 14:00 Calcium Carbonate 1.25 gm 1.25 gm BID PO Last administered on 12/16/16 21:41; Admin Dose 1.25 GM; Start 12/12/16 at 21:00 Sodium Chloride (NS) 500 ml @ 500 mls/hr Q1H PRN IV BLOOD PRESSURE SUPPORT Last administered on 12/13/16 09:14; Admin Dose 500 MLS/HR; Start 12/13/16 at 09:00 Epoetin Brandan (Epogen (Esrd)) 3,000 units MoWeFr@17 SC Last administered on 12/17 17:17; Admin Dose 3,000 UNITS; Start 12/17/16 at 17:00 Sodium Bicarbonate (Sodium Bicarbonate Tab) 650 mg QID PO Last administered on 12/17/16 17:15; Admin Dose 650 MG; Start 12/16/16 at 21:00 TAVIA TY NP Dec 17, 2016 17:33
[2016-12-17 18:33] LABS: ADD UMIC YES; URINE BILIRUBIN (Dip) 1+ (NEGATIVE); URINE BLOOD (Dip) NEGATIVE (NEGATIVE); URINE COLOR DK. YELLOW (YELLOW); URINE GLUCOSE (Dip) NEGATIVE (NEGATIVE); URINE KETONES (Dip) 15 (NEGATIVE); URINE LEUKOCYTE ESTERASE (Dip) NEGATIVE (NEGATIVE); URINE NITRITE (Dip) NEGATIVE (NEGATIVE); URINE TOTAL PROTEIN (Dip) TRACE (NEGATIVE); URINE UROBILINOGEN (Dip) 0.2 E.U./dL (0.1-1.0)
[2016-12-17 18:46] LABS: ICTOTEST NEGATIVE (NEGATIVE)
[2016-12-17 18:51] LABS: URINE RBCS 0-2 /HPF (0)
[2016-12-17 18:52] LABS: BACTERIA,URINE MODERATE; TRANSITIONAL EPI CELLS,URINE FEW
[2016-12-17 21:11] VITALS: BP 97/46; PULSE 100; RESP 23
--- NOTE | 2016-12-17 21:37 | CONS ---
Date/Time of Note Date/Time of Note DATE: 12/17/16 TIME: 21:32 Assessment/Plan Assessment/Plan Chief Complaint/Hosp Course Must increase Lactulose Add Epo for Anemia continue to monitor renal fn closely Add phosphate binder Problems: Additional Assessment/Plan In light of further increase in BUN/Creat, have no choice but to begin IV Fluids See orders. Consultation Date/Type/Reason Admit Date/Time Nov 28, 2016 at 12:41 Initial Consult Date 12/02/16 Type of Consultation: Renal Referring Provider: SUNDAR OBRIEN 24 HR Interval Summary Subjective hx not possible: other (remains confined to bed) Exam/Review of Systems Vital Signs Vitals Vital Signs Date Time Temp Pulse Resp B/P Pulse Ox O2 Delivery O2 Flow Rate FiO2 12/17/16 21:11 98.0 100 23 97/46 97 12/16/16 18:06 Room Air Intake and Output 12/16/16 12/16/16 12/17/16 15:00 23:00 07:00 Intake Total 360 ml 120 ml Balance 360 ml 120 ml Exam Constitutional: alert, oriented, well developed Psych: nl mood/affect, no complaints Head: atraumatic, normocephalic Eyes: EOMI, PERRL, nl conjunctiva, nl lids, nl sclera ENMT: nl external ears & nose, nl lips & teeth, nl nasal mucosa & septum Neck: non-tender, supple Respiratory: clear to auscultation, normal air movement Cardiovascular: nl pulses, regular rate and rhythm Gastrointestinal: ascites, nl liver, spleen, non-tender, soft Genitourinary - Male: other (Urine Na<13, supports a picture of hypovolumia) Musculoskeletal: nl extremities to inspection, nl gait and stance Extremities: normal pulses 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: NSH TEACHER II-XII intact, nl mental status, nl speech, nl strength Skin: nl turgor, other (pale), No rash or lesions Lymph: nl lymph nodes Results Result Diagram: 12/17/169 12/17/169 Results 24 hrs Laboratory Tests Test 12/16/16 21:43 12/17/16 04:49 12/17/16 07:40 12/17/16 11:12 Bedside Glucose 148 135 148 Ammonia 199 #H Anion Gap 20 H Basophils # 0.0 Basophils % 0.5 Blood Morphology Comment Blood Urea Nitrogen 74 H Calcium Level 8.0 L Carbon Dioxide Level 18 L Chloride Level 108 Creatinine 4.01 H Eosinophils # 0.1 Eosinophils % 1.7 Glucose Level 111 Hematocrit 30.1 L Hemoglobin 10.2 L Lymphocytes # 1.0 Lymphocytes % 16.6 Mean Corpuscular Hemoglobin 32.0 Mean Corpuscular Hemoglobin Concent 33.8 Mean Corpuscular Volume 94.8 Mean Platelet Volume 9.4 Monocytes # 0.9 Monocytes % 16.4 H Neutrophils # 3.8 Neutrophils % 64.8 Nucleated Red Blood Cells # 0.0 Nucleated Red Blood Cells % 0.0 Platelet Count 45 L Potassium Level 4.7 Red Blood Count 3.18 L Red Cell Distribution Width 21.2 H Sodium Level 141 White Blood Count 5.8 # Test 12/17/16 11:30 12/17/16 16:25 Urine Bacteria MODERATE Urine Bilirubin 1+ H Urine Clarity CLEAR Urine Color DK. YELLOW Urine Glucose NEGATIVE Urine Hemoglobin NEGATIVE Urine Ictotest NEGATIVE Urine Ketones 15 Urine Leukocyte Esterase NEGATIVE Urine Microscopic RBC 0-2 Urine Microscopic WBC 0-2 Urine Nitrite NEGATIVE Urine Osmolality 323 Urine Random Sodium < 13 L Urine Specific [place] 1.025 Urine Total Protein TRACE Urine Transitional Epithelial Cells FEW Urine Urobilinogen 0.2 E.U./dL Urine Yeast FEW Urine pH 5.0 Bedside Glucose 141 Medications Medications Current Medications Rifaximin (Xifaxan) 550 mg BID PO Last administered on 12/17/16t 21:07; Admin Dose 550 MG; Start 11/28/16 at 21:00 Miscellaneous Information 1 ea NOTE XX ; Start 11/28/16 at 20:00 Glucose (Glutose) 15 gm Q15M PRN PO DECREASED GLUCOSE; Start 11/28/16 at 20:00 Glucose (Glutose) 22.5 gm Q15M PRN PO DECREASED GLUCOSE; Start 11/28/16 at 20: 00 Dextrose (D50w Syringe) 25 ml Q15M PRN IV DECREASED GLUCOSE; Start 11/28/16 at 20:00 Dextrose (D50w Syringe) 50 ml Q15M PRN IV DECREASED GLUCOSE; Start 11/28/16 at 20:00 Glucagon (Glucagen) 1 mg Q15M PRN IM DECREASED GLUCOSE; Start 11/28/16 at 20:00 Glucose (Glutose) 15 gm Q15M PRN BUCCAL DECREASED GLUCOSE; Start 11/28/16 at 20 :00 Citric Acid/ Sodium Citrate (Bicitra) 15 ml BID PO Last administered on 21:07; Admin Dose 15 ML; Start 11/29/16 at 21:00 Pantoprazole (Protonix Tab) 40 mg DAILY@06 PO Last administered on 12/17/16 06 :02; Admin Dose 40 MG; Start 12/02/16 at 06:00 Morphine Sulfate (morphine) 2 mg Q4H PRN IV PAIN LEVEL 6-10 Last administered on 12/15/16 23:25; Admin Dose 2 MG; Start 12/02/16 at 06:00 IV Flush (NS 10 ml) 10 ml PRN PRN IV IV PROTOCOL; Start 12/02/16 at 18:30 Ondansetron HCl (Zofran Inj) 4 mg Q6H PRN IV NAUSEA AND/OR VOMITING Last administered on 12/15/16 23:25; Admin Dose 4 MG; Start 12/03/16 at 02:30 Lactulose (Enulose) 40 gm Q6 PO Last administered on 12/17/16 17:17; Admin Dose 40 GM; Start 12/03/16 at 18:00 Diagnostic Test (Pha) (Accucheck) 1 ea 02 XX Last administered on 12/14/16 02: 12; Admin Dose 1 EA; Start 12/07/16 at 02:00 Ciprofloxacin (Cipro) 250 mg DAILY@06 PO Last administered on 12/17/16 06:02; Admin Dose 250 MG; Start 12/08/16 at 14:00 Calcium Carbonate 1.25 gm 1.25 gm BID PO Last administered on 12/17/16 21:07; Admin Dose 1.25 GM; Start 12/12/16 at 21:00 Sodium Chloride (NS) 500 ml @ 500 mls/hr Q1H PRN IV BLOOD PRESSURE SUPPORT Last administered on 12/13/16 09:14; Admin Dose 500 MLS/HR; Start 12/13/16 at 09:00 Epoetin Brandan (Epogen (Esrd)) 3,000 units MoWeFr@17 SC Last administered on 12/17 17:17; Admin Dose 3,000 UNITS; Start 12/17/16 at 17:00 Sodium Bicarbonate (Sodium Bicarbonate Tab) 650 mg QID PO Last administered on 12/17/16 21:07; Admin Dose 650 MG; Start 12/16/16 at 21:00 NELSON BRIGGS MD Dec 17, 2016 21:37
[2016-12-17 21:40] VITALS: BP 93/55; PULSE 104; RESP 19
[2016-12-17] MEDS: SOD CHLORIDE 0.9% 1,000 ML IV SCH (23:15)
[2016-12-18] MEDS: LACTULOSE 30ML CUP PO SCH ×4 (00:33→17:23)
[2016-12-18] MEDS: ACCUCHECK XX SCH ×4 (02:00→16:29)
[2016-12-18] MEDS: CIPROFLOXACIN 250 MG TAB PO SCH (05:52)
[2016-12-18] MEDS: PANTOPRAZOLE (EC) 40 MG TAB PO SCH (05:52)
[2016-12-18 06:27] LABS: BASOPHILS % 0.1 % (0.0-2.0); HEMATOCRIT 34.9 % (42.0-52.0); HEMOGLOBIN 11.8 g/dl (14.0-18.0); LYMPHOCYTES # 0.3 10^3/ul (0.8-2.9); LYMPHOCYTES % 4.6 % (15.0-51.0); MEAN CORPUSCULAR HEMOGLOBIN 32.1 pg (29.0-33.0); MEAN CORPUSCULAR HGB CONC 33.7 g/dl (32.0-37.0); MEAN CORPUSCULAR VOLUME 95.2 fl (82.0-101.0); MEAN PLATELET VOLUME 9.8 fl (7.4-10.4); MONOCYTE # 0.5 10^3/ul (0.3-0.9); MONOCYTES % 7.5 % (0.0-11.0); NEUTROPHIL # 6.2 10^3/ul (1.6-7.5); NEUTROPHILS % 87.8 % (39.0-77.0); PLATELET COUNT 54 10^3/UL (140-440); RED BLOOD COUNT 3.67 10^6/ul (4.70-6.10); RED CELL DISTRIBUTION WIDTH 20.9 % (11.5-14.5); UNCORRECTED WBC 7.1 10^3/ul (4.8-10.8); WHITE BLOOD COUNT 7.1 10^3/ul (4.8-10.8)
[2016-12-18 06:33] LABS: CONDITION 1; LH ANALYZER COMMENTS 1
[2016-12-18 06:57] LABS: POTASSIUM 5.1 mmol/L (3.5-5.1)
[2016-12-18 06:59] LABS: CREATININE 5.29 mg/dl (0.61-1.24)
[2016-12-18 07:30] VITALS: BP 119/65; RESP 18
[2016-12-18] MEDS: INSULIN ASPART [NOVOLOG] 3 ML PEN SC SCH ×3 (08:28→17:27)
[2016-12-18] MEDS: CALCIUM CARBONATE 500 MG CHEW TAB PO SCH ×3 (08:29→17:23)
[2016-12-18] MEDS: CITRIC ACID/NA CITRATE 30 ML CUP PO SCH ×2 (08:29→20:38)
[2016-12-18] MEDS: RIFAXIMIN 550 MG TAB PO SCH ×2 (08:29→20:37)
[2016-12-18] MEDS: NA BICARBONATE 650 MG TAB PO SCH ×4 (08:29→20:37)
[2016-12-18] MEDS: CALCIUM CARBONATE 1.25 GM TAB PO SCH ×2 (08:29→20:38)
[2016-12-18] MEDS: SOD CHLORIDE 0.9% 1,000 ML IV SCH ×2 (08:33→23:10)
--- NOTE | 2016-12-18 10:46 | PN ---
Date/Time of Note Date/Time of Note DATE: 12/18/16 TIME: 10:45 Assessment/Plan VTE Prophylaxis VTE Prophylaxis Intervention: other Lines/Catheters IV [facility]ter Type (from [facility]): PICC Line Central line still needed: Yes Urinary Cath still in place: Yes Reason Cath still needed: skin wounds contaminated by urine Assessment/Plan Chief Complaint/Hosp Course - Sepsis, resolve. Continue abx per ID. Dr. Sandhu is following in infection disease consultation. - Possible SBP, follow-up on final ascetic culture. On Cipro. - Hepatic encephalopathy. Continue lactulose q.i.d. and rifaximin. Dr. Melendez is following in gastroenterology consultation. - Alcoholic liver cirrhosis with recurrent ascites. s/p paracentesis on 12/02, , 12/16. - LEONARDO on Chronic kidney disease. Dr. Morrison is following in nephrology consultation. - Diabetes mellitus. Continue NovoLog per mild algorithm sliding scale coverage. - Thrombocytopenia, most likely secondary to liver cirrhosis. Continue to monitor platelet count. - Coagulopathy Problems: Subjective 24 Hr Interval Summary Free Text/Dictation Patient resting comfortably but difficult to arouse Exam/Review of Systems Vital Signs Vitals Vital Signs Date Time Temp Pulse Resp B/P Pulse Ox O2 Delivery O2 Flow Rate FiO2 12/18/16 07:30 98.0 98 18 119/65 100 12/17/16 21:40 Room Air Intake and Output 12/17/16 12/17/16 12/18/16 15:00 23:00 07:00 Intake Total 700 ml Balance 700 ml Exam Constitutional: well developed Head: atraumatic, normocephalic Neck: supple Respiratory: diminished breath sounds Cardiovascular: regular rate and rhythm Gastrointestinal: distended, non-tender, soft Results Result Diagram: 12/18/16 0453 12/18/16 0453 Results 24 hrs Laboratory Tests Test 12/17/16 11:12 12/17/16 11:30 12/17/16 16:25 12/18/16 04:53 Bedside Glucose 148 141 Urine Bacteria MODERATE Urine Bilirubin 1+ H Urine Clarity CLEAR Urine Color DK. YELLOW Urine Glucose NEGATIVE Urine Hemoglobin NEGATIVE Urine Ictotest NEGATIVE Urine Ketones 15 Urine Leukocyte Esterase NEGATIVE Urine Microscopic RBC 0-2 Urine Microscopic WBC 0-2 Urine Nitrite NEGATIVE Urine Osmolality 323 Urine Random Sodium < 13 L Urine Specific [place] 1.025 Urine Total Protein TRACE Urine Transitional Epithelial Cells FEW Urine Urobilinogen 0.2 E.U./dL Urine Yeast FEW Urine pH 5.0 Ammonia 148 H Anion Gap 25 H Basophils # 0.0 Basophils % 0.1 Blood Morphology Comment Blood Urea Nitrogen 81 H Calcium Level 8.0 L Carbon Dioxide Level 13 L Chloride Level 112 H Creatinine 5.29 H Eosinophils # 0.0 Eosinophils % 0.0 Glucose Level 141 Hematocrit 34.9 L Hemoglobin 11.8 L Lymphocytes # 0.3 L Lymphocytes % 4.6 L Mean Corpuscular Hemoglobin 32.1 Mean Corpuscular Hemoglobin Concent 33.7 Mean Corpuscular Volume 95.2 Mean Platelet Volume 9.8 Monocytes # 0.5 Monocytes % 7.5 Neutrophils # 6.2 Neutrophils % 87.8 H Nucleated Red Blood Cells # 0.0 Nucleated Red Blood Cells % 0.0 Platelet Count 54 L Potassium Level 5.1 Red Blood Count 3.67 L Red Cell Distribution Width 20.9 H Sodium Level 145 H White Blood Count 7.1 # Test 12/18/16 07:31 Bedside Glucose 143 Medications Medications Current Medications Rifaximin (Xifaxan) 550 mg BID PO Last administered on 12/18/16 08:29; Admin Dose 550 MG; Start 11/28/16 at 21:00 Miscellaneous Information 1 ea NOTE XX ; Start 11/28/16 at 20:00 Glucose (Glutose) 15 gm Q15M PRN PO DECREASED GLUCOSE; Start 11/28/16 at 20:00 Glucose (Glutose) 22.5 gm Q15M PRN PO DECREASED GLUCOSE; Start 11/28/16 at 20: 00 Dextrose (D50w Syringe) 25 ml Q15M PRN IV DECREASED GLUCOSE; Start 11/28/16 at 20:00 Dextrose (D50w Syringe) 50 ml Q15M PRN IV DECREASED GLUCOSE; Start 11/28/16 at 20:00 Glucagon (Glucagen) 1 mg Q15M PRN IM DECREASED GLUCOSE; Start 11/28/16 at 20:00 Glucose (Glutose) 15 gm Q15M PRN BUCCAL DECREASED GLUCOSE; Start 11/28/16 at 20 :00 Citric Acid/ Sodium Citrate (Bicitra) 15 ml BID PO Last administered on 08:29; Admin Dose 15 ML; Start 11/29/16 at 21:00 Pantoprazole (Protonix Tab) 40 mg DAILY@06 PO Last administered on 12/18/16 05 :52; Admin Dose 40 MG; Start 12/02/16 at 06:00 Morphine Sulfate (morphine) 2 mg Q4H PRN IV PAIN LEVEL 6-10 Last administered on 12/15/16 23:25; Admin Dose 2 MG; Start 12/02/16 at 06:00 IV Flush (NS 10 ml) 10 ml PRN PRN IV IV PROTOCOL; Start 12/02/16 at 18:30 Ondansetron HCl (Zofran Inj) 4 mg Q6H PRN IV NAUSEA AND/OR VOMITING Last administered on 12/15/16 23:25; Admin Dose 4 MG; Start 12/03/16 at 02:30 Lactulose (Enulose) 40 gm Q6 PO Last administered on 12/18/16 05:52; Admin Dose 40 GM; Start 12/03/16 at 18:00 Diagnostic Test (Pha) (Accucheck) 1 ea 02 XX Last administered on 12/14/16 02: 12; Admin Dose 1 EA; Start 12/07/16 at 02:00 Ciprofloxacin (Cipro) 250 mg DAILY@06 PO Last administered on 12/18/16 05:52; Admin Dose 250 MG; Start 12/08/16 at 14:00 Calcium Carbonate (Oyster Shell Calcium) 1.25 gm BID PO Last administered on 08:29; Admin Dose 1.25 GM; Start 12/12/16 at 21:00 Epoetin Brandan (Epogen (Esrd)) 3,000 units MoWeFr@17 SC Last administered on 12/17 17:17; Admin Dose 3,000 UNITS; Start 12/17/16 at 17:00 Sodium Bicarbonate 650 mg 650 mg QID PO Last administered on 12/18/16 08:29; Admin Dose 650 MG; Start 12/16/16 at 21:00 Sodium Chloride (NS) 1,000 ml @ 100 mls/hr Q10H IV Last administered on 08:33; Admin Dose 100 MLS/HR; Start 12/17/16 at 22:30; Stop 12/20/16 at 23: 00 DERIC BINGHAM Dec 18, 2016 10:46
--- NOTE | 2016-12-18 13:48 | CONS ---
Date/Time of Note Date/Time of Note DATE: 12/18/16 TIME: 13:45 Assessment/Plan Assessment/Plan Chief Complaint/Hosp Course assessment/impression - sepsis d/t peritonitis - culture-negative neutrocytic peritonitis, s/p paracentesis 12/02/2016. Ascitic PMNs=9,413. Repeat paracentesis done 12/10/16 with 7.8 L removed and ascitic fluid show decreased WBC and neutrophils and again on 12/16/16 with 10 L removed. Pt completed renally dosed, empiric meropenem (12/05/2016-12/08/2016), pip /tazo (12/01/2016-12/04/2016), caspofungin (12/03/2016-12/08/2016) - probable UTI (pyuria, increased urinary frequency) on admission - h/o thrush - resolved - LEONARDO - ileus - recurrent hepatic encephalopathy - cholelithiasis - RLQ pain: CT did not demonstrate other acute GI processes - h/o alcoholic liver cirrhosis and portal hypertension - Recurrent ascites s/p multiple paracentesis - DM - CRI - thrombocytopenia - normocytic anemia (HIV screen negative in 2016, hepatitis screen was negative in 2015) recommendations - continue renally dosed ciprofloxacin for secondary prophylaxis of SBP (2016-). Note: Pt completed renally dosed, empiric meropenem (12/05/2016-12/08/2016) , pip/tazo (12/01/2016-12/04/2016), caspofungin (12/03/2016-12/08/2016). - continue rifaxamin (11/28/16-) management d/w Pt's son Problems: Consultation Date/Type/Reason Admit Date/Time Nov 28, 2016 at 12:41 Initial Consult Date 12/02/16 Type of Consultation: ID Referring Provider: SUNDAR OBRIEN 24 HR Interval Summary Subjective hx not possible: pt non-verbal Exam/Review of Systems Vital Signs Vitals Vital Signs Date Time Temp Pulse Resp B/P Pulse Ox O2 Delivery O2 Flow Rate FiO2 12/18/16 07:30 98.0 98 18 119/65 100 12/17/16 21:40 Room Air Intake and Output 12/17/16 12/17/16 12/18/16 15:00 23:00 07:00 Intake Total 700 ml Balance 700 ml Exam Constitutional: frail, non-verbal Psych: confusion Head: atraumatic, normocephalic Eyes: nl conjunctiva, nl lids ENMT: nl external ears & nose, nl nasal mucosa & septum Respiratory: clear to auscultation, normal air movement Cardiovascular: nl pulses, regular rate and rhythm Gastrointestinal: ascites, distended, No firm, No rebound or guarding Musculoskeletal: nl extremities to inspection Results Result Diagram: 12/18/16 0453 12/18/16 0453 Results 24 hrs Laboratory Tests Test 12/17/16 16:25 12/18/16 04:53 12/18/16 07:31 12/18/16 11:23 Bedside Glucose 141 143 146 Ammonia 148 H Anion Gap 25 H Basophils # 0.0 Basophils % 0.1 Blood Morphology Comment Blood Urea Nitrogen 81 H Calcium Level 8.0 L Carbon Dioxide Level 13 L Chloride Level 112 H Creatinine 5.29 H Eosinophils # 0.0 Eosinophils % 0.0 Glucose Level 141 Hematocrit 34.9 L Hemoglobin 11.8 L Lymphocytes # 0.3 L Lymphocytes % 4.6 L Mean Corpuscular Hemoglobin 32.1 Mean Corpuscular Hemoglobin Concent 33.7 Mean Corpuscular Volume 95.2 Mean Platelet Volume 9.8 Monocytes # 0.5 Monocytes % 7.5 Neutrophils # 6.2 Neutrophils % 87.8 H Nucleated Red Blood Cells # 0.0 Nucleated Red Blood Cells % 0.0 Platelet Count 54 L Potassium Level 5.1 Red Blood Count 3.67 L Red Cell Distribution Width 20.9 H Sodium Level 145 H White Blood Count 7.1 # Medications Medications Current Medications Rifaximin (Xifaxan) 550 mg BID PO Last administered on 12/18/16t 08:29; Admin Dose 550 MG; Start 11/28/16 at 21:00 Miscellaneous Information 1 ea NOTE XX ; Start 11/28/16 at 20:00 Glucose (Glutose) 15 gm Q15M PRN PO DECREASED GLUCOSE; Start 11/28/16 at 20:00 Glucose (Glutose) 22.5 gm Q15M PRN PO DECREASED GLUCOSE; Start 11/28/16 at 20: 00 Dextrose (D50w Syringe) 25 ml Q15M PRN IV DECREASED GLUCOSE; Start 11/28/16 at 20:00 Dextrose (D50w Syringe) 50 ml Q15M PRN IV DECREASED GLUCOSE; Start 11/28/16 at 20:00 Glucagon (Glucagen) 1 mg Q15M PRN IM DECREASED GLUCOSE; Start 11/28/16 at 20:00 Glucose (Glutose) 15 gm Q15M PRN BUCCAL DECREASED GLUCOSE; Start 11/28/16 at 20 :00 Citric Acid/ Sodium Citrate (Bicitra) 15 ml BID PO Last administered on 08:29; Admin Dose 15 ML; Start 11/29/16 at 21:00 Pantoprazole (Protonix Tab) 40 mg DAILY@06 PO Last administered on 12/18/16 05 :52; Admin Dose 40 MG; Start 12/02/16 at 06:00 Morphine Sulfate (morphine) 2 mg Q4H PRN IV PAIN LEVEL 6-10 Last administered on 12/15/16 23:25; Admin Dose 2 MG; Start 12/02/16 at 06:00 IV Flush (NS 10 ml) 10 ml PRN PRN IV IV PROTOCOL; Start 12/02/16 at 18:30 Ondansetron HCl (Zofran Inj) 4 mg Q6H PRN IV NAUSEA AND/OR VOMITING Last administered on 12/15/16 23:25; Admin Dose 4 MG; Start 12/03/16 at 02:30 Lactulose (Enulose) 40 gm Q6 PO Last administered on 12/18/16 12:08; Admin Dose 40 GM; Start 12/03/16 at 18:00 Diagnostic Test (Pha) (Accucheck) 1 ea 02 XX Last administered on 12/14/16 02: 12; Admin Dose 1 EA; Start 12/07/16 at 02:00 Ciprofloxacin (Cipro) 250 mg DAILY@06 PO Last administered on 12/18/16 05:52; Admin Dose 250 MG; Start 12/08/16 at 14:00 Calcium Carbonate (Oyster Shell Calcium) 1.25 gm BID PO Last administered on 08:29; Admin Dose 1.25 GM; Start 12/12/16 at 21:00 Epoetin Brandan (Epogen (Esrd)) 3,000 units MoWeFr@17 SC Last administered on 12/17 17:17; Admin Dose 3,000 UNITS; Start 12/17/16 at 17:00 Sodium Bicarbonate 650 mg 650 mg QID PO Last administered on 12/18/16 12:08; Admin Dose 650 MG; Start 12/16/16 at 21:00 Sodium Chloride (NS) 1,000 ml @ 100 mls/hr Q10H IV Last administered on 08:33; Admin Dose 100 MLS/HR; Start 12/17/16 at 22:30; Stop 12/20/16 at 23: 00 MANFRED MARTINEZ M.D. Dec 18, 2016 13:48
--- NOTE | 2016-12-18 13:55 | CONS ---
Date/Time of Note Date/Time of Note DATE: 12/18/16 TIME: 13:50 Assessment/Plan Assessment/Plan Chief Complaint/Hosp Course Impression: 1. Hepatic encephalopathy. 2. Cirrhosis of liver. 3. Refractory ascites. 4. Hepatorenal syndrome, type 2,worsening creatinine 3.45 5. Diabetes mellitus. 6. spontaneous bacterial peritonitis ,resolved 7. gallstone 8. Anemia: occult blood negative. PLAN: 1. To continue with lactulose and rifaximin for hepatic encephalopathy. 2. Fluid restriction. 3. I reduced IVF from 100 to 50 cc/hr. Recommend completely dc NS as IVF as pt has ascites. 4. If patient needs fluids, recommend albumin solution instead. 5. Advance diet as tolerated 6. continue Midodrine 5 mg bid 7. paracentesis PRN, with albumin infusion before and during procedure., 8. Consider dialysis if hepato-renal syndrome do not improve. Problems: Consultation Date/Type/Reason Admit Date/Time Nov 28, 2016 at 12:41 Initial Consult Date 12/02/16 Type of Consultation: GI Referring Provider: SUNDAR OBRIEN 24 HR Interval Summary Free Text/Dictation Patient groaning, tolerating clear liquid diet, no n/v Exam/Review of Systems Vital Signs Vitals Vital Signs Date Time Temp Pulse Resp B/P Pulse Ox O2 Delivery O2 Flow Rate FiO2 12/18/16 07:30 98.0 98 18 119/65 100 12/17/16 21:40 Room Air Intake and Output 12/17/16 12/17/16 12/18/16 15:00 23:00 07:00 Intake Total 700 ml Balance 700 ml Exam Constitutional: frail Psych: confusion Head: atraumatic, normocephalic Eyes: icteric, nl lids ENMT: mucosa pink and moist, nl external ears & nose, nl lips & teeth, nl nasal mucosa & septum Neck: non-tender, supple Respiratory: clear to auscultation, normal air movement Cardiovascular: nl pulses, regular rate and rhythm Gastrointestinal: bowel sounds, non-tender, soft Results Result Diagram: 12/18/16 0453 12/18/16 0453 Results 24 hrs Laboratory Tests Test 12/17/16 16:25 12/18/16 04:53 12/18/16 07:31 12/18/16 11:23 Bedside Glucose 141 143 146 Ammonia 148 H Anion Gap 25 H Basophils # 0.0 Basophils % 0.1 Blood Morphology Comment Blood Urea Nitrogen 81 H Calcium Level 8.0 L Carbon Dioxide Level 13 L Chloride Level 112 H Creatinine 5.29 H Eosinophils # 0.0 Eosinophils % 0.0 Glucose Level 141 Hematocrit 34.9 L Hemoglobin 11.8 L Lymphocytes # 0.3 L Lymphocytes % 4.6 L Mean Corpuscular Hemoglobin 32.1 Mean Corpuscular Hemoglobin Concent 33.7 Mean Corpuscular Volume 95.2 Mean Platelet Volume 9.8 Monocytes # 0.5 Monocytes % 7.5 Neutrophils # 6.2 Neutrophils % 87.8 H Nucleated Red Blood Cells # 0.0 Nucleated Red Blood Cells % 0.0 Platelet Count 54 L Potassium Level 5.1 Red Blood Count 3.67 L Red Cell Distribution Width 20.9 H Sodium Level 145 H White Blood Count 7.1 # Medications Medications Current Medications Rifaximin (Xifaxan) 550 mg BID PO Last administered on 12/18/16 08:29; Admin Dose 550 MG; Start 11/28/16 at 21:00 Miscellaneous Information 1 ea NOTE XX ; Start 11/28/16 at 20:00 Glucose (Glutose) 15 gm Q15M PRN PO DECREASED GLUCOSE; Start 11/28/16 at 20:00 Glucose (Glutose) 22.5 gm Q15M PRN PO DECREASED GLUCOSE; Start 11/28/16 at 20: 00 Dextrose (D50w Syringe) 25 ml Q15M PRN IV DECREASED GLUCOSE; Start 11/28/16 at 20:00 Dextrose (D50w Syringe) 50 ml Q15M PRN IV DECREASED GLUCOSE; Start 11/28/16 at 20:00 Glucagon (Glucagen) 1 mg Q15M PRN IM DECREASED GLUCOSE; Start 11/28/16 at 20:00 Glucose (Glutose) 15 gm Q15M PRN BUCCAL DECREASED GLUCOSE; Start 11/28/16 at 20 :00 Citric Acid/ Sodium Citrate (Bicitra) 15 ml BID PO Last administered on 08:29; Admin Dose 15 ML; Start 11/29/16 at 21:00 Pantoprazole (Protonix Tab) 40 mg DAILY@06 PO Last administered on 12/18/16 05 :52; Admin Dose 40 MG; Start 12/02/16 at 06:00 Morphine Sulfate (morphine) 2 mg Q4H PRN IV PAIN LEVEL 6-10 Last administered on 12/15/16 23:25; Admin Dose 2 MG; Start 12/02/16 at 06:00 IV Flush (NS 10 ml) 10 ml PRN PRN IV IV PROTOCOL; Start 12/02/16 at 18:30 Ondansetron HCl (Zofran Inj) 4 mg Q6H PRN IV NAUSEA AND/OR VOMITING Last administered on 12/15/16 23:25; Admin Dose 4 MG; Start 12/03/16 at 02:30 Lactulose (Enulose) 40 gm Q6 PO Last administered on 12/18/16 12:08; Admin Dose 40 GM; Start 12/03/16 at 18:00 Diagnostic Test (Pha) (Accucheck) 1 ea 02 XX Last administered on 12/14/16 02: 12; Admin Dose 1 EA; Start 12/07/16 at 02:00 Ciprofloxacin (Cipro) 250 mg DAILY@06 PO Last administered on 12/18/16 05:52; Admin Dose 250 MG; Start 12/08/16 at 14:00 Calcium Carbonate (Oyster Shell Calcium) 1.25 gm BID PO Last administered on 08:29; Admin Dose 1.25 GM; Start 12/12/16 at 21:00 Epoetin Brandan (Epogen (Esrd)) 3,000 units MoWeFr@17 SC Last administered on 12/17 17:17; Admin Dose 3,000 UNITS; Start 12/17/16 at 17:00 Sodium Bicarbonate 650 mg 650 mg QID PO Last administered on 12/18/16 12:08; Admin Dose 650 MG; Start 12/16/16 at 21:00 Sodium Chloride (NS) 1,000 ml @ 100 mls/hr Q10H IV Last administered on 08:33; Admin Dose 100 MLS/HR; Start 12/17/16 at 22:30; Stop 12/20/16 at 23: 00 CARRIE JOSE MD Dec 18, 2016 13:55
[2016-12-18 20:58] VITALS: BP 96/57; RESP 18
--- NOTE | 2016-12-18 21:18 | CONS ---
Date/Time of Note Date/Time of Note DATE: 12/18/16 TIME: 20:58 Assessment/Plan Assessment/Plan Chief Complaint/Hosp Course Must increase Lactulose Add Epo for Anemia continue to monitor renal fn closely Add phosphate binder Problems: Consultation Date/Type/Reason Admit Date/Time Nov 28, 2016 at 12:41 Initial Consult Date 12/02/16 Type of Consultation: GI Referring Provider: SUNDAR OBRIEN Exam/Review of Systems Vital Signs Vitals Vital Signs Date Time Temp Pulse Resp B/P Pulse Ox O2 Delivery O2 Flow Rate FiO2 12/18/16 07:30 98.0 98 18 119/65 100 12/17/16 21:40 Room Air Intake and Output 12/17/16 12/17/16 12/18/16 15:00 23:00 07:00 Intake Total 700 ml Balance 700 ml Results Result Diagram: 12/18/16 0453 12/18/16 0453 Results 24 hrs Laboratory Tests Test 12/18/16 04:53 12/18/16 07:31 12/18/16 11:23 12/18/16 16:20 Ammonia 148 H Anion Gap 25 H Basophils # 0.0 Basophils % 0.1 Blood Morphology Comment Blood Urea Nitrogen 81 H Calcium Level 8.0 L Carbon Dioxide Level 13 L Chloride Level 112 H Creatinine 5.29 H Eosinophils # 0.0 Eosinophils % 0.0 Glucose Level 141 Hematocrit 34.9 L Hemoglobin 11.8 L Lymphocytes # 0.3 L Lymphocytes % 4.6 L Mean Corpuscular Hemoglobin 32.1 Mean Corpuscular Hemoglobin Concent 33.7 Mean Corpuscular Volume 95.2 Mean Platelet Volume 9.8 Monocytes # 0.5 Monocytes % 7.5 Neutrophils # 6.2 Neutrophils % 87.8 H Nucleated Red Blood Cells # 0.0 Nucleated Red Blood Cells % 0.0 Platelet Count 54 L Potassium Level 5.1 Red Blood Count 3.67 L Red Cell Distribution Width 20.9 H Sodium Level 145 H White Blood Count 7.1 # Bedside Glucose 143 146 186 Medications Medications Current Medications Rifaximin (Xifaxan) 550 mg BID PO Last administered on 12/18/16t 20:37; Admin Dose 550 MG; Start 11/28/16 at 21:00 Miscellaneous Information 1 ea NOTE XX ; Start 11/28/16 at 20:00 Glucose (Glutose) 15 gm Q15M PRN PO DECREASED GLUCOSE; Start 11/28/16 at 20:00 Glucose (Glutose) 22.5 gm Q15M PRN PO DECREASED GLUCOSE; Start 11/28/16 at 20: 00 Dextrose (D50w Syringe) 25 ml Q15M PRN IV DECREASED GLUCOSE; Start 11/28/16 at 20:00 Dextrose (D50w Syringe) 50 ml Q15M PRN IV DECREASED GLUCOSE; Start 11/28/16 at 20:00 Glucagon (Glucagen) 1 mg Q15M PRN IM DECREASED GLUCOSE; Start 11/28/16 at 20:00 Glucose (Glutose) 15 gm Q15M PRN BUCCAL DECREASED GLUCOSE; Start 11/28/16 at 20 :00 Citric Acid/ Sodium Citrate (Bicitra) 15 ml BID PO Last administered on 20:38; Admin Dose 15 ML; Start 11/29/16 at 21:00 Pantoprazole (Protonix Tab) 40 mg DAILY@06 PO Last administered on 12/18/16 05 :52; Admin Dose 40 MG; Start 12/02/16 at 06:00 Morphine Sulfate (morphine) 2 mg Q4H PRN IV PAIN LEVEL 6-10 Last administered on 12/15/16 23:25; Admin Dose 2 MG; Start 12/02/16 at 06:00 IV Flush (NS 10 ml) 10 ml PRN PRN IV IV PROTOCOL; Start 12/02/16 at 18:30 Ondansetron HCl (Zofran Inj) 4 mg Q6H PRN IV NAUSEA AND/OR VOMITING Last administered on 12/15/16 23:25; Admin Dose 4 MG; Start 12/03/16 at 02:30 Lactulose (Enulose) 40 gm Q6 PO Last administered on 12/18/16 17:23; Admin Dose 40 GM; Start 12/03/16 at 18:00 Diagnostic Test (Pha) (Accucheck) 1 ea 02 XX Last administered on 12/14/16 02: 12; Admin Dose 1 EA; Start 12/07/16 at 02:00 Ciprofloxacin (Cipro) 250 mg DAILY@06 PO Last administered on 12/18/16 05:52; Admin Dose 250 MG; Start 12/08/16 at 14:00 Calcium Carbonate (Oyster Shell Calcium) 1.25 gm BID PO Last administered on 20:38; Admin Dose 1.25 GM; Start 12/12/16 at 21:00 Epoetin Brandan (Epogen (Esrd)) 3,000 units MoWeFr@17 SC Last administered on 12/17 17:17; Admin Dose 3,000 UNITS; Start 12/17/16 at 17:00 Sodium Bicarbonate 650 mg 650 mg QID PO Last administered on 12/18/16 20:37; Admin Dose 650 MG; Start 12/16/16 at 21:00 Sodium Chloride (NS) 1,000 ml @ 50 mls/hr Q20H IV Last administered on 08:33; Admin Dose 100 MLS/HR; Start 12/17/16 at 22:30 NELSON BRIGGS MD Dec 18, 2016 21:18
[2016-12-19] MEDS: LACTULOSE 30ML CUP PO SCH ×4 (00:32→17:07)
[2016-12-19] MEDS: ACCUCHECK XX SCH ×4 (02:00→17:14)
[2016-12-19] MEDS: PANTOPRAZOLE (EC) 40 MG TAB PO SCH (05:37)
[2016-12-19] MEDS: CIPROFLOXACIN 250 MG TAB PO SCH (05:38)
[2016-12-19] MEDS: morphine 2 MG INJ IV PRN ×3 (07:45→17:08)
[2016-12-19] MEDS: INSULIN ASPART [NOVOLOG] 3 ML PEN SC SCH ×3 (07:51→17:28)
[2016-12-19 08:31] VITALS: BP 97/59; RESP 20
[2016-12-19] MEDS: NA BICARBONATE 650 MG TAB PO SCH ×4 (08:48→20:25)
[2016-12-19] MEDS: CALCIUM CARBONATE 1.25 GM TAB PO SCH ×2 (08:48→20:25)
[2016-12-19] MEDS: CALCIUM CARBONATE 500 MG CHEW TAB PO SCH ×3 (08:48→17:14)
[2016-12-19] MEDS: CITRIC ACID/NA CITRATE 30 ML CUP PO SCH ×2 (08:48→20:25)
[2016-12-19] MEDS: RIFAXIMIN 550 MG TAB PO SCH ×2 (08:48→20:26)
--- NOTE | 2016-12-19 12:15 | PN ---
Date/Time of Note Date/Time of Note DATE: 12/19/16 TIME: 12:14 Assessment/Plan VTE Prophylaxis VTE Prophylaxis Intervention: LMWH Lines/Catheters IV [facility] Type ([facility] PICC Line Central line still needed: Yes Urinary Cath still in place: Yes Reason Cath still needed: skin wounds contaminated by urine Assessment/Plan Chief Complaint/Hosp Course - Sepsis, resolve. Continue abx per ID. Dr. Sandhu is following in infection disease consultation. - Possible SBP, follow-up on final ascetic culture. On Cipro. - Hepatic encephalopathy. Continue lactulose q.i.d. and rifaximin. Dr. Melendez is following in gastroenterology consultation. - Alcoholic liver cirrhosis with recurrent ascites. s/p paracentesis on 12/02, , 12/16. - LEONARDO on Chronic kidney disease. Dr. Morrison is following in nephrology consultation. - Diabetes mellitus. Continue NovoLog per mild algorithm sliding scale coverage. - Thrombocytopenia, most likely secondary to liver cirrhosis. Continue to monitor platelet count. - Coagulopathy Problems: Subjective 24 Hr Interval Summary Free Text/Dictation Patient complain of pain on right side Exam/Review of Systems Vital Signs Vitals Vital Signs Date Time Temp Pulse Resp B/P Pulse Ox O2 Delivery O2 Flow Rate FiO2 12/19/16 08:31 98.0 20 20 97/59 99 12/17/16 21:40 Room Air Intake and Output 12/18/16 12/18/16 12/19/16 15:00 23:00 07:00 Intake Total 900 ml 400 ml 350 ml Output Total 30 ml 60 ml Balance 900 ml 370 ml 290 ml Exam Constitutional: well developed Head: atraumatic, normocephalic Neck: supple Respiratory: diminished breath sounds Cardiovascular: regular rate and rhythm Gastrointestinal: non-tender, soft Results Result Diagram: 12/18/16 0453 12/18/16 0453 Results 24 hrs Laboratory Tests Test 12/18/16 16:20 12/19/16 07:50 12/19/16 11:53 Bedside Glucose 186 164 182 Medications Medications Current Medications Rifaximin (Xifaxan) 550 mg BID PO Last administered on 12/19/16t 08:48; Admin Dose 550 MG; Start 11/28/16 at 21:00 Miscellaneous Information 1 ea NOTE XX ; Start 11/28/16 at 20:00 Glucose (Glutose) 15 gm Q15M PRN PO DECREASED GLUCOSE; Start 11/28/16 at 20:00 Glucose (Glutose) 22.5 gm Q15M PRN PO DECREASED GLUCOSE; Start 11/28/16 at 20: 00 Dextrose (D50w Syringe) 25 ml Q15M PRN IV DECREASED GLUCOSE; Start 11/28/16 at 20:00 Dextrose (D50w Syringe) 50 ml Q15M PRN IV DECREASED GLUCOSE; Start 11/28/16 at 20:00 Glucagon (Glucagen) 1 mg Q15M PRN IM DECREASED GLUCOSE; Start 11/28/16 at 20:00 Glucose (Glutose) 15 gm Q15M PRN BUCCAL DECREASED GLUCOSE; Start 11/28/16 at 20 :00 Citric Acid/ Sodium Citrate (Bicitra) 15 ml BID PO Last administered on 08:48; Admin Dose 15 ML; Start 11/29/16 at 21:00 Pantoprazole (Protonix Tab) 40 mg DAILY@06 PO Last administered on 12/19/16 05 :37; Admin Dose 40 MG; Start 12/02/16 at 06:00 Morphine Sulfate (morphine) 2 mg Q4H PRN IV PAIN LEVEL 6-10 Last administered on 12/19/16 07:45; Admin Dose 2 MG; Start 12/02/16 at 06:00 IV Flush (NS 10 ml) 10 ml PRN PRN IV IV PROTOCOL; Start 12/02/16 at 18:30 Ondansetron HCl (Zofran Inj) 4 mg Q6H PRN IV NAUSEA AND/OR VOMITING Last administered on 12/15/16 23:25; Admin Dose 4 MG; Start 12/03/16 at 02:30 Lactulose (Enulose) 40 gm Q6 PO Last administered on 12/19/16 05:38; Admin Dose 40 GM; Start 12/03/16 at 18:00 Diagnostic Test (Pha) (Accucheck) 1 ea 02 XX Last administered on 12/14/16 02: 12; Admin Dose 1 EA; Start 12/07/16 at 02:00 Ciprofloxacin (Cipro) 250 mg DAILY@06 PO Last administered on 12/19/16 05:38; Admin Dose 250 MG; Start 12/08/16 at 14:00 Calcium Carbonate (Oyster Shell Calcium) 1.25 gm BID PO Last administered on 08:48; Admin Dose 1.25 GM; Start 12/12/16 at 21:00 Epoetin Brandan (Epogen (Esrd)) 3,000 units MoWeFr@17 SC Last administered on 12/17 17:17; Admin Dose 3,000 UNITS; Start 12/17/16 at 17:00 Sodium Bicarbonate 650 mg 650 mg QID PO Last administered on 12/19/16 08:48; Admin Dose 650 MG; Start 12/16/16 at 21:00 Sodium Chloride (NS) 1,000 ml @ 50 mls/hr Q20H IV Last administered on 08:33; Admin Dose 100 MLS/HR; Start 12/17/16 at 22:30 DERIC BINGHAM Dec 19, 2016 12:15
--- NOTE | 2016-12-19 14:12 | CONS ---
Date/Time of Note Date/Time of Note DATE: 12/19/16 TIME: 14:07 Assessment/Plan Assessment/Plan Chief Complaint/Hosp Course Impression: 1. Hepatic encephalopathy. 2. Cirrhosis of liver. 3. Refractory ascites. 4. Hepatorenal syndrome, type 2,worsening creatinine 5.29 5. Diabetes mellitus. 6. spontaneous bacterial peritonitis ,resolved 7. gallstone 8. Anemia: occult blood negative. PLAN: 1. To continue with lactulose and rifaximin for hepatic encephalopathy. 2. Fluid restriction. 3. I reduced IVF from 100 to 50 cc/hr. Recommend completely dc NS as IVF as pt has ascites. 4. If patient needs fluids, recommend albumin solution instead. 5. Advance diet as tolerated 6. continue Midodrine 5 mg bid 7. paracentesis PRN, with albumin infusion before and during procedure., 8. Consider dialysis if hepato-renal syndrome do not improve. 9. Dr. Melendez to resume care tomorrow. Problems: Consultation Date/Type/Reason Admit Date/Time Nov 28, 2016 at 12:41 Initial Consult Date 12/02/16 Type of Consultation: GI Referring Provider: SUNDAR OBRIEN 24 HR Interval Summary Free Text/Dictation eating, no n/v, discussed with who is at bedside. Constitutional: improved Exam/Review of Systems Vital Signs Vitals Vital Signs Date Time Temp Pulse Resp B/P Pulse Ox O2 Delivery O2 Flow Rate FiO2 12/19/16 08:31 98.0 20 20 97/59 99 12/17/16 21:40 Room Air Intake and Output 12/18/16 12/18/16 12/19/16 15:00 23:00 07:00 Intake Total 900 ml 400 ml 350 ml Output Total 30 ml 60 ml Balance 900 ml 370 ml 290 ml Exam Constitutional: frail Psych: confusion Head: atraumatic, normocephalic ENMT: mucosa pink and moist, nl external ears & nose, nl lips & teeth, nl nasal mucosa & septum Neck: non-tender, supple Respiratory: clear to auscultation, normal air movement Cardiovascular: nl pulses, regular rate and rhythm Gastrointestinal: bowel sounds, distended, non-tender, soft Results Result Diagram: 12/18/16 0453 12/18/16 0453 Results 24 hrs Laboratory Tests Test 12/18/16 16:20 12/19/16 07:50 12/19/16 11:53 Bedside Glucose 186 164 182 Medications Medications Current Medications Rifaximin (Xifaxan) 550 mg BID PO Last administered on 12/19/16 08:48; Admin Dose 550 MG; Start 11/28/16 at 21:00 Miscellaneous Information 1 ea NOTE XX ; Start 11/28/16 at 20:00 Glucose (Glutose) 15 gm Q15M PRN PO DECREASED GLUCOSE; Start 11/28/16 at 20:00 Glucose (Glutose) 22.5 gm Q15M PRN PO DECREASED GLUCOSE; Start 11/28/16 at 20: 00 Dextrose (D50w Syringe) 25 ml Q15M PRN IV DECREASED GLUCOSE; Start 11/28/16 at 20:00 Dextrose (D50w Syringe) 50 ml Q15M PRN IV DECREASED GLUCOSE; Start 11/28/16 at 20:00 Glucagon (Glucagen) 1 mg Q15M PRN IM DECREASED GLUCOSE; Start 11/28/16 at 20:00 Glucose (Glutose) 15 gm Q15M PRN BUCCAL DECREASED GLUCOSE; Start 11/28/16 at 20 :00 Citric Acid/ Sodium Citrate (Bicitra) 15 ml BID PO Last administered on 08:48; Admin Dose 15 ML; Start 11/29/16 at 21:00 Pantoprazole (Protonix Tab) 40 mg DAILY@06 PO Last administered on 12/19/16 05 :37; Admin Dose 40 MG; Start 12/02/16 at 06:00 Morphine Sulfate (morphine) 2 mg Q4H PRN IV PAIN LEVEL 6-10 Last administered on 12/19/16 13:08; Admin Dose 2 MG; Start 12/02/16 at 06:00 IV Flush (NS 10 ml) 10 ml PRN PRN IV IV PROTOCOL; Start 12/02/16 at 18:30 Ondansetron HCl (Zofran Inj) 4 mg Q6H PRN IV NAUSEA AND/OR VOMITING Last administered on 12/15/16 23:25; Admin Dose 4 MG; Start 12/03/16 at 02:30 Lactulose (Enulose) 40 gm Q6 PO Last administered on 12/19/16 13:07; Admin Dose 40 GM; Start 12/03/16 at 18:00 Diagnostic Test (Pha) (Accucheck) 1 ea 02 XX Last administered on 12/14/16 02: 12; Admin Dose 1 EA; Start 12/07/16 at 02:00 Ciprofloxacin (Cipro) 250 mg DAILY@06 PO Last administered on 12/19/16 05:38; Admin Dose 250 MG; Start 12/08/16 at 14:00 Calcium Carbonate (Oyster Shell Calcium) 1.25 gm BID PO Last administered on 08:48; Admin Dose 1.25 GM; Start 12/12/16 at 21:00 Epoetin Brandan (Epogen (Esrd)) 3,000 units MoWeFr@17 SC Last administered on 12/17 17:17; Admin Dose 3,000 UNITS; Start 12/17/16 at 17:00 Sodium Bicarbonate 650 mg 650 mg QID PO Last administered on 12/19/16 13:07; Admin Dose 650 MG; Start 12/16/16 at 21:00 Sodium Chloride (NS) 1,000 ml @ 50 mls/hr Q20H IV Last administered on 08:33; Admin Dose 100 MLS/HR; Start 12/17/16 at 22:30 CARRIE JOSE MD Dec 19, 2016 14:12
--- NOTE | 2016-12-19 16:02 | CONS ---
CARRIE MONZON 12/19/16 1602: Date/Time of Note Date/Time of Note DATE: 12/19/16 TIME: 16:02 Assessment/Plan Assessment/Plan Additional Assessment/Plan - sepsis d/t peritonitis - culture-negative neutrocytic peritonitis, s/p paracentesis 12/02/2016. Ascitic PMNs=9,413. Repeat paracentesis done 12/10/16 with 7.8 L removed and ascitic fluid show decreased WBC and neutrophils and again on 12/16/16 with 10 L removed. Pt completed renally dosed, empiric meropenem (12/05/2016-12/08/2016), pip /tazo (12/01/2016-12/04/2016), caspofungin (12/03/2016-12/08/2016) - probable UTI (pyuria, increased urinary frequency) on admission - h/o thrush - resolved - LEONARDO - ileus - recurrent hepatic encephalopathy - cholelithiasis - RLQ pain: CT did not demonstrate other acute GI processes - h/o alcoholic liver cirrhosis and portal hypertension - Recurrent ascites s/p multiple paracentesis - DM - CRI - thrombocytopenia - normocytic anemia (HIV screen negative in 2016, hepatitis screen was negative in 2015) recommendations - continue renally dosed ciprofloxacin for secondary prophylaxis of SBP (2016-). Note: Pt completed renally dosed, empiric meropenem (12/05/2016-12/08/2016) , pip/tazo (12/01/2016-12/04/2016), caspofungin (12/03/2016-12/08/2016). - continue rifaxamin (11/28/16-) d/w Dr Diggs Consultation Date/Type/Reason Admit Date/Time Nov 28, 2016 at 12:41 Initial Consult Date 12/02/16 Type of Consultation: ID Referring Provider: SUNDAR OBRIEN 24 HR Interval Summary Free Text/Dictation expressing pain. No paracentesis since 12/16 c/o abd pain Exam/Review of Systems Vital Signs Vitals Vital Signs Date Time Temp Pulse Resp B/P Pulse Ox O2 Delivery O2 Flow Rate FiO2 12/19/16 08:31 98.0 20 20 97/59 99 12/17/16 21:40 Room Air Intake and Output 12/18/16 12/18/1612/19/17 15:00 23:00 07:00 Intake Total 900 ml 400 ml 350 ml Output Total 30 ml 60 ml Balance 900 ml 370 ml 290 ml Exam Constitutional: alert, distress Head: normocephalic Eyes: EOMI, nl conjunctiva Neck: supple Respiratory: clear to auscultation Cardiovascular: regular rate and rhythm Gastrointestinal: bowel sounds, distended, non-tender, other (ballotable fluid) , soft Results Result Diagram: 12/18/16 0453 12/18/16 0453 Results 24 hrs Laboratory Tests Test 12/18/16 16:20 12/19/16 07:50 12/19/16 11:53 Bedside Glucose 186 164 182 Medications Medications Current Medications Rifaximin (Xifaxan) 550 mg BID PO Last administered on 12/19/16 08:48; Admin Dose 550 MG; Start 11/28/16 at 21:00 Miscellaneous Information 1 ea NOTE XX ; Start 11/28/16 at 20:00 Glucose (Glutose) 15 gm Q15M PRN PO DECREASED GLUCOSE; Start 11/28/16 at 20:00 Glucose (Glutose) 22.5 gm Q15M PRN PO DECREASED GLUCOSE; Start 11/28/16 at 20: 00 Dextrose (D50w Syringe) 25 ml Q15M PRN IV DECREASED GLUCOSE; Start 11/28/16 at 20:00 Dextrose (D50w Syringe) 50 ml Q15M PRN IV DECREASED GLUCOSE; Start 11/28/16 at 20:00 Glucagon (Glucagen) 1 mg Q15M PRN IM DECREASED GLUCOSE; Start 11/28/16 at 20:00 Glucose (Glutose) 15 gm Q15M PRN BUCCAL DECREASED GLUCOSE; Start 11/28/16 at 20 :00 Citric Acid/ Sodium Citrate (Bicitra) 15 ml BID PO Last administered on 08:48; Admin Dose 15 ML; Start 11/29/16 at 21:00 Pantoprazole (Protonix Tab) 40 mg DAILY@06 PO Last administered on 12/19/16 05 :37; Admin Dose 40 MG; Start 12/02/16 at 06:00 Morphine Sulfate (morphine) 2 mg Q4H PRN IV PAIN LEVEL 6-10 Last administered on 12/19/16 13:08; Admin Dose 2 MG; Start 12/02/16 at 06:00 IV Flush (NS 10 ml) 10 ml PRN PRN IV IV PROTOCOL; Start 12/02/16 at 18:30 Ondansetron HCl (Zofran Inj) 4 mg Q6H PRN IV NAUSEA AND/OR VOMITING Last administered on 12/15/16 23:25; Admin Dose 4 MG; Start 12/03/16 at 02:30 Lactulose (Enulose) 40 gm Q6 PO Last administered on 12/19/16 13:07; Admin Dose 40 GM; Start 12/03/16 at 18:00 Diagnostic Test (Pha) (Accucheck) 1 ea 02 XX Last administered on 12/14/16 02: 12; Admin Dose 1 EA; Start 12/07/16 at 02:00 Ciprofloxacin (Cipro) 250 mg DAILY@06 PO Last administered on 12/19/16 05:38; Admin Dose 250 MG; Start 12/08/16 at 14:00 Calcium Carbonate (Oyster Shell Calcium) 1.25 gm BID PO Last administered on 08:48; Admin Dose 1.25 GM; Start 12/12/16 at 21:00 Epoetin Brandan (Epogen (Esrd)) 3,000 units MoWeFr@17 SC Last administered on 12/17 17:17; Admin Dose 3,000 UNITS; Start 12/17/16 at 17:00 Sodium Bicarbonate 650 mg 650 mg QID PO Last administered on 12/19/16 13:07; Admin Dose 650 MG; Start 12/16/16 at 21:00 Sodium Chloride (NS) 1,000 ml @ 50 mls/hr Q20H IV Last administered on 08:33; Admin Dose 100 MLS/HR; Start 12/17/16 at 22:30 MANFRED DIGGS M.D. 12/20/16 0234: Assessment/Plan Assessment/Plan Additional Assessment/Plan Caterina attestation: I discussed the management with TENZIN Monzon and agree with above. Exam/Review of Systems Results Result Diagram: 12/18/16 0453 12/18/16 0453 CARRIE MONZON Dec 19, 2016 16:02 MANFRED DIGGS M.D. Dec 20, 2016 02:34
[2016-12-19] MEDS: SOD CHLORIDE 0.9% 1,000 ML IV SCH (17:32)
[2016-12-19] MEDS ORDERED: morphine 2 MG INJ IV ONE (18:00)
--- NOTE | 2016-12-19 18:54 | CONS ---
Date/Time of Note Date/Time of Note DATE: 12/19/16 TIME: 18:24 Assessment/Plan Assessment/Plan Chief Complaint/Hosp Course Pt will need nel Cath Problems: Consultation Date/Type/Reason Admit Date/Time Nov 28, 2016 at 12:41 Initial Consult Date 12/02/16 Type of Consultation: Renal Referring Provider: SUNDAR OBRIEN Exam/Review of Systems Vital Signs Vitals Vital Signs Date Time Temp Pulse Resp B/P Pulse Ox O2 Delivery O2 Flow Rate FiO2 12/19/16 08:31 98.0 20 20 97/59 99 12/17/16 21:40 Room Air Intake and Output 12/18/16 12/18/16 12/19/16 15:00 23:00 07:00 Intake Total 900 ml 400 ml 350 ml Output Total 30 ml 60 ml Balance 900 ml 370 ml 290 ml Exam Constitutional: alert, oriented, well developed Psych: nl mood/affect, no complaints Head: atraumatic, normocephalic Eyes: EOMI, PERRL, nl conjunctiva, nl lids, nl sclera ENMT: nl external ears & nose, nl lips & teeth, nl nasal mucosa & septum Neck: non-tender, supple Respiratory: clear to auscultation, normal air movement Cardiovascular: nl pulses, regular rate and rhythm Gastrointestinal: ascites, nl liver, spleen, non-tender, soft Musculoskeletal: nl extremities to inspection, nl gait and stance Extremities: normal pulses 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, nl mental status, nl speech, nl strength Skin: nl turgor, No rash or lesions Lymph: nl lymph nodes Additional Comments Spoke to at bedside re rising BUN/Creat Pt may have to be considered for HD Results Result Diagram: 12/18/16 0453 12/18/16 0453 Results 24 hrs Laboratory Tests Test 12/19/16 07:50 12/19/16 11:53 12/19/16 17:23 Bedside Glucose 164 182 180 Medications Medications Current Medications Rifaximin (Xifaxan) 550 mg BID PO Last administered on 12/19/16t 08:48; Admin Dose 550 MG; Start 11/28/16 at 21:00 Miscellaneous Information 1 ea NOTE XX ; Start 11/28/16 at 20:00 Glucose (Glutose) 15 gm Q15M PRN PO DECREASED GLUCOSE; Start 11/28/16 at 20:00 Glucose (Glutose) 22.5 gm Q15M PRN PO DECREASED GLUCOSE; Start 11/28/16 at 20: 00 Dextrose (D50w Syringe) 25 ml Q15M PRN IV DECREASED GLUCOSE; Start 11/28/16 at 20:00 Dextrose (D50w Syringe) 50 ml Q15M PRN IV DECREASED GLUCOSE; Start 11/28/16 at 20:00 Glucagon (Glucagen) 1 mg Q15M PRN IM DECREASED GLUCOSE; Start 11/28/16 at 20:00 Glucose (Glutose) 15 gm Q15M PRN BUCCAL DECREASED GLUCOSE; Start 11/28/16 at 20 :00 Citric Acid/ Sodium Citrate (Bicitra) 15 ml BID PO Last administered on 08:48; Admin Dose 15 ML; Start 11/29/16 at 21:00 Pantoprazole (Protonix Tab) 40 mg DAILY@06 PO Last administered on 12/19/16 05 :37; Admin Dose 40 MG; Start 12/02/16 at 06:00 IV Flush (NS 10 ml) 10 ml PRN PRN IV IV PROTOCOL; Start 12/02/16 at 18:30 Ondansetron HCl (Zofran Inj) 4 mg Q6H PRN IV NAUSEA AND/OR VOMITING Last administered on 12/15/16 23:25; Admin Dose 4 MG; Start 12/03/16 at 02:30 Lactulose (Enulose) 40 gm Q6 PO Last administered on 12/19/16 17:07; Admin Dose 40 GM; Start 12/03/16 at 18:00 Diagnostic Test (Pha) (Accucheck) 1 ea 02 XX Last administered on 12/14/16 02: 12; Admin Dose 1 EA; Start 12/07/16 at 02:00 Ciprofloxacin (Cipro) 250 mg DAILY@06 PO Last administered on 12/19/16 05:38; Admin Dose 250 MG; Start 12/08/16 at 14:00 Calcium Carbonate (Oyster Shell Calcium) 1.25 gm BID PO Last administered on 08:48; Admin Dose 1.25 GM; Start 12/12/16 at 21:00 Epoetin Brandan (Epogen (Esrd)) 3,000 units MoWeFr@17 SC Last administered on 12/17 17:17; Admin Dose 3,000 UNITS; Start 12/17/16 at 17:00 Sodium Bicarbonate 650 mg 650 mg QID PO Last administered on 12/19/16 17:07; Admin Dose 650 MG; Start 12/16/16 at 21:00 Sodium Chloride (NS) 1,000 ml @ 50 mls/hr Q20H IV Last administered on 08:33; Admin Dose 100 MLS/HR; Start 12/17/16 at 22:30 Morphine Sulfate (morphine) 4 mg Q4H PRN IV PAIN LEVEL 6-10; Start 12/19/16 at 18:00 NELSON BRIGGS MD Dec 19, 2016 18:35
[2016-12-19 20:17] VITALS: BP 114/61; RESP 20
[2016-12-19] MEDS: morphine 4 MG/ML VIAL IV PRN (22:22)
[2016-12-20] MEDS: LACTULOSE 30ML CUP PO SCH ×5 (00:06→23:48)
[2016-12-20] MEDS: ACCUCHECK XX SCH ×4 (02:19→17:07)
[2016-12-20] MEDS: morphine 4 MG/ML VIAL IV PRN ×5 (03:57→23:46)
[2016-12-20] MEDS: PANTOPRAZOLE (EC) 40 MG TAB PO SCH (05:59)
[2016-12-20] MEDS: CIPROFLOXACIN 250 MG TAB PO SCH (05:59)
[2016-12-20 07:30] VITALS: BP 90/44; RESP 18
[2016-12-20] MEDS: INSULIN ASPART [NOVOLOG] 3 ML PEN SC SCH ×3 (07:30→17:07)
[2016-12-20 08:00] VITALS: BP 111/58; PULSE 98; RESP 18
[2016-12-20] MEDS: CALCIUM CARBONATE 500 MG CHEW TAB PO SCH ×3 (08:10→17:58)
[2016-12-20] MEDS: CALCIUM CARBONATE 1.25 GM TAB PO SCH ×2 (08:10→20:27)
[2016-12-20] MEDS: CITRIC ACID/NA CITRATE 30 ML CUP PO SCH ×2 (08:10→20:26)
[2016-12-20] MEDS: NA BICARBONATE 650 MG TAB PO SCH ×4 (08:10→20:27)
[2016-12-20] MEDS: RIFAXIMIN 550 MG TAB PO SCH ×2 (08:10→20:20)
[2016-12-20 08:11] VITALS: BP 107/54; PULSE 102; RESP 18
--- NOTE | 2016-12-20 14:39 | CONS ---
TAVIA TY NEUROSURGICAL NURSE 12/20/16 1439: Date/Time of Note Date/Time of Note DATE: 12/20/16 TIME: 14:39 Assessment/Plan Assessment/Plan Chief Complaint/Hosp Course assessment/impression - sepsis d/t peritonitis - leukocytosis and tachycardia resolved. - culture-negative neutrocytic peritonitis, s/p paracentesis 12/02/2016. Ascitic PMNs=9,413. Repeat paracentesis done 12/10/16 with 7.8 L removed and ascitic fluid show decreased WBC and neutrophils and again on 12/16/16 with 10 L removed. Pt completed renally dosed, empiric meropenem (12/05/2016-12/08/2016), pip /tazo (12/01/2016-12/04/2016), caspofungin (12/03/2016-12/08/2016) - probable UTI (pyuria, increased urinary frequency) - urine cx showed no growth - thrush - resolved - LEONARDO/Acute renal failure - ileus - recurrent hepatic encephalopathy - cholelithiasis - RLQ pain: CT did not demonstrate other acute GI processes - h/o alcoholic liver cirrhosis and portal hypertension - Recurrent ascites s/p multiple paracentesis - DM - CRI - thrombocytopenia - normocytic anemia (HIV screen negative in 2017, hepatitis screen was negative in 2015) recommendations - continue renally dosed ciprofloxacin for secondary prophylaxis of SBP (2016-). Note: Pt completed renally dosed, empiric meropenem (12/05/2016-12/08/2016) , pip/tazo (12/01/2016-12/04/2016), caspofungin (12/03/2016-12/08/2016) and fluconazole for thrush (12/08/16-12/17/16) - continue rifaxamin (11/28/16-) - lactulose and titrate for at least 3 BMs/day; monitor mental status - management d/w pt's family and pt's RN - Above d/w Dr. Diggs Problems: Consultation Date/Type/Reason Admit Date/Time Nov 28, 2016 at 12:41 Initial Consult Date 12/02/16 Type of Consultation: Infectious Disease Referring Provider: SUNDAR OBRIEN 24 HR Interval Summary Free Text/Dictation Pt refused AM Lactulose per nursing note. Sleeping most the day and did not eat breakfast and lunch per family but took lactulose with no BM yet today. Moaning intermittently. Will need Corey catheter per Dr. Wiseman's note and family considering HD. Subjective hx not possible: pt non-verbal Exam/Review of Systems Vital Signs Vitals Vital Signs Date Time Temp Pulse Resp B/P Pulse Ox O2 Delivery O2 Flow Rate FiO2 12/20/16 08:11 98.8 102 18 107/54 96 Room Air Intake and Output 12/19/16 12/19/16 12/20/16 15:00 23:00 07:00 Intake Total 160 ml 100 ml Output Total 100 ml 40 ml Balance 60 ml 60 ml Exam Constitutional: lethargic, frail, well developed Head: atraumatic, normocephalic Neck: supple, no carotid bruits Respiratory: diminished breath sounds Cardiovascular: nl pulses, regular rate and rhythm Gastrointestinal: soft, distended -ascites Musculoskeletal: nl extremities to inspection Extremities: no clubbing, cyanosis or edema 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: withdraws to pain, arousable but lethargic, moaning intermittently. VASQUEZ weakly. Results Result Diagram: 12/18/16 0453 12/18/16 0453 Results 24 hrs Laboratory Tests Test 12/19/16 17:23 12/20/16 02:18 12/20/16 07:37 12/20/16 11:49 Bedside Glucose 180 162 136 143 Medications Medications Current Medications Rifaximin (Xifaxan) 550 mg BID PO Last administered on 12/20/16t 08:10; Admin Dose 550 MG; Start 11/28/16 at 21:00 Miscellaneous Information 1 ea NOTE XX ; Start 11/28/16 at 20:00 Glucose (Glutose) 15 gm Q15M PRN PO DECREASED GLUCOSE; Start 11/28/16 at 20:00 Glucose (Glutose) 22.5 gm Q15M PRN PO DECREASED GLUCOSE; Start 11/28/16 at 20: 00 Dextrose (D50w Syringe) 25 ml Q15M PRN IV DECREASED GLUCOSE; Start 11/28/16 at 20:00 Dextrose (D50w Syringe) 50 ml Q15M PRN IV DECREASED GLUCOSE; Start 11/28/16 at 20:00 Glucagon (Glucagen) 1 mg Q15M PRN IM DECREASED GLUCOSE; Start 11/28/16 at 20:00 Glucose (Glutose) 15 gm Q15M PRN BUCCAL DECREASED GLUCOSE; Start 11/28/16 at 20 :00 Citric Acid/ Sodium Citrate (Bicitra) 15 ml BID PO Last administered on 08:10; Admin Dose 15 ML; Start 11/29/16 at 21:00 Pantoprazole (Protonix Tab) 40 mg DAILY@06 PO Last administered on 12/20/16 05 :59; Admin Dose 40 MG; Start 12/02/16 at 06:00 IV Flush (NS 10 ml) 10 ml PRN PRN IV IV PROTOCOL; Start 12/02/16 at 18:30 Ondansetron HCl (Zofran Inj) 4 mg Q6H PRN IV NAUSEA AND/OR VOMITING Last administered on 12/15/16 23:25; Admin Dose 4 MG; Start 12/03/16 at 02:30 Lactulose (Enulose) 40 gm Q6 PO Last administered on 12/20/16 12:45; Admin Dose 40 GM; Start 12/03/16 at 18:00 Diagnostic Test (Pha) (Accucheck) 1 ea 02 XX Last administered on 12/20/16 02: 19; Admin Dose 1 EA; Start 12/07/16 at 02:00 Ciprofloxacin (Cipro) 250 mg DAILY@06 PO Last administered on 12/20/16 05:59; Admin Dose 250 MG; Start 12/08/16 at 14:00 Calcium Carbonate (Oyster Shell Calcium) 1.25 gm BID PO Last administered on 08:10; Admin Dose 1.25 GM; Start 12/12/16 at 21:00 Epoetin Brandan (Epogen (Esrd)) 3,000 units MoWeFr@17 SC Last administered on 12/17 17:17; Admin Dose 3,000 UNITS; Start 12/17/16 at 17:00 Sodium Bicarbonate 650 mg 650 mg QID PO Last administered on 12/20/16 12:45; Admin Dose 650 MG; Start 12/16/16 at 21:00 Sodium Chloride (NS) 1,000 ml @ 50 mls/hr Q20H IV Last administered on 08:33; Admin Dose 100 MLS/HR; Start 12/17/16 at 22:30 Morphine Sulfate (morphine) 4 mg Q4H PRN IV PAIN LEVEL 6-10 Last administered on 12/20/16t 12:45; Admin Dose 4 MG; Start 12/19/16 at 18:00 MANFRED DIGGS M.D. 12/27/16 0847: Assessment/Plan Assessment/Plan Additional Assessment/Plan Caterina attestation: I discussed the management with INO Ty and agree with above. Exam/Review of Systems Results Result Diagram: 12/18/16 0453 12/18/16 0453 TAVIA TY NP Dec 20, 2016 14:39 MANFRED DIGGS M.D. Dec 27, 2016 08:47
[2016-12-20] MEDS: SOD CHLORIDE 0.9% 1,000 ML IV SCH (15:20)
[2016-12-20] MEDS: EPOETIN 3000 UNITS/1 ML INJ (ESRD) SC SCH (18:02)
--- NOTE | 2016-12-20 18:50 | CONS ---
Date/Time of Note Date/Time of Note DATE: 12/20/16 TIME: 18:49 Assessment/Plan Assessment/Plan Additional Assessment/Plan Chief Complaint/Hosp Course Impression: 1. Hepatic encephalopathy. 2. Cirrhosis of liver. 3. Refractory ascites. 4. Hepatorenal syndrome, type 2,worsening creatinine 5.29 5. Diabetes mellitus. 6. spontaneous bacterial peritonitis ,resolved 7. gallstone 8. Anemia: occult blood negative. PLAN: 1. To continue with lactulose and rifaximin for hepatic encephalopathy. 2. Fluid restriction. 3. I reduced IVF from 100 to 50 cc/hr. Recommend completely dc NS as IVF as pt has ascites. 4. If patient needs fluids, recommend albumin solution instead. 5. Advance diet as tolerated 6. continue Midodrine 5 mg bid 7. paracentesis PRN, with albumin infusion before and during procedure., 8. Consider dialysis if hepato-renal syndrome do not improve.poor urine out put Consultation Date/Type/Reason Admit Date/Time Nov 28, 2016 at 12:41 Initial Consult Date 11/29/16 Type of Consultation: Infectious Disease Referring Provider: SUNDAR OBRIEN 24 HR Interval Summary Free Text/Dictation lethargic Exam/Review of Systems Vital Signs Vitals Vital Signs Date Time Temp Pulse Resp B/P Pulse Ox O2 Delivery O2 Flow Rate FiO2 12/20/16 08:11 98.8 102 18 107/54 96 Room Air Intake and Output 12/19/16 12/19/16 12/20/16 15:00 23:00 07:00 Intake Total 160 ml 100 ml Output Total 100 ml 40 ml Balance 60 ml 60 ml Exam Constitutional: alert, oriented, well developed Psych: nl mood/affect, no complaints Head: atraumatic, normocephalic Eyes: EOMI, PERRL, nl conjunctiva, nl lids, nl sclera ENMT: nl external ears & nose, nl lips & teeth, nl nasal mucosa & septum Neck: non-tender, supple Respiratory: clear to auscultation, normal air movement Cardiovascular: nl pulses, regular rate and rhythm Gastrointestinal: nl liver, spleen, non-tender, soft Musculoskeletal: nl extremities to inspection, nl gait and stance Extremities: normal pulses 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, nl mental status, nl speech, nl strength Skin: nl turgor, No rash or lesions Lymph: nl lymph nodes Results Result Diagram: 12/18/16 0453 12/18/16 0453 Results 24 hrs Laboratory Tests Test 12/20/16 02:18 12/20/16 07:37 12/20/16 11:49 12/20/16 17:03 Bedside Glucose 162 136 143 145 Medications Medications Current Medications Rifaximin (Xifaxan) 550 mg BID PO Last administered on 12/20/16 08:10; Admin Dose 550 MG; Start 11/28/16 at 21:00 Miscellaneous Information 1 ea NOTE XX ; Start 11/28/16 at 20:00 Glucose (Glutose) 15 gm Q15M PRN PO DECREASED GLUCOSE; Start 11/28/16 at 20:00 Glucose (Glutose) 22.5 gm Q15M PRN PO DECREASED GLUCOSE; Start 11/28/16 at 20: 00 Dextrose (D50w Syringe) 25 ml Q15M PRN IV DECREASED GLUCOSE; Start 11/28/16 at 20:00 Dextrose (D50w Syringe) 50 ml Q15M PRN IV DECREASED GLUCOSE; Start 11/28/16 at 20:00 Glucagon (Glucagen) 1 mg Q15M PRN IM DECREASED GLUCOSE; Start 11/28/16 at 20:00 Glucose (Glutose) 15 gm Q15M PRN BUCCAL DECREASED GLUCOSE; Start 11/28/16 at 20 :00 Citric Acid/ Sodium Citrate (Bicitra) 15 ml BID PO Last administered on 08:10; Admin Dose 15 ML; Start 11/29/16 at 21:00 Pantoprazole (Protonix Tab) 40 mg DAILY@06 PO Last administered on 12/20/16 05 :59; Admin Dose 40 MG; Start 12/02/16 at 06:00 IV Flush (NS 10 ml) 10 ml PRN PRN IV IV PROTOCOL; Start 12/02/16 at 18:30 Ondansetron HCl (Zofran Inj) 4 mg Q6H PRN IV NAUSEA AND/OR VOMITING Last administered on 12/15/16 23:25; Admin Dose 4 MG; Start 12/03/16 at 02:30 Lactulose (Enulose) 40 gm Q6 PO Last administered on 12/20/16 17:59; Admin Dose 40 GM; Start 12/03/16 at 18:00 Diagnostic Test (Pha) (Accucheck) 1 ea 02 XX Last administered on 12/20/16 02: 19; Admin Dose 1 EA; Start 12/07/16 at 02:00 Ciprofloxacin (Cipro) 250 mg DAILY@06 PO Last administered on 12/20/16 05:59; Admin Dose 250 MG; Start 12/08/16 at 14:00 Calcium Carbonate (Oyster Shell Calcium) 1.25 gm BID PO Last administered on 08:10; Admin Dose 1.25 GM; Start 12/12/16 at 21:00 Epoetin Brandan (Epogen (Esrd)) 3,000 units MoWeFr@17 SC Last administered on 12/20 18:02; Admin Dose 3,000 UNITS; Start 12/17/16 at 17:00 Sodium Bicarbonate 650 mg 650 mg QID PO Last administered on 12/20/16 17:58; Admin Dose 650 MG; Start 12/16/16 at 21:00 Sodium Chloride (NS) 1,000 ml @ 50 mls/hr Q20H IV Last administered on 15:20; Admin Dose 50 MLS/HR; Start 12/17/16 at 22:30 Morphine Sulfate (morphine) 4 mg Q4H PRN IV PAIN LEVEL 6-10 Last administered on 12/20/16 18:09; Admin Dose 4 MG; Start 12/19/16 at 18:00 JOHANA MOTLEY MD Dec 20, 2016 18:50
--- NOTE | 2016-12-20 19:34 | PN ---
Date/Time of Note Date/Time of Note DATE: 12/20/16 TIME: 19:31 Assessment/Plan VTE Prophylaxis VTE Prophylaxis Intervention: SCD's Lines/Catheters IV [facility] PICC Line Central line still needed: Yes Urinary Cath still in place: Yes Reason Cath still needed: urinary retention Assessment/Plan Chief Complaint/Hosp Course ASSESSMENT AND PLAN: - Sepsis, resolve. Continue abx per ID. Dr. Sandhu is following in infection disease consultation. - Possible SBP, follow-up on final ascetic culture. On Cipro. - Hepatic encephalopathy. Continue lactulose q.i.d. and rifaximin. Dr. Melendez is following in gastroenterology consultation. - Advanced alcoholic liver cirrhosis with recurrent ascites. s/p paracentesis on 12/02, 12/10, 12/16. - LEONARDO on Chronic kidney disease. Dr. Morrison is following in nephrology consultation. - Diabetes mellitus. Continue NovoLog per mild algorithm sliding scale coverage. - Thrombocytopenia, most likely secondary to liver cirrhosis. Continue to monitor platelet count. - Coagulopathy Dr. Qureshi had a conversation with the patient's , discussed the patient' s condition. Patient requested information regarding possible hospice. Continue Protonix for peptic ulcer disease prophylaxis and sequential compression device for deep venous thrombosis prophylaxis. Further recommendations based on clinical course. Plan of care discussed with Dr. Qureshi. Problems: Subjective 24 Hr Interval Summary Free Text/Dictation Patient confused and lethargic. Exam/Review of Systems Vital Signs Vitals Vital Signs Date Time Temp Pulse Resp B/P Pulse Ox O2 Delivery O2 Flow Rate FiO2 12/20/16 08:11 98.8 102 18 107/54 96 Room Air Intake and Output 12/19/16 12/19/16 12/20/16 15:00 23:00 07:00 Intake Total 160 ml 100 ml Output Total 100 ml 40 ml Balance 60 ml 60 ml Exam GENERAL: Well-developed, well-nourished male currently in no acute distress HEENT: Head is atraumatic, normocephalic. Pupils equal, round, reactive to light and accommodation. The patient has slightly jaundiced sclerae. NECK: Supple. No cervical lymphadenopathy, no thyromegaly. CHEST: Lungs clear bilaterally. There is no rhonchi, wheezes, rales noted. CARDIOVASCULAR: Normal S1, S2. No murmurs, gallops, clicks, rubs noted. ABDOMEN: Protuberant, soft, distended, nontender. EXTREMITIES: No edema, clubbing, cyanosis. Pulses equal bilaterally 2+. SKIN: The patient has multiple ecchymotic areas and healing scabs. NEUROLOGIC: Patient is awake, alert to name and situation, otherwise confused. Results Result Diagram: 12/18/16 0453 12/18/16 0453 Results 24 hrs Laboratory Tests Test 12/20/16 02:18 12/20/16 07:37 12/20/16 11:49 12/20/16 17:03 Bedside Glucose 162 136 143 145 Medications Medications Current Medications Rifaximin (Xifaxan) 550 mg BID PO Last administered on 12/20/16 08:10; Admin Dose 550 MG; Start 11/28/16 at 21:00 Miscellaneous Information 1 ea NOTE XX ; Start 11/28/16 at 20:00 Glucose (Glutose) 15 gm Q15M PRN PO DECREASED GLUCOSE; Start 11/28/16 at 20:00 Glucose (Glutose) 22.5 gm Q15M PRN PO DECREASED GLUCOSE; Start 11/28/16 at 20: 00 Dextrose (D50w Syringe) 25 ml Q15M PRN IV DECREASED GLUCOSE; Start 11/28/16 at 20:00 Dextrose (D50w Syringe) 50 ml Q15M PRN IV DECREASED GLUCOSE; Start 11/28/16 at 20:00 Glucagon (Glucagen) 1 mg Q15M PRN IM DECREASED GLUCOSE; Start 11/28/16 at 20:00 Glucose (Glutose) 15 gm Q15M PRN BUCCAL DECREASED GLUCOSE; Start 11/28/16 at 20 :00 Citric Acid/ Sodium Citrate (Bicitra) 15 ml BID PO Last administered on 08:10; Admin Dose 15 ML; Start 11/29/16 at 21:00 Pantoprazole (Protonix Tab) 40 mg DAILY@06 PO Last administered on 12/20/16 05 :59; Admin Dose 40 MG; Start 12/02/16 at 06:00 IV Flush (NS 10 ml) 10 ml PRN PRN IV IV PROTOCOL; Start 12/02/16 at 18:30 Ondansetron HCl (Zofran Inj) 4 mg Q6H PRN IV NAUSEA AND/OR VOMITING Last administered on 12/15/16 23:25; Admin Dose 4 MG; Start 12/03/16 at 02:30 Lactulose (Enulose) 40 gm Q6 PO Last administered on 12/20/16 17:59; Admin Dose 40 GM; Start 12/03/16 at 18:00 Diagnostic Test (Pha) (Accucheck) 1 ea 02 XX Last administered on 12/20/16 02: 19; Admin Dose 1 EA; Start 12/07/16 at 02:00 Ciprofloxacin (Cipro) 250 mg DAILY@06 PO Last administered on 12/20/16 05:59; Admin Dose 250 MG; Start 12/08/16 at 14:00 Calcium Carbonate (Oyster Shell Calcium) 1.25 gm BID PO Last administered on 08:10; Admin Dose 1.25 GM; Start 12/12/16 at 21:00 Epoetin Brandan (Epogen (Esrd)) 3,000 units MoWeFr@17 SC Last administered on 12/20 18:02; Admin Dose 3,000 UNITS; Start 12/17/16 at 17:00 Sodium Bicarbonate 650 mg 650 mg QID PO Last administered on 12/20/16 17:58; Admin Dose 650 MG; Start 12/16/16 at 21:00 Sodium Chloride (NS) 1,000 ml @ 50 mls/hr Q20H IV Last administered on 15:20; Admin Dose 50 MLS/HR; Start 12/17/16 at 22:30 Morphine Sulfate (morphine) 4 mg Q4H PRN IV PAIN LEVEL 6-10 Last administered on 12/20/16 18:09; Admin Dose 4 MG; Start 12/19/16 at 18:00 RIDDHI BLOCK Dec 20, 2016 19:34
[2016-12-20 20:06] VITALS: BP 102/57; RESP 16
[2016-12-20] MEDS ORDERED: SOD CHLORIDE 0.9% 500 ML IV PRN (21:34)
[2016-12-21] MEDS: ACCUCHECK XX SCH (02:14)
[2016-12-21] MEDS: morphine 4 MG/ML VIAL IV PRN ×3 (03:34→20:52)
[2016-12-21] MEDS ORDERED: INSULIN ASPART [NOVOLOG] 3 ML PEN SC SCH (06:00)
[2016-12-21] MEDS: CIPROFLOXACIN 250 MG TAB PO SCH (06:00)
[2016-12-21] MEDS: LACTULOSE 30ML CUP PO SCH ×4 (06:00→18:00)
[2016-12-21] MEDS: PANTOPRAZOLE (EC) 40 MG TAB PO SCH (06:00)
[2016-12-21] MEDS: Insulin NOVOLOG SS MILD Algorithm (NPO/TPN/ENTERAL FEEDS) SC SCH ×3 (06:00→18:00)
[2016-12-21] MEDS: DEXTROSE 5%-0.45% NACL 1,000 ML IV SCH (06:22)
[2016-12-21 07:45] VITALS: BP 85/49; RESP 16
[2016-12-21] MEDS: CALCIUM CARBONATE 1.25 GM TAB PO SCH ×2 (09:00→21:00)
--- NOTE | 2016-12-21 10:00 | RADRPT ---
PROCEDURE: XR Abdomen 1 vw. CLINICAL INDICATION: Abdominal pain TECHNIQUE: AP view of the abdomen COMPARISON: None. FINDINGS: Nasogastric tube coiled in the fundus of the stomach. PICC line tip at SVC / RA junction. No organomegaly is identified. There is a nonspecific bowel gas pattern. There is no evidence of b owel obstruction. No free air is identified. No calculi are identified. The axial skeleton is unre markable. IMPRESSION: Nasogastric tube coiled in the fundus of the stomach Unremarkable examination. RPTAT: HGDB .Prasanna Boggs MD, MD Date Time Electronically viewed and signed by .Prasanna Boggs MD, on 12/21/2016 10:00 .B/
[2016-12-21] MEDS: CALCIUM CARBONATE 500 MG CHEW TAB PO SCH ×3 (11:13→19:05)
[2016-12-21] MEDS: RIFAXIMIN 550 MG TAB PO SCH ×2 (11:13→21:00)
[2016-12-21] MEDS: CITRIC ACID/NA CITRATE 30 ML CUP PO SCH ×2 (11:13→21:00)
[2016-12-21] MEDS: NA BICARBONATE 650 MG TAB PO SCH ×4 (11:14→21:00)
[2016-12-21 12:00] VITALS: BP 77/36; PULSE 100
[2016-12-21] MEDS: LANSOPRAZOLE 30 MG CAP NGT SCH (12:20)
[2016-12-21] MEDS ORDERED: SOD CHLORIDE 0.9% 250 ML IV ONE (12:30)
--- NOTE | 2016-12-21 12:39 | PN ---
Date/Time of Note Date/Time of Note DATE: 12/21/16 TIME: 12:35 Assessment/Plan VTE Prophylaxis VTE Prophylaxis Intervention: SCD's Lines/Catheters IV C[facility]ter Type (from [facility]): PICC Line Central line still needed: Yes Urinary Cath still in place: Yes Reason Cath still needed: urinary retention Assessment/Plan Chief Complaint/Hosp Course ASSESSMENT AND PLAN: - Sepsis, resolve. Continue abx per ID. Dr. Sandhu is following in infection disease consultation. - Possible SBP, follow-up on final ascetic culture. On Cipro. - Hepatic encephalopathy. Continue lactulose q.i.d. and rifaximin. Dr. Melendez is following in gastroenterology consultation. - Advanced alcoholic liver cirrhosis with recurrent ascites. s/p paracentesis on 12/02, 12/10, 12/16. - AKF on Chronic kidney disease. is following in nephrology consultation. - Diabetes mellitus. Continue NovoLog per mild algorithm sliding scale coverage. - Thrombocytopenia, most likely secondary to liver cirrhosis. Continue to monitor platelet count. - Coagulopathy Pending family decision regarding focus of care. Continue Protonix for peptic ulcer disease prophylaxis and sequential compression device for deep venous thrombosis prophylaxis. Further recommendations based on clinical course. Plan of care discussed with Dr. Qureshi. Problems: Subjective 24 Hr Interval Summary Free Text/Dictation Patient is very conflicted allergic and confused, unable to take p.o. meds, NG tube was placed. Hypotensive, will administer albumin. Exam/Review of Systems Vital Signs Vitals Vital Signs Date Time Temp Pulse Resp B/P Pulse Ox O2 Delivery O2 Flow Rate FiO2 12/21/16 07:45 97.6 101 16 85/49 97 12/20/16 08:11 Room Air Intake and Output 12/20/16 12/20/16 12/21/16 15:00 23:00 07:00 Intake Total 900 ml 100 ml Output Total 30 ml Balance 900 ml 70 ml Exam GENERAL: Well-developed, well-nourished male currently in no acute distress HEENT: Head is atraumatic, normocephalic. Pupils equal, round, reactive to light and accommodation. The patient has jaundiced sclerae. NGT. NECK: Supple. No cervical lymphadenopathy, no thyromegaly. CHEST: Lungs clear bilaterally. There is no rhonchi, wheezes, rales noted. CARDIOVASCULAR: Normal S1, S2. No murmurs, gallops, clicks, rubs noted. ABDOMEN: Protuberant, soft, distended, nontender. EXTREMITIES: No edema, clubbing, cyanosis. Pulses equal bilaterally 2+. SKIN: The patient has multiple ecchymotic areas and healing scabs. NEUROLOGIC: Patient is awake, alert to name and situation, otherwise confused. Results Result Diagram: 12/18/16 0453 12/18/16 0453 Results 24 hrs Laboratory Tests Test 12/20/16 17:03 12/21/16 02:12 12/21/16 06:21 Bedside Glucose 145 146 116 Medications Medications Current Medications Rifaximin (Xifaxan) 550 mg BID PO Last administered on 12/21/16 11:13; Admin Dose 550 MG; Start 11/28/16 at 21:00 Miscellaneous Information 1 ea NOTE XX ; Start 11/28/16 at 20:00 Glucose (Glutose) 15 gm Q15M PRN PO DECREASED GLUCOSE; Start 11/28/16 at 20:00 Glucose (Glutose) 22.5 gm Q15M PRN PO DECREASED GLUCOSE; Start 11/28/16 at 20: 00 Dextrose (D50w Syringe) 25 ml Q15M PRN IV DECREASED GLUCOSE; Start 11/28/16 at 20:00 Dextrose (D50w Syringe) 50 ml Q15M PRN IV DECREASED GLUCOSE; Start 11/28/16 at 20:00 Glucagon (Glucagen) 1 mg Q15M PRN IM DECREASED GLUCOSE; Start 11/28/16 at 20:00 Glucose (Glutose) 15 gm Q15M PRN BUCCAL DECREASED GLUCOSE; Start 11/28/16 at 20 :00 Citric Acid/ Sodium Citrate (Bicitra) 15 ml BID PO Last administered on 11:13; Admin Dose 15 ML; Start 11/29/16 at 21:00 IV Flush (NS 10 ml) 10 ml PRN PRN IV IV PROTOCOL; Start 12/02/16 at 18:30 Ondansetron HCl (Zofran Inj) 4 mg Q6H PRN IV NAUSEA AND/OR VOMITING Last administered on 12/15/16 23:25; Admin Dose 4 MG; Start 12/03/16 at 02:30 Lactulose (Enulose) 40 gm Q6 PO Last administered on 12/21/16 11:14; Admin Dose 20 GM; Start 12/03/16 at 18:00 Ciprofloxacin (Cipro) 250 mg DAILY@06 PO Last administered on 12/20/16 05:59; Admin Dose 250 MG; Start 12/08/16 at 14:00 Calcium Carbonate (Oyster Shell Calcium) 1.25 gm BID PO Last administered on 09:00; Admin Dose 1.25 GM; Start 12/12/16 at 21:00 Epoetin Brandan (Epogen (Esrd)) 3,000 units MoWeFr@17 SC Last administered on 12/20 18:02; Admin Dose 3,000 UNITS; Start 12/17/16 at 17:00 Sodium Bicarbonate (Sodium Bicarbonate Tab) 650 mg QID PO Last administered on 12/21/16 11:14; Admin Dose 650 MG; Start 12/16/16 at 21:00 Morphine Sulfate 4 mg 4 mg Q4H PRN IV PAIN LEVEL 6-10 Last administered on 12/21 03:34; Admin Dose 4 MG; Start 12/19/16 at 18:00 Dextrose/Sodium Chloride (D5-1/2ns) 1,000 ml @ 50 mls/hr Q20H IV Last administered on 12/21/16 06:22; Admin Dose 50 MLS/HR; Start 12/21/16 at 06:00 Insulin Aspart (Novolog Insulin Pen) (Adult SC Insulin - Mild Algorithm)... Q6 SC ; Start 12/21/16 at 06:00 Lansoprazole 30 mg 30 mg DAILY@06 NGT Last administered on 12/21/16 12:20; Admin Dose 30 MG; Start 12/21/16 at 12:00 Sodium Chloride (NS) 250 ml @ 250 mls/hr Q1H ONCE IV ; Start 12/21/16 at 12:30 ; Stop 12/21/16 at 13:29 RIDDHI BLOCK Dec 21, 2016 12:39
[2016-12-21 13:17] LABS: EOSINOPHILS % 0.1 % (0.0-7.0); HEMATOCRIT 31.6 % (42.0-52.0); HEMOGLOBIN 10.5 g/dl (14.0-18.0); LYMPHOCYTES # 0.5 10^3/ul (0.8-2.9); LYMPHOCYTES % 4.1 % (15.0-51.0); MEAN CORPUSCULAR HEMOGLOBIN 32.1 pg (29.0-33.0); MEAN CORPUSCULAR HGB CONC 33.2 g/dl (32.0-37.0); MEAN CORPUSCULAR VOLUME 96.8 fl (82.0-101.0); MEAN PLATELET VOLUME 10.6 fl (7.4-10.4); MONOCYTE # 1.1 10^3/ul (0.3-0.9); MONOCYTES % 9.5 % (0.0-11.0); NEUTROPHIL # 9.9 10^3/ul (1.6-7.5); NEUTROPHILS % 86.3 % (39.0-77.0); PLATELET COUNT 64 10^3/UL (140-440); RED BLOOD COUNT 3.27 10^6/ul (4.70-6.10); RED CELL DISTRIBUTION WIDTH 23.3 % (11.5-14.5); UNCORRECTED WBC 11.5 10^3/ul (4.8-10.8); WHITE BLOOD COUNT 11.5 10^3/ul (4.8-10.8)
[2016-12-21 13:19] LABS: CONDITION 1; LH ANALYZER COMMENTS 1
[2016-12-21 13:22] LABS: POTASSIUM 5.7 mmol/L (3.5-5.1)
[2016-12-21 13:25] LABS: CALCIUM 7.3 mg/dl (8.4-10.2)
--- NOTE | 2016-12-21 13:35 | CONS ---
Date/Time of Note Date/Time of Note DATE: 12/21/16 TIME: 13:35 Assessment/Plan Assessment/Plan Chief Complaint/Hosp Course assessment/impression - SIRS with mild leukocytosis and tachycardia - Hepatorenal syndrome with worsening creatinine - LEONARDO; now with oliguric acute renal failure - recurrent hepatic encephalopathy - sepsis d/t peritonitis - resolved - culture-negative neutrocytic peritonitis, s/p paracentesis 12/02/2016. Ascitic PMNs=9,413. Repeat paracentesis done 12/10/16 with 7.8 L removed and ascitic fluid show decreased WBC and neutrophils and again on 12/16/16 with 10 L removed. Pt completed renally dosed, empiric meropenem (12/05/2016-12/08/2016), pip /tazo (12/01/2016-12/04/2016), caspofungin (12/03/2016-12/08/2016) - probable UTI (pyuria, increased urinary frequency) - urine cx showed no growth - thrush - resolved - ileus - cholelithiasis - RLQ pain: CT did not demonstrate other acute GI processes - h/o alcoholic liver cirrhosis and portal hypertension - Recurrent ascites s/p multiple paracentesis - DM - CRI - thrombocytopenia - normocytic anemia (HIV screen negative in 2016, hepatitis screen was negative in 2015) recommendations - continue renally dosed ciprofloxacin for secondary prophylaxis of SBP (2016-). Note: Pt completed renally dosed, empiric meropenem (12/05/2016-12/08/2016) , pip/tazo (12/01/2016-12/04/2016), caspofungin (12/03/2016-12/08/2016) and fluconazole for thrush (12/08/16-12/17/16) - continue rifaxamin (11/28/16-) - lactulose and titrate for at least 3 BMs/day; monitor mental status - agree with hospice eval - management d/w pt's RN and with Yadira SWITCH INSPECTOR - Above d/w Dr. Ponce Problems: Consultation Date/Type/Reason Admit Date/Time Nov 28, 2016 at 12:41 Initial Consult Date 12/02/16 Type of Consultation: Infectious Disease Referring Provider: SUNDAR OBRIEN 24 HR Interval Summary Free Text/Dictation Remains with AMS, moaning intermittently, failed ST evaluation and NGT was inserted and lactulose given; Wrist restraints recently removed; Family considering hospice per NA[facility] [place]. Remains non-communicative and scratching upper chest on and off per mother-in- law. Subjective hx not possible: pt non-verbal Exam/Review of Systems Vital Signs Vitals Vital Signs Date Time Temp Pulse Resp B/P Pulse Ox O2 Delivery O2 Flow Rate FiO2 12/21/16 07:45 97.6 101 16 85/49 97 12/20/16 08:11 Room Air Intake and Output 12/20/16 12/20/16 12/21/16 15:00 23:00 07:00 Intake Total 900 ml 100 ml Output Total 30 ml Balance 900 ml 70 ml Exam Constitutional: lethargic, frail, well developed, chronically debilitated Head: atraumatic, normocephalic Neck: supple, no carotid bruits Respiratory: diminished breath sounds Cardiovascular: nl pulses, regular rate and rhythm Gastrointestinal: soft, distended -ascites. NGT clamped and intact. + loose yellowish stool. Musculoskeletal: nl extremities to inspection Extremities: no clubbing, cyanosis or edema 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: withdraws to pain, arousable but lethargic, moaning intermittently. Results Result Diagram: 12/21/16 1234 12/21/16 1234 Results 24 hrs Laboratory Tests Test 12/20/16 17:03 12/21/16 02:12 12/21/16 06:21 12/21/16 12:34 Bedside Glucose 145 146 116 Anion Gap 31 H Basophils # 0.0 Basophils % 0.0 Blood Morphology Comment Blood Urea Nitrogen Pending Calcium Level 7.3 L Carbon Dioxide Level 11 L Chloride Level 119 H Creatinine Pending Eosinophils # 0.0 Eosinophils % 0.1 Glucose Level 199 Hematocrit 31.6 L Hemoglobin 10.5 L Lymphocytes # 0.5 L Lymphocytes % 4.1 L Mean Corpuscular Hemoglobin 32.1 Mean Corpuscular Hemoglobin Concent 33.2 Mean Corpuscular Volume 96.8 Mean Platelet Volume 10.6 H Monocytes # 1.1 H Monocytes % 9.5 Neutrophils # 9.9 H Neutrophils % 86.3 H Nucleated Red Blood Cells # 0.0 Nucleated Red Blood Cells % 0.0 Platelet Count 64 L Potassium Level 5.7 H Red Blood Count 3.27 L Red Cell Distribution Width 23.3 H Sodium Level 155 H White Blood Count 11.5 #H Test 12/21/16 12:40 Bedside Glucose 223 H Medications Medications Current Medications Rifaximin (Xifaxan) 550 mg BID PO Last administered on 12/21/16 11:13; Admin Dose 550 MG; Start 11/28/16 at 21:00 Miscellaneous Information 1 ea NOTE XX ; Start 11/28/16 at 20:00 Glucose (Glutose) 15 gm Q15M PRN PO DECREASED GLUCOSE; Start 11/28/16 at 20:00 Glucose (Glutose) 22.5 gm Q15M PRN PO DECREASED GLUCOSE; Start 11/28/16 at 20: 00 Dextrose (D50w Syringe) 25 ml Q15M PRN IV DECREASED GLUCOSE; Start 11/28/16 at 20:00 Dextrose (D50w Syringe) 50 ml Q15M PRN IV DECREASED GLUCOSE; Start 11/28/16 at 20:00 Glucagon (Glucagen) 1 mg Q15M PRN IM DECREASED GLUCOSE; Start 11/28/16 at 20:00 Glucose (Glutose) 15 gm Q15M PRN BUCCAL DECREASED GLUCOSE; Start 11/28/16 at 20 :00 Citric Acid/ Sodium Citrate (Bicitra) 15 ml BID PO Last administered on 11:13; Admin Dose 15 ML; Start 11/29/16 at 21:00 IV Flush (NS 10 ml) 10 ml PRN PRN IV IV PROTOCOL; Start 12/02/16 at 18:30 Ondansetron HCl (Zofran Inj) 4 mg Q6H PRN IV NAUSEA AND/OR VOMITING Last administered on 12/15/16 23:25; Admin Dose 4 MG; Start 12/03/16 at 02:30 Lactulose (Enulose) 40 gm Q6 PO Last administered on 12/21/16 11:14; Admin Dose 20 GM; Start 12/03/16 at 18:00 Ciprofloxacin (Cipro) 250 mg DAILY@06 PO Last administered on 12/20/16 05:59; Admin Dose 250 MG; Start 12/08/16 at 14:00 Calcium Carbonate (Oyster Shell Calcium) 1.25 gm BID PO Last administered on 09:00; Admin Dose 1.25 GM; Start 12/12/16 at 21:00 Epoetin Brandan (Epogen (Esrd)) 3,000 units MoWeFr@17 SC Last administered on 12/20 18:02; Admin Dose 3,000 UNITS; Start 12/17/16 at 17:00 Sodium Bicarbonate (Sodium Bicarbonate Tab) 650 mg QID PO Last administered on 12/21/16 11:14; Admin Dose 650 MG; Start 12/16/16 at 21:00 Morphine Sulfate 4 mg 4 mg Q4H PRN IV PAIN LEVEL 6-10 Last administered on 12/21 03:34; Admin Dose 4 MG; Start 12/19/16 at 18:00 Dextrose/Sodium Chloride (D5-1/2ns) 1,000 ml @ 50 mls/hr Q20H IV Last administered on 12/21/16 06:22; Admin Dose 50 MLS/HR; Start 12/21/16 at 06:00 Insulin Aspart (Novolog Insulin Pen) (Adult SC Insulin - Mild Algorithm)... Q6 SC ; Start 12/21/16 at 06:00 Lansoprazole 30 mg 30 mg DAILY@06 NGT Last administered on 12/21/16 12:20; Admin Dose 30 MG; Start 12/21/16 at 12:00 Albumin Human (Albumin Human 25%) 100 ml @ 100 mls/hr ONCE ONCE IV ; Start at 14:00; Stop 12/21/16 at 14:59 Procedures Procedures Abdomen X-ray 12/21/16: Nasogastric tube coiled in the fundus of the stomach Unremarkable examination. TAVIA TY NP Dec 21, 2016 13:35
[2016-12-21] MEDS ORDERED: ALBUMIN HUMAN 25% 100 ML IV ONE (14:00)
[2016-12-21 14:37] LABS: CREATININE 8.21 mg/dl (0.61-1.24)
--- NOTE | 2016-12-21 15:08 | CONS ---
Date/Time of Note Date/Time of Note DATE: 12/21/16 TIME: 15:02 Assessment/Plan Assessment/Plan Chief Complaint/Hosp Course Pt will need nel Cath Problems: Additional Assessment/Plan Family not interested in HD considering Hospice Would dc renall f/u Consultation Date/Type/Reason Admit Date/Time Nov 28, 2016 at 12:41 Initial Consult Date 12/02/16 Type of Consultation: renal Referring Provider: SUNDAR OBRIEN 24 HR Interval Summary Free Text/Dictation pts condition has worsened, unresponsive Subjective hx not possible: pt non-verbal Exam/Review of Systems Vital Signs Vitals Vital Signs Date Time Temp Pulse Resp B/P Pulse Ox O2 Delivery O2 Flow Rate FiO2 12/21/16 07:45 97.6 101 16 85/49 97 12/20/16 08:11 Room Air Intake and Output 12/20/16 12/20/16 12/21/16 15:00 23:00 07:00 Intake Total 900 ml 100 ml Output Total 30 ml Balance 900 ml 70 ml Exam Constitutional: non-verbal Head: atraumatic, normocephalic Eyes: EOMI, PERRL, nl conjunctiva, nl lids, nl sclera ENMT: nl external ears & nose, nl lips & teeth, nl nasal mucosa & septum Neck: non-tender, supple Respiratory: clear to auscultation, normal air movement Cardiovascular: nl pulses, regular rate and rhythm Gastrointestinal: ascites, nl liver, spleen, non-tender, soft Musculoskeletal: nl extremities to inspection, nl gait and stance Extremities: normal pulses 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: 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 intact, nl mental status, nl speech, nl strength, unresponsive (Hepatic encephalopathy is worse) Skin: nl turgor, No rash or lesions Lymph: nl lymph nodes Results Result Diagram: 12/21/16 1234 12/21/16 1234 Results 24 hrs Laboratory Tests Test 12/20/16 17:03 12/21/16 02:12 12/21/16 06:21 12/21/16 12:34 Bedside Glucose 145 146 116 Anion Gap 31 H Basophils # 0.0 Basophils % 0.0 Blood Morphology Comment Blood Urea Nitrogen 125 H Calcium Level 7.3 L Carbon Dioxide Level 11 L Chloride Level 119 H Creatinine 8.21 H Eosinophils # 0.0 Eosinophils % 0.1 Glucose Level 199 Hematocrit 31.6 L Hemoglobin 10.5 L Lymphocytes # 0.5 L Lymphocytes % 4.1 L Mean Corpuscular Hemoglobin 32.1 Mean Corpuscular Hemoglobin Concent 33.2 Mean Corpuscular Volume 96.8 Mean Platelet Volume 10.6 H Monocytes # 1.1 H Monocytes % 9.5 Neutrophils # 9.9 H Neutrophils % 86.3 H Nucleated Red Blood Cells # 0.0 Nucleated Red Blood Cells % 0.0 Platelet Count 64 L Potassium Level 5.7 H Red Blood Count 3.27 L Red Cell Distribution Width 23.3 H Sodium Level 155 H White Blood Count 11.5 #H Test 12/21/16 12:40 Bedside Glucose 223 H Medications Medications Current Medications Rifaximin (Xifaxan) 550 mg BID PO Last administered on 12/21/16 11:13; Admin Dose 550 MG; Start 11/28/16 at 21:00 Miscellaneous Information 1 ea NOTE XX ; Start 11/28/16 at 20:00 Glucose (Glutose) 15 gm Q15M PRN PO DECREASED GLUCOSE; Start 11/28/16 at 20:00 Glucose (Glutose) 22.5 gm Q15M PRN PO DECREASED GLUCOSE; Start 11/28/16 at 20: 00 Dextrose (D50w Syringe) 25 ml Q15M PRN IV DECREASED GLUCOSE; Start 11/28/16 at 20:00 Dextrose (D50w Syringe) 50 ml Q15M PRN IV DECREASED GLUCOSE; Start 11/28/16 at 20:00 Glucagon (Glucagen) 1 mg Q15M PRN IM DECREASED GLUCOSE; Start 11/28/16 at 20:00 Glucose (Glutose) 15 gm Q15M PRN BUCCAL DECREASED GLUCOSE; Start 11/28/16 at 20 :00 Citric Acid/ Sodium Citrate (Bicitra) 15 ml BID PO Last administered on 11:13; Admin Dose 15 ML; Start 11/29/16 at 21:00 IV Flush (NS 10 ml) 10 ml PRN PRN IV IV PROTOCOL; Start 12/02/16 at 18:30 Ondansetron HCl (Zofran Inj) 4 mg Q6H PRN IV NAUSEA AND/OR VOMITING Last administered on 12/15/16 23:25; Admin Dose 4 MG; Start 12/03/16 at 02:30 Lactulose (Enulose) 40 gm Q6 PO Last administered on 12/21/16 11:14; Admin Dose 20 GM; Start 12/03/16 at 18:00 Ciprofloxacin (Cipro) 250 mg DAILY@06 PO Last administered on 12/20/16 05:59; Admin Dose 250 MG; Start 12/08/16 at 14:00 Calcium Carbonate (Oyster Shell Calcium) 1.25 gm BID PO Last administered on 09:00; Admin Dose 1.25 GM; Start 12/12/16 at 21:00 Epoetin Brandan (Epogen (Esrd)) 3,000 units MoWeFr@17 SC Last administered on 12/20 18:02; Admin Dose 3,000 UNITS; Start 12/17/16 at 17:00 Sodium Bicarbonate (Sodium Bicarbonate Tab) 650 mg QID PO Last administered on 12/21/16 11:14; Admin Dose 650 MG; Start 12/16/16 at 21:00 Morphine Sulfate 4 mg 4 mg Q4H PRN IV PAIN LEVEL 6-10 Last administered on 12/21 03:34; Admin Dose 4 MG; Start 12/19/16 at 18:00 Dextrose/Sodium Chloride (D5-1/2ns) 1,000 ml @ 50 mls/hr Q20H IV Last administered on 12/21/16 06:22; Admin Dose 50 MLS/HR; Start 12/21/16 at 06:00 Insulin Aspart (Novolog Insulin Pen) (Adult SC Insulin - Mild Algorithm)... Q6 SC ; Start 12/21/16 at 06:00 Lansoprazole (Prevacid) 30 mg DAILY@06 NGT Last administered on 12/21/16 12:20 ; Admin Dose 30 MG; Start 12/21/16 at 12:00 NELSON BRIGGS MD Dec 21, 2016 15:08
[2016-12-21 20:19] VITALS: BP 75/43; RESP 16
[2016-12-22] MEDS: morphine 4 MG/ML VIAL IV PRN ×4 (00:19→11:09)
[2016-12-22] MEDS: DEXTROSE 5%-0.45% NACL 1,000 ML IV SCH (01:43)
[2016-12-22] MEDS: LANSOPRAZOLE 30 MG CAP NGT SCH (05:50)
[2016-12-22] MEDS: CIPROFLOXACIN 250 MG TAB PO SCH (05:51)
[2016-12-22] MEDS: LACTULOSE 30ML CUP PO SCH ×3 (05:51→12:00)
[2016-12-22] MEDS: Insulin NOVOLOG SS MILD Algorithm (NPO/TPN/ENTERAL FEEDS) SC SCH ×3 (05:51→12:00)
[2016-12-22 07:54] VITALS: BP 97/51; RESP 18
[2016-12-22] MEDS: CALCIUM CARBONATE 500 MG CHEW TAB PO SCH ×2 (09:00→12:25)
[2016-12-22] MEDS: CALCIUM CARBONATE 1.25 GM TAB PO SCH (09:00)
[2016-12-22] MEDS: RIFAXIMIN 550 MG TAB PO SCH (09:00)
[2016-12-22] MEDS: CITRIC ACID/NA CITRATE 30 ML CUP PO SCH (09:00)
[2016-12-22] MEDS: NA BICARBONATE 650 MG TAB PO SCH ×2 (09:00→12:24)
[2016-12-22] MEDS ORDERED: NA POLYST SULFON 15 GM/60 ML BTL PR ONE (10:00)
--- NOTE | 2016-12-22 12:24 | CONS ---
Date/Time of Note Date/Time of Note DATE: 12/22/16 TIME: 12:23 Assessment/Plan Assessment/Plan Chief Complaint/Hosp Course - SIRS with mild leukocytosis and tachycardia - Hepatorenal syndrome with worsening creatinine - LEONARDO; now with oliguric acute renal failure - recurrent hepatic encephalopathy - sepsis d/t peritonitis - resolved - culture-negative neutrocytic peritonitis, s/p paracentesis 12/02/2016. Ascitic PMNs=9,413. Repeat paracentesis done 12/10/16 with 7.8 L removed and ascitic fluid show decreased WBC and neutrophils and again on 12/16/16 with 10 L removed. Pt completed renally dosed, empiric meropenem (12/05/2016-12/08/2016), pip /tazo (12/01/2016-12/04/2016), caspofungin (12/03/2016-12/08/2016) - probable UTI (pyuria, increased urinary frequency) - urine cx showed no growth - thrush - resolved - ileus - cholelithiasis - RLQ pain: CT did not demonstrate other acute GI processes - h/o alcoholic liver cirrhosis and portal hypertension - Recurrent ascites s/p multiple paracentesis - DM - CRI - thrombocytopenia - normocytic anemia (HIV screen negative in 2016, hepatitis screen was negative in 2015) recommendations - continue renally dosed ciprofloxacin for secondary prophylaxis of SBP (2016-). Note: Pt completed renally dosed, empiric meropenem (12/05/2016-12/08/2016) , pip/tazo (12/01/2016-12/04/2016), caspofungin (12/03/2016-12/08/2016) and fluconazole for thrush (12/08/16-12/17/16) - continue rifaxamin (11/28/16-) - lactulose and titrate for at least 3 BMs/day; monitor mental status - agree with hospice eval Problems: Consultation Date/Type/Reason Admit Date/Time Nov 28, 2016 at 12:41 Initial Consult Date 12/02/16 Type of Consultation: id Referring Provider: SUNDAR OBRIEN Exam/Review of Systems Vital Signs Vitals Vital Signs Date Time Temp Pulse Resp B/P Pulse Ox O2 Delivery O2 Flow Rate FiO2 12/22/16 07:54 96.4 95 18 97/51 97 2/21/17 12:00 Room Air Intake and Output 12/21/16 12/21/16 12/22/16 15:00 23:00 07:00 Intake Total 250 ml 630 ml 600 ml Output Total 50 ml 30 ml Balance 250 ml 580 ml 570 ml Results Result Diagram: 12/21/16 1234 12/21/16 1234 Results 24 hrs Laboratory Tests Test 12/21/16 12:34 12/21/16 12:40 Anion Gap 31 H Basophils # 0.0 Basophils % 0.0 Blood Morphology Comment Blood Urea Nitrogen 125 H Calcium Level 7.3 L Carbon Dioxide Level 11 L Chloride Level 119 H Creatinine 8.21 H Eosinophils # 0.0 Eosinophils % 0.1 Glucose Level 199 Hematocrit 31.6 L Hemoglobin 10.5 L Lymphocytes # 0.5 L Lymphocytes % 4.1 L Mean Corpuscular Hemoglobin 32.1 Mean Corpuscular Hemoglobin Concent 33.2 Mean Corpuscular Volume 96.8 Mean Platelet Volume 10.6 H Monocytes # 1.1 H Monocytes % 9.5 Neutrophils # 9.9 H Neutrophils % 86.3 H Nucleated Red Blood Cells # 0.0 Nucleated Red Blood Cells % 0.0 Platelet Count 64 L Potassium Level 5.7 H Red Blood Count 3.27 L Red Cell Distribution Width 23.3 H Sodium Level 155 H White Blood Count 11.5 #H Bedside Glucose 223 H Medications Medications Current Medications Rifaximin (Xifaxan) 550 mg BID PO Last administered on 12/21/16t 11:13; Admin Dose 550 MG; Start 11/28/16 at 21:00 Miscellaneous Information 1 ea NOTE XX ; Start 11/28/16 at 20:00 Glucose (Glutose) 15 gm Q15M PRN PO DECREASED GLUCOSE; Start 11/28/16 at 20:00 Glucose (Glutose) 22.5 gm Q15M PRN PO DECREASED GLUCOSE; Start 11/28/16 at 20: 00 Dextrose (D50w Syringe) 25 ml Q15M PRN IV DECREASED GLUCOSE; Start 11/28/16 at 20:00 Dextrose (D50w Syringe) 50 ml Q15M PRN IV DECREASED GLUCOSE; Start 11/28/16 at 20:00 Glucagon (Glucagen) 1 mg Q15M PRN IM DECREASED GLUCOSE; Start 11/28/16 at 20:00 Glucose (Glutose) 15 gm Q15M PRN BUCCAL DECREASED GLUCOSE; Start 11/28/16 at 20 :00 Citric Acid/ Sodium Citrate (Bicitra) 15 ml BID PO Last administered on 11:13; Admin Dose 15 ML; Start 11/29/16 at 21:00 IV Flush (NS 10 ml) 10 ml PRN PRN IV IV PROTOCOL; Start 12/02/16 at 18:30 Ondansetron HCl (Zofran Inj) 4 mg Q6H PRN IV NAUSEA AND/OR VOMITING Last administered on 12/15/16 23:25; Admin Dose 4 MG; Start 12/03/16 at 02:30 Lactulose (Enulose) 40 gm Q6 PO Last administered on 12/21/16 11:14; Admin Dose 20 GM; Start 12/03/16 at 18:00 Ciprofloxacin (Cipro) 250 mg DAILY@06 PO Last administered on 12/20/16 05:59; Admin Dose 250 MG; Start 12/08/16 at 14:00 Calcium Carbonate (Oyster Shell Calcium) 1.25 gm BID PO Last administered on 09:00; Admin Dose 1.25 GM; Start 12/12/16 at 21:00 Epoetin Brandan (Epogen (Esrd)) 3,000 units MoWeFr@17 SC Last administered on 12/20 18:02; Admin Dose 3,000 UNITS; Start 12/17/16 at 17:00 Sodium Bicarbonate 650 mg 650 mg QID PO Last administered on 12/21/16 11:14; Admin Dose 650 MG; Start 12/16/16 at 21:00 Dextrose/Sodium Chloride (D5-1/2ns) 1,000 ml @ 50 mls/hr Q20H IV Last administered on 12/22/16 01:43; Admin Dose 50 MLS/HR; Start 12/21/16 at 06:00 Insulin Aspart (Novolog Insulin Pen) (Adult SC Insulin - Mild Algorithm)... Q6 SC ; Start 12/21/16 at 06:00 Lansoprazole (Prevacid) 30 mg DAILY@06 NGT Last administered on 12/21/16 12:20 ; Admin Dose 30 MG; Start 12/21/16 at 12:00 Morphine Sulfate (morphine) 4 mg Q2H PRN IV PAIN LEVEL 6-10 Last administered on 12/22/16t 11:09; Admin Dose 4 MG; Start 12/21/16 at 19:00 TONYA CURRY MD Dec 22, 2016 12:24
--- NOTE | 2016-12-22 13:02 | PN ---
Date/Time of Note Date/Time of Note DATE: 12/22/16 TIME: 13:00 Assessment/Plan VTE Prophylaxis VTE Prophylaxis Intervention: SCD's Lines/Catheters IV Catheter Type (from [facility]): PICC Line Central line still needed: Yes Urinary Cath still in place: Yes Reason Cath still needed: urinary retention Assessment/Plan Chief Complaint/Hosp Course ASSESSMENT AND PLAN: - Sepsis, resolve. Continue abx per ID. Dr. Sandhu is following in infection disease consultation. - Possible SBP, follow-up on final ascetic culture. On Cipro. - Hepatic encephalopathy. Continue lactulose q.i.d. and rifaximin. Dr. Melendez is following in gastroenterology consultation. - Advanced alcoholic liver cirrhosis with recurrent ascites. s/p paracentesis on 12/02, 12/10, 12/16. - AKF on Chronic kidney disease. is following in nephrology consultation. - Diabetes mellitus. Continue NovoLog per mild algorithm sliding scale coverage. - Thrombocytopenia, most likely secondary to liver cirrhosis. Continue to monitor platelet count. - Coagulopathy DNR/DNI status Pending hospice eval. Continue Protonix for peptic ulcer disease prophylaxis and sequential compression device for deep venous thrombosis prophylaxis. Further recommendations based on clinical course. Plan of care discussed with Dr. Qureshi. Problems: Subjective 24 Hr Interval Summary Free Text/Dictation Pt pulled out NGT, lethargic, confused. Exam/Review of Systems Vital Signs Vitals Vital Signs Date Time Temp Pulse Resp B/P Pulse Ox O2 Delivery O2 Flow Rate FiO2 12/22/16 07:54 96.4 95 18 97/51 97 12/21/16 12:00 Room Air Intake and Output 12/21/16 12/21/16 12/22/16 15:00 23:00 07:00 Intake Total 250 ml 630 ml 600 ml Output Total 50 ml 30 ml Balance 250 ml 580 ml 570 ml Exam GENERAL: Well-developed, well-nourished male currently in no acute distress HEENT: Head is atraumatic, normocephalic. Pupils equal, round, reactive to light and accommodation. The patient has jaundiced sclerae. NGT. NECK: Supple. No cervical lymphadenopathy, no thyromegaly. CHEST: Lungs clear bilaterally. There is no rhonchi, wheezes, rales noted. CARDIOVASCULAR: Normal S1, S2. No murmurs, gallops, clicks, rubs noted. ABDOMEN: Protuberant, soft, distended, nontender. EXTREMITIES: No edema, clubbing, cyanosis. Pulses equal bilaterally 2+. SKIN: The patient has multiple ecchymotic areas and healing scabs. NEUROLOGIC: Patient is awake, alert to name and situation, otherwise confused. Results Result Diagram: 12/21/16 1234 12/21/16 1234 Results 24 hrs Laboratory Tests Test 12/22/16 12:35 Bedside Glucose 171 Medications Medications Current Medications Rifaximin (Xifaxan) 550 mg BID PO Last administered on 12/21/16 11:13; Admin Dose 550 MG; Start 11/28/16 at 21:00 Miscellaneous Information 1 ea NOTE XX ; Start 11/28/16 at 20:00 Glucose (Glutose) 15 gm Q15M PRN PO DECREASED GLUCOSE; Start 11/28/16 at 20:00 Glucose (Glutose) 22.5 gm Q15M PRN PO DECREASED GLUCOSE; Start 11/28/16 at 20: 00 Dextrose (D50w Syringe) 25 ml Q15M PRN IV DECREASED GLUCOSE; Start 11/28/16 at 20:00 Dextrose (D50w Syringe) 50 ml Q15M PRN IV DECREASED GLUCOSE; Start 11/28/16 at 20:00 Glucagon (Glucagen) 1 mg Q15M PRN IM DECREASED GLUCOSE; Start 11/28/16 at 20:00 Glucose (Glutose) 15 gm Q15M PRN BUCCAL DECREASED GLUCOSE; Start 11/28/16 at 20 :00 Citric Acid/ Sodium Citrate (Bicitra) 15 ml BID PO Last administered on 11:13; Admin Dose 15 ML; Start 11/29/16 at 21:00 IV Flush (NS 10 ml) 10 ml PRN PRN IV IV PROTOCOL; Start 12/02/16 at 18:30 Ondansetron HCl (Zofran Inj) 4 mg Q6H PRN IV NAUSEA AND/OR VOMITING Last administered on 12/15/16 23:25; Admin Dose 4 MG; Start 12/03/16 at 02:30 Lactulose (Enulose) 40 gm Q6 PO Last administered on 12/21/16 11:14; Admin Dose 20 GM; Start 12/03/16 at 18:00 Ciprofloxacin (Cipro) 250 mg DAILY@06 PO Last administered on 12/20/16 05:59; Admin Dose 250 MG; Start 12/08/16 at 14:00 Calcium Carbonate (Oyster Shell Calcium) 1.25 gm BID PO Last administered on 09:00; Admin Dose 1.25 GM; Start 12/12/16 at 21:00 Epoetin Brandan (Epogen (Esrd)) 3,000 units MoWeFr@17 SC Last administered on 12/20 18:02; Admin Dose 3,000 UNITS; Start 12/17/16 at 17:00 Sodium Bicarbonate 650 mg 650 mg QID PO Last administered on 12/21/16 11:14; Admin Dose 650 MG; Start 12/16/16 at 21:00 Dextrose/Sodium Chloride (D5-1/2ns) 1,000 ml @ 50 mls/hr Q20H IV Last administered on 12/22/16 01:43; Admin Dose 50 MLS/HR; Start 12/21/16 at 06:00 Insulin Aspart (Novolog Insulin Pen) (Adult SC Insulin - Mild Algorithm)... Q6 SC ; Start 12/21/16 at 06:00 Lansoprazole (Prevacid) 30 mg DAILY@06 NGT Last administered on 12/21/16 12:20 ; Admin Dose 30 MG; Start 12/21/16 at 12:00 Morphine Sulfate (morphine) 4 mg Q2H PRN IV PAIN LEVEL 6-10 Last administered on 12/22/16 11:09; Admin Dose 4 MG; Start 12/21/16 at 19:00 RIDDHI BLOCK Dec 22, 2016 13:02
[2016-12-22] MEDS ORDERED: ACETAMINOPHEN 650 MG SUPP PR PRN (15:30)
[2016-12-22] MEDS ORDERED: ATROPINE SULFATE 1% 5ML SL PRN (15:30)
[2016-12-22] MEDS ORDERED: LORAZEPAM 2 MG INJ IV PRN (15:30)
[2016-12-22] MEDS ORDERED: BISACODYL 10 MG SUPP PR PRN (15:30)
[2016-12-22] MEDS ORDERED: ONDANSETRON 4 MG INJ IV PRN (15:30)
--- NOTE | 2016-12-22 16:28 | CONS ---
Date/Time of Note Date/Time of Note DATE: 12/22/16 TIME: 16:26 Assessment/Plan Assessment/Plan Chief Complaint/Hosp Course Pt will need nel Cath Problems: Additional Assessment/Plan Pt being transferred to Hospice care. Therefore, will stop f/u Consultation Date/Type/Reason Admit Date/Time Nov 28, 2016 at 12:41 Initial Consult Date 12/02/16 Type of Consultation: renal Referring Provider: SUNDAR OBRIEN 24 HR Interval Summary Free Text/Dictation NO change Subjective hx not possible: pt non-verbal Exam/Review of Systems Vital Signs Vitals Vital Signs Date Time Temp Pulse Resp B/P Pulse Ox O2 Delivery O2 Flow Rate FiO2 12/22/16 07:54 96.4 95 18 97/51 97 12/21/16 12:00 Room Air Intake and Output 12/21/16 12/21/16 12/22/16 15:00 23:00 07:00 Intake Total 250 ml 630 ml 600 ml Output Total 50 ml 30 ml Balance 250 ml 580 ml 570 ml Results Result Diagram: 12/21/16 1234 12/21/16 1234 Results 24 hrs Laboratory Tests Test 12/22/16 12:35 Bedside Glucose 171 Medications Medications Current Medications Morphine Sulfate/ Dextrose (morphine) 100 ml @ 2 mls/hr TITRATE IV ; Start 12/22 at 15:30 Lorazepam (Ativan) 0.5 mg Q4H PRN IV ANXIETY; Start 12/22/16 at 15:30 Bisacodyl (Dulcolax Supp) 10 mg DAILY PRN PA CONSTIPATION; Start 12/22/16 at 15 :30 Acetaminophen (Tylenol Supp) 650 mg Q4H PRN PA FEVER/TEMP>100; Start 12/22/16 at 15:30 Atropine Sulfate (Atropine Sulfate) 2 drop Q2H PRN SL SECRETIONS; Start at 15:30 Ondansetron HCl (Zofran Inj) 4 mg Q4H PRN IV NAUSEA AND/OR VOMITING; Start at 15:30 NELSON BRIGGS MD Dec 22, 2016 16:28
--- NOTE | 2016-12-22 17:58 | HP ---
DATE OF ADMISSION: 11/28/2016 HOSPICE [facility] LEVEL OF CARE. CHIEF COMPLAINT: Altered mental status and abdominal distention and pain. HISTORY OF PRESENT ILLNESS: The patient is a 55-year-old gentleman with a history of alcoholic live r cirrhosis with recurrent ascites and has been coming to [facility] ER for paracentesis. The last few months, the patient has been having increasing episodes of ascites. The patient also d eveloped recurrence of acute kidney injury; subsequently has now developed acute on chronic kidney i njury. The patient was admitted due to increasing abdominal pain, distention and altered mental st atus. The patient was seen in the ER, was noted to have a BUN of 61, creatinine of 2.8. The patien t's ammonia level was 101. The patient was started on lactulose and rifaximine. The patient was se en by Dr. Melendez from GI standpoint and Dr. Wiseman from nephrology standpoint. Patient also developed culture negative peritonitis and was treated with broad spectrum IV antibiotic as recommended by Dr Carrington Ponce's group from infectious disease standpoint. The patient continues to decline and has not b een able to walk or eat anything, despite optimal treatment. NG tube and dialysis was offered since the patient's BUN has gone up to 125 and creatinine has gone up to 8.2 and the patient became progr essively more encephalopathic. Family decided to make him DNR and requested hospice ____. I met wi th the patient's and children. All of them requested that patient be made comfortable, and did they not want any G-tube feeding and also requested no dialysis and only comfort care was requested . The patient's ____ was limited as the patient was lethargic and encephalopathic. Patient did not have any recent GI bleed. The patient did not have any leg edema. No acute skin rash. Patient d oes have abdominal distention, no reported bleeding from any other site. PAST MEDICAL HISTORY: As stated above. In addition, the patient also has history of diabetes. PAST SURGICAL HISTORY: Status post left eye cataract repair. FAMILY HISTORY: Noncontributory. SOCIAL HISTORY: The patient, prior to admission, lived at home with his . The patient occasion ally used to smoke, but has history of heavy alcohol abuse in the past. ALLERGIES: ASPIRIN, TIMOLOL AND LATANOPROST. PHYSICAL EXAMINATION: GENERAL: The patient is lethargic. No useful communication possible. VITAL SIGNS: Temperature 96.4, pulse 95, respirations 18, blood pressure 97/51, O2 saturation 97%. HEENT: No eye discharge or redness. Extraocular movements could not be tested. Nose and ears norm al. Oropharynx revealed dry oral mucosa. NECK: Supple. No mass. CHEST: Revealed diminished air entry at bases. No use of accessory muscles. CARDIOVASCULAR: S1 and S2 normal. No murmur. ABDOMEN: Soft, ascites present. EXTREMITIES: No edema. No clubbing, cyanosis. NEUROLOGIC: The patient is lethargic and no useful communication was possible. IMPRESSION: 1. Hepatic encephalopathy due to end-stage liver disease secondary to alcoholic cirrhosis. 2. Diabetes. 3. Acute on chronic kidney disease. PLAN: Patient admitted under [facility] level of care and will be started on morphine drip at 2 mg an hour . Prior to that, the patient was already getting morphine at 4 mg q. 2 hours p.r.n. for pain and sh ortness of breath. Meanwhile, we will also start atropine drops for secretion and Ativan 0.5 q. 4h. p.r.n. for anxiety and Zofran for nausea and vomiting. All other treatments will be discontinued and we will continue to optimize comfort care as per family request. The patient is terminally ill and does meet the criteria for [facility] level of care. Dictated By: EDDIE BEASLEY/YANNI Conf#: [id number] DID#: [id number]
[2016-12-22] MEDS: MORPHINE IV SCH (18:14)
[2016-12-22] MEDS: D5W IV SCH (18:14)
[2016-12-22 19:56] VITALS: BP 82/49; RESP 16
[2016-12-23 08:00] VITALS: RESP 24
[2016-12-23 10:30] VITALS: BP 80/54; PULSE 50; RESP 14
[2016-12-23] MEDS ORDERED: SCOPOLAMINE 1.5 MG PATCH TRANSDERM SCH (12:00)
--- NOTE | 2016-12-23 12:26 | PN ---
DATE: 12/23/2016 SUBJECTIVE: Follow up on hepatic failure, renal failure. The patient continues to decline and is l ethargic, unable to recognize family members. No reported bleeding from any site. No reported feve r or chills. The patient does have increased secretions and scopolamine patch is being added. The patient's blood pressure continues to decline and currently his blood pressure has been running in t he 70s and 80s. PHYSICAL EXAMINATION: GENERAL: The patient is lethargic but arousable, does not follow commands. VITAL SIGNS: Temperature 96.6, pulse 100, respirations 24, blood pressure 82/49, O2 saturation 92% . HEENT: No eye discharge or redness. Nose and ears normal. Oropharynx revealed dry oral mucosa. NECK: No mass. CHEST: Revealed coarse breath sounds. CARDIOVASCULAR: S1, S2 normal. No murmur. ABDOMEN: Soft. Ascites present. EXTREMITIES: Trace edema. NEUROLOGIC: The patient is lethargic and nonverbal. IMPRESSION: 1. End-stage liver disease due to alcoholic cirrhosis. 3. Acute on chronic kidney disease. PLAN: The patient's morphine dose will be increased to 3 mg an hour due to increasing shortness of breath. Also, we will add scopolamine patch in addition to atropine drops for secretions. The manjinder ent remains terminally ill. Plan of care discussed with the patient's and children and also [facility] desk nurse, Adryan, as well as the patient's nurse, Kirill . Dictated By: EDDIE BEASLEY/YANNI Conf#: [id number] DID#: [id number]
[2016-12-23] MEDS: MORPHINE IV SCH (23:43)
[2016-12-23] MEDS: D5W IV SCH (23:43)
[2016-12-24 07:30] VITALS: RESP 6
--- NOTE | 2016-12-24 18:12 | DES ---
DATE OF ADMISSION: 11/28/2016 DATE OF : 12/24/2016 CAUSE OF : End-stage alcoholic liver disease, comorbid acute kidney injury, recurrent ascites. REASON FOR ADMISSION: The patient was a 55-year-old gentleman with history of end-stage liver disea se due to alcohol abuse who has had multiple admissions recently due to hepatic encephalopathy as we ll as recurrent ascites and also was diagnosed with spontaneous bacterial peritonitis. The patient recently had declined rapidly and had developed acute kidney injury and became anuric and recommende d to undergo hemodialysis; however, the patient's family requested comfort care, as the patient had been declining and was unable to recognize family members and has progressively declining p.o. intak e. The patient was admitted under [facility] level of care on 12/22/2016 and was started on morphine drip, which was slowly optimized. I spoke with the patient's and children on multiple occasions dur ing his hospitalization. The patient continues to decline. The patient's blood pressure also sergey nued to go down. This morning his respiratory was only 6 and the patient became progressively unres ponsive. The patient, this morning, was noted to be pulseless and was not breathing. The patient's family was at bedside. They were notified. The patient was pronounced at 8:24 a.m. on 2016 per [facility] protocol. The patient's family was at bedside. [facility] staff was also notified. Dictated By: EDDIE BEASLEY/YANNI Conf#: [id number] DID#: [id number]
== END 2016-12-24 08:24 | disposition expired | DRG 871 ==
LOC: E/R 10:55 → PP2 12:41 → ICU 12-01 19:10 → MS4 12-07 06:45 → PP2 12-11 11:42
PROVIDERS: ADMIT Internal Medicine; ATTEND Internal Medicine
PROC: 0W9G3ZX Drainage of Peritoneal Cavity, Percutaneous Approach, Diagnostic (ICD-10-PCS; principal; 2016-12-02)
PROC: 02HV33Z Insertion of Infusion Device into Superior Vena Cava, Percutaneous Approach (ICD-10-PCS; 2016-12-02)
PROC: 0W9G3ZX Drainage of Peritoneal Cavity, Percutaneous Approach, Diagnostic (ICD-10-PCS; 2016-12-10)
PROC: 0W9G3ZZ Drainage of Peritoneal Cavity, Percutaneous Approach (ICD-10-PCS; 2016-12-16)
DX: A41.9 Sepsis, unspecified organism (principal); N17.0 Acute kidney failure with tubular necrosis; K76.7 Hepatorenal syndrome; E87.0 Hyperosmolality and hypernatremia; E87.2 Acidosis; K65.2 Spontaneous bacterial peritonitis; D68.9 Coagulation defect, unspecified; D69.59 Other secondary thrombocytopenia; E87.1 Hypo-osmolality and hyponatremia; K56.7 Ileus, unspecified; E11.21 Type 2 diabetes mellitus with diabetic nephropathy; K70.40 Alcoholic hepatic failure without coma; E11.22 Type 2 diabetes mellitus with diabetic chronic kidney disease; K70.31 Alcoholic cirrhosis of liver with ascites; N18.9 Chronic kidney disease, unspecified; F10.10 Alcohol abuse, uncomplicated; E88.09 Other disorders of plasma-protein metabolism, not elsewhere classified; D63.8 Anemia in other chronic diseases classified elsewhere; B37.9 Candidiasis, unspecified; E87.6 Hypokalemia; K80.20 Calculus of gallbladder without cholecystitis without obstruction; Z51.5 Encounter for palliative care
CPT/HCPCS: 36415; 36430; 36569; 36600; 71010; 74000; 74176; 76937; 80048; 80053; 80306; 80307; 81001; 81003; 82042; 82140; 82247; 82248; 82270; 82803; 82962; 83036; 83615; 83935; 84100; 84132; 84157; 84295; 84300; 84443; 85025; 85610; 86703; 86850; 86900; 86901; 86920; 87040; 87070; 87075; 87081; 87086; 87102; 87116; 88104; 88305; 89050; 92526; 92610; 93005; 93306; 97162; A4310; C9113; J0610; J0885; J0886; J1815; J2185; J2270; J2405; J2543; J3480; J7030; J7040; J7042; J7050; J7070; P9016; P9035; P9047; P9059